=== PATIENT | female | born 1930 | race African-American/Black ===

== ENCOUNTER 2016-10-26 11:44 | Inpatient (IN) | payer OTHER ==
[2016-10-26 11:52] VITALS: BMI 32.9
--- NOTE | 2016-10-26 12:07 | PDOC ---
History of Present Illness <Bernardo Wilson - Last Filed: 10/26/16 13:20> - General History Source: Patient Exam Limitations: No Limitations - History of Present Illness Initial Comments: 10/26/16 12:28 The patient is an 85 year old female, with significant past medical history HTN , HLD, CAD s/p defibrillator, CHF, asthma, who presents today complaining of intermittent left sided chest pain over the past week. The patient does not have any pain at this time. The chest pain is non radiating and sharp that lasts for approximately 10 minutes. When she feels the pain, she usually takes an aspirin and goes to sleep. She has not mentioned the pain to her daughter until today, who then brought her into the emergency room. The patients daughter notes that the patient's diet supervisor is out of the country. Denies SOB, cough. Denies fever, chills, nausea, vomiting, sweats. Allergies: none reported PCP- No primary Social Hx: The patient lives at home alone. Process Development Associate - Dr. Uzair Gould <Angela Peacock - Last Filed: 10/26/16 14:35> - General Chief Complaint: Chest Pain Stated Complaint: CHEST PAIN Time Seen by Provider: 10/26/16 12:06 Past History - Past Medical History Anemia: No Asthma: No Cancer: No Cardiac Disorders: Yes (CAD) CVA: No COPD: No CHF: No Dementia: No Diabetes: No GI Disorders: No Disorders: No HTN: Yes Hypercholesterolemia: Yes Liver Disease: No Seizures: No Thyroid Disease: No - Surgical History Abdominal Surgery: No Appendectomy: No Cardiac Surgery: Yes (PPM/DF) Cholecystectomy: No Lung Surgery: No Neurologic Surgery: No Orthopedic Surgery: No - Psycho/Social/Smoking Cessation Hx Anxiety: No Suicidal Ideation: No Smoking Status: Yes Smoking History: Never smoked Have you smoked in the past 12 months: No Number of Cigarettes Smoked Daily: 0 Information on smoking cessation initiated: No Hx Alcohol Use: No Drug/Substance Use Hx: No Substance Use Type: None Hx Substance Use Treatment: No <Bernardo Wilson - Last Filed: 10/26/16 13:20> <Angela Peacock - Last Filed: 10/26/16 14:35> - Past Medical History Allergies/Adverse Reactions: Allergies Allergy/AdvReac Type Severity Reaction Status Date / Time No Known Allergies Allergy Verified 10/26/16 11:48 Home Medications: Ambulatory Orders Amlodipine Besylate 5 mg PO DAILY 10/26/16 Aspirin [ASA -] 81 mg PO DAILY 10/26/16 Carvedilol [Coreg] 25 mg PO BID 10/26/16 Losartan 50Mg/Hctz 12.5MG [Hyzaar -] 1 tab-cap PO DAILY 10/26/16 Multivitamin [Poly-Vitamin] 1 each PO DAILY 10/26/16 Naproxen [Naprosyn -] 500 mg PO BID 10/26/16 Pravastatin Sodium 20 mg PO DAILY 10/26/16 Sennosides/Docusate Sodium [Pericolace -] 1 tab PO PRN 10/26/16 Review of Systems - Review of Systems Able to Perform ROS?: Yes Comments:: 10/26/16 12:30 GENERAL/CONSTITUTIONAL: No fever or chills. No weakness. HEAD, EYES, EARS, NOSE AND THROAT: No change in vision. No ear pain or discharge. No sore throat. CARDIOVASCULAR: +intermittent chest pain x 1week. No shortness of breath. RESPIRATORY: No cough, wheezing, or hemoptysis. GASTROINTESTINAL: No nausea, vomiting, diarrhea or constipation. GENITOURINARY: No dysuria, frequency, or change in urination. MUSCULOSKELETAL: No joint or muscle swelling or pain. No neck or back pain. SKIN: No rash NEUROLOGIC: No headache, vertigo, loss of consciousness, or change in strength/ sensation. ENDOCRINE: No increased thirst. No abnormal weight change. HEMATOLOGIC/LYMPHATIC: No anemia, easy bleeding, or history of blood clots. ALLERGIC/IMMUNOLOGIC: No hives or skin allergy. <Angela Peacock - Last Filed: 10/26/16 14:35> *Physical Exam - Vital Signs Last Vital Signs Temp Pulse Resp BP Pulse Ox 98.2 F 144 H 18 95/56 97 10/26/16 11:48 10/26/16 11:48 10/26/16 11:48 10/26/16 11:48 10/26/16 11:48 <Bernardo Wilson - Last Filed: 10/26/16 13:20> - Vital Signs Last Vital Signs Temp Pulse Resp BP Pulse Ox 98.2 F 142 H 18 113/75 98 10/26/16 11:48 10/26/16 12:11 10/26/16 12:11 10/26/16 12:11 10/26/16 12:11 - Physical Exam Comments: 10/26/16 12:30 GENERAL: Awake, alert, and fully oriented, in no acute distress HEAD: No signs of trauma EYES: PERRLA, EOMI, sclera anicteric, conjunctiva clear ENT: Auricles normal inspection, hearing grossly normal, nares patent, oropharynx clear without exudates. Moist mucosa NECK: Normal ROM, supple, no lymphadenopathy, JVD, or masses LUNGS: Breath sounds equal, clear to auscultation bilaterally. No wheezes, no crackles, no rhales. HEART: +irregularly irregular rate and rhythm, normal S1 and S2, no murmurs, rubs or gallops ABDOMEN: Soft, nontender, normoactive bowel sounds. No guarding, no rebound. No masses EXTREMITIES: Normal range of motion, no edema. No clubbing or cyanosis. No cords , erythema, or tenderness NEUROLOGICAL: Cranial nerves II through XII grossly intact. Normal speech, normal gait SKIN: Warm, Dry, normal turgor, no rashes or lesions noted. <Angela Peacock - Last Filed: 10/26/16 14:35> ED Treatment Course - LABORATORY CBC & Chemistry Diagram: 10/26/16 12:15 10/26/16 12:15 <Bernardo Wilson - Last Filed: 10/26/16 13:20> - LABORATORY CBC & Chemistry Diagram: 10/26/16 12:15 10/26/16 12:15 <Angela Peacock - Last Filed: 10/26/16 14:35> Medical Decision Making - Medical Decision Making 10/26/16 12:34 Dr. Gould was called via office phone. His social secretary states that he is on vacation and asked us to call the on-call diet supervisor at the hospital. Dr. Alfredo was paged via paging service. Dr. Velazquez is home demonstrator. Awaiting call back. <Angela Peacock - Last Filed: 10/26/16 14:35> *DC/Admit/Observation/Transfer - Discharge Dispostion Admit: Yes - Attestations Physician Attestion: 10/26/16 12:07 I, Dr. Bernardo Wilson, attest that this document has been prepared under my direction and personally reviewed by me in its entirety. I further attest, that it accurately reflects all work, treatment, procedures and medical decision -making performed by me. <Bernardo Wilson - Last Filed: 10/26/16 13:20> - Attestations Scribe Attestion: 10/26/16 12:30 Documentation prepared by ANTHONY Hummel, acting as lpn or medical assistant for Bernardo Wilson DO. <Angela Peacock - Last Filed: 10/26/16 14:35> Diagnosis at time of Disposition: Atrial fibrillation with RVR - Discharge Dispostion Condition at time of disposition: Improved
[2016-10-26] MEDS ORDERED: dilTIAZem HCL 125 MG/25 ML - 25 ML VIAL ONE (12:14)
[2016-10-26] MEDS ORDERED: dilTIAZem HCL 50 MG/10 ML - 10 ML VIAL IVPUSH ONE ×2 (12:15→12:24)
[2016-10-26] MEDS ORDERED: DILTIAZEM INJECTION 125 MG in DEXTROSE 5%-WATER - 100 ML IVPB SCH (12:15)
[2016-10-26 12:21] LABS: MCH 27.3 pg (25.7-33.7); MCHC 30.7 g/dl (32.0-36.0); MEAN CELL VOLUME 89.1 fl (80-96); MEAN PLT VOLUME 8.9 fl (7.5-11.1); PLATELET COUNT 318 K/MM3 (134-434); RDW 18.4 % (11.6-15.6); WHITE BLOOD COUNT 15.8 K/mm3 (4.0-10.0)
[2016-10-26 12:41] LABS: INR 1.17 (0.82-1.09); PROTHROMBIN TIME (PATIENT) 12.9 SEC (9.98-11.88)
[2016-10-26 12:46] LABS: ALBUMIN 3.5 g/dl (3.4-5.0); ANION GAP 12 (8-16); BILIRUBIN,TOTAL 0.8 mg/dL (0.2-1.0); CALCIUM 9.2 mg/dL (8.5-10.1); CO2 22 mmol/L (21-32); CREATININE 3.7 mg/dL (0.55-1.02); GLUCOSE,RANDOM 117 mg/dL (74-106); MAGNESIUM 2.4 mg/dL (1.8-2.4); SGOT/AST 29 U/L (15-37); SGPT/ALT 41 U/L (12-78); TOT PROT 7.2 g/dl (6.4-8.2)
[2016-10-26] MEDS ORDERED: SODIUM CHLORIDE 500 ML IV STA (12:46)
[2016-10-26 12:50] LABS: ALK PHOS 172 U/L (45-117); TROPONIN I 0.06 ng/ml (0.00-0.05)
--- NOTE | 2016-10-26 14:32 | HP ---
CHIEF COMPLAINT: "Left sided chest pain" PCP: No PCP Cardiology: Dr. Rendon HISTORY OF PRESENT ILLNESS: patient is an 85 year old female, with significant past medical history HTN, HLD , CAD s/p defibrillator, CHF, asthma, who presents today complaining of intermittent left sided chest pain since a week. As per the patient, she was apparently well a week ago when she started having left sided chest pain, intermittent in nature, burning in quality, non radiating, reproducible, aggravated on movement, relieved on resting. Hasn't taken any pain medication at home for her condition. Not associated with palpitation, sob or cough. Patient states that she has been following with Dr. Rendon, her last visit was a month ago and everything was okay. Lives alone at home. Is able to walk and do her daily activities on her own. ER course was notable for: (1) Afebrile, Irregularly Irregular rate and rhythm, Leukocytosis (2) CXR- Left sided pacer, no acute pathology (3) IV Cardizem 10mg followed by drip Recent Travel: None PAST MEDICAL HISTORY: Hypertension, HLD, CAD s/p defibrillator, CHF, asthma PAST SURGICAL HISTORY: as mentioned above Social History: Smoking: started smoking at age 16, smoked for 5 years but quit Alcohol: Daily, more than a glass and less than 6packs. 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 Family History: Not known Allergies No Known Allergies Allergy (Verified 10/26/16 11:48) HOME MEDICATIONS: Confirmed with her pharmacy Home Medications Medication Instructions Recorded Amlodipine Besylate 5 mg PO DAILY 10/26/16 Aspirin [ASA -] 81 mg PO DAILY 10/26/16 Carvedilol [Coreg] 25 mg PO BID 10/26/16 Losartan 50Mg/Hctz 12.5MG [Hyzaar 1 tab-cap PO DAILY 10/26/16 -] Multivitamin [Poly-Vitamin] 1 each PO DAILY 10/26/16 Naproxen [Naprosyn -] 500 mg PO BID 10/26/16 Pravastatin Sodium 20 mg PO DAILY 10/26/16 Sennosides/Docusate Sodium 1 tab PO PRN 10/26/16 [Pericolace -] REVIEW OF SYSTEMS CONSTITUTIONAL: Present: Fatigue, ringing of ears Absent: fever, chills, diaphoresis, generalized weakness, malaise, loss of appetite, weight change HEENT: Absent: rhinorrhea, nasal congestion, throat pain, throat swelling, difficulty swallowing, mouth swelling, ear pain, eye pain, visual changes CARDIOVASCULAR: Absent: chest pain, syncope, palpitations, irregular heart rate, lightheadedness , peripheral edema RESPIRATORY: Absent: cough, shortness of breath, dyspnea with exertion, orthopnea, wheezing, stridor, hemoptysis GASTROINTESTINAL: Absent: abdominal pain, abdominal distension, nausea, vomiting, diarrhea, constipation, melena, hematochezia GENITOURINARY: Absent: dysuria, frequency, urgency, hesitancy, hematuria, flank pain, genital pain MUSCULOSKELETAL: Absent: myalgia, arthralgia, joint swelling, back pain, neck pain SKIN: Absent: rash, itching, pallor HEMATOLOGIC/IMMUNOLOGIC: Absent: easy bleeding, easy bruising, lymphadenopathy, frequent infections ENDOCRINE: Absent: unexplained weight gain, unexplained weight loss, heat intolerance, cold intolerance NEUROLOGIC: Absent: headache, focal weakness or paresthesias, dizziness, unsteady gait, seizure, mental status changes, bladder or bowel incontinence PSYCHIATRIC: Absent: anxiety, depression, suicidal or homicidal ideation, hallucinations. PHYSICAL EXAMINATION GENERAL: Elderly female, lying comfortably in bed, Awake, alert, and fully oriented, in no acute distress. HEAD: Normal with no signs of trauma. EYES: EOM intact, no pallor or icterus. EARS, NOSE, THROAT: Ears normal. Moist mucous membranes. Poor dentition. NECK: Supple. LUNGS: B/L Breath sounds equal, clear to auscultation bilaterally. No wheezes, and no crackles. No accessory muscle use. Chest: reproducible HEART: Irregularly irregular rate and rhythm, normal S1 and S2 with systolic murmur. ABDOMEN: Soft, nontender, not distended, normoactive bowel sounds, no guarding, no rebound, no masses. No hepatomegaly or splenomegaly. Per Rectal: No hemorrhoids or fissues, Empty rectal vault, no mass, minimal stool. MUSCULOSKELETAL: Normal range of motion at all joints. No bony deformities or tenderness. No CVA tenderness. UPPER EXTREMITIES: 2+ pulses, warm, well-perfused. No cyanosis. No clubbing. No peripheral edema. LOWER EXTREMITIES: 2+ pulses, warm, well-perfused. No calf tenderness. No peripheral edema. NEUROLOGICAL: No facial droop. Bulk/tone-normal, Power-5/5 in all ext. Cranial nerves II-XII intact. Normal speech. Normal gait. PSYCHIATRIC: Cooperative. Good eye contact. Appropriate mood and affect. SKIN: Warm, dry, normal turgor, no rashes or lesions noted, normal capillary refill. Echo 10/26/16 : Septal motion is consistent with conduction abnormality. Upper septal hypertrophy (sigmoid septum), normal variant, Left ventricular systolic function is moderate to severely reduced. Pacemaker in the right ventricle. left atrium is moderately dilated. Mild-mod-MR, TR, Right ventricular systolic pressure is elevated at 40-50mmHg. No pericardial effusion. ASSESSMENT/PLAN: Patient is an 85 year old female, with significant past medical history HTN, HLD , CAD s/p defibrillator, CHF, asthma, who presents today complaining of intermittent left sided chest pain over the past week. # New onset atrial fibrillation with RVR -uncontrolled Presented with chest pain. In the ED, found to be afebrile, irregularly irregular heart rate Was given Cardizem 10mg in the ED and cardizem drip was started and now it is controlled Admitted in Telemetry Continous cardiac monitoring Discontinued Cardizem drip and started her on PO Amiodarone 100mg BID, discussed with Dr. Ferrari. Echo as reported CHADsVasc score is 4, anticogulate with Heparin, stool occult negative Patient had a h/o GI bleed 3 years ago but hasn't had GI bleed since. Will monitor H/H closely Cardiology consult requested # Chest pain-r/o ACS Likely musculoskeletal-reproducible Troponins 0.06---> Pending at 6pm # Acute Kidney Injury- likely due to dehydration Creatinine 3.7, baseline 0.9 in 2012 IV NS 75mls/hr Urine electrolytes ordered Avoid nephrotoxic drugs # Persistent Leukocytosis Will try to obtain past medical records She is afebrile, CXR normal, hence will just monitor at this time # CAD Continue Aspirin # Hyperlipidemia Continue Atorvastatin 10mg HS # Hypertension Continue Amlodipine 5mg PO Daily. # Microcytic anemia r/o Iron deficiency anemia Baseline 10.6 in 2012; Today Hb-8.7 Iron studies pending Watch for any bleeding episodes, transfuse if actively bleeding and Hb < 7gm/ dl # FEN IV NS @ 75mls/hr Electrolytes to be repeated tomorrow Sodium controlled diet # Prophylaxis For DVT: On Heparin Drip For Gi: Not indicated # Code Status: Full Code # Dispo: Admitted in Telemetry. Duration of stay unknown. Illness, Investigation and Plan of care explained to the patient and her daughter. They verbalized understanding. Case discussed with Dr. Ferrari. Visit type - Emergency Visit Emergency Visit: Yes ED Registration Date: 10/26/16 Care time: The patient presented to the Emergency Department on the above date and was hospitalized for further evaluation of their emergent condition. - New Patient This patient is new to me today: Yes Date on this admission: 10/26/16 - Critical Care Critical Care patient: No
[2016-10-26 15:02] LABS: PLATELET ESTIMATE ADEQUATE (NORMAL)
--- NOTE | 2016-10-26 15:13 | PN ---
Teaching Attending Note Name of Resident: Ruthie Dalal ATTENDING PHYSICIAN STATEMENT I saw and evaluated the patient. I reviewed the resident's note and discussed the case with the resident. I agree with the resident's findings and plan as documented. SUBJECTIVE: chest pain x 1 week 85 year old female presents to the ED complaining of one week history of intermittent left sided chest pain 6/10 in intensity , non radiating. Pain is exacerbated by minimal exertion and relieved by her " regular meds" . She denies recent history of similar pain. Was seen by her sports commentator 1 month ago, denies recent cardiology tests , denies history of CAD and unclear why she had AICD placed. In the ED was found to have irregular heart rate of 130 and up. No prior history of arrhythmia. PMH HTN Hyperlipidemia CHF- systolic dysfunction CAD COPD Past SX Hx AICD Questionable history of CCATH Home Medication List Medication Instructions Recorded Confirmed Type Amlodipine Besylate 5 mg PO DAILY 10/26/16 10/26/16 History Aspirin [ASA -] 81 mg PO DAILY 10/26/16 10/26/16 History Carvedilol [Coreg] 25 mg PO BID 10/26/16 10/26/16 History Losartan 50Mg/Hctz 12.5MG [Hyzaar 1 tab-cap PO DAILY 10/26/16 10/26/16 History -] Multivitamin [Poly-Vitamin] 1 each PO DAILY 10/26/16 10/26/16 History Naproxen [Naprosyn -] 500 mg PO BID 10/26/16 10/26/16 History Pravastatin Sodium 20 mg PO DAILY 10/26/16 10/26/16 History Sennosides/Docusate Sodium 1 tab PO PRN 10/26/16 10/26/16 History [Pericolace -] OBJECTIVE: Vital Signs Temperature 97.8 F 10/26/16 14:56 Pulse Rate 105 H 10/26/16 14:56 Respiratory Rate 22 10/26/16 14:56 Blood Pressure 116/58 10/26/16 14:56 O2 Sat by Pulse Oximetry (%) 98 10/26/16 14:56 HEENT PERRLA, No JVD CVS S1 S2 WNL no MRG no pedal edema RS CTA B/l ABD Soft NT CBC, BMP 10/26/16 12:15 10/26/16 12:15 EKG - Afib w RVR ASSESSMENT AND PLAN: 1. Atrial Fibrillation with Rapid Ventricular Response - new onset, no registered or known history of AFIB. Controlled after initiation of cardizem drip. * Obtain Records from Dr Fish office ( patients sports commentator) * Echo 2D * start heparin , will switch to oral a/c when CR is stable * cardiology evaluation 2. Chest pain, provoked by exertion - borderline troponin which could be 2/2 renal insufficiency, no ST changes on EKG. * repeat enzymes * aspirin daily * serial ekg * cardiology evaluation * telemetry monitoring 3. History of CHF with systolic dysfunction - most recent echo available is from 2012 and shows reduced LVSF. Does not appear to be in acute exacerbation clinically . Has normal lung exam, no JVD, no pedal edema. Pro BNP is elevated but renal failure could be contributing. * Echo * c/w coreg 4. Acute on Chronic Renal Failure - possibly pre renal * ivf at 50 cc/hr * obtain UA stat * monitor BMP * US renal 5 Anemia of chronic disease- stable , no active bleeding * monitor CBC * transfuse 6. Leukocytosis - chronic , need to rule out acute infectionus process.
[2016-10-26] MEDS ORDERED: HEPARIN - 25,000 UNIT in SODIUM CHLORIDE 495 ML IV SCH (16:30)
[2016-10-26] MEDS ORDERED: HEPARIN NA (PORCINE) 5,000 UNITS/ML 1ML VIAL IVPUSH PRN ×2 (16:30)
[2016-10-26] MEDS ORDERED: SODIUM CHLORIDE 1,000 ML IV SCH (16:45)
--- NOTE | 2016-10-26 16:53 | MSN ---
Admitting History and Physical - Primary Care Physician PCP: None - Admission Chief Complaint: Left-sided chest pain History of Present Illness: Patient has had multiple episodes of left-sided chest pain, each episode lasting about 10 minutes for the past week. She describes the pain as "burning like a cigarette". The pain does not radiate and is relieved by rest and exacerbated by cleaning the house. Patient had similar symptoms about 3 years and followed with her guidance adviser (Dr. Gould) but is unclear about treatment. Patient denies SOB, palpitations, or nausea and vomiting. Patient admits to fatigue, foot pain, and occasional buzzing in the ears. History Source: Patient Limitations to Obtaining History: No Limitations - Past Medical History Cardiovascular: Yes: CAD, CHF, HTN, Hyperlipdemia Pulmonary: Yes: Asthma Gastrointestinal: Yes: Other (Rectal bleed 2012) Heme/Onc: Yes: Anemia - Past Surgical History Past Surgical History: Yes: None, AICD - Smoking History Smoking history: Never smoked Have you smoked in the past 12 months: No Aproximately how many cigarettes per day: 0 - Alcohol/Substance Use Hx Alcohol Use: Yes Number of Drinks Daily: 2 History of Substance Use: reports: None - Social History Usual Living Arrangement: Yes: Alone ADL: Family Assistance History of Recent Travel: No Home Medications - Allergies Allergies/Adverse Reactions: Allergies Allergy/AdvReac Type Severity Reaction Status Date / Time No Known Allergies Allergy Verified 10/26/16 11:48 - Home Medications Home Medications: Ambulatory Orders Amlodipine Besylate 5 mg PO DAILY 10/26/16 Aspirin [ASA -] 81 mg PO DAILY 10/26/16 Carvedilol [Coreg] 25 mg PO BID 10/26/16 Losartan 50Mg/Hctz 12.5MG [Hyzaar -] 1 tab-cap PO DAILY 10/26/16 Multivitamin [Poly-Vitamin] 1 each PO DAILY 10/26/16 Naproxen [Naprosyn -] 500 mg PO BID 10/26/16 Pravastatin Sodium 20 mg PO DAILY 10/26/16 Sennosides/Docusate Sodium [Pericolace -] 1 tab PO PRN 10/26/16 Family Disease History - Family Disease History Family History: Unremarkable Review of Systems - Review of Systems Constitutional: reports: Other (Fatigue). denies: Loss of Appetite, Unintentional Wgt. Loss Eyes: denies: Blurred Vision, Double Vision HENT: reports: Other (Buzzing in ears). denies: Difficult Swallowing, Nasal Congestion Neck: denies: Stiffness, Tenderness Cardiovascular: reports: Chest Pain. denies: Palpitations, Shortness of Breath Respiratory: denies: Cough Gastrointestinal: denies: Abdominal Pain, Dysphagia, Indigestion, Nausea, Vomiting Genitourinary: denies: Burning, Dysuria Integumentary: denies: Lesions, Rash, Wound Neurological: denies: Change in Speech, Headache, Numbness Hematology/Lymphatic: denies: Easily Bruised Physical Examination Vital Signs: Vital Signs Temperature 97.8 F 10/26/16 14:56 Pulse Rate 105 H 10/26/16 14:56 Respiratory Rate 22 10/26/16 14:56 Blood Pressure 116/58 10/26/16 14:56 O2 Sat by Pulse Oximetry (%) 98 10/26/16 14:56 Findings/Remarks: General: Well-nourished, animated women sitting comfortably in bed in no acute distress Head: Normocephalic, atraumatic Eyes: EOMI; PERRLA Ears: EAC clear; TM translucent Mouth/pharynx: Moist mucous membranes; no erythema or exudates; poor residential Neck: Supple; no lymphadenopathy; trachea midline Heart: Irregularly irregular; Normal S1/S2; systolic murmur head parasternally Chest: Tender to palpation at 4th and 5 th intercostal space midclavicular to midaxillary area Lungs: CTA b/l; no wheezes, rhonci or rales Abdomen: Normactive bowel sounds; soft; non-tender; non-distend; no hepatomegaly ; no splenomegaly; no masses MSK: Normal motion at all joints; no bony deformities Extremities: No edema; Warm, well-perfused, 2+ pulses UE/LE Neurological: CN II-XII grossly intact; normal speech; No facial droop; normal sensation; normal bulk and muscle tone; 5/5 muscle strength UE and LE b/l Skin: No digital clubbing, no lesions or rashes Imaging - Results Chest X-ray: Report Reviewed EKG: Report Reviewed Assessment/Plan Assessment and Plan: Animated 85 yr old woman with past medical history of HTN, HLD, CAD with ICD, CHF and asthma presents to ER with episodic left-sided chest pain for the last week and was found to have new-onset atrial fibrillation with rapid ventricular response. 1. New on-set atrial fibrillation with rapid ventricular response * Likely complication of moderate to severe LV dysfunction with moderate left atrial dilation and chronic ischemic heart disease * Begin Heparin drip; CHADVAS score of 4 * Discontinue cardizem drip and start amiodorione 100 mg po bid for ventricular rate control * Consult cardiology (Dr. Gould, patient's guidance adviser, is away) * Monitor patient in telemetry 2. Chest pain * May be MSK in origin; pain is reproducable with palpation of chest wall * Rule out ACS; 1st troponin .06; repeat troponin at 6pm 3. RICA * Cr 3.7 (baseline Cr 0.9 in 2013) * May be caused by hypovolemia; trial of IVF (NS 75 mls/hr); monitor patient's volume status to prevent worsening cardiac symptoms * Order urine electrolytes 4. Persistent leukocytosis * Patient afebrile with WBC of 15.8 * Investigate for underlying infection; CXR-no evidence of pneumonia; order urine culture 5. Normocytic anemia * Hemoglobin 8.7 (patient baseline hemoglobin of 10.6 in 2013) * Order iron studies * History of rectal bleed in 2013 * Test for FOB * Monitor hemoglobin and transfuse if hemoglobin below 7.5 gm/dL or if patient develops hypoxic symptoms 6. FEN * IV NS 75 mls/hr * Cardiac diet 7. DVT prophylaxis * Heparin drip 8. Dispo * Patient admitted and will monitor in telemetry
[2016-10-26] MEDS ORDERED: HEPARIN INFUSION - 500 ML IVPB ONE (17:15)
--- NOTE | 2016-10-26 17:19 | CON.CARD ---
Consult - History of Present Illness History of Present Illness: The patient is an 85 year old female, with significant past medical history HTN , HLD, CAD s/p defibrillator, CHF, asthma, who presents today complaining of intermittent left sided chest pain over the past week. The patient does not have any pain at this time. The chest pain is non radiating and sharp that lasts for approximately 10 minutes. When she feels the pain, she usually takes an aspirin and goes to sleep. She has not mentioned the pain to her daughter until today, who then brought her into the emergency room. The patients daughter notes that the patient's licensed psychologist is out of the country. Denies SOB, cough. Denies fever, chills, nausea, vomiting, sweats. Allergies: none reported PCP- No primary Social Hx: The patient lives at home alone. Flavor Room Worker - Dr. Uzair Gould [phone] - History Source Limitations to Obtaining History: Poor Historian - Past Medical History Cardio/Vascular: Yes: CAD, CHF, HTN, Hyperlipdemia Pulmonary: Yes: Asthma Gastrointestinal: Yes: Other (Rectal bleed 2012) - Past Surgical History Past Surgical History: Yes: None, AICD - Alcohol/Substance Use Hx Alcohol Use: Yes Number of Drinks Daily: 2 History of Substance Use: reports: None - Smoking History Smoking history: Never smoked Have you smoked in the past 12 months: No Aproximately how many cigarettes per day: 0 - Social History ADL: Family Assistance History of Recent Travel: No Home Medications - Allergies Allergies/Adverse Reactions: Allergies Allergy/AdvReac Type Severity Reaction Status Date / Time No Known Allergies Allergy Verified 10/26/16 11:48 - Home Medications Home Medications: Ambulatory Orders Amlodipine Besylate 5 mg PO DAILY 10/26/16 Aspirin [ASA -] 81 mg PO DAILY 10/26/16 Carvedilol [Coreg] 25 mg PO BID 10/26/16 Losartan 50Mg/Hctz 12.5MG [Hyzaar -] 1 tab-cap PO DAILY 10/26/16 Multivitamin [Poly-Vitamin] 1 each PO DAILY 10/26/16 Naproxen [Naprosyn -] 500 mg PO BID 10/26/16 Pravastatin Sodium 20 mg PO DAILY 10/26/16 Sennosides/Docusate Sodium [Pericolace -] 1 tab PO PRN 10/26/16 Review of Systems - Review of Systems Constitutional: reports: No Symptoms Eyes: reports: No Symptoms HENT: reports: No Symptoms Neck: reports: No Symptoms Cardiovascular: reports: Chest Pain Gastrointestinal: reports: No Symptoms Genitourinary: reports: No Symptoms Breasts: reports: No Symptoms Reported Musculoskeletal: reports: No Symptoms Integumentary: reports: No Symptoms Neurological: reports: No Symptoms Endocrine: reports: No Symptoms Hematology/Lymphatic: reports: No Symptoms Psychiatric: reports: No Symptoms Vital Signs: Vital Signs Temperature 97.8 F 10/26/16 14:56 Pulse Rate 105 H 10/26/16 14:56 Respiratory Rate 22 10/26/16 14:56 Blood Pressure 116/58 10/26/16 14:56 O2 Sat by Pulse Oximetry (%) 98 10/26/16 14:56 Constitutional: Yes: Well Nourished, No Distress, Calm Eyes: Yes: WNL, Conjunctiva Clear, EOM Intact HENT: Yes: WNL, Atraumatic, Normocephalic Neck: Yes: WNL, Supple, Trachea Midline Respiratory: Yes: WNL, Regular, CTA Bilaterally Gastrointestinal: Yes: WNL, Normal Bowel Sounds Renal/: Yes: WNL Cardiovascular: Yes: Pulse Irregular Musculoskeletal: Yes: WNL Extremities: Yes: WNL Integumentary: Yes: WNL Neurological: Yes: WNL, Alert, Oriented ...Motor Strength: WNL Psychiatric: Yes: WNL, Alert, Oriented - Other Data Labs, Other Data: INR, PTT INR 1.17 (0.82-1.09) H 10/26/16 12:15 Laboratory Tests 10/26/16 10/26/16 10/26/16 12:15 12:15 12:15 WBC 15.8 H RBC 3.19 L Hgb 8.7 L Hct 28.4 L MCV 89.1 MCHC 30.7 L RDW 18.4 H Plt Count 318 D MPV 8.9 Neutrophils % 78.0 Lymphocytes % 11.0 D Monocytes % 6.0 Eosinophils % 3.0 D Basophils % 2.0 D Differential Comment Manual diff done Platelet Estimate Adequate INR 1.17 H Sodium 141 Potassium 4.5 Chloride 107 Carbon Dioxide 22 Anion Gap 12 BUN 41 H D Creatinine 3.7 H D Creat Clearance w eGFR 11.67 Random Glucose 117 H Calcium 9.2 Magnesium 2.4 Total Bilirubin 0.8 AST 29 D ALT 41 D Alkaline Phosphatase 172 H Creatine Kinase 82 Troponin I 0.06 H B-Natriuretic Peptide Total Protein 7.2 Albumin 3.5 Blood Type Antibody Screen 10/26/16 10/26/16 12:15 12:15 WBC RBC Hgb Hct MCV MCHC RDW Plt Count MPV Neutrophils % Lymphocytes % Monocytes % Eosinophils % Basophils % Differential Comment Platelet Estimate INR Sodium Potassium Chloride Carbon Dioxide Anion Gap BUN Creatinine Creat Clearance w eGFR Random Glucose Calcium Magnesium Total Bilirubin AST ALT Alkaline Phosphatase Creatine Kinase Troponin I B-Natriuretic Peptide 68889.12 H Total Protein Albumin Blood Type B POSITIVE Antibody Screen Negative Imaging - Results Chest X-ray: Image Reviewed (no i/e) EKG: Image Reviewed (af LBBB) Assessment/Plan HTN, HLD, CAD s/p defibrillator, CHF, asthma, who presents today complaining of intermittent left sided chest pain over the past week. AF mod-severely reduced ef Plan AC rate control with cardizem and BB obtaine records re prior cardiac testing/ angio?/stents? from dr. Quintero office
[2016-10-26] MEDS ORDERED: HEPARIN NA (PORCINE) 5,000 UNITS/ML 1ML VIAL SQ SCH (22:00)
[2016-10-26] MEDS ORDERED: AMIODARONE HCL 200 MG TABLET (FP) PO SCH (22:00)
[2016-10-26] MEDS ORDERED: ATORVASTATIN CA 10 MG TABLET (FP) PO SCH (22:00)
[2016-10-26] MEDS ORDERED: CARVEDILOL 25 MG TABLET (FP) PO SCH (22:00)
[2016-10-26] MEDS ORDERED: DOPAMINE 400 MG/D5W - 250 ML IVPB SCH (23:45)
[2016-10-26] MEDS ORDERED: ATROPINE SULFATE 1 MG/10 ML DISP.SYRIN IVPUSH ONE (23:46)
[2016-10-26] MEDS ORDERED: GLUCAGON 1 MG KIT IVPUSH ONE ×2 (23:47→23:50)
[2016-10-27] MEDS: HEPARIN - 25,000 UNIT in SODIUM CHLORIDE 495 ML IV SCH ×2 (00:30→09:38)
--- NOTE | 2016-10-27 00:39 | RAPID ---
Physical Examination Vital Signs: Vital Signs Temperature 98.3 F 10/26/16 20:30 Pulse Rate 82 10/26/16 22:46 Respiratory Rate 19 10/26/16 22:46 Blood Pressure 111/48 10/26/16 22:46 O2 Sat by Pulse Oximetry (%) 98 10/26/16 19:36 Findings/Remarks: Rapid response called due to patient being bradycardic in 40s and hypotensive, 70s systolic. Constitutional: Yes: Anxious HENT: Yes: Atraumatic, Normocephalic Cardiovascular: Yes: Bradycardia, Pulse Irregular Respiratory: Yes: On Venti-Mask, Poor Air Entry Gastrointestinal: Yes: Normal Bowel Sounds, Soft, Abdomen, Obese Extremities: Yes: Cool Edema: No Peripheral Pulses: Left Radial: 2+, Right Radial: 2+, Left Doralis Pedis: 2+, Right Dorsalis Pedis: 2+, Left Femoral: 2+, Right Femoral: 2+ Neurological: Yes: Alert, Oriented Rapid Response - Rapid Response Assessment: This is a 89 year old female with a past medical history HTN, HLD, CAD s/p defibrillator, CHF, asthma, who presented with to hospital with initial complaints of chest pain. She was admitted for new onset atrial fibrillation with rapid ventricular response. She was initially on a cardizem drip, then being transition to po amiodarone 100mg po bid. She was also taking coreg 25mg po bid. Rapid response was called due to heart rate in 40s and sysloic blood pressure in 70s. #bradycardia and hypotension: -stat atropine 0.5mg IVP once -glucagon 1mg IVP once -venti mask; -dopamine drip starting at 5mcg: titrate; keep bp >90/60 -stop all antihypertensives -patient responded with a rise in BP, could not maintain off drip -transfer to ICU Critical Care Total Critical Care Time (in minutes): 35 Critical Care Statement: The care of this patient involved high complexity decision making to prevent further life threatening deterioration of the patient 's condition and/or to evalute & treat vital organ system(s) failure or risk of failure.
[2016-10-27] MEDS ORDERED: GLUCAGON 1 MG KIT IVPUSH ONE (01:04)
[2016-10-27] MEDS ORDERED: ATROPINE SULFATE 1 MG/10 ML DISP.SYRIN IVPUSH ONE (01:04)
[2016-10-27] MEDS ORDERED: SODIUM CHLORIDE 1,000 ML IV SCH (01:04)
[2016-10-27] MEDS ORDERED: HEPARIN NA (PORCINE) 5,000 UNITS/ML 1ML VIAL IVPUSH PRN ×4 (01:04)
[2016-10-27 01:30] LABS: MCH 27.2 pg (25.7-33.7); MCHC 30.5 g/dl (32.0-36.0); MEAN CELL VOLUME 89.3 fl (80-96); MEAN PLT VOLUME 9.2 fl (7.5-11.1); PLATELET COUNT 248 K/MM3 (134-434); RDW 18.2 % (11.6-15.6); WHITE BLOOD COUNT 15.9 K/mm3 (4.0-10.0)
--- NOTE | 2016-10-27 01:33 | CONSULT ---
Consult Consult Specialty:: PULMONARY/CRITICAL CARE MEDICINE Referred by:: Dr Ferrari Reason for Consultation:: hypotension - History of Present Illness Chief Complaint: chest pain History of Present Illness: In brief, 85 y/o female with CAD, ICM, CHF, has AICD (no PPM), admitted to the floor with chest pain, new onset AF w/RVR requiring Dilt push and drip. While on the floor she was being converted to PO Amio, also received Amlodipine and Coreg. She had an episode of bradycardia into the 40s with hypotension to 70s systolic. She was given Atropine 0.5mg, 1L of IVF and then started on a Dopamine drip. She maintained her mental status throughout this ordeal and has no complaints of pain, SOB, etc. She was brought to the ICU. - History Source History Provided By: Patient, Medical Record Limitations to Obtaining History: No Limitations - Past Medical History Cardio/Vascular: Yes: CAD, CHF, HTN, Hyperlipdemia Pulmonary: Yes: Asthma Gastrointestinal: Yes: Other (Rectal bleed 2012) - Past Surgical History Past Surgical History: Yes: None, AICD - Alcohol/Substance Use Hx Alcohol Use: Yes Number of Drinks Daily: 2 History of Substance Use: reports: None - Smoking History Smoking history: Never smoked Have you smoked in the past 12 months: No Aproximately how many cigarettes per day: 0 - Social History ADL: Family Assistance History of Recent Travel: No Home Medications - Allergies Allergies/Adverse Reactions: Allergies Allergy/AdvReac Type Severity Reaction Status Date / Time No Known Allergies Allergy Verified 10/26/16 11:48 - Home Medications Home Medications: Ambulatory Orders Amlodipine Besylate 5 mg PO DAILY 10/26/16 Aspirin [ASA -] 81 mg PO DAILY 10/26/16 Carvedilol [Coreg] 25 mg PO BID 10/26/16 Losartan 50Mg/Hctz 12.5MG [Hyzaar -] 1 tab-cap PO DAILY 10/26/16 Multivitamin [Poly-Vitamin] 1 each PO DAILY 10/26/16 Naproxen [Naprosyn -] 500 mg PO BID 10/26/16 Pravastatin Sodium 20 mg PO DAILY 10/26/16 Sennosides/Docusate Sodium [Pericolace -] 1 tab PO PRN 10/26/16 Review of Systems - Review of Systems Constitutional: reports: No Symptoms Eyes: reports: No Symptoms HENT: reports: No Symptoms Neck: reports: Swollen Glands Cardiovascular: reports: Palpitations, Other (chest pain) Respiratory: reports: No Symptoms Gastrointestinal: reports: No Symptoms Genitourinary: reports: No Symptoms Integumentary: reports: No Symptoms Neurological: reports: No Symptoms Physical Exam Vital Signs: Vital Signs Temperature 98.3 F 10/26/16 20:30 Pulse Rate 82 10/26/16 22:46 Respiratory Rate 19 10/26/16 22:46 Blood Pressure 111/48 10/26/16 22:46 O2 Sat by Pulse Oximetry (%) 98 10/26/16 19:36 Constitutional: Yes: Well Nourished Eyes: Yes: WNL HENT: Yes: Atraumatic, Normocephalic Neck: Yes: WNL Cardiovascular: Yes: Bradycardia, Pulse Irregular, JVD, S1, S2, S3 Respiratory: Yes: Diminished, On Nasal O2 Gastrointestinal: Yes: Normal Bowel Sounds, Soft Extremities: Yes: Cold Edema: No Peripheral Pulses WNL: Yes Integumentary: Yes: WNL Neurological: Yes: WNL ...Motor Strength: WNL Labs: CBC, BMP 10/26/16 12:15 Imaging - Results Chest X-ray: Image Reviewed EKG: Image Reviewed Problem List - Problems (1) Atrial fibrillation Code(s): I48.91 - UNSPECIFIED ATRIAL FIBRILLATION (2) Bradycardia Code(s): R00.1 - BRADYCARDIA, UNSPECIFIED (3) CHF (congestive heart failure) Code(s): I50.9 - HEART FAILURE, UNSPECIFIED (4) CAD (coronary artery disease) Code(s): I25.10 - ATHSCL HEART DISEASE OF [place] CORONARY ARTERY W/O ANG PCTRS (5) RICA (acute kidney injury) Code(s): N17.9 - ACUTE KIDNEY FAILURE, UNSPECIFIED Assessment/Plan AF w/RVR now bradycardic and hypotensive - suspect combination of Amlodipine, CCB, BB and Amio. Could also be decompensated heart failure. CHF RICA CAD -Hold all anti-hypertensives and rate controlling agents -Dopamine drip for chrono and inotrope - I defer TLC/aggressive measures for now in this 85 y/o who is chronically, critically ill -Stop IVF - suspect this is worsening heart failure, she has cold extremities, JVD and pulm edema, BNP is >10k -Kimball, check urine lytes and renal u/s -Check UA/culture - no abx for now -Cardiology follow up tomorrow -GOC discussions Critically Ill - CCT 45min Thank you for this interesting consult Sukumar Cruz Pulm/Critical Care REPRODUCTION SPECIALIST
[2016-10-27 08:09] LABS: MCH 27.2 pg (25.7-33.7); MCHC 30.9 g/dl (32.0-36.0); MEAN CELL VOLUME 88.1 fl (80-96); MEAN PLT VOLUME 9.2 fl (7.5-11.1); PLATELET COUNT 258 K/MM3 (134-434); RDW 18.2 % (11.6-15.6); WHITE BLOOD COUNT 17.1 K/mm3 (4.0-10.0)
[2016-10-27 08:33] LABS: ANION GAP 11 (8-16); CALCIUM 8.2 mg/dL (8.5-10.1); CO2 18 mmol/L (21-32); CREATININE 3.4 mg/dL (0.55-1.02); GLUCOSE,RANDOM 149 mg/dL (74-106); MAGNESIUM 2.1 mg/dL (1.8-2.4); PHOSPHOROUS 5.1 mg/dL (2.5-4.9)
[2016-10-27 08:41] LABS: THYROID STIMULATING HORMONE 0.59 uIU/ml (0.358-3.74)
[2016-10-27] MEDS: ASPIRIN 81 MG CHEWABLE TABLETS PO SCH (09:39)
[2016-10-27 09:49] LABS: PLATELET ESTIMATE ADEQUATE (NORMAL)
[2016-10-27 09:53] LABS: FERRITIN 60.08 ng/ml (6.9-282.5)
[2016-10-27] MEDS ORDERED: ASPIRIN 81 MG CHEWABLE TABLETS PO SCH (10:00)
[2016-10-27] MEDS ORDERED: amLODIPine BESYLATE 5 MG TABLET (FP) PO SCH (10:00)
--- NOTE | 2016-10-27 10:44 | PN ---
Physical Exam: SUBJECTIVE: Patient seen and examined Events noted. Patient is comfortable in ICU now on Dopamine drip since became bradycardic. Patient has a pacemaker. OBJECTIVE: Vital Signs Temperature 98.5 F 10/27/16 10:00 Pulse Rate 73 10/27/16 10:00 Respiratory Rate 19 10/27/16 10:00 Blood Pressure 87/79 10/27/16 10:00 O2 Sat by Pulse Oximetry (%) 100 10/27/16 09:15 GENERAL: The patient is awake, alert, and fully oriented, in no acute distress. HEAD: Normal with no signs of trauma. EYES: PERRL, extraocular movements intact, sclera anicteric, conjunctiva clear. No ptosis. ENT: Ears normal, nares patent, oropharynx clear without exudates, moist mucous membranes. NECK: Trachea midline, full range of motion, supple. LUNGS: decreased BS Bilaterally , clear to auscultation bilaterally, no wheezes , no crackles, no accessory muscle use. HEART: Regular rate and rhythm, S1, S2 positive, KIRSTEN 2/6 , positive for pacemaker. ABDOMEN: Soft, nontender, nondistended, normoactive bowel sounds, no guarding, no rebound, no hepatosplenomegaly, no masses. EXTREMITIES: 2+ pulses, warm, well-perfused, no edema. NEUROLOGICAL: Cranial nerves II through XII grossly intact. Normal speech, gait not observed. PSYCH: Normal mood, normal affect. SKIN: Warm, dry, normal turgor, no rashes or lesions noted CBCD WBC 17.1 K/mm3 (4.0-10.0) H 10/27/16 05:10 RBC 2.72 M/mm3 (3.60-5.2) L 10/27/16 05:10 Hgb 7.4 GM/dL (10.7-15.3) L 10/27/16 05:10 Hct 24.0 % (32.4-45.2) L 10/27/16 05:10 MCV 88.1 fl (80-96) 10/27/16 05:10 MCHC 30.9 g/dl (32.0-36.0) L 10/27/16 05:10 RDW 18.2 % (11.6-15.6) H 10/27/16 05:10 Plt Count 258 K/MM3 (134-434) 10/27/16 05:10 MPV 9.2 fl (7.5-11.1) 10/27/16 05:10 CMP Sodium 138 mmol/L (136-145) 10/27/16 05:10 Potassium 4.3 mmol/L (3.5-5.1) 10/27/16 05:10 Chloride 109 mmol/L (98-107) H 10/27/16 05:10 Carbon Dioxide 18 mmol/L (21-32) L 10/27/16 05:10 Anion Gap 11 (8-16) 10/27/16 05:10 BUN 46 mg/dL (7-18) H 10/27/16 05:10 Creatinine 3.4 mg/dL (0.55-1.02) H 10/27/16 05:10 Creat Clearance w eGFR 11.67 (>60) 10/26/16 12:15 Random Glucose 149 mg/dL (74-106) H D 10/27/16 05:10 Calcium 8.2 mg/dL (8.5-10.1) L 10/27/16 05:10 Total Bilirubin 0.8 mg/dL (0.2-1.0) 10/26/16 12:15 AST 29 U/L (15-37) D 10/26/16 12:15 ALT 41 U/L (12-78) D 10/26/16 12:15 Alkaline Phosphatase 172 U/L (45-117) H 10/26/16 12:15 Total Protein 7.2 g/dl (6.4-8.2) 10/26/16 12:15 Albumin 3.5 g/dl (3.4-5.0) 10/26/16 12:15 CARDIAC ENZYMES Creatine Kinase 82 IU/L (26-192) 10/26/16 12:15 Troponin I 0.09 ng/ml (0.00-0.05) H 10/26/16 18:00 Home Medications Medication Instructions Recorded Amlodipine Besylate 5 mg PO DAILY 10/26/16 Aspirin [ASA -] 81 mg PO DAILY 10/26/16 Carvedilol [Coreg] 25 mg PO BID 10/26/16 Losartan 50Mg/Hctz 12.5MG [Hyzaar 1 tab-cap PO DAILY 10/26/16 -] Multivitamin [Poly-Vitamin] 1 each PO DAILY 10/26/16 Naproxen [Naprosyn -] 500 mg PO BID 10/26/16 Pravastatin Sodium 20 mg PO DAILY 10/26/16 Sennosides/Docusate Sodium 1 tab PO PRN 10/26/16 [Pericolace -] Active Medications Generic Name Dose Route Start Last Admin Trade Name Freq PRN Reason Stop Dose Admin Aspirin 81 mg 10/27/16 10:00 10/27/16 09:39 Asa - PO 81 mg DAILY ALESSIA Administration Atorvastatin Calcium 10 mg 10/27/16 22:00 Lipitor - PO HS ALESSIA Heparin Sodium (Porcine) 1,000 unit 10/27/16 01:04 10/27/16 02:29 Heparin - IVPUSH 1,000 unit PRN PRN Administration Heparin Heparin Sodium (Porcine) 5,000 unit 10/27/16 01:04 Heparin - IVPUSH PRN PRN Heparin Dopamine HCl/Dextrose 250 mls @ 15.309 mls/hr 10/27/16 01:04 10/27/16 02:32 Dopamine 400 Mg/D5w - IVPB 16 mcg/kg/min TITR ALESSIA Titration Protocol 5 MCG/KG/MIN Heparin Sodium (Porcine) 25, 500 mls @ 20 mls/hr 10/27/16 01:04 10/27/16 09:38 000 unit/ Sodium Chloride IV 21 mls/hr TITR ALESSIA Administration Protocol 1,000 UNIT/HR ASSESSMENT/PLAN: Patient is an 85 year old female, with significant past medical history HTN, HLD , CAD s/p defibrillator, CHF, asthma, who presents today complaining of intermittent left sided chest pain over the past week. # Acute bradycardia and hypotension: Continue Dopamine drip 5mcg:continue and titrate; keep bp >90/60 , s/p atropine 0.5mg IVP once; glucagon 1mg IVP once # New onset atrial fibrillation with RVR CHADsVasc score is 4 , on Heparin drip , s/p cardizem, amiodarone # Atypical chest pain Likely musculoskeletal-reproducible. Troponins 0.06---> 0.09---> 0.03 now # Acute Kidney Injury- likely due to dehydration 3.7--->3.4 s/p IVF, nephro consult # Persistent Leukocytosis continue , She is afebrile, CXR normal, will monitor for now. # CAD continue Aspirin # Hyperlipidemia continue Atorvastatin 10mg HS # Hx of Hypertension off meds now since hypotensive now on Dopamine # Microcytic anemia r/o Iron deficiency anemia ,Baseline 10.6 in 2012; Hb-8.7-- >7.4 today will monitor # Prophylaxis DVT: On Heparin Drip Code Status: Full Code Visit type - Emergency Visit Emergency Visit: Yes ED Registration Date: 10/26/16 Care time: The patient presented to the Emergency Department on the above date and was hospitalized for further evaluation of their emergent condition. - New Patient This patient is new to me today: Yes Date on this admission: 10/27/16 - Critical Care Critical Care patient: Yes Total Critical Care Time (in minutes): 35 Critical Care Statement: The care of this patient involved high complexity decision making to prevent further life threatening deterioration of the patient 's condition and/or to evalute & treat vital organ system(s) failure or risk of failure.
--- NOTE | 2016-10-27 12:53 | PN ---
Progress Note, Physician Chief Complaint: Pt OOB in chair; denies chest pain, dyspnea, or palpitations. Family (daughter; niece) at bedside. History of Present Illness: The patient is an 85 year old female, with significant past medical history HTN , HLD, CAD s/p defibrillator, moderately severe systolic CHF, asthma, CKD, who presents today complaining of intermittent left sided chest pain over the past week. The patient does not have any pain at this time. The chest pain is non radiating and sharp that lasts for approximately 10 minutes. When she feels the pain, she usually takes an aspirin and goes to sleep. She has not mentioned the pain to her daughter until today, who then brought her into the emergency room. The patients daughter notes that the patient's fun house attendant is out of the country. Denies SOB, cough. Denies fever, chills, nausea, vomiting, sweats. Allergies: none reported PCP- No primary Social Hx: The patient lives at home alone. Education Adviser - Dr. Uzair Gould [phone] - Current Medication List Current Medications: Active Medications Aspirin (Asa -) 81 mg PO DAILY ALESSIA Last Admin: 10/27/16 09:39 Dose: 81 mg Atorvastatin Calcium (Lipitor -) 10 mg PO HS ALESSIA Heparin Sodium (Porcine) (Heparin -) 1,000 unit IVPUSH PRN PRN PRN Reason: Heparin Last Admin: 10/27/16 02:29 Dose: 1,000 unit Heparin Sodium (Porcine) (Heparin -) 5,000 unit IVPUSH PRN PRN PRN Reason: Heparin Dopamine HCl/Dextrose (Dopamine 400 Mg/D5w -) 250 mls @ 15.309 mls/hr IVPB TITR ALESSIA; 5 MCG/KG/MIN PRN Reason: Protocol Last Titration: 10/27/16 02:32 Dose: 16 mcg/kg/min Heparin Sodium (Porcine) 25, (000 unit/ Sodium Chloride) 500 mls @ 20 mls/hr IV TITR ALESSIA; 1,000 UNIT/HR PRN Reason: Protocol Last Admin: 10/27/16 09:38 Dose: 21 mls/hr - Objective Vital Signs: Vital Signs Temperature 98.5 F 10/27/16 10:00 Pulse Rate 73 10/27/16 10:00 Respiratory Rate 19 10/27/16 10:00 Blood Pressure 87/79 10/27/16 10:00 O2 Sat by Pulse Oximetry (%) 100 10/27/16 09:15 Constitutional: Yes: Calm Eyes: Yes: WNL HENT: Yes: WNL Neck: Yes: WNL Cardiovascular: Yes: Pulse Irregular Respiratory: Yes: Diminished, SOB on Exertion Gastrointestinal: Yes: Soft ...Rectal Exam: Yes: Deferred Genitourinary: No: Anuria Breast(s): Yes: WNL Musculoskeletal: Yes: Muscle Weakness Extremities: Yes: Cool Edema: No Peripheral Pulses WNL: No Peripheral Pulses: Left Doralis Pedis: 1+, Right Dorsalis Pedis: 1+ Neurological: Yes: Alert, Oriented, Weakness Psychiatric: Yes: WNL Labs: CBC, BMP 10/27/16 05:10 10/27/16 05:10 INR, PTT INR 1.17 (0.82-1.09) H 10/26/16 12:15 - ....Imaging Ultrasound: Report Reviewed (ECHO: moderate-severely reduced LVEF) Problem List - Problems (1) Atrial fibrillation Code(s): I48.91 - UNSPECIFIED ATRIAL FIBRILLATION (2) CAD (coronary artery disease) Code(s): I25.10 - ATHSCL HEART DISEASE OF [place] CORONARY ARTERY W/O ANG PCTRS (3) Asthma exacerbation Code(s): J45.901 - UNSPECIFIED ASTHMA WITH (ACUTE) EXACERBATION (4) Pneumonia Code(s): J18.9 - PNEUMONIA, UNSPECIFIED ORGANISM Qualifiers: Pneumonia type: due to unspecified organism Laterality: unspecified laterality Lung location: unspecified part of lung Qualified Code(s): J18.9 - Pneumonia, unspecified organism (5) Renal dysfunction Assessment/Plan: F/u Is and Os; ?gentle hydration (significant systolic CHF). F/u with professor of sociology. Code(s): N28.9 - DISORDER OF KIDNEY AND URETER, UNSPECIFIED (6) Acute on chronic systolic (congestive) heart failure Assessment/Plan: Problematic using usual classes of anti-CHF medications (e.g. beta blockers, ACEI or ARB, spironolactone) due to asthma and renal dysfunction. Would start hydralazine + Imdur instead. F/u BUN/Cr, Is and Os, daily weight, electrolytes. Code(s): I50.23 - ACUTE ON CHRONIC SYSTOLIC (CONGESTIVE) HEART FAILURE
[2016-10-27] MEDS ORDERED: HEPARIN INFUSION - 500 ML IVPB ONE (13:55)
[2016-10-27] MEDS: SODIUM CHLORIDE 0.45% 1,000 ML IV SCH ×2 (17:00→17:01)
[2016-10-27] MEDS: DOPAMINE 400 MG/D5W - 250 ML IVPB SCH ×2 (17:02)
[2016-10-27 17:28] LABS: TROPONIN I 0.03 ng/ml (0.00-0.05)
[2016-10-27] MEDS: ATORVASTATIN CA 10 MG TABLET (FP) PO SCH (22:00)
[2016-10-27 23:18] LABS: URINE APPEARANCE SLCLOUDY; URINE BILIRUBIN NEGATIVE (NEGATIVE); URINE COLOR AMBER; URINE GLUCOSE (UA) NEGATIVE (NEGATIVE); URINE KETONE TRACE (NEGATIVE); URINE NITRITE NEGATIVE (NEGATIVE); URINE PROTEIN NEGATIVE (NEGATIVE); URINE UROBILINOGEN 2.0 E.U/dl E.U./dl (0.2-1.0)
[2016-10-27 23:30] LABS: SODIUM,RANDOM URINE 15 MMOL/L
[2016-10-27 23:37] LABS: CHLORIDE,RANDOM URINE < 10 MMOL/L
[2016-10-27 23:45] LABS: URINE BLOOD 1+ (NEGATIVE); URINE LEUK ESTERASE 3+ (NEGATIVE)
[2016-10-27 23:47] LABS: URINE BACTERIA FEW /hpf (NONE SEEN); URINE HYALINE CAST 44 /lpf; URINE MUCUS RARE; URINE RBC 26 /hpf (0-3); URINE WBC 36 /hpf (3-5)
[2016-10-28] MEDS: DOPAMINE 400 MG/D5W - 250 ML IVPB SCH
[2016-10-28] MEDS: HEPARIN - 25,000 UNIT in SODIUM CHLORIDE 495 ML IV SCH ×2 (00:55→23:00)
[2016-10-28 07:02] LABS: MCH 27.9 pg (25.7-33.7); MCHC 31.5 g/dl (32.0-36.0); MEAN CELL VOLUME 88.4 fl (80-96); PLATELET COUNT 237 K/MM3 (134-434); RDW 18.2 % (11.6-15.6); WHITE BLOOD COUNT 14.2 K/mm3 (4.0-10.0)
--- NOTE | 2016-10-28 07:33 | CONSULT ---
Consult - text type - Consultation Consultation Note: Renal Consult for RICA This is a 85 year old woman with PMhx of Hypertension, Hyperlipidemia, CAD, AICD , Asthma, Former smoker who presented with chest pain and found to have new onset Afib with RVR with RICA with BUN/Cr of 41/3.7. Pt with prior admission in 2012 with RICA. Pt denies any CKD, kidney stones, recurrent UTI. Pt noted to have hypotension and bradycardia on the medical floor and transfered to the ICU. No N/V/D. Reports poor oral intake at home. has on MARGARITA/HCTZ at home. No flank pain, fever, chills, RUEDA, abd pain, hematuria, dysuria, confusion, lethargy , metallic taste in the mouth. PMhx: as above Allergies: NKDA Family Hx: NC Social H: Former smoker, ETOH abuse. ROS: as per HPI, all other pertinet ros negative Home Meds: Home Medications Medication Instructions Recorded Amlodipine Besylate 5 mg PO DAILY 10/26/16 Aspirin [ASA -] 81 mg PO DAILY 10/26/16 Carvedilol [Coreg] 25 mg PO BID 10/26/16 Losartan 50Mg/Hctz 12.5MG [Hyzaar 1 tab-cap PO DAILY 10/26/16 -] Multivitamin [Poly-Vitamin] 1 each PO DAILY 10/26/16 Naproxen [Naprosyn -] 500 mg PO BID 10/26/16 Pravastatin Sodium 20 mg PO DAILY 10/26/16 Sennosides/Docusate Sodium 1 tab PO PRN 10/26/16 [Pericolace -] Vital Signs Temperature 98.2 F 10/28/16 06:00 Pulse Rate 90 10/28/16 06:00 Respiratory Rate 18 10/28/16 06:00 Blood Pressure 107/59 10/28/16 06:00 O2 Sat by Pulse Oximetry (%) 99 10/27/16 21:00 Intake & Output 10/25/16 10/26/16 10/27/16 10/28/16 23:59 23:59 23:59 23:59 Intake Total 2715 852 Output Total 575 Balance 2140 852 Weight 180 lb 183 lb 2 oz Gen: NAD on NC HEENT: NC/AT, Dry MM, No JVD CVS: RRR, No M/R Lungs: Dec BS, no rales Abd: soft, obese, NT/ND Ext: No edema, clubbing or cyanosis Neuro: AAOx3, no focal defects Gu: No bladder distension CBC, BMP 10/28/16 05:00 10/27/16 05:10 Laboratory Tests 10/27/16 05:10 Calcium 8.2 L Phosphorus 5.1 H D Magnesium 2.1 Current Medications Aspirin (Asa -) 81 mg PO DAILY ALESSIA Last Admin: 10/27/16 09:39 Dose: 81 mg Atorvastatin Calcium (Lipitor -) 10 mg PO HS ALESSIA Last Admin: 10/27/16 22:00 Dose: 10 mg Heparin Sodium (Porcine) (Heparin -) 1,000 unit IVPUSH PRN PRN PRN Reason: Heparin Last Admin: 10/27/16 02:29 Dose: 1,000 unit Heparin Sodium (Porcine) (Heparin -) 5,000 unit IVPUSH PRN PRN PRN Reason: Heparin Dopamine HCl/Dextrose (Dopamine 400 Mg/D5w -) 250 mls @ 15.309 mls/hr IVPB TITR ALESSIA; 5 MCG/KG/MIN PRN Reason: Protocol Last Admin: 10/28/16 00:00 Dose: 15.309 mls/hr Heparin Sodium (Porcine) 25, (000 unit/ Sodium Chloride) 500 mls @ 20 mls/hr IV TITR ALESSIA; 1,000 UNIT/HR PRN Reason: Protocol Last Admin: 10/28/16 00:55 Dose: 0.42 mls/hr A/P 85 year old woman with PMhx of Hypertension, Hyperlipidemia, CAD, AICD, Asthma, Former smoker who presented with chest pain and found to have new onset Afib with RVR with RICA with BUN/Cr of 41/3.7. #Acute Renal Insufficiency Etiology appears to be renal hypoperfusion in setting of Afib with RVR/ Hypotension, ARB and diuretics FeNa was < 1% indicating preserved renal tubular function would recommend IVF at low rate to improve renal profusion hold ARB/MARGARITA, Diuretics Keep MAP > 65 check Renal US to access kidney size and texture #Non-anion gap metabolic acidosis likely from renal insufficiency Check Urine anion gap start oral sodium bicarb 650mg Daily #Afib with RVR Rate control as per cardiology #CHF prior echo showed severy reduced LVEF Check cxr today #Anemia Check iron studies transfuse as per ICU protocol #Leukocytosis ? etiology consider checking cultures Thank you will follow Arturo Wallace DO
[2016-10-28] MEDS ORDERED: SODIUM CHLORIDE 1,000 ML IV SCH (07:45)
[2016-10-28] MEDS: ASPIRIN 81 MG CHEWABLE TABLETS PO SCH (09:55)
[2016-10-28] MEDS: SODIUM BICARBONATE 650 MG TABLET PO SCH (10:01)
--- NOTE | 2016-10-28 10:58 | PN ---
Progress Note (short form) - Note Progress Note: Patient seen and examined in the ICU. Awake and alert. Denies CP or SOB. Remains on 5mcq Dopamine (down from 12mcq). Noted Renal consult. Intake & Output 10/25/16 10/26/16 10/27/16 10/28/16 23:59 23:59 23:59 23:59 Intake Total 2715 852 Output Total 575 Balance 2140 852 Weight 180 lb 183 lb 2 oz Last Vital Signs Temp Pulse Resp BP Pulse Ox 98.4 F 89 21 115/57 96 10/28/16 10:00 10/28/16 10:00 10/28/16 10:00 10/28/16 10:00 10/28/16 10:00 Active Medications Aspirin (Asa -) 81 mg PO DAILY ALESSIA Last Admin: 10/28/16 09:55 Dose: 81 mg Atorvastatin Calcium (Lipitor -) 10 mg PO HS ALESSIA Last Admin: 10/27/16 22:00 Dose: 10 mg Heparin Sodium (Porcine) (Heparin -) 1,000 unit IVPUSH PRN PRN PRN Reason: Heparin Last Admin: 10/27/16 02:29 Dose: 1,000 unit Heparin Sodium (Porcine) (Heparin -) 5,000 unit IVPUSH PRN PRN PRN Reason: Heparin Dopamine HCl/Dextrose (Dopamine 400 Mg/D5w -) 250 mls @ 15.309 mls/hr IVPB TITR ALESSIA; 5 MCG/KG/MIN PRN Reason: Protocol Last Admin: 10/28/16 00:00 Dose: 15.309 mls/hr Heparin Sodium (Porcine) 25, (000 unit/ Sodium Chloride) 500 mls @ 20 mls/hr IV TITR ALESSIA; 1,000 UNIT/HR PRN Reason: Protocol Last Titration: 10/28/16 10:04 Dose: 1,050 unit/hr Sodium Chloride (Normal Saline -) 1,000 mls @ 60 mls/hr IV ASDIR ALESSIA Stop: 10/29/16 01:44 Last Admin: 10/28/16 09:57 Dose: 60 mls/hr Sodium Bicarbonate (Sodium Bicarbonate -) 650 mg PO DAILY ALESSIA Last Admin: 10/28/16 10:01 Dose: 650 mg Constitutional: Yes: NAD Eyes: Yes: WNL HENT: Yes: Atraumatic, Normocephalic Neck: Yes: WNL Cardiovascular: Yes: S1S2, Pulse Irregular Respiratory: Yes: Diminished, On Nasal O2 Gastrointestinal: Yes: Normal Bowel Sounds, Soft Extremities: Yes: (+) PP Edema: No Peripheral Pulses WNL: Yes Integumentary: Yes: WNL Neurological: Yes: WNL ...Motor Strength: WNL Labs: Laboratory Results - last 24 hr 10/27/16 10/27/16 10/27/16 05:10 05:10 15:10 WBC RBC Hgb Hct MCV MCHC RDW Plt Count MPV PTT (Actin FS) Iron 20 L Transferrin 200 Creatine Kinase 75 Troponin I 0.03 Urine Color Urine Appearance Urine pH Urine Protein Urine Glucose (UA) Urine Ketones Urine Blood Urine Nitrite Urine Bilirubin Urine Urobilinogen Ur Leukocyte Esterase Urine RBC Urine WBC Ur Epithelial Cells Urine Bacteria Hyaline Casts Urine Mucus Ur Random Sodium Ur Random Potassium Ur Random Chloride Urine Creatinine 10/27/16 10/27/16 10/27/16 23:10 23:10 23:10 WBC RBC Hgb Hct MCV MCHC RDW Plt Count MPV PTT (Actin FS) Iron Transferrin Creatine Kinase Troponin I Urine Color Urine Appearance Urine pH Urine Protein Urine Glucose (UA) Urine Ketones Urine Blood Urine Nitrite Urine Bilirubin Urine Urobilinogen Ur Leukocyte Esterase Urine RBC Urine WBC Ur Epithelial Cells Urine Bacteria Hyaline Casts Urine Mucus Ur Random Sodium 15 15 Ur Random Potassium 41.7 Ur Random Chloride < 10 Urine Creatinine 339.0 H 10/27/16 10/27/16 10/28/16 23:10 23:10 05:00 WBC 14.2 H RBC 2.68 L Hgb 7.5 L Hct 23.6 L MCV 88.4 MCHC 31.5 L RDW 18.2 H Plt Count 237 MPV 9.0 PTT (Actin FS) Iron Transferrin Creatine Kinase Troponin I Urine Color Britney Urine Appearance Slcloudy Urine pH 5.0 Urine Protein Negative Urine Glucose (UA) Negative Urine Ketones Trace H Urine Blood 1+ H Urine Nitrite Negative Urine Bilirubin Negative Urine Urobilinogen 2.0 e.u/dl H Ur Leukocyte Esterase 3+ H D Urine RBC 26 Urine WBC 36 Ur Epithelial Cells Few Urine Bacteria Few Hyaline Casts 44 Urine Mucus Rare Ur Random Sodium Ur Random Potassium Ur Random Chloride Urine Creatinine 339.0 H 10/28/16 05:00 WBC RBC Hgb Hct MCV MCHC RDW Plt Count MPV PTT (Actin FS) 64.0 H Iron Transferrin Creatine Kinase Troponin I Urine Color Urine Appearance Urine pH Urine Protein Urine Glucose (UA) Urine Ketones Urine Blood Urine Nitrite Urine Bilirubin Urine Urobilinogen Ur Leukocyte Esterase Urine RBC Urine WBC Ur Epithelial Cells Urine Bacteria Hyaline Casts Urine Mucus Ur Random Sodium Ur Random Potassium Ur Random Chloride Urine Creatinine Problem List - Problems (1) Atrial fibrillation Code(s): I48.91 - UNSPECIFIED ATRIAL FIBRILLATION (2) Bradycardia Code(s): R00.1 - BRADYCARDIA, UNSPECIFIED (3) CHF (congestive heart failure) Code(s): I50.9 - HEART FAILURE, UNSPECIFIED (4) CAD (coronary artery disease) Code(s): I25.10 - ATHSCL HEART DISEASE OF [place] CORONARY ARTERY W/O ANG PCTRS (5) RICA (acute kidney injury) Code(s): N17.9 - ACUTE KIDNEY FAILURE, UNSPECIFIED Assessment/Plan AF w/RVR S/P bradycardia and hypotensive Suspect combination of Amlodipine, CCB, BB and Amio. (?) Decompensated heart failure. CHF RICA CAD -Hold all anti-hypertensives and rate controlling agents -Dopamine drip for chronotropy and inotropy -Cautious hydration -Strict I&O -Monitor off ABX -Noted PO bicarbonate started Dr Parikh Critical care time spent in reviewing chart, evaluating patient and formulating plan 35 min
--- NOTE | 2016-10-28 11:53 | PN ---
Physical Exam: SUBJECTIVE: Patient seen and examined at bed side this morning. No complaints. Feels good. Denies chest pain, sob, cough, palpitation, abdominal pain, nausea or vomiting. OBJECTIVE: Vital Signs Period Temp Pulse Resp BP Sys/Mena Pulse Ox Last 24 Hr 98.2 F-98.7 F 72-98 16-31 78-121/50-72 96-99 GENERAL: Elderly female, lying comfortably in a chair, Awake, alert, and fully oriented, in no acute distress. HEAD: Normal with no signs of trauma. EYES: EOM intact, no pallor or icterus. EARS, NOSE, THROAT: Ears normal. Moist mucous membranes. Poor dentition. NECK: Supple. LUNGS: B/L Breath sounds equal, clear to auscultation bilaterally. No wheezes, and no crackles. No accessory muscle use. Chest: reproducible HEART: Irregularly irregular rate and rhythm, normal S1 and S2 with systolic murmur. ABDOMEN: Soft, nontender, not distended, normoactive bowel sounds, no guarding, no rebound, no masses. No hepatomegaly or splenomegaly. Per Rectal: No hemorrhoids or fissues, Empty rectal vault, no mass, minimal stool. MUSCULOSKELETAL: Normal range of motion at all joints. No bony deformities or tenderness. No CVA tenderness. UPPER EXTREMITIES: 2+ pulses, warm, well-perfused. No cyanosis. No clubbing. No peripheral edema. LOWER EXTREMITIES: 2+ pulses, warm, well-perfused. No calf tenderness. No peripheral edema. NEUROLOGICAL: No facial droop. Bulk/tone-normal, Power-5/5 in all ext. Cranial nerves II-XII intact. Normal speech. Normal gait. PSYCHIATRIC: Cooperative. Good eye contact. Appropriate mood and affect. SKIN: Warm, dry, normal turgor, no rashes or lesions noted, normal capillary refill. Laboratory Results - last 24 hr 10/27/16 10/27/16 10/27/16 05:10 05:10 15:10 WBC RBC Hgb Hct MCV MCHC RDW Plt Count MPV PTT (Actin FS) Iron 20 L Transferrin 200 Creatine Kinase 75 Troponin I 0.03 Urine Color Urine Appearance Urine pH Urine Protein Urine Glucose (UA) Urine Ketones Urine Blood Urine Nitrite Urine Bilirubin Urine Urobilinogen Ur Leukocyte Esterase Urine RBC Urine WBC Ur Epithelial Cells Urine Bacteria Hyaline Casts Urine Mucus Ur Random Sodium Ur Random Potassium Ur Random Chloride Urine Creatinine 10/27/16 10/27/16 10/27/16 23:10 23:10 23:10 WBC RBC Hgb Hct MCV MCHC RDW Plt Count MPV PTT (Actin FS) Iron Transferrin Creatine Kinase Troponin I Urine Color Urine Appearance Urine pH Urine Protein Urine Glucose (UA) Urine Ketones Urine Blood Urine Nitrite Urine Bilirubin Urine Urobilinogen Ur Leukocyte Esterase Urine RBC Urine WBC Ur Epithelial Cells Urine Bacteria Hyaline Casts Urine Mucus Ur Random Sodium 15 15 Ur Random Potassium 41.7 Ur Random Chloride < 10 Urine Creatinine 339.0 H 10/27/16 10/27/16 10/28/16 23:10 23:10 05:00 WBC 14.2 H RBC 2.68 L Hgb 7.5 L Hct 23.6 L MCV 88.4 MCHC 31.5 L RDW 18.2 H Plt Count 237 MPV 9.0 PTT (Actin FS) Iron Transferrin Creatine Kinase Troponin I Urine Color Britney Urine Appearance Slcloudy Urine pH 5.0 Urine Protein Negative Urine Glucose (UA) Negative Urine Ketones Trace H Urine Blood 1+ H Urine Nitrite Negative Urine Bilirubin Negative Urine Urobilinogen 2.0 e.u/dl H Ur Leukocyte Esterase 3+ H D Urine RBC 26 Urine WBC 36 Ur Epithelial Cells Few Urine Bacteria Few Hyaline Casts 44 Urine Mucus Rare Ur Random Sodium Ur Random Potassium Ur Random Chloride Urine Creatinine 339.0 H 10/28/16 05:00 WBC RBC Hgb Hct MCV MCHC RDW Plt Count MPV PTT (Actin FS) 64.0 H Iron Transferrin Creatine Kinase Troponin I Urine Color Urine Appearance Urine pH Urine Protein Urine Glucose (UA) Urine Ketones Urine Blood Urine Nitrite Urine Bilirubin Urine Urobilinogen Ur Leukocyte Esterase Urine RBC Urine WBC Ur Epithelial Cells Urine Bacteria Hyaline Casts Urine Mucus Ur Random Sodium Ur Random Potassium Ur Random Chloride Urine Creatinine Active Medications Generic Name Dose Route Start Last Admin Trade Name Freq PRN Reason Stop Dose Admin Aspirin 81 mg 10/27/16 10:00 10/28/16 09:55 Asa - PO 81 mg DAILY ALESSIA Administration Atorvastatin Calcium 10 mg 10/27/16 22:00 10/27/16 22:00 Lipitor - PO 10 mg HS ALESSIA Administration Heparin Sodium (Porcine) 1,000 unit 10/27/16 01:04 10/27/16 02:29 Heparin - IVPUSH 1,000 unit PRN PRN Administration Heparin Heparin Sodium (Porcine) 5,000 unit 10/27/16 01:04 Heparin - IVPUSH PRN PRN Heparin Dopamine HCl/Dextrose 250 mls @ 15.309 mls/hr 10/27/16 01:04 10/28/16 00:00 Dopamine 400 Mg/D5w - IVPB 15.309 mls/hr TITR ALESSIA Administration Protocol 5 MCG/KG/MIN Heparin Sodium (Porcine) 25, 500 mls @ 20 mls/hr 10/27/16 01:04 10/28/16 10:04 000 unit/ Sodium Chloride IV 1,050 unit/hr TITR ALESSIA Titration Protocol 1,000 UNIT/HR Sodium Chloride 1,000 mls @ 60 mls/hr 10/28/16 07:45 10/28/16 09:57 Normal Saline - IV 10/29/16 01:44 60 mls/hr ASDIR ALESSIA Administration Sodium Bicarbonate 650 mg 10/28/16 10:00 10/28/16 10:01 Sodium Bicarbonate - PO 650 mg DAILY ALESSIA Administration ASSESSMENT/PLAN: Patient is an 85 year old female, with significant past medical history HTN, HLD , CAD s/p defibrillator, CHF, asthma, who presents today complaining of intermittent left sided chest pain over the past week. # New onset atrial fibrillation with RVR -now controlled Admitted in ICU after patient was found to be hypotensive and had bradycardia -now resolved. Continous cardiac monitoring CHADsVasc score is 4, On Heparin drip, stool occult negative,watch for H/H. Echo as reported # Chest pain-Likely [id number] # Increased troponins-likely demand ischemia. Resolved. # Acute Kidney Injury- likely due to dehydration Creatinine 3.4 yesterday, baseline 0.9 in 2012 Avoid nephrotoxic drugs # Non anion gap metabolic acidosis Continue Oral sodium bicarbonate 650mg Daily. # Persistent Leukocytosis-going down Will try to obtain past medical records after the weekend. She is afebrile, CXR normal, hence will just monitor at this time # CAD Continue Aspirin # Hyperlipidemia Continue Atorvastatin 10mg HS # Acute on chronic CHF Continue Hydralazine 10mg PO BID, Isosorbide mononitrate 30mg PO Daily # Microcytic anemia likely Iron deficiency anemia Baseline 10.6 in 2012 Watch for any bleeding episodes, transfuse if actively bleeding and Hb < 7gm/ dl # FEN Not on any fluids Electrolytes to be repeated tomorrow Sodium controlled diet # Prophylaxis For DVT: On Heparin Drip For Gi: Not indicated # Code Status: Full Code # Dispo: Admitted in Telemetry. Duration of stay unknown. Illness, Investigation and Plan of care explained to the patient and her daughter. They verbalized understanding. Case discussed with Dr. Ugarte. Visit type - Emergency Visit Emergency Visit: Yes ED Registration Date: 10/26/16 Care time: The patient presented to the Emergency Department on the above date and was hospitalized for further evaluation of their emergent condition. - New Patient This patient is new to me today: No - Critical Care Critical Care patient: No - Discharge Referral Referred to [facility] Med P.C.: No
[2016-10-28] MEDS ORDERED: ALBUTEROL SO4 0.083% IH SOL 2.5 MG/3 ML VIAL.NEB. NEB PRN (13:12)
--- NOTE | 2016-10-28 13:39 | PN ---
Progress Note, Physician Chief Complaint: Pt OOB in chair; short of breath while conversing. History of Present Illness: The patient is an 85 year old black female, with significant past medical history HTN, HLD, CAD s/p defibrillator, moderately severe systolic CHF, asthma , CKD, anemia, who presents today complaining of intermittent left sided chest pain over the past week. The patient does not have any pain at this time. The chest pain is non radiating and sharp that lasts for approximately 10 minutes. When she feels the pain, she usually takes an aspirin and goes to sleep. She has not mentioned the pain to her daughter until today, who then brought her into the emergency room. The patients daughter notes that the patient's enterostomal nurse is [place] of the [place]. Denies SOB, cough. Denies fever, chills, nausea, vomiting, sweats. Allergies: none reported PCP- No primary Social Hx: The patient lives at home alone. 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 [phone] - Current Medication List Current Medications: Active Medications Albuterol Sulfate (Ventolin 0.083% Nebulizer Soln -) 1 amp NEB Q6H PRN PRN Reason: SHORT OF BREATH/WHEEZING Aspirin (Asa -) 81 mg PO DAILY ALESSIA Last Admin: 10/28/16 09:55 Dose: 81 mg Atorvastatin Calcium (Lipitor -) 10 mg PO HS ALESSIA Last Admin: 10/27/16 22:00 Dose: 10 mg Heparin Sodium (Porcine) (Heparin -) 1,000 unit IVPUSH PRN PRN PRN Reason: Heparin Last Admin: 10/27/16 02:29 Dose: 1,000 unit Heparin Sodium (Porcine) (Heparin -) 5,000 unit IVPUSH PRN PRN PRN Reason: Heparin Dopamine HCl/Dextrose (Dopamine 400 Mg/D5w -) 250 mls @ 15.309 mls/hr IVPB TITR ALESSIA; 5 MCG/KG/MIN PRN Reason: Protocol Last Admin: 10/28/16 00:00 Dose: 15.309 mls/hr Heparin Sodium (Porcine) 25, (000 unit/ Sodium Chloride) 500 mls @ 20 mls/hr IV TITR ALESSIA; 1,000 UNIT/HR PRN Reason: Protocol Last Titration: 10/28/16 10:04 Dose: 1,050 unit/hr Sodium Chloride (Normal Saline -) 1,000 mls @ 60 mls/hr IV ASDIR [facility] Stop: 10/29/16 01:44 Last Admin: 10/28/16 09:57 Dose: 60 mls/hr Sodium Bicarbonate (Sodium Bicarbonate -) 650 mg PO DAILY [facility] Last Admin: 10/28/16 10:01 Dose: 650 mg - Objective Vital Signs: Vital Signs Temperature 98.4 F 10/28/16 10:00 Pulse Rate 89 10/28/16 10:00 Respiratory Rate 21 10/28/16 10:00 Blood Pressure 115/57 10/28/16 10:00 O2 Sat by Pulse Oximetry (%) 96 10/28/16 10:00 Constitutional: Yes: Obese Eyes: Yes: WNL HENT: Yes: WNL Neck: Yes: WNL Respiratory: Yes: Diminished Gastrointestinal: Yes: Soft, Abdomen, Obese ...Rectal Exam: Yes: Deferred Genitourinary: No: Anuria Breast(s): Yes: WNL Musculoskeletal: Yes: Muscle Weakness Edema: No Peripheral Pulses WNL: Yes Integumentary: Yes: WNL Neurological: Yes: Alert, Oriented Psychiatric: Yes: Alert, Oriented Labs: CBC, BMP 10/28/16 05:00 10/27/16 05:10 INR, PTT INR 1.17 (0.82-1.09) H 10/26/16 12:15 Abnormal Lab Results 10/27/16 10/27/16 10/27/16 05:10 23:10 23:10 WBC RBC Hgb Hct MCHC RDW PTT (Actin FS) Iron 20 L Urine Ketones Urine Blood Urine Urobilinogen Ur Leukocyte Esterase U Random Total Protein Urine Creatinine 339.0 H 339.0 H 10/27/16 10/28/16 10/28/16 23:10 05:00 05:00 WBC 14.2 H RBC 2.68 L Hgb 7.5 L Hct 23.6 L MCHC 31.5 L RDW 18.2 H PTT (Actin FS) 64.0 H Iron Urine Ketones Trace H Urine Blood 1+ H Urine Urobilinogen 2.0 e.u/dl H Ur Leukocyte Esterase 3+ H D U Random Total Protein Urine Creatinine 10/28/16 13:20 WBC RBC Hgb Hct MCHC RDW PTT (Actin FS) Iron Urine Ketones Urine Blood Urine Urobilinogen Ur Leukocyte Esterase U Random Total Protein 19 H Urine Creatinine - ....Imaging Other: Image Reviewed (telemetry: AF; LBBB) Problem List - Problems (1) Atrial fibrillation Assessment/Plan: HR relatively well-controlled. Ideally, pt would be on a beta mariana for both systolic CHF and AF; unable to use, however, if pt has true bronchial asthma. Also difficult starting diltiazem due to poor LVEF. This is also true of digoxin. On ASA and IV heparin. Code(s): I48.91 - UNSPECIFIED ATRIAL FIBRILLATION (2) CAD (coronary artery disease) Code(s): I25.10 - ATHSCL HEART DISEASE OF [place] CORONARY ARTERY W/O ANG PCTRS (3) Asthma exacerbation Assessment/Plan: bronchodilators, steroids, and O2 per manifold builder. F/u workup regarding "true " bronchial asthma vs "cardiac" asthma. Treatment of acute systolic CHF. Code(s): J45.901 - UNSPECIFIED ASTHMA WITH (ACUTE) EXACERBATION (4) Pneumonia Code(s): J18.9 - PNEUMONIA, UNSPECIFIED ORGANISM Qualifiers: Pneumonia type: due to unspecified organism Laterality: unspecified laterality Lung location: unspecified part of lung Qualified Code(s): J18.9 - Pneumonia, unspecified organism (5) Renal dysfunction Assessment/Plan: Pt was oliguric overnight, necessitating fluids. F/u with price economist. Code(s): N28.9 - DISORDER OF KIDNEY AND URETER, UNSPECIFIED (6) Acute on chronic systolic (congestive) heart failure Assessment/Plan: Problematic using usual classes of anti-CHF medications (e.g. beta blockers, ACEI or ARB, spironolactone) due to "asthma"and renal dysfunction. Would start hydralazine + Imdur instead (could not start yesterday due to hypotension-->dopamine; now hypertensive, and off dopamne). TNI maximum 0.09-->0.03. F/u BUN/Cr, Is and Os, daily weight, electrolytes, HR and BP. F/u prior workup of coronary artery disease. TSH WNL. F/u lipids; LDL has been >100 mg/dl in the past. Pt was hypotensive on admission; she had been on amlodipine, losartan, Coreg, and ?amiodarone. Ideally would restart carvedilol for CHF and AF if pt does not have true bronchial asthma/bronchospasm; clear with manifold builder. Code(s): I50.23 - ACUTE ON CHRONIC SYSTOLIC (CONGESTIVE) HEART FAILURE (7) LBBB (left bundle branch block) Assessment/Plan: noted since at least 2012. Code(s): I44.7 - LEFT BUNDLE-BRANCH BLOCK, UNSPECIFIED (8) Anemia Code(s): D64.9 - ANEMIA, UNSPECIFIED
--- NOTE | 2016-10-28 21:12 | PN ---
Teaching Attending Note Name of Resident: Ruthie Dalal ATTENDING PHYSICIAN STATEMENT I saw and evaluated the patient. I reviewed the resident's note and discussed the case with the resident. I agree with the resident's findings and plan as documented. SUBJECTIVE: feeling better OBJECTIVE: Vital Signs Temperature 98.0 F 10/28/16 14:00 Pulse Rate 91 H 10/28/16 20:00 Respiratory Rate 24 10/28/16 20:00 Blood Pressure 124/63 10/28/16 20:00 O2 Sat by Pulse Oximetry (%) 96 10/28/16 10:00 CBCD WBC 14.2 K/mm3 (4.0-10.0) H 10/28/16 05:00 RBC 2.68 M/mm3 (3.60-5.2) L 10/28/16 05:00 Hgb 7.5 GM/dL (10.7-15.3) L 10/28/16 05:00 Hct 23.6 % (32.4-45.2) L 10/28/16 05:00 MCV 88.4 fl (80-96) 10/28/16 05:00 MCHC 31.5 g/dl (32.0-36.0) L 10/28/16 05:00 RDW 18.2 % (11.6-15.6) H 10/28/16 05:00 Plt Count 237 K/MM3 (134-434) 10/28/16 05:00 MPV 9.0 fl (7.5-11.1) 10/28/16 05:00 CMP Sodium 138 mmol/L (136-145) 10/27/16 05:10 Potassium 4.3 mmol/L (3.5-5.1) 10/27/16 05:10 Chloride 109 mmol/L (98-107) H 10/27/16 05:10 Carbon Dioxide 18 mmol/L (21-32) L 10/27/16 05:10 Anion Gap 11 (8-16) 10/27/16 05:10 BUN 46 mg/dL (7-18) H 10/27/16 05:10 Creatinine 3.4 mg/dL (0.55-1.02) H 10/27/16 05:10 Creat Clearance w eGFR 11.67 (>60) 10/26/16 12:15 Random Glucose 149 mg/dL (74-106) H D 10/27/16 05:10 Calcium 8.2 mg/dL (8.5-10.1) L 10/27/16 05:10 Total Bilirubin 0.8 mg/dL (0.2-1.0) 10/26/16 12:15 AST 29 U/L (15-37) D 10/26/16 12:15 ALT 41 U/L (12-78) D 10/26/16 12:15 Alkaline Phosphatase 172 U/L (45-117) H 10/26/16 12:15 Total Protein 7.2 g/dl (6.4-8.2) 10/26/16 12:15 Albumin 3.5 g/dl (3.4-5.0) 10/26/16 12:15 CARDIAC ENZYMES Creatine Kinase 75 IU/L (26-192) 10/27/16 15:10 Troponin I 0.03 ng/ml (0.00-0.05) 10/27/16 15:10 Current Medications Generic Name Dose Route Start Last Admin Trade Name Freq PRN Reason Stop Dose Admin Albuterol Sulfate 1 amp 10/28/16 13:12 10/28/16 14:10 Ventolin 0.083% Nebulizer Soln - NEB 1 amp Q6H PRN Administration SHORT OF BREATH/WHEEZING Aspirin 81 mg 10/27/16 10:00 10/28/16 09:55 Asa - PO 81 mg DAILY ALESSIA Administration Atorvastatin Calcium 10 mg 10/27/16 22:00 10/27/16 22:00 Lipitor - PO 10 mg HS ALESSIA Administration Heparin Sodium (Porcine) 1,000 unit 10/27/16 01:04 10/27/16 02:29 Heparin - IVPUSH 1,000 unit PRN PRN Administration Heparin Heparin Sodium (Porcine) 5,000 unit 10/27/16 01:04 Heparin - IVPUSH PRN PRN Heparin Hydralazine HCl 10 mg 10/28/16 22:00 Apresoline - PO BID ALESSIA Dopamine HCl/Dextrose 250 mls @ 15.309 mls/hr 10/27/16 01:04 10/28/16 17:50 Dopamine 400 Mg/D5w - IVPB 0 mcg/kg/min TITR ALESSIA Titration Protocol 5 MCG/KG/MIN Heparin Sodium (Porcine) 25, 500 mls @ 20 mls/hr 10/27/16 01:04 10/28/16 10:04 000 unit/ Sodium Chloride IV 1,050 unit/hr TITR ALESSIA Titration Protocol 1,000 UNIT/HR Sodium Chloride 1,000 mls @ 60 mls/hr 10/28/16 07:45 10/28/16 09:57 Normal Saline - IV 10/29/16 01:44 60 mls/hr ASDIR ALESSIA Administration Isosorbide Mononitrate 30 mg 10/29/16 10:00 Imdur - PO DAILY ALESSIA Sodium Bicarbonate 650 mg 10/28/16 10:00 10/28/16 10:01 Sodium Bicarbonate - PO 650 mg DAILY ALESSIA Administration Home Medications Medication Instructions Recorded Amlodipine Besylate 5 mg PO DAILY 10/26/16 Aspirin [ASA -] 81 mg PO DAILY 10/26/16 Carvedilol [Coreg] 25 mg PO BID 10/26/16 Losartan 50Mg/Hctz 12.5MG [Hyzaar 1 tab-cap PO DAILY 10/26/16 -] Multivitamin [Poly-Vitamin] 1 each PO DAILY 10/26/16 Naproxen [Naprosyn -] 500 mg PO BID 10/26/16 Pravastatin Sodium 20 mg PO DAILY 10/26/16 Sennosides/Docusate Sodium 1 tab PO PRN 10/26/16 [Pericolace -] ASSESSMENT AND PLAN: Patient is an 85 year old female, with significant past medical history HTN, HLD , CAD s/p defibrillator, CHF, asthma, who presents today complaining of intermittent left sided chest pain over the past week. # Acute bradycardia and hypotension: on Dopamine drip 5mcg: titrate; keep bp >90 /60 , s/p atropine 0.5mg IVP once; glucagon 1mg IVP once # New onset atrial fibrillation with RVR CHADsVasc score is 4 s/p cardizem, amiodarone # Atypical chest pain Likely musculoskeletal-reproducible. Troponins 0.06---> 0.09---> 0.03 now # Acute Kidney Injury- likely due to dehydration 3.7--> 3.4 IVF 1/2 NS at 100cc /hr continue , nephro consult # Persistent acute Leukocytosis ,She is afebrile, CXR normal, will monitor for now. # CAD continue Aspirin # Hyperlipidemia continue Atorvastatin 10mg HS # Hypertension off meds now since hypotensive now on Dopamine # Microcytic anemia r/o Iron deficiency anemia ,Baseline 10.6 in 2012; Today Hb- 8.7, Iron studies pending # Prophylaxis DVT: On Heparin Drip Code Status: Full Code
[2016-10-28] MEDS: ATORVASTATIN CA 10 MG TABLET (FP) PO SCH (21:48)
[2016-10-28] MEDS: hydrALAZINE HCL 10 MG TABLET PO SCH (21:48)
--- NOTE | 2016-10-28 21:57 | EKG ---
Test Reason : Blood Pressure : / mmHG Vent. Rate : 143 BPM Atrial Rate : 286 BPM P-R Int : 000 ms QRS Dur : 148 ms QT Int : 358 ms P-R-T Axes : 000 071 150 degrees QTc Int : 552 ms POSSIBLE ATRIAL FLUTTER WITH 2:1 A-V CONDUCTION LEFT BUNDLE BRANCH BLOCK ABNORMAL ECG WHEN COMPARED WITH ECG OF 30-APR-2015 12:24, ATRIAL FLUTTER HAS REPLACED SINUS RHYTHM Confirmed by ESTUARDO VENEGAS, SHELIA ([id number]) on 10/28/2016 9:57:42 PM Referred By: Confirmed By:SHELIA MARTE MD
[2016-10-28 22:54] LABS: INR 1.26 (0.82-1.09); PROTHROMBIN TIME (PATIENT) 13.9 SEC (9.98-11.88)
[2016-10-28 23:32] LABS: ANION GAP 11 (8-16); CO2 19 mmol/L (21-32); GLUCOSE,RANDOM 86 mg/dL (74-106)
[2016-10-29 02:50] LABS: CHOLESTEROL 128 mg/dL (50-200); LDL CHOLESTEROL (ONLY SJRH) 73 mg/dL (5-100)
[2016-10-29] MEDS: DOPAMINE 400 MG/D5W - 250 ML IVPB SCH (06:18)
[2016-10-29 06:36] LABS: MCHC 30.7 g/dl (32.0-36.0); MEAN CELL VOLUME 87.9 fl (80-96); MEAN PLT VOLUME 9.2 fl (7.5-11.1); PLATELET COUNT 258 K/MM3 (134-434); RDW 18.1 % (11.6-15.6); WHITE BLOOD COUNT 15.5 K/mm3 (4.0-10.0)
[2016-10-29 07:23] LABS: ALBUMIN 2.6 g/dl (3.4-5.0); ALK PHOS 227 U/L (45-117); ANION GAP 12 (8-16); BILIRUBIN,TOTAL 0.5 mg/dL (0.2-1.0); CALCIUM 7.8 mg/dL (8.5-10.1); CO2 19 mmol/L (21-32); CREATININE 2.1 mg/dL (0.55-1.02); FERRITIN 62.612 ng/ml (6.9-282.5); GLUCOSE,RANDOM 94 mg/dL (74-106); PHOSPHOROUS 3.3 mg/dL (2.5-4.9); SGOT/AST 34 U/L (15-37); SGPT/ALT 39 U/L (12-78)
[2016-10-29 08:19] LABS: HYPOCHROMIA 1+; METAMYELOCYTE 1 % (0-2); PLATELET ESTIMATE ADEQUATE (NORMAL)
--- NOTE | 2016-10-29 09:10 | PN ---
Physical Exam: SUBJECTIVE: Patient seen and examined. c/o intermittent reproducible left sided chest pain worse with movement and palpation. Denies cough, fever, abdominal pain, diarrhea, melena, hematochezia, vomiting, palpitations, dysuria. OBJECTIVE: Vital Signs Period Temp Pulse Resp BP Sys/Mena Pulse Ox Last 24 Hr 98 F-99.3 F 68-102 18-26 109-159/50-104 96-96 GENERAL: The patient is awake, alert, and fully oriented, in no acute distress. HEAD: Normal with no signs of trauma. EYES: PERRL, extraocular movements intact, sclera anicteric, conjunctival pallor No ptosis. ENT: oropharynx with oral hygeine, poor dentition, without exudates/lesions, moist mucous membranes. NECK: Trachea midline, full range of motion, supple. no LAD, no thyromegaly LUNGS: scatter wheezing b/l, no crackles, no accessory muscle use. HEART: afib, S1, S2 ABDOMEN: Soft, nontender, nondistended, normoactive bowel sounds, no guarding EXTREMITIES: 2+ radial pulses, 1+ DP pulses b/l, warm, well-perfused, no edema. NEUROLOGICAL: Cranial nerves II through XII grossly intact. Normal speech, facial symmetry 4/5 handgrip b/l. Laboratory Results - last 24 hr 10/27/16 10/28/16 10/28/16 23:10 13:20 13:20 WBC RBC Hgb Hct MCV MCHC RDW Plt Count MPV Neutrophils % Lymphocytes % Monocytes % Eosinophils % Basophils % Band Neutrophils Metamyelocytes Myelocytes Differential Comment Platelet Estimate Hypochromic-Microcytic INR PTT (Actin FS) Sodium Potassium Chloride Carbon Dioxide Anion Gap BUN Creatinine Creat Clearance w eGFR Random Glucose Calcium Phosphorus Magnesium Ferritin Total Bilirubin AST ALT Alkaline Phosphatase Total Protein Albumin Triglycerides Cholesterol Total LDL Cholesterol HDL Cholesterol Urine Color Britney Urine Appearance Slcloudy Urine pH 5.0 Ur Specific [place] 1.025 Urine Protein Negative Urine Glucose (UA) Negative Urine Ketones Trace H Urine Blood 1+ H Urine Nitrite Negative Urine Bilirubin Negative Urine Urobilinogen 2.0 e.u/dl H Ur Leukocyte Esterase 3+ H D Urine RBC 26 Urine WBC 36 Ur Epithelial Cells Few Urine Bacteria Few Hyaline Casts 44 Urine Mucus Rare U Random Total Protein 19 H Urine Creatinine 86.2 10/28/16 10/28/16 10/28/16 22:30 22:30 22:30 WBC RBC Hgb Hct MCV MCHC RDW Plt Count MPV Neutrophils % Lymphocytes % Monocytes % Eosinophils % Basophils % Band Neutrophils Metamyelocytes Myelocytes Differential Comment Platelet Estimate Hypochromic-Microcytic INR 1.26 H PTT (Actin FS) Sodium 138 Potassium 3.8 Chloride 108 H Carbon Dioxide 19 L Anion Gap 11 BUN 40 H Creatinine 2.0 H D Creat Clearance w eGFR Random Glucose 86 D Calcium 7.0 L Phosphorus Magnesium Ferritin Total Bilirubin AST ALT Alkaline Phosphatase Total Protein Albumin Triglycerides 133 Cholesterol 128 Total LDL Cholesterol 73 HDL Cholesterol 40 Urine Color Urine Appearance Urine pH Ur Specific [place] Urine Protein Urine Glucose (UA) Urine Ketones Urine Blood Urine Nitrite Urine Bilirubin Urine Urobilinogen Ur Leukocyte Esterase Urine RBC Urine WBC Ur Epithelial Cells Urine Bacteria Hyaline Casts Urine Mucus U Random Total Protein Urine Creatinine 10/28/16 10/29/16 10/29/16 22:30 05:20 05:20 WBC 15.5 H RBC 2.52 L Hgb 6.8 L* Hct 22.2 L MCV 87.9 MCHC 30.7 L RDW 18.1 H Plt Count 258 MPV 9.2 Neutrophils % 71.0 Lymphocytes % 8.0 D Monocytes % 6.0 Eosinophils % 5.0 H Basophils % 0.0 Band Neutrophils 4.0 D Metamyelocytes 1 Myelocytes 5 H D Differential Comment Manual diff done Platelet Estimate Adequate Hypochromic-Microcytic 1+ INR PTT (Actin FS) 37.0 H D 39.0 H Sodium Potassium Chloride Carbon Dioxide Anion Gap BUN Creatinine Creat Clearance w eGFR Random Glucose Calcium Phosphorus Magnesium Ferritin Total Bilirubin AST ALT Alkaline Phosphatase Total Protein Albumin Triglycerides Cholesterol Total LDL Cholesterol HDL Cholesterol Urine Color Urine Appearance Urine pH Ur Specific [place] Urine Protein Urine Glucose (UA) Urine Ketones Urine Blood Urine Nitrite Urine Bilirubin Urine Urobilinogen Ur Leukocyte Esterase Urine RBC Urine WBC Ur Epithelial Cells Urine Bacteria Hyaline Casts Urine Mucus U Random Total Protein Urine Creatinine 10/29/16 05:20 WBC RBC Hgb Hct MCV MCHC RDW Plt Count MPV Neutrophils % Lymphocytes % Monocytes % Eosinophils % Basophils % Band Neutrophils Metamyelocytes Myelocytes Differential Comment Platelet Estimate Hypochromic-Microcytic INR PTT (Actin FS) Sodium 139 Potassium 4.1 Chloride 108 H Carbon Dioxide 19 L Anion Gap 12 BUN 40 H Creatinine 2.1 H Creat Clearance w eGFR 22.44 Random Glucose 94 Calcium 7.8 L Phosphorus 3.3 D Magnesium 2.0 Ferritin 62.612 Total Bilirubin 0.5 D AST 34 ALT 39 Alkaline Phosphatase 227 H D Total Protein 6.0 L Albumin 2.6 L D Triglycerides Cholesterol Total LDL Cholesterol HDL Cholesterol Urine Color Urine Appearance Urine pH Ur Specific [place] Urine Protein Urine Glucose (UA) Urine Ketones Urine Blood Urine Nitrite Urine Bilirubin Urine Urobilinogen Ur Leukocyte Esterase Urine RBC Urine WBC Ur Epithelial Cells Urine Bacteria Hyaline Casts Urine Mucus U Random Total Protein Urine Creatinine Active Medications Generic Name Dose Route Start Last Admin Trade Name Freq PRN Reason Stop Dose Admin Albuterol Sulfate 1 amp 10/28/16 13:12 10/28/16 14:10 Ventolin 0.083% Nebulizer Soln - NEB 1 amp Q6H PRN Administration SHORT OF BREATH/WHEEZING Aspirin 81 mg 10/27/16 10:00 10/28/16 09:55 Asa - PO 81 mg DAILY ALESSIA Administration Atorvastatin Calcium 10 mg 10/27/16 22:00 10/28/16 21:48 Lipitor - PO 10 mg HS ALESSIA Administration Heparin Sodium (Porcine) 1,000 unit 10/27/16 01:04 10/27/16 02:29 Heparin - IVPUSH 1,000 unit PRN PRN Administration Heparin Heparin Sodium (Porcine) 5,000 unit 10/27/16 01:04 Heparin - IVPUSH PRN PRN Heparin Hydralazine HCl 10 mg 10/28/16 22:00 10/28/16 21:48 Apresoline - PO 10 mg BID ALESSIA Administration Heparin Sodium (Porcine) 25, 500 mls @ 20 mls/hr 10/27/16 01:04 10/28/16 23:00 000 unit/ Sodium Chloride IV 24 mls/hr TITR ALESSIA Administration Protocol 1,000 UNIT/HR Isosorbide Mononitrate 30 mg 10/29/16 10:00 Imdur - PO DAILY ALESSIA Sodium Bicarbonate 650 mg 10/28/16 10:00 10/28/16 10:01 Sodium Bicarbonate - PO 650 mg DAILY ALESSIA Administration ASSESSMENT/PLAN: 85 yr old woman with HTN, HLD, CHF (reduced LV and RV function), asthma, s/p defibrillator implantation presented to ED with chest pain for 1 week, transferred to ICU after episode of new onset afib with RVR and hypotension requiring dopamine. Cardiovascular Hypotension - resolved, off pressors HTN - imdur + hydralazine Afib - new onset, continues to be in Afib - rate control with metoprolol 12.5 mg po bid - continue heparin drip, plan to transition to oral anticoagulation CAD - lipitor po, ASA po daily consult: dr. toribio Renal RICA on CKD, pre-renal Cr improving, cautious with fluids due to CHF sodium bicarb po daily renal and bladder ultrasound pending for evalution consult: dr. nuñez Pulmonary nasal cannula to maintain >90% saturation ventolin nebulizor q6hr Hematological normocytic anemia, likely due to hemorrhage last night from removed peripheral IV site - transfuse 2 units - iron studies pending for further evaluation leucocytosis - pt is afebrile, without cough/dysuria likely reactive, monitor off abx, Diet: potassium/sodium controlled DVT: on heparin drip Dispo: can be monitored in telemetry Visit type - Emergency Visit Emergency Visit: No - New Patient This patient is new to me today: Yes Date on this admission: 10/29/16 - Critical Care Critical Care patient: Yes Total Critical Care Time (in minutes): 36 Critical Care Statement: The care of this patient involved high complexity decision making to prevent further life threatening deterioration of the patient 's condition and/or to evalute & treat vital organ system(s) failure or risk of failure.
--- NOTE | 2016-10-29 09:12 | PN ---
Progress Note, Physician Chief Complaint: The patient seen in ICU. Events of yesterday reviewed with the RN. The patient had profuse bleeding from the left arm IV site...reportedly "pumping " out of blood from the arm. ???arterial She feels very weak, and tired. Noted pressure dressing on the arm. Urine output is maintained. Kimball catheter out. Denies any chest pain, or shortness of breath. History of Present Illness: The patient has h/o Hypertension, Hyperlipidemia, Coronary artery disease, new onset A Fib on Heparin, BP running low normal. - Current Medication List Current Medications: Active Medications Albuterol Sulfate (Ventolin 0.083% Nebulizer Soln -) 1 amp NEB Q6H PRN PRN Reason: SHORT OF BREATH/WHEEZING Last Admin: 10/28/16 14:10 Dose: 1 amp Aspirin (Asa -) 81 mg PO DAILY [facility] Last Admin: 10/28/16 09:55 Dose: 81 mg Atorvastatin Calcium (Lipitor -) 10 mg PO HS [facility] Last Admin: 10/28/16 21:48 Dose: 10 mg Heparin Sodium (Porcine) (Heparin -) 1,000 unit IVPUSH PRN PRN PRN Reason: Heparin Last Admin: 10/27/16 02:29 Dose: 1,000 unit Heparin Sodium (Porcine) (Heparin -) 5,000 unit IVPUSH PRN PRN PRN Reason: Heparin Hydralazine HCl (Apresoline -) 10 mg PO BID [facility] Last Admin: 10/28/16 21:48 Dose: 10 mg Heparin Sodium (Porcine) 25, (000 unit/ Sodium Chloride) 500 mls @ 20 mls/hr IV TITR ALESSIA; 1,000 UNIT/HR PRN Reason: Protocol Last Admin: 10/28/16 23:00 Dose: 24 mls/hr Isosorbide Mononitrate (Imdur -) 30 mg PO DAILY [facility] Sodium Bicarbonate (Sodium Bicarbonate -) 650 mg PO DAILY [facility] Last Admin: 10/28/16 10:01 Dose: 650 mg - Objective Vital Signs: Vital Signs Temperature 99.1 F 10/29/16 08:00 Pulse Rate 85 10/29/16 08:00 Respiratory Rate 18 10/29/16 08:00 Blood Pressure 126/64 10/29/16 08:00 O2 Sat by Pulse Oximetry (%) 96 10/29/16 08:00 Constitutional: Yes: Anxious, Mild Distress, Pallor Neck: Yes: Trachea Midline Cardiovascular: Yes: Pulse Irregular, S1, S2 Respiratory: Yes: CTA Bilaterally, Diminished Gastrointestinal: Yes: Normal Bowel Sounds Genitourinary: No: Bladder Distention, CVA Tenderness - Left, CVA Tenderness - Right, Incontinence Edema: No Neurological: Yes: Alert, Oriented Labs: CBC, BMP 10/29/16 05:20 10/29/16 05:20 INR, PTT INR 1.26 (0.82-1.09) H 10/28/16 22:30 Problem List - Problems (1) RICA (acute kidney injury) Code(s): N17.9 - ACUTE KIDNEY FAILURE, UNSPECIFIED (2) Acute on chronic systolic (congestive) heart failure Code(s): I50.23 - ACUTE ON CHRONIC SYSTOLIC (CONGESTIVE) HEART FAILURE (3) Anemia Code(s): D64.9 - ANEMIA, UNSPECIFIED (4) Atrial fibrillation with RVR Code(s): I48.91 - UNSPECIFIED ATRIAL FIBRILLATION (5) CAD (coronary artery disease) Code(s): I25.10 - ATHSCL HEART DISEASE OF [place] CORONARY ARTERY W/O ANG PCTRS (6) CHF (congestive heart failure) Code(s): I50.9 - HEART FAILURE, UNSPECIFIED (7) Renal dysfunction Code(s): N28.9 - DISORDER OF KIDNEY AND URETER, UNSPECIFIED Assessment/Plan A/P 85 year old woman with PMhx of Hypertension, Hyperlipidemia, CAD, AICD, Asthma, Former smoker who presented with chest pain and found to have new onset Afib with RVR with RICA with BUN/Cr of 41/3.7. #Acute Renal Insufficiency Etiology appears to be renal hypoperfusion in setting of Afib with RVR/ Hypotension, ARB and diuretics. Some deterioration of renal function from yesterday might reflect blood loss, hypotension and severe anemia. #Non-anion gap metabolic acidosis, most likely related to the acute renal dysfunction. #New onset Afib with RVR...on Heparin. #Anemia Worsened since the episode of blood loss yesterday. Need to consider PRBC transfusion. Thank you will follow Krupa Abreu
[2016-10-29] MEDS: SODIUM BICARBONATE 650 MG TABLET PO SCH (09:18)
[2016-10-29] MEDS: ASPIRIN 81 MG CHEWABLE TABLETS PO SCH (09:18)
[2016-10-29] MEDS ORDERED: ISOSORBIDE MONONITRATE 30 MG TAB.SR.24H (FP) PO SCH (10:00)
[2016-10-29] MEDS: hydrALAZINE HCL 10 MG TABLET PO SCH ×2 (10:42→21:36)
--- NOTE | 2016-10-29 12:17 | PN ---
Teaching Attending Note Name of Resident: Bryant Downs ATTENDING PHYSICIAN STATEMENT I saw and evaluated the patient. I reviewed the resident's note and discussed the case with the resident. I agree with the resident's findings and plan as documented. SUBJECTIVE: Pt seen and examined in the ICU. Some bleeding at peripheral IV site overnight. Denies shortness of breath, chest pain or palpitations. OBJECTIVE: Last Vital Signs Temp Pulse Resp BP Pulse Ox 98.9 F 94 H 30 H 120/69 100 10/29/16 10:00 10/29/16 10:23 10/29/16 10:00 10/29/16 10:00 10/29/16 10:23 Intake & Output 10/26/16 10/27/16 10/28/16 10/29/16 23:59 23:59 23:59 23:59 Intake Total 2715 1810 1084 Output Total 575 600 Balance 2140 1210 1084 Weight 180 lb 183 lb 2 oz 178 lb 9.6 oz Gen: mildly tachypneic at rest Heart: irregularly irregular Lung: decreased breath sounds at the bases Abd: soft, nontender Ext: no edema CBC, BMP 10/29/16 05:20 10/29/16 05:20 Active Medications Albuterol Sulfate (Ventolin 0.083% Nebulizer Soln -) 1 amp NEB Q6H PRN PRN Reason: SHORT OF BREATH/WHEEZING Last Admin: 10/28/16 14:10 Dose: 1 amp Aspirin (Asa -) 81 mg PO DAILY ALESSIA Last Admin: 10/29/16 09:18 Dose: 81 mg Atorvastatin Calcium (Lipitor -) 10 mg PO HS ALESSIA Last Admin: 10/28/16 21:48 Dose: 10 mg Heparin Sodium (Porcine) (Heparin -) 1,000 unit IVPUSH PRN PRN PRN Reason: Heparin Last Admin: 10/27/16 02:29 Dose: 1,000 unit Heparin Sodium (Porcine) (Heparin -) 5,000 unit IVPUSH PRN PRN PRN Reason: Heparin Last Admin: 10/29/16 07:00 Dose: 5,000 unit Hydralazine HCl (Apresoline -) 10 mg PO BID ALESSIA Last Admin: 10/29/16 10:42 Dose: 10 mg Heparin Sodium (Porcine) 25, (000 unit/ Sodium Chloride) 500 mls @ 20 mls/hr IV TITR ALESSIA; 1,000 UNIT/HR PRN Reason: Protocol Last Titration: 10/29/16 07:00 Dose: 1,350 unit/hr Isosorbide Mononitrate (Imdur -) 30 mg PO DAILY ALESSIA Last Admin: 10/29/16 09:18 Dose: 30 mg Sodium Bicarbonate (Sodium Bicarbonate -) 650 mg PO DAILY ALESSIA Last Admin: 10/29/16 09:18 Dose: 650 mg ASSESSMENT AND PLAN: New Onset Atrial Fibrillation with RVR +Troponins Acute Kidney Injury CAD Acute on Chronic Systolic Heart Failure Pulmonary HTN Hypercholesterolemia Anemia - transfuse PRBC - monitor H/H - rate controlled - continue anticoagulation, can transition to PO - monitor urine output, creatinine - O2 to keep Spo2 >90% - can monitor on telemetry
--- NOTE | 2016-10-29 12:47 | EKG ---
Test Reason : Blood Pressure : / mmHG Vent. Rate : 086 BPM Atrial Rate : 107 BPM P-R Int : 000 ms QRS Dur : 150 ms QT Int : 390 ms P-R-T Axes : 000 089 250 degrees QTc Int : 466 ms ATRIAL FIBRILLATION VS. ATRIAL FLUTTER LEFT BUNDLE BRANCH BLOCK ABNORMAL ECG WHEN COMPARED WITH ECG OF 26-OCT-2016 12:30, NO SIGNIFICANT CHANGE WAS FOUND Confirmed by MEÑO SUMNER MD ([id number]) on 10/29/2016 12:47:12 PM Referred By: JOY PIERCE Confirmed By:MEÑO SUMNER MD
--- NOTE | 2016-10-29 12:58 | PN ---
Progress Note, Physician History of Present Illness: The patient is an 85 year old female, with significant past medical history HTN , HLD, CAD s/p defibrillator, CHF, asthma, who presents today complaining of intermittent left sided chest pain over the past week. The patient does not have any pain at this time. The chest pain is non radiating and sharp that lasts for approximately 10 minutes. When she feels the pain, she usually takes an aspirin and goes to sleep. She has not mentioned the pain to her daughter until today, who then brought her into the emergency room. 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 Denies SOB, cough. Denies fever, chills, nausea, vomiting, sweats. Allergies: none reported PCP- No primary Social Hx: The patient lives at home alone. 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 - Current Medication List Current Medications: Active Medications Albuterol Sulfate (Ventolin 0.083% Nebulizer Soln -) 1 amp NEB Q6H PRN PRN Reason: SHORT OF BREATH/WHEEZING Last Admin: 10/28/16 14:10 Dose: 1 amp Aspirin (Asa -) 81 mg PO DAILY [facility] Last Admin: 10/29/16 09:18 Dose: 81 mg Atorvastatin Calcium (Lipitor -) 10 mg PO HS [facility] Last Admin: 10/28/16 21:48 Dose: 10 mg Heparin Sodium (Porcine) (Heparin -) 1,000 unit IVPUSH PRN PRN PRN Reason: Heparin Last Admin: 10/27/16 02:29 Dose: 1,000 unit Heparin Sodium (Porcine) (Heparin -) 5,000 unit IVPUSH PRN PRN PRN Reason: Heparin Last Admin: 10/29/16 07:00 Dose: 5,000 unit Hydralazine HCl (Apresoline -) 10 mg PO BID ALESSIA Last Admin: 10/29/16 10:42 Dose: 10 mg Heparin Sodium (Porcine) 25, (000 unit/ Sodium Chloride) 500 mls @ 20 mls/hr IV TITR ALESSIA; 1,000 UNIT/HR PRN Reason: Protocol Last Titration: 10/29/16 07:00 Dose: 1,350 unit/hr Isosorbide Mononitrate (Imdur -) 30 mg PO DAILY ALESSIA Last Admin: 10/29/16 09:18 Dose: 30 mg Sodium Bicarbonate (Sodium Bicarbonate -) 650 mg PO DAILY ALESSIA Last Admin: 10/29/16 09:18 Dose: 650 mg - Objective Vital Signs: Vital Signs Temperature 98.9 F 10/29/16 10:00 Pulse Rate 90 10/29/16 12:00 Respiratory Rate 25 H 10/29/16 12:00 Blood Pressure 115/59 10/29/16 12:00 O2 Sat by Pulse Oximetry (%) 100 10/29/16 10:23 Eyes: Yes: WNL, Conjunctiva Clear, EOM Intact HENT: Yes: WNL, Atraumatic, Normocephalic Neck: Yes: WNL, Supple, Trachea Midline Cardiovascular: Yes: Pulse Irregular, S1, S2 Respiratory: Yes: WNL, Regular, CTA Bilaterally Gastrointestinal: Yes: WNL, Normal Bowel Sounds Genitourinary: Yes: WNL Musculoskeletal: Yes: WNL Extremities: Yes: WNL Edema: No Integumentary: Yes: WNL Neurological: Yes: WNL, Alert, Oriented ...Motor Strength: WNL Psychiatric: Yes: WNL Labs: CBC, BMP 10/29/16 05:20 10/29/16 05:20 INR, PTT INR 1.26 (0.82-1.09) H 10/28/16 22:30 Assessment/Plan Problems (1) Atrial fibrillation Assessment/Plan: HR relativelypoorly controlled. will start low dose netoprolol 12.5 BID On ASA and IV heparin. Code(s): I48.91 - UNSPECIFIED ATRIAL FIBRILLATION (2) CAD (coronary artery disease) Code(s): I25.10 - ATHSCL HEART DISEASE OF [place] CORONARY ARTERY W/O ANG PCTRS (3) Asthma exacerbation Assessment/Plan: bronchodilators, steroids, and O2 per director labor standards. F/u workup regarding "true " bronchial asthma vs "cardiac" asthma. Treatment of acute systolic CHF. Code(s): J45.901 - UNSPECIFIED ASTHMA WITH (ACUTE) EXACERBATION (4) Pneumonia Code(s): J18.9 - PNEUMONIA, UNSPECIFIED ORGANISM Qualifiers: Pneumonia type: due to unspecified organism Laterality: unspecified laterality Lung location: unspecified part of lung Qualified Code(s): J18.9 - Pneumonia, unspecified organism (5) Renal dysfunction Assessment/Plan: Pt was oliguric overnight, necessitating fluids. F/u with gut puller. Code(s): N28.9 - DISORDER OF KIDNEY AND URETER, UNSPECIFIED (6) Acute on chronic systolic (congestive) heart failure Assessment/Plan: Problematic using usual classes of anti-CHF medications (e.g. beta blockers, ACEI or ARB, spironolactone) due to "asthma"and renal dysfunction. Would start hydralazine + Imdur instead (could not start yesterday due to hypotension-->dopamine; now hypertensive, and off dopamne). TNI maximum 0.09-->0.03. F/u BUN/Cr, Is and Os, daily weight, electrolytes, HR and BP. F/u prior workup of coronary artery disease. TSH WNL. F/u lipids; LDL has been >100 mg/dl in the past. Pt was hypotensive on admission; she had been on amlodipine, losartan, Coreg, and ?amiodarone. Ideally would restart carvedilol for CHF and AF if pt does not have true bronchial asthma/bronchospasm; clear with director labor standards. Code(s): I50.23 - ACUTE ON CHRONIC SYSTOLIC (CONGESTIVE) HEART FAILURE (7) LBBB (left bundle branch block) Assessment/Plan: noted since at least 2012. Code(s): I44.7 - LEFT BUNDLE-BRANCH BLOCK, UNSPECIFIED (8) Anemia Code(s): D64.9 - ANEMIA, UNSPECIFIED critical care time spent 35 min
--- NOTE | 2016-10-29 15:03 | PN ---
Physical Exam: SUBJECTIVE: Patient seen and examined at bed side this morning. No complaints. Feels good. Denies chest pain, sob, cough, palpitation, abdominal pain, nausea or vomiting. Patient mentioned that last night she had shortness of breath even going to the bathroom. Now sob has resolved. Overnight, patient had bleeding from IV site. 2 prbc was ordered, 1st prbc running at this time. OBJECTIVE: Vital Signs Period Temp Pulse Resp BP Sys/Mena Pulse Ox Last 24 Hr 98 F-99.3 F 68-101 18-30 109-159/50-100 96-100 GENERAL: Elderly female, lying comfortably in a chair, Awake, alert, and fully oriented, in no acute distress. HEAD: Normal with no signs of trauma. EYES: EOM intact, no pallor or icterus. EARS, NOSE, THROAT: Ears normal. Moist mucous membranes. Poor dentition. NECK: Supple. LUNGS: B/L Breath sounds equal, clear to auscultation bilaterally. No wheezes, and no crackles. No accessory muscle use. Chest: reproducible HEART: Irregularly irregular rate and rhythm, normal S1 and S2 with systolic murmur. ABDOMEN: Soft, nontender, not distended, normoactive bowel sounds, no guarding, no rebound, no masses. No hepatomegaly or splenomegaly. Per Rectal: No hemorrhoids or fissues, Empty rectal vault, no mass, minimal stool. MUSCULOSKELETAL: Normal range of motion at all joints. No bony deformities or tenderness. No CVA tenderness. UPPER EXTREMITIES: 2+ pulses, warm, well-perfused. No cyanosis. No clubbing. No peripheral edema. LOWER EXTREMITIES: 2+ pulses, warm, well-perfused. No calf tenderness. No peripheral edema. NEUROLOGICAL: No facial droop. Bulk/tone-normal, Power-5/5 in all ext. Cranial nerves II-XII intact. Normal speech. Normal gait. PSYCHIATRIC: Cooperative. Good eye contact. Appropriate mood and affect. SKIN: Warm, dry, normal turgor, no rashes or lesions noted, normal capillary refill. Laboratory Results - last 24 hr 10/28/16 10/28/16 10/28/16 09:00 22:30 22:30 WBC RBC Hgb Hct MCV MCHC RDW Plt Count MPV Neutrophils % Lymphocytes % Monocytes % Eosinophils % Basophils % Band Neutrophils Metamyelocytes Myelocytes Differential Comment Platelet Estimate Hypochromic-Microcytic INR 1.26 H PTT (Actin FS) Sodium Potassium Chloride Carbon Dioxide Anion Gap BUN Creatinine Creat Clearance w eGFR Random Glucose Calcium Phosphorus Magnesium Ferritin Total Bilirubin AST ALT Alkaline Phosphatase Total Protein Albumin Triglycerides 133 Cholesterol 128 Total LDL Cholesterol 73 HDL Cholesterol 40 Ur Random Sodium 25 Ur Random Potassium 13.0 Ur Random Chloride 12 Blood Type Antibody Screen Crossmatch 10/28/16 10/28/16 10/29/16 22:30 22:30 05:20 WBC RBC Hgb Hct MCV MCHC RDW Plt Count MPV Neutrophils % Lymphocytes % Monocytes % Eosinophils % Basophils % Band Neutrophils Metamyelocytes Myelocytes Differential Comment Platelet Estimate Hypochromic-Microcytic INR PTT (Actin FS) 37.0 H D 39.0 H Sodium 138 Potassium 3.8 Chloride 108 H Carbon Dioxide 19 L Anion Gap 11 BUN 40 H Creatinine 2.0 H D Creat Clearance w eGFR Random Glucose 86 D Calcium 7.0 L Phosphorus Magnesium Ferritin Total Bilirubin AST ALT Alkaline Phosphatase Total Protein Albumin Triglycerides Cholesterol Total LDL Cholesterol HDL Cholesterol Ur Random Sodium Ur Random Potassium Ur Random Chloride Blood Type Antibody Screen Crossmatch 10/29/16 10/29/16 10/29/16 05:20 05:20 14:00 WBC 15.5 H RBC 2.52 L Hgb 6.8 L* Hct 22.2 L MCV 87.9 MCHC 30.7 L RDW 18.1 H Plt Count 258 MPV 9.2 Neutrophils % 71.0 Lymphocytes % 8.0 D Monocytes % 6.0 Eosinophils % 5.0 H Basophils % 0.0 Band Neutrophils 4.0 D Metamyelocytes 1 Myelocytes 5 H D Differential Comment Manual diff done Platelet Estimate Adequate Hypochromic-Microcytic 1+ INR PTT (Actin FS) Sodium 139 Potassium 4.1 Chloride 108 H Carbon Dioxide 19 L Anion Gap 12 BUN 40 H Creatinine 2.1 H Creat Clearance w eGFR 22.44 Random Glucose 94 Calcium 7.8 L Phosphorus 3.3 D Magnesium 2.0 Ferritin 62.612 Total Bilirubin 0.5 D AST 34 ALT 39 Alkaline Phosphatase 227 H D Total Protein 6.0 L Albumin 2.6 L D Triglycerides Cholesterol Total LDL Cholesterol HDL Cholesterol Ur Random Sodium Ur Random Potassium Ur Random Chloride Blood Type B POSITIVE Antibody Screen Negative Crossmatch See Detail Active Medications Generic Name Dose Route Start Last Admin Trade Name Freq PRN Reason Stop Dose Admin Albuterol Sulfate 1 amp 06/25/17 13:12 10/28/16 14:10 Ventolin 0.083% Nebulizer Soln - NEB 1 amp Q6H PRN Administration SHORT OF BREATH/WHEEZING Aspirin 81 mg 10/27/16 10:00 10/29/16 09:18 Asa - PO 81 mg DAILY ALESSIA Administration Atorvastatin Calcium 10 mg 10/27/16 22:00 10/28/16 21:48 Lipitor - PO 10 mg HS ALESSIA Administration Heparin Sodium (Porcine) 1,000 unit 10/27/16 01:04 10/27/16 02:29 Heparin - IVPUSH 1,000 unit PRN PRN Administration Heparin Heparin Sodium (Porcine) 5,000 unit 10/27/16 01:04 10/29/16 07:00 Heparin - IVPUSH 5,000 unit PRN PRN Administration Heparin Hydralazine HCl 10 mg 10/28/16 22:00 10/29/16 10:42 Apresoline - PO 10 mg BID ALESSIA Administration Heparin Sodium (Porcine) 25, 500 mls @ 20 mls/hr 10/27/16 01:04 10/29/16 07:00 000 unit/ Sodium Chloride IV 1,350 unit/hr TITR ALESSIA Titration Protocol 1,000 UNIT/HR Isosorbide Mononitrate 30 mg 10/29/16 10:00 10/29/16 09:18 Imdur - PO 30 mg DAILY ALESSIA Administration Metoprolol Tartrate 12.5 mg 10/29/16 22:00 Lopressor - PO BID ALESSIA Sodium Bicarbonate 650 mg 10/28/16 10:00 10/29/16 09:18 Sodium Bicarbonate - PO 650 mg DAILY ALESSIA Administration ASSESSMENT/PLAN: Patient is an 85 year old female, with significant past medical history HTN, HLD , CAD s/p defibrillator, CHF, asthma, who presents today complaining of intermittent left sided chest pain over the past week. # Symptomatic anemia (Normocytic) H/H 6.8/22.2, 2 PRBC ordered, 1 PRBC Completed, waiting for 2nd PRBC. CBC to be repeated at 9pm today Likely due to bleeding from the removed IV peripheral line (10/28/2016) Pending Iron studies # New onset atrial fibrillation with RVR -now controlled Transferred from ICU to [facility], Continous cardiac monitoring CHADsVasc score is 4, On Heparin drip, stool occult negative,watch for H/H. Echo as reported # Chest pain-Likely [id number] # Increased troponins-likely demand ischemia. Resolved. # Acute Kidney Injury- likely due to dehydration-Improving Creatinine 2.1, baseline 0.9 in 2012 Avoid nephrotoxic drugs # Non anion gap metabolic acidosis Continue Oral sodium bicarbonate 650mg Daily. # Persistent Leukocytosis- WBC- 14.2--->15.5 She is afebrile, CXR normal, hence will just monitor at this time # CAD Continue Aspirin # Hyperlipidemia Continue Atorvastatin 10mg HS # Acute on chronic CHF Continue Hydralazine 10mg PO BID, Isosorbide mononitrate 30mg PO Daily # FEN Not on any fluids Electrolytes to be repeated tomorrow Sodium controlled diet # Prophylaxis For DVT: On Heparin Drip For Gi: Not indicated # Code Status: Full Code # Dispo: Admitted in Telemetry. Duration of stay unknown. Illness, Investigation and Plan of care explained to the patient and her daughter. They verbalized understanding. Case discussed with Dr. Ugarte. Visit type - Emergency Visit Emergency Visit: Yes ED Registration Date: 10/26/16 Care time: The patient presented to the Emergency Department on the above date and was hospitalized for further evaluation of their emergent condition. - New Patient This patient is new to me today: No - Critical Care Critical Care patient: No
[2016-10-29] MEDS ORDERED: HEPARIN NA (PORCINE) 5,000 UNITS/ML 1ML VIAL IVPUSH PRN ×4 (17:21)
[2016-10-29] MEDS: HEPARIN - 25,000 UNIT in SODIUM CHLORIDE 495 ML IV SCH (17:25)
--- NOTE | 2016-10-29 20:27 | PN ---
Teaching Attending Note Name of Resident: Ruthie Dalal ATTENDING PHYSICIAN STATEMENT I saw and evaluated the patient. I reviewed the resident's note and discussed the case with the resident. I agree with the resident's findings and plan as documented. SUBJECTIVE: Comfortable, with no acute distress. Feels better. OBJECTIVE: Vital Signs Temperature 98.4 F 10/29/16 20:00 Pulse Rate 116 H 10/29/16 20:00 Respiratory Rate 17 10/29/16 20:00 Blood Pressure 125/52 10/29/16 20:00 O2 Sat by Pulse Oximetry (%) 100 10/29/16 10:23 PE: per resident's note CBCD WBC 15.5 K/mm3 (4.0-10.0) H 10/29/16 05:20 RBC 2.52 M/mm3 (3.60-5.2) L 10/29/16 05:20 Hgb 6.8 GM/dL (10.7-15.3) L* 10/29/16 05:20 Hct 22.2 % (32.4-45.2) L 10/29/16 05:20 MCV 87.9 fl (80-96) 10/29/16 05:20 MCHC 30.7 g/dl (32.0-36.0) L 10/29/16 05:20 RDW 18.1 % (11.6-15.6) H 10/29/16 05:20 Plt Count 258 K/MM3 (134-434) 10/29/16 05:20 MPV 9.2 fl (7.5-11.1) 10/29/16 05:20 CMP Sodium 139 mmol/L (136-145) 10/29/16 05:20 Potassium 4.1 mmol/L (3.5-5.1) 10/29/16 05:20 Chloride 108 mmol/L (98-107) H 10/29/16 05:20 Carbon Dioxide 19 mmol/L (21-32) L 10/29/16 05:20 Anion Gap 12 (8-16) 10/29/16 05:20 BUN 40 mg/dL (7-18) H 10/29/16 05:20 Creatinine 2.1 mg/dL (0.55-1.02) H 10/29/16 05:20 Creat Clearance w eGFR 22.44 (>60) 10/29/16 05:20 Random Glucose 94 mg/dL (74-106) 10/29/16 05:20 Calcium 7.8 mg/dL (8.5-10.1) L 10/29/16 05:20 Total Bilirubin 0.5 mg/dL (0.2-1.0) D 10/29/16 05:20 AST 34 U/L (15-37) 10/29/16 05:20 ALT 39 U/L (12-78) 10/29/16 05:20 Alkaline Phosphatase 227 U/L (45-117) H D 10/29/16 05:20 Total Protein 6.0 g/dl (6.4-8.2) L 10/29/16 05:20 Albumin 2.6 g/dl (3.4-5.0) L D 10/29/16 05:20 CARDIAC ENZYMES Creatine Kinase 75 IU/L (26-192) 10/27/16 15:10 Troponin I 0.03 ng/ml (0.00-0.05) 10/27/16 15:10 Current Medications Generic Name Dose Route Start Last Admin Trade Name Freq PRN Reason Stop Dose Admin Albuterol Sulfate 1 amp 10/29/16 17:21 Ventolin 0.083% Nebulizer Soln - NEB Q6H PRN SHORT OF BREATH/WHEEZING Aspirin 81 mg 10/30/16 10:00 Asa - PO DAILY [facility] Atorvastatin Calcium 10 mg 10/29/16 22:00 Lipitor - PO HS ALESSIA Heparin Sodium (Porcine) 5,000 unit 10/29/16 17:21 Heparin - IVPUSH PRN PRN Heparin Heparin Sodium (Porcine) 1,000 unit 10/29/16 17:21 Heparin - IVPUSH PRN PRN Heparin Hydralazine HCl 10 mg 10/29/16 22:00 Apresoline - PO BID [facility] Heparin Sodium (Porcine) 25, 500 mls @ 20 mls/hr 10/29/16 17:21 10/29/16 17:30 000 unit/ Sodium Chloride IV 1,050 unit/hr TITR ALESSIA Titration Protocol 1,000 UNIT/HR Isosorbide Mononitrate 30 mg 10/30/16 10:00 Imdur - PO DAILY [facility] Metoprolol Tartrate 12.5 mg 10/29/16 22:00 Lopressor - PO BID [facility] Sodium Bicarbonate 650 mg 10/30/16 10:00 Sodium Bicarbonate - PO DAILY [facility] Home Medications Medication Instructions Recorded Amlodipine Besylate 5 mg PO DAILY 10/26/16 Aspirin [ASA -] 81 mg PO DAILY 10/26/16 Carvedilol [Coreg] 25 mg PO BID 10/26/16 Losartan 50Mg/Hctz 12.5MG [Hyzaar 1 tab-cap PO DAILY 10/26/16 -] Multivitamin [Poly-Vitamin] 1 each PO DAILY 10/26/16 Naproxen [Naprosyn -] 500 mg PO BID 10/26/16 Pravastatin Sodium 20 mg PO DAILY 10/26/16 Sennosides/Docusate Sodium 1 tab PO PRN 10/26/16 [Pericolace -] ASSESSMENT AND PLAN: Patient is an 85 year old female, with significant past medical history HTN, HLD , CAD s/p defibrillator, CHF, asthma, who presents today complaining of intermittent left sided chest pain over the past week. # New onset atrial fibrillation with RVR CHADsVasc score is 4 s/p cardizem, amiodarone on Heparin drip now . # s/p bradycardia and hypotension: off Dopamine drip now , s/p atropine 0.5mg and glucagon 1mg # Atypical chest pain Likely musculoskeletal-reproducible. Troponins 0.06---> 0.09---> 0.03 now # Acute Kidney Injury- likely due to dehydration 3.7--> 3.4 IVF 1/2 NS at 100cc /hr continue , nephro consult # Persistent acute Leukocytosis continues will check UA,urine culture ,She is afebrile, CXR normal. will monitor # CAD continue Aspirin # Hyperlipidemia continue Atorvastatin 10mg HS # Hypertension off meds now since hypotensive now on Dopamine # Microcytic anemia r/o Iron deficiency anemia ,Baseline 10.6 in 2012; Today Hb- 8.7, Iron studies pending # Prophylaxis DVT: On Heparin Drip Code Status: Full Code
[2016-10-29] MEDS: METOPROLOL TARTRATE 25 MG TABLET (FP) PO SCH (21:36)
[2016-10-29] MEDS: ATORVASTATIN CA 10 MG TABLET (FP) PO SCH (21:36)
[2016-10-29] MEDS ORDERED: METOPROLOL TARTRATE 5 MG/5 ML VIAL IVPUSH PRN (21:48)
[2016-10-29] MEDS ORDERED: METOPROLOL TARTRATE 25 MG TABLET (FP) PO SCH (22:00)
[2016-10-29 22:21] LABS: MCH 27.3 pg (25.7-33.7); MCHC 31.8 g/dl (32.0-36.0); MEAN CELL VOLUME 85.8 fl (80-96); MEAN PLT VOLUME 9.4 fl (7.5-11.1); PLATELET COUNT 264 K/MM3 (134-434); RDW 17.7 % (11.6-15.6); WHITE BLOOD COUNT 16.2 K/mm3 (4.0-10.0)
[2016-10-30 06:11] LABS: SERUM IRON 12 ug/dL (27-139); TOTAL IRON BINDING CAPACITY 236 ug/dL (250-450); UIBC 224 ug/dL (118-369)
[2016-10-30 07:26] LABS: MCH 27.7 pg (25.7-33.7); MCHC 32.6 g/dl (32.0-36.0); PLATELET COUNT 238 K/MM3 (134-434); RDW 17.8 % (11.6-15.6); WHITE BLOOD COUNT 16.6 K/mm3 (4.0-10.0)
[2016-10-30 08:16] LABS: ANION GAP 9 (8-16); CALCIUM 8.3 mg/dL (8.5-10.1); CO2 23 mmol/L (21-32); CREATININE 1.6 mg/dL (0.55-1.02); GLUCOSE,RANDOM 97 mg/dL (74-106)
[2016-10-30] MEDS: HEPARIN - 25,000 UNIT in SODIUM CHLORIDE 495 ML IV SCH ×2 (08:19→17:46)
[2016-10-30] MEDS: ISOSORBIDE MONONITRATE 30 MG TAB.SR.24H (FP) PO SCH (11:13)
[2016-10-30] MEDS: METOPROLOL TARTRATE 25 MG TABLET (FP) PO SCH ×2 (11:13→22:26)
[2016-10-30] MEDS: ASPIRIN 81 MG CHEWABLE TABLETS PO SCH (11:14)
[2016-10-30] MEDS: SODIUM BICARBONATE 650 MG TABLET PO SCH (11:14)
[2016-10-30] MEDS: hydrALAZINE HCL 10 MG TABLET PO SCH ×2 (11:14→22:26)
--- NOTE | 2016-10-30 11:34 | PN ---
Progress Note, Physician Chief Complaint: The patient in Telemetry. Feeling much better. Good urine output. Renal funcytions improving Denies any chest pain, or shortness of breath. - Current Medication List Current Medications: Active Medications Albuterol Sulfate (Ventolin 0.083% Nebulizer Soln -) 1 amp NEB Q6H PRN PRN Reason: SHORT OF BREATH/WHEEZING Aspirin (Asa -) 81 mg PO DAILY [facility] Last Admin: 10/30/16 11:14 Dose: 81 mg Atorvastatin Calcium (Lipitor -) 10 mg PO HS [facility] Last Admin: 10/29/16 21:36 Dose: 10 mg Heparin Sodium (Porcine) (Heparin -) 5,000 unit IVPUSH PRN PRN PRN Reason: Heparin Last Admin: 10/30/16 08:19 Dose: 5,000 unit Heparin Sodium (Porcine) (Heparin -) 1,000 unit IVPUSH PRN PRN PRN Reason: Heparin Hydralazine HCl (Apresoline -) 10 mg PO BID [facility] Last Admin: 10/30/16 11:14 Dose: 10 mg Heparin Sodium (Porcine) 25, (000 unit/ Sodium Chloride) 500 mls @ 20 mls/hr IV TITR ALESSIA; 1,000 UNIT/HR PRN Reason: Protocol Last Admin: 10/30/16 08:19 Dose: 24 mls/hr Isosorbide Mononitrate (Imdur -) 30 mg PO DAILY [facility] Last Admin: 10/30/16 11:13 Dose: 30 mg Metoprolol Tartrate (Lopressor -) 12.5 mg PO BID [facility] Last Admin: 10/30/16 11:13 Dose: 12.5 mg Metoprolol Tartrate (Lopressor Injection -) 5 mg IVPUSH Q4H PRN PRN Reason: TACHYCARDIA Sodium Bicarbonate (Sodium Bicarbonate -) 650 mg PO DAILY [facility] Last Admin: 10/30/16 11:14 Dose: 650 mg - Objective Vital Signs: Vital Signs Temperature 98.8 F 10/30/16 10:00 Pulse Rate 90 10/30/16 11:25 Respiratory Rate 20 10/30/16 10:00 Blood Pressure 130/53 10/30/16 11:25 O2 Sat by Pulse Oximetry (%) 96 10/30/16 10:00 Labs: CBC, BMP 10/30/16 05:30 10/30/16 05:30 INR, PTT INR 1.26 (0.82-1.09) H 10/28/16 22:30 Problem List - Problems (1) RICA (acute kidney injury) Code(s): N17.9 - ACUTE KIDNEY FAILURE, UNSPECIFIED (2) Acute on chronic systolic (congestive) heart failure Code(s): I50.23 - ACUTE ON CHRONIC SYSTOLIC (CONGESTIVE) HEART FAILURE (3) Anemia Code(s): D64.9 - ANEMIA, UNSPECIFIED (4) Atrial fibrillation with RVR Code(s): I48.91 - UNSPECIFIED ATRIAL FIBRILLATION (5) CAD (coronary artery disease) Code(s): I25.10 - ATHSCL HEART DISEASE OF [place] CORONARY ARTERY W/O ANG PCTRS (6) CHF (congestive heart failure) Code(s): I50.9 - HEART FAILURE, UNSPECIFIED (7) Renal dysfunction Code(s): N28.9 - DISORDER OF KIDNEY AND URETER, UNSPECIFIED Assessment/Plan A/P 85 year old woman with PMhx of Hypertension, Hyperlipidemia, CAD, AICD, Asthma, Former smoker who presented with chest pain and found to have new onset Afib with RVR with RICA with BUN/Cr of 41/3.7. #Acute Renal Insufficiency Etiology appears to be renal hypoperfusion in setting of Afib with RVR/ Hypotension, ARB and diuretics. S The Renal functions improving towards baseline. #Non-anion gap metabolic acidosis, most likely related to the acute renal dysfunction. No specific treatments at this point. #Anemia Will need to monitor. Thank you will follow Krupa Abreu
--- NOTE | 2016-10-30 11:42 | EKG ---
Test Reason : Blood Pressure : / mmHG Vent. Rate : 071 BPM Atrial Rate : 277 BPM P-R Int : 000 ms QRS Dur : 148 ms QT Int : 410 ms P-R-T Axes : 000 060 170 degrees QTc Int : 445 ms WIDE QRS RHYTHM UNDERLYING ATRIAL FLUTTER LEFT BUNDLE BRANCH BLOCK ABNORMAL ECG WHEN COMPARED WITH ECG OF 26-OCT-2016 11:59, VENT. RATE HAS DECREASED BY 72 BPM Confirmed by MEÑO SUMNER MD ([id number]) on 10/30/2016 11:41:43 AM Referred By: Confirmed By:MEÑO SUMNER MD
[2016-10-30] MEDS: CEFTRIAXONE 50 ML IVPB SCH (13:53)
--- NOTE | 2016-10-30 13:54 | PN ---
Progress Note (short form) - Note Progress Note: Patient is comfortable with no acute distress. Temperature 98.8 F 10/30/16 10:00 Pulse Rate 90 10/30/16 11:25 Respiratory Rate 20 10/30/16 10:00 Blood Pressure 130/53 10/30/16 11:25 O2 Sat by Pulse Oximetry (%) 96 10/30/16 10:00 GENERAL: The patient is awake, alert, and fully oriented, in no acute distress. HEAD: Normal with no signs of trauma. EYES: PERRL, extraocular movements intact, sclera anicteric, conjunctiva clear. ENT: Ears normal, oropharynx clear without exudates, moist mucous membranes. NECK: Trachea midline, full range of motion, supple. LUNGS: decreased BS Bilaterally , clear to auscultation bilaterally, no wheezes , no crackles, no accessory muscle use. HEART: Regular rate and rhythm, S1, S2 positive, KIRSTEN 2/6 , positive for pacemaker. ABDOMEN: Soft, nontender, nondistended, normoactive bowel sounds, no guarding, no rebound, no hepatosplenomegaly, no masses. EXTREMITIES: 2+ pulses, warm, well-perfused, no edema. NEUROLOGICAL: Cranial nerves II through XII grossly intact. Normal speech, gait not observed. PSYCH: Normal mood, normal affect. SKIN: Warm, dry, normal turgor, no rashes or lesions noted CBCD WBC 16.6 K/mm3 (4.0-10.0) H 10/30/16 05:30 RBC 3.07 M/mm3 (3.60-5.2) L 10/30/16 05:30 Hgb 8.5 GM/dL (10.7-15.3) L 10/30/16 05:30 Hct 26.1 % (32.4-45.2) L 10/30/16 05:30 MCV 85.0 fl (80-96) 10/30/16 05:30 MCHC 32.6 g/dl (32.0-36.0) 10/30/16 05:30 RDW 17.8 % (11.6-15.6) H 10/30/16 05:30 Plt Count 238 K/MM3 (134-434) 10/30/16 05:30 MPV 9.0 fl (7.5-11.1) 10/30/16 05:30 CMP Sodium 142 mmol/L (136-145) 10/30/16 05:30 Potassium 4.3 mmol/L (3.5-5.1) 10/30/16 05:30 Chloride 110 mmol/L (98-107) H 10/30/16 05:30 Carbon Dioxide 23 mmol/L (21-32) D 10/30/16 05:30 Anion Gap 9 (8-16) 10/30/16 05:30 BUN 30 mg/dL (7-18) H D 10/30/16 05:30 Creatinine 1.6 mg/dL (0.55-1.02) H D 10/30/16 05:30 Creat Clearance w eGFR 22.44 (>60) 10/29/16 05:20 Random Glucose 97 mg/dL (74-106) 10/30/16 05:30 Calcium 8.3 mg/dL (8.5-10.1) L 10/30/16 05:30 Total Bilirubin 0.5 mg/dL (0.2-1.0) D 10/29/16 05:20 AST 34 U/L (15-37) 10/29/16 05:20 ALT 39 U/L (12-78) 10/29/16 05:20 Alkaline Phosphatase 314 U/L (45-117) H D 10/30/16 05:30 Total Protein 6.0 g/dl (6.4-8.2) L 10/29/16 05:20 Albumin 2.6 g/dl (3.4-5.0) L D 10/29/16 05:20 CARDIAC ENZYMES Creatine Kinase 75 IU/L (26-192) 10/27/16 15:10 Troponin I 0.03 ng/ml (0.00-0.05) 10/27/16 15:10 Current Medications Generic Name Dose Route Start Last Admin Trade Name Freq PRN Reason Stop Dose Admin Albuterol Sulfate 1 amp 10/29/16 17:21 Ventolin 0.083% Nebulizer Soln - NEB Q6H PRN SHORT OF BREATH/WHEEZING Aspirin 81 mg 10/30/16 10:00 10/30/16 11:14 Asa - PO 81 mg DAILY ALESSIA Administration Atorvastatin Calcium 10 mg 10/29/16 22:00 10/29/16 21:36 Lipitor - PO 10 mg HS ALESSIA Administration Heparin Sodium (Porcine) 5,000 unit 10/29/16 17:21 10/30/16 08:19 Heparin - IVPUSH 5,000 unit PRN PRN Administration Heparin Heparin Sodium (Porcine) 1,000 unit 10/29/16 17:21 Heparin - IVPUSH PRN PRN Heparin Hydralazine HCl 10 mg 10/29/16 22:00 10/30/16 11:14 Apresoline - PO 10 mg BID ALESSIA Administration Heparin Sodium (Porcine) 25, 500 mls @ 20 mls/hr 10/29/16 17:21 10/30/16 08:19 000 unit/ Sodium Chloride IV 24 mls/hr TITR ALESSIA Administration Protocol 1,000 UNIT/HR Ceftriaxone Sodium 50 mls @ 100 mls/hr 10/30/16 13:30 10/30/16 13:53 Rocephin 1gm Ivpb (Pre-Docked) IVPB 100 mls/hr DAILY ALESSIA Administration Isosorbide Mononitrate 30 mg 10/30/16 10:00 10/30/16 11:13 Imdur - PO 30 mg DAILY ALESSIA Administration Metoprolol Tartrate 12.5 mg 10/29/16 22:00 10/30/16 11:13 Lopressor - PO 12.5 mg BID ALESSIA Administration Metoprolol Tartrate 5 mg 10/29/16 21:48 Lopressor Injection - IVPUSH Q4H PRN TACHYCARDIA Sodium Bicarbonate 650 mg 10/30/16 10:00 10/30/16 11:14 Sodium Bicarbonate - PO 650 mg DAILY ALESSIA Administration Home Medications Medication Instructions Recorded Amlodipine Besylate 5 mg PO DAILY 10/26/16 Aspirin [ASA -] 81 mg PO DAILY 10/26/16 Carvedilol [Coreg] 25 mg PO BID 10/26/16 Losartan 50Mg/Hctz 12.5MG [Hyzaar 1 tab-cap PO DAILY 10/26/16 -] Multivitamin [Poly-Vitamin] 1 each PO DAILY 10/26/16 Naproxen [Naprosyn -] 500 mg PO BID 10/26/16 Pravastatin Sodium 20 mg PO DAILY 10/26/16 Sennosides/Docusate Sodium 1 tab PO PRN 10/26/16 [Pericolace -] A/P: Patient is an 85 year old female, with significant past medical history HTN, HLD , CAD s/p defibrillator, CHF, asthma, who presents today complaining of intermittent left sided chest pain over the past week. # Persistent acute Leukocytosis ,She is afebrile, CXR normal, will monitor for now. will start IV Rocephin 1gm daily for UTI , follow repeat UA/urine culture # s/p Acute bradycardia and hypotension: s/p Dopamine, s/p atropine 0.5mg IVP once; glucagon 1mg IVP once # New onset atrial fibrillation with RVR CHADsVasc score is 4 on Lopressor now and heparin drip s/p cardizem, amiodarone # Atypical chest pain Likely musculoskeletal-reproducible. Troponins 0.06---> 0.09---> 0.03 now # Acute Kidney Injury- likely due to dehydration 3.7--> 3.4 -->1.6 today follow , IVF 1/2 NS at 100cc/hr continue , nephro consult # CAD continue Aspirin # Hyperlipidemia continue Atorvastatin 10mg HS # Hypertension off meds now since hypotensive now on Dopamine # Microcytic anemia r/o Iron deficiency anemia ,Baseline 10.6 in 2012; Today Hb- 8.7, Iron studies pending # Prophylaxis DVT: On Heparin Drip Code Status: Full Code Visit type - Emergency Visit Emergency Visit: Yes ED Registration Date: 10/26/16 Care time: The patient presented to the Emergency Department on the above date and was hospitalized for further evaluation of their emergent condition. - New Patient This patient is new to me today: No - Critical Care Critical Care patient: No
--- NOTE | 2016-10-30 14:37 | PN ---
Progress Note (short form) - Note Progress Note: PULMONARY States breathing slightly improved. No chest pain or palpitations. Mild wheezing. Last Vital Signs Temp Pulse Resp BP Pulse Ox 98.8 F 90 20 130/53 96 10/30/16 10:00 10/30/16 11:25 10/30/16 10:00 10/30/16 11:25 10/30/16 10:00 Gen: mildly tachypneic at rest Heart: irregular Lung: scattered wheezes Abd: soft, nontender Ext: no edema CBC, BMP 10/30/16 05:30 10/30/16 05:30 Active Medications Albuterol Sulfate (Ventolin 0.083% Nebulizer Soln -) 1 amp NEB Q6H PRN PRN Reason: SHORT OF BREATH/WHEEZING Aspirin (Asa -) 81 mg PO DAILY [facility] Last Admin: 10/30/16 11:14 Dose: 81 mg Atorvastatin Calcium (Lipitor -) 10 mg PO HS [facility] Last Admin: 10/29/16 21:36 Dose: 10 mg Heparin Sodium (Porcine) (Heparin -) 5,000 unit IVPUSH PRN PRN PRN Reason: Heparin Last Admin: 10/30/16 08:19 Dose: 5,000 unit Heparin Sodium (Porcine) (Heparin -) 1,000 unit IVPUSH PRN PRN PRN Reason: Heparin Hydralazine HCl (Apresoline -) 10 mg PO BID [facility] Last Admin: 10/30/16 11:14 Dose: 10 mg Heparin Sodium (Porcine) 25, (000 unit/ Sodium Chloride) 500 mls @ 20 mls/hr IV TITR ALESSIA; 1,000 UNIT/HR PRN Reason: Protocol Last Admin: 10/30/16 08:19 Dose: 24 mls/hr Ceftriaxone Sodium (Rocephin 1gm Ivpb (Pre-Docked)) 50 mls @ 100 mls/hr IVPB DAILY [facility] Last Admin: 10/30/16 13:53 Dose: 100 mls/hr Isosorbide Mononitrate (Imdur -) 30 mg PO DAILY [facility] Last Admin: 10/30/16 11:13 Dose: 30 mg Metoprolol Tartrate (Lopressor -) 12.5 mg PO BID [facility] Last Admin: 10/30/16 11:13 Dose: 12.5 mg Metoprolol Tartrate (Lopressor Injection -) 5 mg IVPUSH Q4H PRN PRN Reason: TACHYCARDIA Sodium Bicarbonate (Sodium Bicarbonate -) 650 mg PO DAILY [facility] Last Admin: 10/30/16 11:14 Dose: 650 mg A/P New Onset Atrial Fibrillation with RVR +Troponins Acute Kidney Injury CAD Acute on Chronic Systolic Heart Failure Pulmonary HTN Hypercholesterolemia Anemia UTI - continue antibiotics - monitor H/H - rate controlled - continue anticoagulation, can transition to PO - monitor urine output, creatinine - O2 to keep Spo2 >90%
[2016-10-30] MEDS: ALBUTEROL SO4 0.083% IH SOL 2.5 MG/3 ML VIAL.NEB. NEB PRN ×2 (14:49→22:41)
[2016-10-30 15:11] LABS: MCH 27.4 pg (25.7-33.7); MCHC 31.9 g/dl (32.0-36.0); MEAN CELL VOLUME 85.7 fl (80-96); MEAN PLT VOLUME 8.9 fl (7.5-11.1); PLATELET COUNT 242 K/MM3 (134-434); RDW 18.1 % (11.6-15.6); WHITE BLOOD COUNT 16.7 K/mm3 (4.0-10.0)
[2016-10-30] MEDS ORDERED: RIVAROXABAN 20 MG TABLET PO SCH (16:00)
[2016-10-30 16:31] LABS: METAMYELOCYTE 2 % (0-2)
[2016-10-30] MEDS: RIVAROXABAN 20 MG TABLET PO SCH (18:08)
[2016-10-30] MEDS: ATORVASTATIN CA 10 MG TABLET (FP) PO SCH (22:26)
--- NOTE | 2016-10-31 04:06 | PN ---
Progress Note, Physician Chief Complaint: Pt A&Ox3; sitting up; denies chest pain; easily dyspneic. History of Present Illness: The patient is an 85 year old black female, with significant past medical history HTN, HLD, CAD s/p defibrillator, moderately severe systolic CHF, asthma , CKD, anemia, who presents today complaining of intermittent left sided chest pain over the past week. The patient does not have any pain at this time. The chest pain is non radiating and sharp that lasts for approximately 10 minutes. When she feels the pain, she usually takes an aspirin and goes to sleep. She has not mentioned the pain to her daughter until today, who then brought her into the emergency room. The patients daughter notes that the patient's test engineering technician is out of the country. Denies SOB, cough. Denies fever, chills, nausea, vomiting, sweats. Allergies: none reported PCP- No primary Social Hx: The patient lives at home alone. 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 [phone] - Current Medication List Current Medications: Active Medications Albuterol Sulfate (Ventolin 0.083% Nebulizer Soln -) 1 amp NEB Q6H PRN PRN Reason: SHORT OF BREATH/WHEEZING Last Admin: 10/30/16 22:41 Dose: 1 amp Aspirin (Asa -) 81 mg PO DAILY [facility] Last Admin: 10/30/16 11:14 Dose: 81 mg Atorvastatin Calcium (Lipitor -) 10 mg PO HS [facility] Last Admin: 10/30/16 22:26 Dose: 10 mg Hydralazine HCl (Apresoline -) 10 mg PO BID [facility] Last Admin: 10/30/16 22:26 Dose: 10 mg Ceftriaxone Sodium (Rocephin 1gm Ivpb (Pre-Docked)) 50 mls @ 100 mls/hr IVPB DAILY [facility] Last Admin: 10/30/16 13:53 Dose: 100 mls/hr Isosorbide Mononitrate (Imdur -) 30 mg PO DAILY [facility] Last Admin: 10/30/16 11:13 Dose: 30 mg Metoprolol Tartrate (Lopressor -) 12.5 mg PO BID [facility] Last Admin: 10/30/16 22:26 Dose: 12.5 mg Metoprolol Tartrate (Lopressor Injection -) 5 mg IVPUSH Q4H PRN PRN Reason: TACHYCARDIA Rivaroxaban (Xarelto -) 20 mg PO DAILY [facility] Last Admin: 10/30/16 18:08 Dose: 20 mg Sodium Bicarbonate (Sodium Bicarbonate -) 650 mg PO DAILY [facility] Last Admin: 10/30/16 11:14 Dose: 650 mg - Objective Vital Signs: Vital Signs Temperature 98.1 F 10/30/16 22:00 Pulse Rate 75 10/30/16 22:00 Respiratory Rate 20 10/30/16 22:00 Blood Pressure 126/73 10/30/16 22:00 O2 Sat by Pulse Oximetry (%) 96 10/30/16 22:00 Constitutional: Yes: No Distress Eyes: Yes: WNL HENT: Yes: WNL Neck: Yes: WNL Cardiovascular: Yes: Murmur, S1 (varies in intensity), S2 Respiratory: Yes: Regular, Diminished (bilaterally; mild expiratory left basal wheeze) Gastrointestinal: Yes: Soft ...Rectal Exam: Yes: Deferred Genitourinary: Yes: Anuria Musculoskeletal: Yes: Muscle Weakness Extremities: Yes: Cool Edema: No Peripheral Pulses WNL: No Peripheral Pulses: Left Doralis Pedis: 1+, Right Dorsalis Pedis: 1+ Integumentary: Yes: WNL Neurological: Yes: Alert, Oriented, Weakness Psychiatric: Yes: Alert, Oriented Labs: CBC, BMP 10/30/16 14:22 10/30/16 05:30 INR, PTT INR 1.26 (0.82-1.09) H 10/28/16 22:30 - ....Imaging Other: Image Reviewed (AF) Problem List - Problems (1) Atrial fibrillation Assessment/Plan: HR relatively well-controlled. Tolerating metoprolol. Discussed merits/potential risks of warfarin vs NOACs. Pt eats "lots" of greens. She agrees to start a NOAC; rivaroxaban started. Code(s): I48.91 - UNSPECIFIED ATRIAL FIBRILLATION (2) CAD (coronary artery disease) Code(s): I25.10 - ATHSCL HEART DISEASE OF [place] CORONARY ARTERY W/O ANG PCTRS (3) Asthma exacerbation Assessment/Plan: bronchodilators, steroids, and O2 per philosophy faculty member. Treatment of acute systolic CHF; now on metoprolol. Code(s): J45.901 - UNSPECIFIED ASTHMA WITH (ACUTE) EXACERBATION (4) Pneumonia Code(s): J18.9 - PNEUMONIA, UNSPECIFIED ORGANISM Qualifiers: Pneumonia type: due to unspecified organism Laterality: unspecified laterality Lung location: unspecified part of lung Qualified Code(s): J18.9 - Pneumonia, unspecified organism (5) Renal dysfunction Assessment/Plan: Improving BUN/Cr; avoid excessive dehydration. Code(s): N28.9 - DISORDER OF KIDNEY AND URETER, UNSPECIFIED (6) Acute on chronic systolic (congestive) heart failure Assessment/Plan: On metoprolol. On hydralazine + Imdur. Consider ACEI or ARB, then spironolactone (improving renal parameters). TNI maximum 0.09-->0.03. F/u BUN/Cr, Is and Os, daily weight, electrolytes, HR and BP. F/u prior workup of coronary artery disease. TSH WNL. Total cholesterol 128 mg/dL. Pt was hypotensive on admission; she had been on amlodipine, losartan, Coreg, and ?amiodarone. Code(s): I50.23 - ACUTE ON CHRONIC SYSTOLIC (CONGESTIVE) HEART FAILURE (7) LBBB (left bundle branch block) Assessment/Plan: noted since at least 2012. Code(s): I44.7 - LEFT BUNDLE-BRANCH BLOCK, UNSPECIFIED (8) Anemia Code(s): D64.9 - ANEMIA, UNSPECIFIED
[2016-10-31 08:11] LABS: MCH 27.8 pg (25.7-33.7); MCHC 32.6 g/dl (32.0-36.0); MEAN CELL VOLUME 85.3 fl (80-96); MEAN PLT VOLUME 8.8 fl (7.5-11.1); PLATELET COUNT 238 K/MM3 (134-434); RDW 18.4 % (11.6-15.6); WHITE BLOOD COUNT 16.8 K/mm3 (4.0-10.0)
[2016-10-31 08:40] LABS: CALCIUM 8.6 mg/dL (8.5-10.1)
[2016-10-31 08:47] LABS: ALBUMIN 2.6 g/dl (3.4-5.0); ALK PHOS 294 U/L (45-117); ANION GAP 11 (8-16); BILIRUBIN,TOTAL 0.8 mg/dL (0.2-1.0); CO2 23 mmol/L (21-32); CREATININE 1.5 mg/dL (0.55-1.02); GLUCOSE,RANDOM 85 mg/dL (74-106); MAGNESIUM 2.2 mg/dL (1.8-2.4); SGOT/AST 65 U/L (15-37); SGPT/ALT 64 U/L (12-78)
[2016-10-31] MEDS: ISOSORBIDE MONONITRATE 30 MG TAB.SR.24H (FP) PO SCH (09:59)
[2016-10-31] MEDS: ASPIRIN 81 MG CHEWABLE TABLETS PO SCH (09:59)
[2016-10-31] MEDS: hydrALAZINE HCL 10 MG TABLET PO SCH ×2 (10:00→21:18)
[2016-10-31] MEDS: RIVAROXABAN 20 MG TABLET PO SCH (10:00)
[2016-10-31] MEDS: SODIUM BICARBONATE 650 MG TABLET PO SCH (10:00)
[2016-10-31] MEDS: METOPROLOL TARTRATE 25 MG TABLET (FP) PO SCH ×2 (10:01→21:18)
[2016-10-31] MEDS: CEFTRIAXONE 50 ML IVPB SCH (10:01)
--- NOTE | 2016-10-31 10:49 | PN ---
Progress Note, Physician History of Present Illness: The patient is an 85 year old female, with significant past medical history HTN , HLD, CAD s/p defibrillator, CHF, asthma, who presents today complaining of intermittent left sided chest pain over the past week. The patient does not have any pain at this time. The chest pain is non radiating and sharp that lasts for approximately 10 minutes. When she feels the pain, she usually takes an aspirin and goes to sleep. She has not mentioned the pain to her daughter until today, who then brought her into the emergency room. The patients daughter notes that the patient's collar folder operator is out of the country. Denies SOB, cough. Denies fever, chills, nausea, vomiting, sweats. Allergies: none reported PCP- No primary Social Hx: The patient lives at home alone. 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 Uzair Gould [phone] - Current Medication List Current Medications: Active Medications Albuterol Sulfate (Ventolin 0.083% Nebulizer Soln -) 1 amp NEB Q6H PRN PRN Reason: SHORT OF BREATH/WHEEZING Last Admin: 10/30/16 22:41 Dose: 1 amp Aspirin (Asa -) 81 mg PO DAILY [facility] Last Admin: 10/31/16 09:59 Dose: 81 mg Atorvastatin Calcium (Lipitor -) 10 mg PO HS [facility] Last Admin: 10/30/16 22:26 Dose: 10 mg Hydralazine HCl (Apresoline -) 10 mg PO BID [facility] Last Admin: 10/31/16 10:00 Dose: 10 mg Ceftriaxone Sodium (Rocephin 1gm Ivpb (Pre-Docked)) 50 mls @ 100 mls/hr IVPB DAILY [facility] Last Admin: 10/31/16 10:01 Dose: 100 mls/hr Isosorbide Mononitrate (Imdur -) 30 mg PO DAILY [facility] Last Admin: 10/31/16 09:59 Dose: 30 mg Metoprolol Tartrate (Lopressor -) 12.5 mg PO BID [facility] Last Admin: 10/31/16 10:01 Dose: 12.5 mg Metoprolol Tartrate (Lopressor Injection -) 5 mg IVPUSH Q4H PRN PRN Reason: TACHYCARDIA Rivaroxaban (Xarelto -) 20 mg PO DAILY [facility] Last Admin: 10/31/16 10:00 Dose: 20 mg Sodium Bicarbonate (Sodium Bicarbonate -) 650 mg PO DAILY [facility] Last Admin: 10/31/16 10:00 Dose: 650 mg - Objective Vital Signs: Vital Signs Temperature 99.2 F 10/31/16 08:24 Pulse Rate 82 10/31/16 08:24 Respiratory Rate 20 10/31/16 08:24 Blood Pressure 136/73 10/31/16 08:24 O2 Sat by Pulse Oximetry (%) 98 10/31/16 06:00 Eyes: Yes: WNL, Conjunctiva Clear, EOM Intact HENT: Yes: WNL, Atraumatic, Normocephalic Neck: Yes: WNL, Supple, Trachea Midline Cardiovascular: Yes: Pulse Irregular, S1, S2 Respiratory: Yes: WNL, Regular, CTA Bilaterally Gastrointestinal: Yes: WNL, Normal Bowel Sounds Genitourinary: Yes: WNL Musculoskeletal: Yes: WNL Extremities: Yes: WNL Edema: No Integumentary: Yes: WNL Neurological: Yes: WNL, Alert, Oriented ...Motor Strength: WNL Psychiatric: Yes: WNL Labs: CBC, BMP 10/31/16 06:02 10/31/16 06:02 INR, PTT INR 1.26 (0.82-1.09) H 10/28/16 22:30 Assessment/Plan - Problems (1) Atrial fibrillation Assessment/Plan: HR relatively well-controlled. Tolerating metoprolol. Discussed merits/potential risks of warfarin vs NOACs. Pt eats "lots" of greens. She agrees to start a NOAC; rivaroxaban started. Code(s): I48.91 - UNSPECIFIED ATRIAL FIBRILLATION (2) CAD (coronary artery disease) Code(s): I25.10 - ATHSCL HEART DISEASE OF [place] CORONARY ARTERY W/O ANG PCTRS (3) Asthma exacerbation Assessment/Plan: bronchodilators, steroids, and O2 per comptometer operator. Treatment of acute systolic CHF; now on metoprolol. Code(s): J45.901 - UNSPECIFIED ASTHMA WITH (ACUTE) EXACERBATION (4) Pneumonia Code(s): J18.9 - PNEUMONIA, UNSPECIFIED ORGANISM Qualifiers: Pneumonia type: due to unspecified organism Laterality: unspecified laterality Lung location: unspecified part of lung Qualified Code(s): J18.9 - Pneumonia, unspecified organism (5) Renal dysfunction Assessment/Plan: Improving BUN/Cr; avoid excessive dehydration. Code(s): N28.9 - DISORDER OF KIDNEY AND URETER, UNSPECIFIED (6) Acute on chronic systolic (congestive) heart failure Assessment/Plan: On metoprolol. On hydralazine + Imdur. Consider ACEI or ARB, then spironolactone (improving renal parameters). TNI maximum 0.09-->0.03. F/u BUN/Cr, Is and Os, daily weight, electrolytes, HR and BP. F/u prior workup of coronary artery disease. TSH WNL. Total cholesterol 128 mg/dL. Pt was hypotensive on admission; she had been on amlodipine, losartan, Coreg, and ?amiodarone. Code(s): I50.23 - ACUTE ON CHRONIC SYSTOLIC (CONGESTIVE) HEART FAILURE (7) LBBB (left bundle branch block) Assessment/Plan: noted since at least 2012. Code(s): I44.7 - LEFT BUNDLE-BRANCH BLOCK, UNSPECIFIED (8) Anemia Code(s): D64.9 - ANEMIA, UNSPECIFIED
--- NOTE | 2016-10-31 12:05 | PN ---
Progress Note (short form) - Note Progress Note: PULMONARY LYING FLAT/NO SOB SUBJECTIVE IMPROVEMENT VSS/AFEBRILE ANICTERIC CLEAR ANTERIOR B/L BREATH SOUNDS S1S2 IRREG BS+ OBESE LESS EDEMA LOWER EXT LABS/MEDS/NOTES/IMAGING REVIEWED New Onset Atrial Fibrillation with RVR +Troponins Acute Kidney Injury CAD Acute on Chronic Systolic Heart Failure Pulmonary HTN Hypercholesterolemia Anemia UTI - continue antibiotics - monitor H/H - rate controlled - continue anticoagulation - monitor urine output, creatinine - O2 to keep Spo2 >90% Santo GONZALEZ MD
--- NOTE | 2016-10-31 12:49 | PN ---
Progress Note, Physician Chief Complaint: The patient in Telemetry. Feeling much better. Good urine output. Renal functtions improving Denies any chest pain, or shortness of breath. History of Present Illness: The patient has h/o Hypertension, Hyperlipidemia, Coronary artery disease, new onset A Fib on Heparin - Current Medication List Current Medications: Active Medications Albuterol Sulfate (Ventolin 0.083% Nebulizer Soln -) 1 amp NEB Q6H PRN PRN Reason: SHORT OF BREATH/WHEEZING Last Admin: 10/30/16 22:41 Dose: 1 amp Aspirin (Asa -) 81 mg PO DAILY [facility] Last Admin: 10/31/16 09:59 Dose: 81 mg Atorvastatin Calcium (Lipitor -) 10 mg PO HS [facility] Last Admin: 10/30/16 22:26 Dose: 10 mg Hydralazine HCl (Apresoline -) 10 mg PO BID [facility] Last Admin: 10/31/16 10:00 Dose: 10 mg Ceftriaxone Sodium (Rocephin 1gm Ivpb (Pre-Docked)) 50 mls @ 100 mls/hr IVPB DAILY [facility] Last Admin: 10/31/16 10:01 Dose: 100 mls/hr Isosorbide Mononitrate (Imdur -) 30 mg PO DAILY [facility] Last Admin: 10/31/16 09:59 Dose: 30 mg Metoprolol Tartrate (Lopressor -) 12.5 mg PO BID [facility] Last Admin: 10/31/16 10:01 Dose: 12.5 mg Metoprolol Tartrate (Lopressor Injection -) 5 mg IVPUSH Q4H PRN PRN Reason: TACHYCARDIA Rivaroxaban (Xarelto -) 20 mg PO DAILY [facility] Last Admin: 10/31/16 10:00 Dose: 20 mg Sodium Bicarbonate (Sodium Bicarbonate -) 650 mg PO DAILY [facility] Last Admin: 10/31/16 10:00 Dose: 650 mg - Objective Vital Signs: Vital Signs Temperature 99.2 F 10/31/16 08:24 Pulse Rate 82 10/31/16 08:24 Respiratory Rate 20 10/31/16 08:24 Blood Pressure 136/73 10/31/16 08:24 O2 Sat by Pulse Oximetry (%) 98 10/31/16 06:00 Constitutional: Yes: Well Nourished, Calm Eyes: Yes: Conjunctiva Clear HENT: Yes: Normocephalic Neck: Yes: Trachea Midline Respiratory: Yes: Diminished, Rhonchi Gastrointestinal: Yes: Normal Bowel Sounds, Soft, Abdomen, Obese Genitourinary: No: CVA Tenderness - Left, CVA Tenderness - Right, Hematuria Extremities: No: Calf Tenderness Labs: CBC, BMP 10/31/16 06:02 10/31/16 06:02 INR, PTT INR 1.26 (0.82-1.09) H 10/28/16 22:30 Problem List - Problems (1) RICA (acute kidney injury) Code(s): N17.9 - ACUTE KIDNEY FAILURE, UNSPECIFIED (2) Acute on chronic systolic (congestive) heart failure Code(s): I50.23 - ACUTE ON CHRONIC SYSTOLIC (CONGESTIVE) HEART FAILURE (3) Anemia Code(s): D64.9 - ANEMIA, UNSPECIFIED (4) Atrial fibrillation with RVR Code(s): I48.91 - UNSPECIFIED ATRIAL FIBRILLATION (5) CAD (coronary artery disease) Code(s): I25.10 - ATHSCL HEART DISEASE OF [place] CORONARY ARTERY W/O ANG PCTRS (6) CHF (congestive heart failure) Code(s): I50.9 - HEART FAILURE, UNSPECIFIED (7) Renal dysfunction Code(s): N28.9 - DISORDER OF KIDNEY AND URETER, UNSPECIFIED Assessment/Plan A/P 85 year old woman with PMhx of Hypertension, Hyperlipidemia, CAD, AICD, Asthma, Former smoker who presented with chest pain and found to have new onset Afib with RVR with RICA with BUN/Cr of 41/3.7. #Acute Renal Insufficiency Etiology appears to be renal hypoperfusion in setting of Afib with RVR/ Hypotension, ARB and diuretics. The Renal functions improving towards baseline. The patient has underlying CKD. #Non-anion gap metabolic acidosis, most likely related to the acute renal dysfunction. No specific treatments at this point. Improving on itsown. #Anemia Will need to monitor. Thank you will follow Krupa Abreu
--- NOTE | 2016-10-31 16:30 | PN ---
Physical Exam: SUBJECTIVE: Patient seen and examined at bed side this morning. No complaints. Feels good. Denies chest pain, sob, cough, palpitation, abdominal pain, nausea or vomiting. OBJECTIVE: Vital Signs Period Temp Pulse Resp BP Sys/Mena Pulse Ox Last 24 Hr 98.1 F-99.5 F 75-101 20-20 125-136/63-82 96-98 GENERAL: Elderly female, lying comfortably in a chair, Awake, alert, and fully oriented, in no acute distress. HEAD: Normal with no signs of trauma. EYES: EOM intact, no pallor or icterus. EARS, NOSE, THROAT: Ears normal. Moist mucous membranes. Poor dentition. NECK: Supple. LUNGS: B/L Breath sounds equal, clear to auscultation bilaterally. No wheezes, and no crackles. No accessory muscle use. Chest: reproducible HEART: Irregularly irregular rate and rhythm, normal S1 and S2 with systolic murmur. ABDOMEN: Soft, nontender, not distended, normoactive bowel sounds, no guarding, no rebound, no masses. No hepatomegaly or splenomegaly. Per Rectal: No hemorrhoids or fissues, Empty rectal vault, no mass, minimal stool. MUSCULOSKELETAL: Normal range of motion at all joints. No bony deformities or tenderness. No CVA tenderness. UPPER EXTREMITIES: 2+ pulses, warm, well-perfused. No cyanosis. No clubbing. No peripheral edema. LOWER EXTREMITIES: 2+ pulses, warm, well-perfused. No calf tenderness. No peripheral edema. NEUROLOGICAL: No facial droop. Bulk/tone-normal, Power-5/5 in all ext. Cranial nerves II-XII intact. Normal speech. Normal gait. PSYCHIATRIC: Cooperative. Good eye contact. Appropriate mood and affect. SKIN: Warm, dry, normal turgor, no rashes or lesions noted, normal capillary refill. Laboratory Results - last 24 hr 10/30/16 10/30/16 10/31/16 05:30 14:22 06:02 WBC 16.7 H 16.8 H RBC 3.12 L 3.01 L Hgb 8.5 L 8.4 L Hct 26.7 L 25.7 L MCV 85.7 85.3 MCHC 31.9 L 32.6 RDW 18.1 H 18.4 H Plt Count 242 238 MPV 8.9 8.8 Neutrophils % 79.0 Lymphocytes % 11.0 D Monocytes % 1.0 L D Eosinophils % 3.0 Metamyelocytes 2 D Myelocytes 4 H Nucleated RBCs 1 H PTT (Actin FS) Sodium Potassium Chloride Carbon Dioxide Anion Gap BUN Creatinine Creat Clearance w eGFR Random Glucose Calcium Magnesium Iron 13 L Total Bilirubin AST ALT Alkaline Phosphatase Total Protein Albumin 10/31/16 10/31/16 06:02 06:02 WBC RBC Hgb Hct MCV MCHC RDW Plt Count MPV Neutrophils % Lymphocytes % Monocytes % Eosinophils % Metamyelocytes Myelocytes Nucleated RBCs PTT (Actin FS) 34.8 H D Sodium 143 Potassium 4.3 Chloride 109 H Carbon Dioxide 23 Anion Gap 11 BUN 24 H Creatinine 1.5 H Creat Clearance w eGFR 33.08 Random Glucose 85 Calcium 8.6 Magnesium 2.2 Iron Total Bilirubin 0.8 D AST 65 H D ALT 64 D Alkaline Phosphatase 294 H Total Protein 6.0 L Albumin 2.6 L Active Medications Generic Name Dose Route Start Last Admin Trade Name Freq PRN Reason Stop Dose Admin Albuterol Sulfate 1 amp 10/29/16 17:21 10/30/16 22:41 Ventolin 0.083% Nebulizer Soln - NEB 1 amp Q6H PRN Administration SHORT OF BREATH/WHEEZING Aspirin 81 mg 10/30/16 10:00 10/31/16 09:59 Asa - PO 81 mg DAILY ALESSIA Administration Atorvastatin Calcium 10 mg 10/29/16 22:00 10/30/16 22:26 Lipitor - PO 10 mg HS ALESSIA Administration Hydralazine HCl 10 mg 10/29/16 22:00 10/31/16 10:00 Apresoline - PO 10 mg BID ALESSIA Administration Ceftriaxone Sodium 50 mls @ 100 mls/hr 10/30/16 13:30 10/31/16 10:01 Rocephin 1gm Ivpb (Pre-Docked) IVPB 100 mls/hr DAILY ALESSIA Administration Isosorbide Mononitrate 30 mg 10/30/16 10:00 10/31/16 09:59 Imdur - PO 30 mg DAILY ALESSIA Administration Metoprolol Tartrate 12.5 mg 10/29/16 22:00 10/31/16 10:01 Lopressor - PO 12.5 mg BID ALESSIA Administration Metoprolol Tartrate 5 mg 10/29/16 21:48 Lopressor Injection - IVPUSH Q4H PRN TACHYCARDIA Rivaroxaban 20 mg 10/30/16 18:00 10/31/16 10:00 Xarelto - PO 20 mg DAILY ALESSIA Administration Sodium Bicarbonate 650 mg 10/30/16 10:00 10/31/16 10:00 Sodium Bicarbonate - PO 650 mg DAILY ALESSIA Administration ASSESSMENT/PLAN: Patient is an 85 year old female, with significant past medical history HTN, HLD , CAD s/p defibrillator, CHF, asthma, who presents today complaining of intermittent left sided chest pain over the past week. # Symptomatic anemia (Normocytic) S/P 2 PRBC Completed. Likely due to bleeding from the removed IV peripheral line (10/28/2016) Iron studies- # New onset atrial fibrillation with RVR -now controlled Admitted in Tele, Continous cardiac monitoring CHADsVasc score is 4, On Xarelto 20mg Daily (confirmed with the pharmacy she needs to pay 295 $ as copay and 47 $ each month thereafter) Metoprolol 12.5mg PO BID Echo: Pacemaker, Septal motion abnormalities, Left ventricular systolic function decreased, mild-mod-MR/TR, RV sys pressure 40-50mmHg. # Chest pain-Likely [id number] # Increased troponins-likely demand ischemia. Resolved. # Acute Kidney Injury- likely due to dehydration-Improving Creatinine 1.5, baseline 0.9 in 2012 Avoid nephrotoxic drugs USG renal: Large upper pole right renal cysts-F/up with urology as outpatient. # Non anion gap metabolic acidosis Continue Oral sodium bicarbonate 650mg Daily. Will d/w with Dr. Love if we can discontinue it. # Persistent Leukocytosis- questionable UTI WBC- 16.6. Empirically treat with IV Ceftriaxone since WBC counts are increasing. First urine culture-contaminant. The second urine culture will probably not give us the correct results as patient has already received Ceftriaxone. # CAD Continue Aspirin # Hyperlipidemia Continue Atorvastatin 10mg HS # Acute on chronic CHF Continue Hydralazine 10mg PO BID, Isosorbide mononitrate 30mg PO Daily # FEN Not on any fluids Electrolytes to be repeated tomorrow Sodium controlled diet # Prophylaxis For DVT: On Heparin Drip For Gi: Not indicated # Code Status: Full Code # Dispo: Admitted in Telemetry. Duration of stay unknown. Illness, Investigation and Plan of care explained to the patient. She verbalized understanding. Case discussed with Dr. Ferrell. Visit type - Emergency Visit Emergency Visit: Yes ED Registration Date: 10/26/16 Care time: The patient presented to the Emergency Department on the above date and was hospitalized for further evaluation of their emergent condition. - New Patient This patient is new to me today: No - Critical Care Critical Care patient: No
--- NOTE | 2016-10-31 19:50 | PN ---
Teaching Attending Note Name of Resident: Ruthie Dalal ATTENDING PHYSICIAN STATEMENT I saw and evaluated the patient. I reviewed the resident's note and discussed the case with the resident. I agree with the resident's findings and plan as documented. SUBJECTIVE: no fever or chills. denies abd pain or dysuria OBJECTIVE: NAD CV : RRR Lungs : CTAB Ext : no edema ABd : soft, NT, ND , NL BS ASSESSMENT AND PLAN: 85 y/o lady with h/o CAD, HTN, HLP , CAD s/p defibrillator , CHF , asthma , anemia who presented with L sided CP and was found to have new onset A fib. 1- New onset A fib: - cont xarelto . CHADSVASC of 5 - cont BB - echo with Mod MR, mod -severe low EF , dilated L atrium - developed bradycardia after amio and caardizem. s/p atropine. improved 2- Leukocytosis : possible UTI . - urine cx initially contaminated - started on CTX day 2 , but urine cx not done yet - repeat 3- RICA: likely prerenal , improved with IVF. renal US with large R ranl cyst ( pt made aware , need f/u ) follow 4- HTN: off her home meds , now on BB 5- microcytic anemia : chronic , worsened after bleeding from IV site while o n AC. now stable rest of w/u as otu pt close from dc
[2016-10-31] MEDS: ATORVASTATIN CA 10 MG TABLET (FP) PO SCH (21:18)
[2016-10-31] MEDS: ACETAMINOPHEN 325 MG TABLET (FP) PO PRN (21:19)
[2016-10-31] MEDS: ALBUTEROL SO4 0.083% IH SOL 2.5 MG/3 ML VIAL.NEB. NEB PRN (21:30)
[2016-11-01 07:19] LABS: MCH 27.7 pg (25.7-33.7); MCHC 32.2 g/dl (32.0-36.0); MEAN PLT VOLUME 8.8 fl (7.5-11.1); PLATELET COUNT 275 K/MM3 (134-434); RDW 18.5 % (11.6-15.6); WHITE BLOOD COUNT 15.8 K/mm3 (4.0-10.0)
[2016-11-01 07:35] LABS: INR 1.28 (0.82-1.09); PROTHROMBIN TIME (PATIENT) 14.1 SEC (9.98-11.88)
[2016-11-01 08:33] LABS: ALBUMIN 2.7 g/dl (3.4-5.0); ALK PHOS 275 U/L (45-117); ANION GAP 10 (8-16); CALCIUM 9.2 mg/dL (8.5-10.1); CO2 25 mmol/L (21-32); CREATININE 1.4 mg/dL (0.55-1.02); GLUCOSE,RANDOM 90 mg/dL (74-106); SGOT/AST 46 U/L (15-37); SGPT/ALT 60 U/L (12-78); TOT PROT 6.2 g/dl (6.4-8.2)
[2016-11-01] MEDS: CEFTRIAXONE 50 ML IVPB SCH (09:09)
[2016-11-01] MEDS: SODIUM BICARBONATE 650 MG TABLET PO SCH (09:09)
[2016-11-01] MEDS: ISOSORBIDE MONONITRATE 30 MG TAB.SR.24H (FP) PO SCH (09:09)
[2016-11-01] MEDS: hydrALAZINE HCL 10 MG TABLET PO SCH ×2 (09:10→21:36)
[2016-11-01] MEDS: RIVAROXABAN 20 MG TABLET PO SCH (09:10)
[2016-11-01] MEDS: METOPROLOL TARTRATE 25 MG TABLET (FP) PO SCH ×2 (09:10→21:36)
[2016-11-01] MEDS: ASPIRIN 81 MG CHEWABLE TABLETS PO SCH (09:11)
[2016-11-01] MEDS: ALBUTEROL SO4 0.083% IH SOL 2.5 MG/3 ML VIAL.NEB. NEB PRN (10:15)
--- NOTE | 2016-11-01 12:11 | PN ---
Progress Note (short form) - Note Progress Note: Resting in NAD. No CP or SOB. No acute events overnight. Intake & Output 10/29/16 10/30/16 10/31/16 11/01/16 23:59 23:59 23:59 23:59 Intake Total 2718.5 615 460 Output Total 900 200 Balance 1818.5 615 460 -200 Weight 178 lb 9.6 oz 187 lb 12.8 oz 184 lb 6.4 oz Last Vital Signs Temp Pulse Resp BP Pulse Ox 98.1 F 135 H 22 157/104 98 11/01/16 08:00 11/01/16 10:15 11/01/16 08:00 11/01/16 08:00 11/01/16 10:15 Active Medications Acetaminophen (Tylenol -) 650 mg PO Q4H PRN PRN Reason: FEVER OR PAIN Last Admin: 10/31/16 21:19 Dose: 650 mg Albuterol Sulfate (Ventolin 0.083% Nebulizer Soln -) 1 amp NEB Q6H PRN PRN Reason: SHORT OF BREATH/WHEEZING Last Admin: 11/01/16 10:15 Dose: 1 amp Aspirin (Asa -) 81 mg PO DAILY [facility] Last Admin: 11/01/16 09:11 Dose: 81 mg Atorvastatin Calcium (Lipitor -) 10 mg PO HS [facility] Last Admin: 10/31/16 21:18 Dose: 10 mg Hydralazine HCl (Apresoline -) 10 mg PO BID [facility] Last Admin: 11/01/16 09:10 Dose: 10 mg Ceftriaxone Sodium (Rocephin 1gm Ivpb (Pre-Docked)) 50 mls @ 100 mls/hr IVPB DAILY [facility] Last Admin: 11/01/16 09:09 Dose: 100 mls/hr Isosorbide Mononitrate (Imdur -) 30 mg PO DAILY [facility] Last Admin: 11/01/16 09:09 Dose: 30 mg Metoprolol Tartrate (Lopressor -) 12.5 mg PO BID [facility] Last Admin: 11/01/16 09:10 Dose: 12.5 mg Metoprolol Tartrate (Lopressor Injection -) 5 mg IVPUSH Q4H PRN PRN Reason: TACHYCARDIA Rivaroxaban (Xarelto -) 20 mg PO DAILY [facility] Last Admin: 11/01/16 09:10 Dose: 20 mg Sodium Bicarbonate (Sodium Bicarbonate -) 650 mg PO DAILY ALESSIA Last Admin: 11/01/16 09:09 Dose: 650 mg Gen: NAD Heart: irregularly irregular Lung: decreased breath sounds at the bases Abd: soft, nontender Ext: no edema ASSESSMENT AND PLAN: New Onset Atrial Fibrillation with RVR +Troponins Acute Kidney Injury CAD Acute on Chronic Systolic Heart Failure Pulmonary HTN Hypercholesterolemia Anemia - Normal transfusion thresholds - monitor H/H - AC - monitor urine output, creatinine - O2 to keep Spo2 >90% - Telemetry monitoring Dr Parikh
[2016-11-01 13:21] LABS: MCH 27.3 pg (25.7-33.7); MCHC 31.4 g/dl (32.0-36.0); MEAN CELL VOLUME 86.9 fl (80-96); MEAN PLT VOLUME 8.1 fl (7.5-11.1); PLATELET COUNT 288 K/MM3 (134-434); RDW 18.5 % (11.6-15.6); WHITE BLOOD COUNT 15.7 K/mm3 (4.0-10.0)
--- NOTE | 2016-11-01 13:22 | PN ---
Progress Note, Physician Chief Complaint: The patient in Telemetry. Feeling much better. Good urine output. Renal functions slowly improving to her baseline. Denies any chest pain, or shortness of breath. - Current Medication List Current Medications: Active Medications Acetaminophen (Tylenol -) 650 mg PO Q4H PRN PRN Reason: FEVER OR PAIN Last Admin: 10/31/16 21:19 Dose: 650 mg Albuterol Sulfate (Ventolin 0.083% Nebulizer Soln -) 1 amp NEB Q6H PRN PRN Reason: SHORT OF BREATH/WHEEZING Last Admin: 11/01/16 10:15 Dose: 1 amp Aspirin (Asa -) 81 mg PO DAILY [facility] Last Admin: 11/01/16 09:11 Dose: 81 mg Atorvastatin Calcium (Lipitor -) 10 mg PO HS [facility] Last Admin: 10/31/16 21:18 Dose: 10 mg Hydralazine HCl (Apresoline -) 10 mg PO BID [facility] Last Admin: 11/01/16 09:10 Dose: 10 mg Ceftriaxone Sodium (Rocephin 1gm Ivpb (Pre-Docked)) 50 mls @ 100 mls/hr IVPB DAILY [facility] Last Admin: 11/01/16 09:09 Dose: 100 mls/hr Isosorbide Mononitrate (Imdur -) 30 mg PO DAILY [facility] Last Admin: 11/01/16 09:09 Dose: 30 mg Metoprolol Tartrate (Lopressor -) 12.5 mg PO BID [facility] Last Admin: 11/01/16 09:10 Dose: 12.5 mg Metoprolol Tartrate (Lopressor Injection -) 5 mg IVPUSH Q4H PRN PRN Reason: TACHYCARDIA Rivaroxaban (Xarelto -) 20 mg PO DAILY [facility] Last Admin: 11/01/16 09:10 Dose: 20 mg Sodium Bicarbonate (Sodium Bicarbonate -) 650 mg PO DAILY [facility] Last Admin: 11/01/16 09:09 Dose: 650 mg - Objective Vital Signs: Vital Signs Temperature 98.1 F 11/01/16 08:00 Pulse Rate 135 H 11/01/16 10:15 Respiratory Rate 22 11/01/16 08:00 Blood Pressure 157/104 11/01/16 08:00 O2 Sat by Pulse Oximetry (%) 98 11/01/16 10:15 Constitutional: Yes: No Distress, Anxious Eyes: Yes: Conjunctiva Clear HENT: Yes: Normocephalic Neck: Yes: Supple Cardiovascular: Yes: Pulse Irregular, S1, S2 Respiratory: Yes: CTA Bilaterally Gastrointestinal: Yes: Normal Bowel Sounds, Abdomen, Obese Genitourinary: No: CVA Tenderness - Left, CVA Tenderness - Right, Hematuria Extremities: Yes: WNL Neurological: Yes: Alert, Oriented Psychiatric: Yes: Alert, Oriented Labs: CBC, BMP 11/01/16 05:37 11/01/16 05:37 INR, PTT INR 1.28 (0.82-1.09) H 11/01/16 05:37 Problem List - Problems (1) RICA (acute kidney injury) Code(s): N17.9 - ACUTE KIDNEY FAILURE, UNSPECIFIED (2) Acute on chronic systolic (congestive) heart failure Code(s): I50.23 - ACUTE ON CHRONIC SYSTOLIC (CONGESTIVE) HEART FAILURE (3) Anemia Code(s): D64.9 - ANEMIA, UNSPECIFIED (4) Atrial fibrillation with RVR Code(s): I48.91 - UNSPECIFIED ATRIAL FIBRILLATION (5) CAD (coronary artery disease) Code(s): I25.10 - ATHSCL HEART DISEASE OF [place] CORONARY ARTERY W/O ANG PCTRS (6) CHF (congestive heart failure) Code(s): I50.9 - HEART FAILURE, UNSPECIFIED (7) Renal dysfunction Code(s): N28.9 - DISORDER OF KIDNEY AND URETER, UNSPECIFIED Assessment/Plan A/P 85 year old woman with PMhx of Hypertension, Hyperlipidemia, CAD, AICD, Asthma, Former smoker who presented with chest pain and found to have new onset Afib with RVR with RICA with BUN/Cr of 41/3.7. #Acute Renal Insufficiency Renal functions improving towards her baseline. #Anemia Will need to monitor. Thank you will follow Krupa Abreu
[2016-11-01 14:18] LABS: METAMYELOCYTE 2 % (0-2); PLATELET ESTIMATE ADEQUATE (NORMAL)
[2016-11-01] MEDS: ACETAMINOPHEN 325 MG TABLET (FP) PO PRN (17:24)
[2016-11-01] MEDS ORDERED: LEVOFLOXACIN 750 MG TABLET PO ONE (17:30)
[2016-11-01] MEDS ORDERED: LEVOFLOXACIN 500 MG TABLET (FP) PO ONE (17:30)
--- NOTE | 2016-11-01 17:55 | PN ---
Teaching Attending Note Name of Resident: Ruthie Dalal ATTENDING PHYSICIAN STATEMENT I saw and evaluated the patient. I reviewed the resident's note and discussed the case with the resident. I agree with the resident's findings and plan as documented. SUBJECTIVE: no apin , no fever or chills OBJECTIVE: NAD CV : RRR Lungs : CTAB Ext : no edema ABd : soft, NT, ND , NL BS ASSESSMENT AND PLAN: 85 y/o lady with h/o CAD, HTN, HLP , CAD s/p defibrillator , CHF , asthma , anemia who presented with L sided CP and was found to have new onset A fib. 1- New onset A fib: - cont xarelto . CHADSVASC of 5 - cont BB - echo with Mod MR, mod -severe low EF , dilated L atrium 2- Leukocytosis : possible UTI . - day 3 on ceftriaxone, lost IV access. will switch to po levaquin. - monitor WBC. - follow repeat urine cx 3- RICA: likely prerenal , improved with IVF. renal US with large R ranl cyst ( pt made aware , need f/u ) follow 4- HTN: cont meds 5- microcytic anemia : chronic , worsened after bleeding from IV site while o n AC. now stable rest of w/u as out pt POssible dc tomorrow
--- NOTE | 2016-11-01 18:17 | PN ---
Physical Exam: SUBJECTIVE: Patient seen and examined at bed side this morning. No complaints. Feels good. Denies chest pain, sob, cough, palpitation, abdominal pain, nausea or vomiting. No acute overnight events. OBJECTIVE: Vital Signs Period Temp Pulse Resp BP Sys/Mena Pulse Ox Last 24 Hr 98.1 F-100.4 F 96-135 20-22 103-157/53-104 95-98 GENERAL: Elderly female, lying comfortably in a chair, Awake, alert, and fully oriented, in no acute distress. HEAD: Normal with no signs of trauma. EYES: EOM intact, no pallor or icterus. EARS, NOSE, THROAT: Ears normal. Moist mucous membranes. Poor dentition. NECK: Supple. LUNGS: B/L Breath sounds equal, clear to auscultation bilaterally. No wheezes, and no crackles. No accessory muscle use. Chest: reproducible HEART: Irregularly irregular rate and rhythm, normal S1 and S2 with systolic murmur. ABDOMEN: Soft, nontender, not distended, normoactive bowel sounds, no guarding, no rebound, no masses. No hepatomegaly or splenomegaly. Per Rectal: No hemorrhoids or fissues, Empty rectal vault, no mass, minimal stool. MUSCULOSKELETAL: Normal range of motion at all joints. No bony deformities or tenderness. No CVA tenderness. UPPER EXTREMITIES: 2+ pulses, warm, well-perfused. No cyanosis. No clubbing. No peripheral edema. LOWER EXTREMITIES: 2+ pulses, warm, well-perfused. No calf tenderness. No peripheral edema. NEUROLOGICAL: No facial droop. Bulk/tone-normal, Power-5/5 in all ext. Cranial nerves II-XII intact. Normal speech. Normal gait. PSYCHIATRIC: Cooperative. Good eye contact. Appropriate mood and affect. SKIN: Warm, dry, normal turgor, no rashes or lesions noted, normal capillary refill. Laboratory Results - last 24 hr 10/29/16 11/01/16 11/01/16 14:00 05:37 05:37 WBC 15.8 H RBC 3.23 L Hgb 9.0 L Hct 27.8 L MCV 86.0 MCHC 32.2 RDW 18.5 H Plt Count 275 MPV 8.8 Neutrophils % Lymphocytes % Monocytes % Eosinophils % Basophils % Band Neutrophils Metamyelocytes Myelocytes Differential Comment Platelet Estimate INR PTT (Actin FS) 35.2 H Sodium Potassium Chloride Carbon Dioxide Anion Gap BUN Creatinine Creat Clearance w eGFR Random Glucose Calcium Total Bilirubin AST ALT Alkaline Phosphatase Total Protein Albumin Blood Type B POSITIVE Antibody Screen Negative Crossmatch See Detail 11/01/16 11/01/16 11/01/16 05:37 05:37 13:07 WBC 15.7 H RBC 3.33 L Hgb 9.1 L Hct 28.9 L MCV 86.9 MCHC 31.4 L RDW 18.5 H Plt Count 288 MPV 8.1 Neutrophils % 70.0 Lymphocytes % 13.0 Monocytes % 6.0 D Eosinophils % 5.0 H Basophils % 2.0 D Band Neutrophils 1.0 D Metamyelocytes 2 Myelocytes 1 D Differential Comment Manual diff done Platelet Estimate Adequate INR 1.28 H PTT (Actin FS) Sodium 144 Potassium 4.4 Chloride 109 H Carbon Dioxide 25 Anion Gap 10 BUN 20 H Creatinine 1.4 H Creat Clearance w eGFR 35.82 Random Glucose 90 Calcium 9.2 Total Bilirubin 1.0 D AST 46 H D ALT 60 Alkaline Phosphatase 275 H Total Protein 6.2 L Albumin 2.7 L Blood Type Antibody Screen Crossmatch Active Medications Generic Name Dose Route Start Last Admin Trade Name Freq PRN Reason Stop Dose Admin Acetaminophen 650 mg 10/31/16 21:05 11/01/16 17:24 Tylenol - PO 650 mg Q4H PRN Administration FEVER OR PAIN Albuterol Sulfate 1 amp 10/29/16 17:21 11/01/16 10:15 Ventolin 0.083% Nebulizer Soln - NEB 1 amp Q6H PRN Administration SHORT OF BREATH/WHEEZING Aspirin 81 mg 10/30/16 10:00 11/01/16 09:11 Asa - PO 81 mg DAILY ALESSIA Administration Atorvastatin Calcium 10 mg 10/29/16 22:00 10/31/16 21:18 Lipitor - PO 10 mg HS ALESSIA Administration Hydralazine HCl 10 mg 10/29/16 22:00 11/01/16 09:10 Apresoline - PO 10 mg BID ALESSIA Administration Isosorbide Mononitrate 30 mg 10/30/16 10:00 11/01/16 09:09 Imdur - PO 30 mg DAILY ALESSIA Administration Levofloxacin 250 mg 11/02/16 06:00 Levaquin - PO DAILY@0600 ALESSIA Metoprolol Tartrate 12.5 mg 10/29/16 22:00 11/01/16 09:10 Lopressor - PO 12.5 mg BID ALESSIA Administration Metoprolol Tartrate 5 mg 10/29/16 21:48 Lopressor Injection - IVPUSH Q4H PRN TACHYCARDIA Rivaroxaban 20 mg 10/30/16 18:00 11/01/16 09:10 Xarelto - PO 20 mg DAILY ALESSIA Administration Sodium Bicarbonate 650 mg 10/30/16 10:00 11/01/16 09:09 Sodium Bicarbonate - PO 650 mg DAILY ALESSIA Administration ASSESSMENT/PLAN: Patient is an 85 year old female, with significant past medical history HTN, HLD , CAD s/p defibrillator, CHF, asthma, who presents today complaining of intermittent left sided chest pain over the past week. # New onset atrial fibrillation with RVR -now controlled Admitted in Tele, Continous cardiac monitoring, multiple PVCs in tele CHADsVasc score is 4, On Xarelto 20mg Daily (confirmed with the pharmacy she needs to pay 295 $ as copay and 47 $ each month thereafter and she is okay with it) Metoprolol 12.5mg PO BID # Persistent Leukocytosis- questionable UTI WBC- 15.7, decreasing now. Empirically treat with IV Ceftriaxone since WBC counts are increasing. First urine culture-contaminant. The second urine culture will probably not give us the correct results as patient has already received Ceftriaxone. Changed IV Ceftriaxone to Levaquin 500mg PO stat and 250mg daily-Day 1 # Symptomatic anemia (Normocytic) Now H/H 9.1/28.9 S/P 2 PRBC this admission. Likely due to bleeding from the removed IV peripheral line (10/28/2016) # Chest pain-Likely [id number] # Increased troponins-likely demand ischemia. Resolved. # Acute Kidney Injury- likely due to dehydration-Improving Creatinine 1.4, baseline 0.9 in 2012 Avoid nephrotoxic drugs # Non anion gap metabolic acidosis Continue Oral sodium bicarbonate 650mg Daily. Will d/w with Dr. Love if we can discontinue it. # CAD Continue Aspirin # Hyperlipidemia Continue Atorvastatin 10mg HS # Acute on chronic CHF Continue Hydralazine 10mg PO BID, Isosorbide mononitrate 30mg PO Daily # FEN Not on any fluids Electrolytes to be repeated tomorrow Sodium controlled diet # Prophylaxis For DVT: On Heparin Drip For Gi: Not indicated # Code Status: Full Code # Dispo: Admitted in Telemetry. Duration of stay unknown. Illness, Investigation and Plan of care explained to the patient. She verbalized understanding. Case discussed with Dr. Ferrell. Visit type - Emergency Visit Emergency Visit: Yes ED Registration Date: 10/26/16 Care time: The patient presented to the Emergency Department on the above date and was hospitalized for further evaluation of their emergent condition. - New Patient This patient is new to me today: No - Critical Care Critical Care patient: No - Discharge Referral Referred to [facility] No
[2016-11-01] MEDS: ATORVASTATIN CA 10 MG TABLET (FP) PO SCH (21:37)
--- NOTE | 2016-11-01 22:49 | PN ---
Progress Note, Physician Chief Complaint: Pt A&Ox3; eating; no chest pain or dsypnea. History of Present Illness: The patient is an 85 year old black female, with significant past medical history HTN, HLD, CAD s/p defibrillator, moderately severe systolic CHF, asthma , CKD, anemia, who presents today complaining of intermittent left sided chest pain over the past week. The patient does not have any pain at this time. The chest pain is non radiating and sharp that lasts for approximately 10 minutes. When she feels the pain, she usually takes an aspirin and goes to sleep. She has not mentioned the pain to her daughter until today, who then brought her into the emergency room. The patients daughter notes that the patient's mds rn is [place] of the country. Denies SOB, cough. Denies fever, chills, nausea, vomiting, sweats. Allergies: none reported PCP- No primary Social Hx: The patient lives at home alone. 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 - Current Medication List Current Medications: Active Medications Acetaminophen (Tylenol -) 650 mg PO Q4H PRN PRN Reason: FEVER OR PAIN Last Admin: 11/01/16 17:24 Dose: 650 mg Albuterol Sulfate (Ventolin 0.083% Nebulizer Soln -) 1 amp NEB Q6H PRN PRN Reason: SHORT OF BREATH/WHEEZING Last Admin: 11/01/16 10:15 Dose: 1 amp Aspirin (Asa -) 81 mg PO DAILY [facility] Last Admin: 11/01/16 09:11 Dose: 81 mg Atorvastatin Calcium (Lipitor -) 10 mg PO HS [facility] Last Admin: 11/01/16 21:37 Dose: 10 mg Hydralazine HCl (Apresoline -) 10 mg PO BID [facility] Last Admin: 11/01/16 21:36 Dose: 10 mg Isosorbide Mononitrate (Imdur -) 30 mg PO DAILY [facility] Last Admin: 11/01/16 09:09 Dose: 30 mg Levofloxacin (Levaquin -) 250 mg PO DAILY@0600 [facility] Metoprolol Tartrate (Lopressor -) 12.5 mg PO BID [facility] Last Admin: 11/01/16 21:36 Dose: 12.5 mg Metoprolol Tartrate (Lopressor Injection -) 5 mg IVPUSH Q4H PRN PRN Reason: TACHYCARDIA Rivaroxaban (Xarelto -) 20 mg PO DAILY [facility] Last Admin: 11/01/16 09:10 Dose: 20 mg Sodium Bicarbonate (Sodium Bicarbonate -) 650 mg PO DAILY [facility] Last Admin: 11/01/16 09:09 Dose: 650 mg - Objective Vital Signs: Vital Signs Temperature 100.1 F H 11/01/16 17:00 Pulse Rate 101 H 11/01/16 17:00 Respiratory Rate 20 11/01/16 17:00 Blood Pressure 125/60 11/01/16 17:00 O2 Sat by Pulse Oximetry (%) 99 11/01/16 22:00 Constitutional: Yes: Calm Eyes: Yes: WNL HENT: Yes: WNL Neck: Yes: WNL Cardiovascular: Yes: Pulse Irregular, S1 (varies in intensity) Respiratory: Yes: Diminished, SOB on Exertion Gastrointestinal: Yes: Soft, Abdomen, Obese ...Rectal Exam: Yes: Deferred Genitourinary: No: Anuria Breast(s): Yes: WNL Musculoskeletal: Yes: Muscle Weakness Extremities: Yes: Cool Edema: No Peripheral Pulses WNL: No Peripheral Pulses: Left Doralis Pedis: 1+, Right Dorsalis Pedis: 1+ Integumentary: Yes: WNL Neurological: Yes: Alert, Oriented Psychiatric: Yes: Alert, Oriented Labs: CBC, BMP 11/01/16 13:07 11/01/16 05:37 INR, PTT INR 1.28 (0.82-1.09) H 11/01/16 05:37 - ....Imaging Other: Image Reviewed (telemetry: AF; periods of RVR) Problem List - Problems (1) Atrial fibrillation Assessment/Plan: AF with periods of RVR Tolerating metoprolol; increase for HR control. Discussed merits/potential risks of warfarin vs NOACs. Pt eats "lots" of greens. She agrees to start a NOAC; rivaroxaban started. Code(s): I48.91 - UNSPECIFIED ATRIAL FIBRILLATION (2) CAD (coronary artery disease) Code(s): I25.10 - ATHSCL HEART DISEASE OF [place] CORONARY ARTERY W/O ANG PCTRS (3) Asthma exacerbation Assessment/Plan: bronchodilators, steroids, and O2 per survey rodman. Treatment of acute systolic CHF; now on metoprolol. Code(s): J45.901 - UNSPECIFIED ASTHMA WITH (ACUTE) EXACERBATION (4) Pneumonia Code(s): J18.9 - PNEUMONIA, UNSPECIFIED ORGANISM Qualifiers: Pneumonia type: due to unspecified organism Laterality: unspecified laterality Lung location: unspecified part of lung Qualified Code(s): J18.9 - Pneumonia, unspecified organism (5) Renal dysfunction Assessment/Plan: Improving BUN/Cr; avoid excessive dehydration. Code(s): N28.9 - DISORDER OF KIDNEY AND URETER, UNSPECIFIED (6) Acute on chronic systolic (congestive) heart failure Assessment/Plan: On metoprolol. On hydralazine + Imdur. Consider ACEI or ARB, then spironolactone (improving renal parameters). TNI maximum 0.09-->0.03. F/u BUN/Cr, Is and Os, daily weight, electrolytes, HR and BP. F/u prior workup of coronary artery disease. TSH WNL. Total cholesterol 128 mg/dL. Pt was hypotensive on admission; she had been on amlodipine, losartan, Coreg, and ?amiodarone. Code(s): I50.23 - ACUTE ON CHRONIC SYSTOLIC (CONGESTIVE) HEART FAILURE (7) LBBB (left bundle branch block) Assessment/Plan: noted since at least 2012. Code(s): I44.7 - LEFT BUNDLE-BRANCH BLOCK, UNSPECIFIED (8) Anemia Code(s): D64.9 - ANEMIA, UNSPECIFIED
[2016-11-02] MEDS ORDERED: LEVOFLOXACIN 250 MG TABLET (FP) PO SCH (06:00)
[2016-11-02 07:35] LABS: MCH 27.4 pg (25.7-33.7); MCHC 31.8 g/dl (32.0-36.0); MEAN CELL VOLUME 86.3 fl (80-96); MEAN PLT VOLUME 8.3 fl (7.5-11.1); PLATELET COUNT 270 K/MM3 (134-434); RDW 17.9 % (11.6-15.6); WHITE BLOOD COUNT 14.8 K/mm3 (4.0-10.0)
[2016-11-02 08:25] LABS: ANION GAP 12 (8-16); CALCIUM 9.1 mg/dL (8.5-10.1); CO2 23 mmol/L (21-32); CREATININE 1.3 mg/dL (0.55-1.02); GLUCOSE,RANDOM 89 mg/dL (74-106)
[2016-11-02] MEDS: SODIUM BICARBONATE 650 MG TABLET PO SCH (09:47)
[2016-11-02] MEDS: ASPIRIN 81 MG CHEWABLE TABLETS PO SCH (09:47)
[2016-11-02] MEDS: METOPROLOL TARTRATE 25 MG TABLET (FP) PO SCH ×2 (09:47→21:17)
[2016-11-02] MEDS: hydrALAZINE HCL 10 MG TABLET PO SCH ×2 (09:47→21:17)
[2016-11-02] MEDS: ISOSORBIDE MONONITRATE 30 MG TAB.SR.24H (FP) PO SCH (09:47)
[2016-11-02] MEDS: RIVAROXABAN 20 MG TABLET PO SCH (09:48)
[2016-11-02] MEDS ORDERED: LEVOFLOXACIN 750 MG TABLET PO SCH (10:00)
--- NOTE | 2016-11-02 11:07 | PN ---
Progress Note, Physician Chief Complaint: The patient in Telemetry. Ambulating. No chest pain. No urinary complaints. Oral intake good. History of Present Illness: The patient has h/o Hypertension, Hyperlipidemia, Coronary artery disease, new onset A Fib on Xarelto. - Current Medication List Current Medications: Active Medications Acetaminophen (Tylenol -) 650 mg PO Q4H PRN PRN Reason: FEVER OR PAIN Last Admin: 11/01/16 17:24 Dose: 650 mg Albuterol Sulfate (Ventolin 0.083% Nebulizer Soln -) 1 amp NEB Q6H PRN PRN Reason: SHORT OF BREATH/WHEEZING Last Admin: 11/01/16 10:15 Dose: 1 amp Aspirin (Asa -) 81 mg PO DAILY [facility] Last Admin: 11/02/16 09:47 Dose: 81 mg Atorvastatin Calcium (Lipitor -) 10 mg PO HS [facility] Last Admin: 11/01/16 21:37 Dose: 10 mg Hydralazine HCl (Apresoline -) 10 mg PO BID [facility] Last Admin: 11/02/16 09:47 Dose: 10 mg Isosorbide Mononitrate (Imdur -) 30 mg PO DAILY [facility] Last Admin: 11/02/16 09:47 Dose: 30 mg Levofloxacin (Levaquin -) 250 mg PO DAILY@0600 [facility] Last Admin: 11/02/16 06:10 Dose: 250 mg Metoprolol Tartrate (Lopressor -) 12.5 mg PO BID [facility] Last Admin: 11/02/16 09:47 Dose: 12.5 mg Metoprolol Tartrate (Lopressor Injection -) 5 mg IVPUSH Q4H PRN PRN Reason: TACHYCARDIA Rivaroxaban (Xarelto -) 20 mg PO DAILY [facility] Last Admin: 11/02/16 09:48 Dose: 20 mg Sodium Bicarbonate (Sodium Bicarbonate -) 650 mg PO DAILY [facility] Last Admin: 11/02/16 09:47 Dose: 650 mg - Objective Vital Signs: Vital Signs Temperature 98.1 F 11/02/16 08:00 Pulse Rate 124 H 11/02/16 08:00 Respiratory Rate 22 11/02/16 08:00 Blood Pressure 152/66 11/02/16 08:00 O2 Sat by Pulse Oximetry (%) 96 11/02/16 08:00 Constitutional: Yes: Well Nourished, Calm Eyes: Yes: Conjunctiva Clear HENT: Yes: Normocephalic Cardiovascular: Yes: Pulse Irregular, S1, S2 Respiratory: Yes: CTA Bilaterally Gastrointestinal: Yes: Normal Bowel Sounds, Abdomen, Obese Labs: CBC, BMP 11/02/16 06:00 11/02/16 06:00 INR, PTT INR 1.28 (0.82-1.09) H 11/01/16 05:37 Problem List - Problems (1) RICA (acute kidney injury) Code(s): N17.9 - ACUTE KIDNEY FAILURE, UNSPECIFIED (2) Acute on chronic systolic (congestive) heart failure Code(s): I50.23 - ACUTE ON CHRONIC SYSTOLIC (CONGESTIVE) HEART FAILURE (3) Anemia Code(s): D64.9 - ANEMIA, UNSPECIFIED (4) Atrial fibrillation with RVR Code(s): I48.91 - UNSPECIFIED ATRIAL FIBRILLATION (5) CAD (coronary artery disease) Code(s): I25.10 - ATHSCL HEART DISEASE OF [place] CORONARY ARTERY W/O ANG PCTRS (6) CHF (congestive heart failure) Code(s): I50.9 - HEART FAILURE, UNSPECIFIED (7) Renal dysfunction Code(s): N28.9 - DISORDER OF KIDNEY AND URETER, UNSPECIFIED Assessment/Plan A/P 85 year old woman with PMhx of Hypertension, Hyperlipidemia, CAD, AICD, Asthma, Former smoker who presented with chest pain and found to have new onset Afib with RVR with RICA with BUN/Cr of 41/3.7. Renal functions have improved to close to her baseline. Anemia multi factorial, but the acute deterioration due to blood loss. S/P Transfusion. Will continue the current management. If she is discharged, rial be delighted to follow her up as out patient in the office. Thank you will follow Krupa Abreu MD
[2016-11-02 12:15] LABS: METAMYELOCYTE 1 % (0-2); PLATELET ESTIMATE DECREASED (NORMAL)
--- NOTE | 2016-11-02 14:34 | PN ---
Physical Exam: SUBJECTIVE: Patient seen and examined at bed side this morning. No complaints. Feels good. Denies chest pain, sob, cough, palpitation, abdominal pain, nausea or vomiting. Overnight had a temp of 100.1F OBJECTIVE: Vital Signs Period Temp Pulse Resp BP Sys/Mena Pulse Ox Last 24 Hr 98.1 F-100.1 F 86-124 18-22 103-152/53-72 96-99 GENERAL: Elderly female, lying comfortably in a chair, Awake, alert, and fully oriented, in no acute distress. HEAD: Normal with no signs of trauma. EYES: EOM intact, no pallor or icterus. EARS, NOSE, THROAT: Ears normal. Moist mucous membranes. Poor dentition. NECK: Supple. LUNGS: B/L Breath sounds equal, clear to auscultation bilaterally. No wheezes, and no crackles. No accessory muscle use. Chest: reproducible HEART: Irregularly irregular rate and rhythm, normal S1 and S2 with systolic murmur. ABDOMEN: Soft, nontender, not distended, normoactive bowel sounds, no guarding, no rebound, no masses. No hepatomegaly or splenomegaly. Per Rectal: No hemorrhoids or fissues, Empty rectal vault, no mass, minimal stool. MUSCULOSKELETAL: Normal range of motion at all joints. No bony deformities or tenderness. No CVA tenderness. UPPER EXTREMITIES: 2+ pulses, warm, well-perfused. No cyanosis. No clubbing. No peripheral edema. LOWER EXTREMITIES: 2+ pulses, warm, well-perfused. No calf tenderness. No peripheral edema. NEUROLOGICAL: No facial droop. Bulk/tone-normal, Power-5/5 in all ext. Cranial nerves II-XII intact. Normal speech. Normal gait. PSYCHIATRIC: Cooperative. Good eye contact. Appropriate mood and affect. SKIN: Warm, dry, normal turgor, no rashes or lesions noted, normal capillary refill. Laboratory Results - last 24 hr 10/29/16 11/02/16 11/02/16 14:00 06:00 06:00 WBC 14.8 H RBC 3.23 L Hgb 8.8 L Hct 27.8 L MCV 86.3 MCHC 31.8 L RDW 17.9 H Plt Count 270 MPV 8.3 Neutrophils % 77.0 Lymphocytes % 11.0 Monocytes % 5.0 Eosinophils % 1.0 Basophils % 1.0 Metamyelocytes 1 D Myelocytes 4 H D Differential Comment Manual diff done Platelet Estimate Decreased PTT (Actin FS) 34.9 H Sodium Potassium Chloride Carbon Dioxide Anion Gap BUN Creatinine Random Glucose Calcium Blood Type B POSITIVE Antibody Screen Negative Crossmatch See Detail 11/02/16 06:00 WBC RBC Hgb Hct MCV MCHC RDW Plt Count MPV Neutrophils % Lymphocytes % Monocytes % Eosinophils % Basophils % Metamyelocytes Myelocytes Differential Comment Platelet Estimate PTT (Actin FS) Sodium 144 Potassium 4.5 Chloride 109 H Carbon Dioxide 23 Anion Gap 12 BUN 17 Creatinine 1.3 H Random Glucose 89 Calcium 9.1 Blood Type Antibody Screen Crossmatch Active Medications Generic Name Dose Route Start Last Admin Trade Name Freq PRN Reason Stop Dose Admin Acetaminophen 650 mg 10/31/16 21:05 11/01/16 17:24 Tylenol - PO 650 mg Q4H PRN Administration FEVER OR PAIN Albuterol Sulfate 1 amp 10/29/16 17:21 11/01/16 10:15 Ventolin 0.083% Nebulizer Soln - NEB 1 amp Q6H PRN Administration SHORT OF BREATH/WHEEZING Aspirin 81 mg 10/30/16 10:00 11/02/16 09:47 Asa - PO 81 mg DAILY AL[facility] Administration Atorvastatin Calcium 10 mg 10/29/16 22:00 11/01/16 21:37 Lipitor - PO 10 mg HS [facility] Administration Hydralazine HCl 10 mg 10/29/16 22:00 11/02/16 09:47 Apresoline - PO 10 mg BID [facility] Administration Isosorbide Mononitrate 30 mg 10/30/16 10:00 11/02/16 09:47 Imdur - PO 30 mg DAILY [facility] Administration Levofloxacin 250 mg 11/02/16 06:00 11/02/16 06:10 Levaquin - PO 250 mg DAILY@0600 [facility] Administration Metoprolol Tartrate 12.5 mg 10/29/16 22:00 11/02/16 09:47 Lopressor - PO 12.5 mg BID [facility] Administration Metoprolol Tartrate 5 mg 10/29/16 21:48 Lopressor Injection - IVPUSH Q4H PRN TACHYCARDIA Rivaroxaban 20 mg 10/30/16 18:00 11/02/16 09:48 Xarelto - PO 20 mg DAILY [facility] Administration Sodium Bicarbonate 650 mg 10/30/16 10:00 11/02/16 09:47 Sodium Bicarbonate - PO 650 mg DAILY [facility] Administration ASSESSMENT/PLAN: Patient is an 85 year old female, with significant past medical history HTN, HLD , CAD s/p defibrillator, CHF, asthma, who presents today complaining of intermittent left sided chest pain over the past week. # New onset atrial fibrillation with RVR -now controlled Admitted in Tele, Continous cardiac monitoring, multiple PVCs in tele CHADsVasc score is 4, On Xarelto 20mg Daily (confirmed with the pharmacy she needs to pay 295 $ as copay and 47 $ each month thereafter and she is okay with it) Metoprolol 12.5mg PO BID # Persistent Leukocytosis- UTI ruled out. CXR no infiltrate R/o phlebitis, DVT given the h/o afib WBC- 15.7--> 14.8, decreasing now but still persistently high despite on abx. Currently on Levaquin 250mg daily-Day 2, renally dosed. Second urine culture: no growth. ID consult requested # Symptomatic anemia (Normocytic) Now H/H 8.8/28.8 S/P 2 PRBC this admission. Likely due to bleeding from the removed IV peripheral line (10/28/2016) # Chest pain-Likely [id number] # Increased troponins-likely demand ischemia. Resolved. # Acute Kidney Injury- likely due to dehydration-Improving Creatinine 1.4, baseline 0.9 in 2012 Avoid nephrotoxic drugs # Non anion gap metabolic acidosis Continue Oral sodium bicarbonate 650mg Daily. Will d/w with Dr. Love if we can discontinue it. # CAD Continue Aspirin # Hyperlipidemia Continue Atorvastatin 10mg HS # Acute on chronic CHF Continue Hydralazine 10mg PO BID, Isosorbide mononitrate 30mg PO Daily # FEN Not on any fluids Electrolytes to be repeated tomorrow Sodium controlled diet # Prophylaxis For DVT: On Heparin Drip For Gi: Not indicated # Code Status: Full Code # Dispo: Admitted in Telemetry. Duration of stay unknown. Illness, Investigation and Plan of care explained to the patient. She verbalized understanding. Case discussed with Dr. Ferrell. Visit type - Emergency Visit Emergency Visit: Yes ED Registration Date: 10/26/16 Care time: The patient presented to the Emergency Department on the above date and was hospitalized for further evaluation of their emergent condition. - New Patient This patient is new to me today: No - Critical Care Critical Care patient: No - Discharge Referral Referred to [facility] Med P.C.: No
--- NOTE | 2016-11-02 15:02 | PN ---
Progress Note, Physician Chief Complaint: Pt A&Ox3; sitting up; no complaints. History of Present Illness: The patient is an 85 year old black female, with significant past medical history HTN, HLD, CAD; moderately severe systolic CHF-->ICD; asthma, CKD, anemia , who presents today complaining of intermittent left sided chest pain over the past week. The patient does not have any pain at this time. The chest pain is non radiating and sharp that lasts for approximately 10 minutes. When she feels the pain, she usually takes an aspirin and goes to sleep. She has not mentioned the pain to her daughter until today, who then brought her into the emergency room. 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 Denies SOB, cough. Denies fever, chills, nausea, vomiting, sweats. Allergies: none reported PCP- No primary Social Hx: The patient lives at home alone. 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 [phone] - Current Medication List Current Medications: Active Medications Acetaminophen (Tylenol -) 650 mg PO Q4H PRN PRN Reason: FEVER OR PAIN Last Admin: 11/01/16 17:24 Dose: 650 mg Albuterol Sulfate (Ventolin 0.083% Nebulizer Soln -) 1 amp NEB Q6H PRN PRN Reason: SHORT OF BREATH/WHEEZING Last Admin: 11/01/16 10:15 Dose: 1 amp Aspirin (Asa -) 81 mg PO DAILY [facility] Last Admin: 11/02/16 09:47 Dose: 81 mg Atorvastatin Calcium (Lipitor -) 10 mg PO HS [facility] Last Admin: 11/01/16 21:37 Dose: 10 mg Hydralazine HCl (Apresoline -) 10 mg PO BID [facility] Last Admin: 11/02/16 09:47 Dose: 10 mg Isosorbide Mononitrate (Imdur -) 30 mg PO DAILY [facility] Last Admin: 11/02/16 09:47 Dose: 30 mg Levofloxacin (Levaquin -) 250 mg PO DAILY@0600 [facility] Last Admin: 11/02/16 06:10 Dose: 250 mg Metoprolol Tartrate (Lopressor -) 12.5 mg PO BID [facility] Last Admin: 11/02/16 09:47 Dose: 12.5 mg Metoprolol Tartrate (Lopressor Injection -) 5 mg IVPUSH Q4H PRN PRN Reason: TACHYCARDIA Rivaroxaban (Xarelto -) 20 mg PO DAILY [facility] Last Admin: 11/02/16 09:48 Dose: 20 mg Sodium Bicarbonate (Sodium Bicarbonate -) 650 mg PO DAILY [facility] Last Admin: 11/02/16 09:47 Dose: 650 mg - Objective Vital Signs: Vital Signs Temperature 99.6 F 11/02/16 14:00 Pulse Rate 90 11/02/16 14:00 Respiratory Rate 20 11/02/16 14:00 Blood Pressure 129/74 11/02/16 14:00 O2 Sat by Pulse Oximetry (%) 96 11/02/16 08:00 Constitutional: Yes: Calm Eyes: Yes: WNL HENT: Yes: WNL Neck: Yes: WNL Cardiovascular: Yes: Tachycardia, Pulse Irregular, S1 Respiratory: Yes: Diminished Gastrointestinal: Yes: Soft, Abdomen, Obese ...Rectal Exam: Yes: Deferred Genitourinary: No: Anuria Breast(s): Yes: WNL Musculoskeletal: Yes: Muscle Weakness Edema: No Peripheral Pulses WNL: No Peripheral Pulses: Left Doralis Pedis: 1+, Right Dorsalis Pedis: 1+ Neurological: Yes: Weakness Psychiatric: Yes: Other Labs: CBC, BMP 11/02/16 06:00 11/02/16 06:00 INR, PTT INR 1.28 (0.82-1.09) H 11/01/16 05:37 Abnormal Lab Results 11/02/16 11/02/16 11/02/16 06:00 06:00 06:00 WBC 14.8 H RBC 3.23 L Hgb 8.8 L Hct 27.8 L MCHC 31.8 L RDW 17.9 H Myelocytes 4 H D PTT (Actin FS) 34.9 H Chloride 109 H Creatinine 1.3 H Problem List - Problems (1) Atrial fibrillation Assessment/Plan: AF with periods of RVR Tolerating metoprolol; increased for HR control to 25 mg bid; f/u HR and BP. Rivaroxaban started. Code(s): I48.91 - UNSPECIFIED ATRIAL FIBRILLATION (2) CAD (coronary artery disease) Code(s): I25.10 - ATHSCL HEART DISEASE OF [place] CORONARY ARTERY W/O ANG PCTRS (3) Asthma exacerbation Assessment/Plan: bronchodilators, steroids, and O2 per parts technician. Treatment of acute systolic CHF; now on metoprolol. Code(s): J45.901 - UNSPECIFIED ASTHMA WITH (ACUTE) EXACERBATION (4) Pneumonia Code(s): J18.9 - PNEUMONIA, UNSPECIFIED ORGANISM Qualifiers: Pneumonia type: due to unspecified organism Laterality: unspecified laterality Lung location: unspecified part of lung Qualified Code(s): J18.9 - Pneumonia, unspecified organism (5) Renal dysfunction Assessment/Plan: Improving BUN/Cr; avoid excessive dehydration. Code(s): N28.9 - DISORDER OF KIDNEY AND URETER, UNSPECIFIED (6) Acute on chronic systolic (congestive) heart failure Assessment/Plan: On metoprolol (increased to 25 mg bid). On hydralazine + Imdur. Consider ACEI or ARB, then spironolactone (improving renal parameters). Discussed with pharmacist: GFR presently 44; can use ACEI without dose reduction unless GFR falls below 30. TNI maximum 0.09-->0.03. F/u BUN/Cr, Is and Os, daily weight, electrolytes, HR and BP. F/u prior workup of coronary artery disease. TSH WNL. Total cholesterol 128 Code(s): I50.23 - ACUTE ON CHRONIC SYSTOLIC (CONGESTIVE) HEART FAILURE (7) LBBB (left bundle branch block) Assessment/Plan: noted since at least 2012. Code(s): I44.7 - LEFT BUNDLE-BRANCH BLOCK, UNSPECIFIED (8) Anemia Code(s): D64.9 - ANEMIA, UNSPECIFIED
[2016-11-02] MEDS ORDERED: METOPROLOL TARTRATE 25 MG TABLET (FP) PO ONE (15:09)
--- NOTE | 2016-11-02 16:20 | CONSULT ---
Consult Consult Specialty:: infectious diseases Reason for Consultation:: fevers - History of Present Illness History of Present Illness: this patient who has a complicated hospital course was admitted with chest pain and new onset afib was in icu and now on the floor treated with heparin and now on xeralto. patient also had bleeding because she started bleeding from the iv site which was hard to control post control of the bleeding patient had low h and h and was transfused 2 units of blood patient started having low grade fever after that and she was tried on iv abx and then was on oral levaquin till today she got couple of doses of zosyn also currently patient is in afib and she goes in rapid afib when she moves around - Past Medical History Cardio/Vascular: Yes: CAD, CHF, HTN, Hyperlipdemia Pulmonary: Yes: Asthma Gastrointestinal: Yes: Other (Rectal bleed 2012) - Past Surgical History Past Surgical History: Yes: None, AICD - Alcohol/Substance Use Hx Alcohol Use: Yes Number of Drinks Daily: 2 History of Substance Use: reports: None - Smoking History Smoking history: Never smoked Have you smoked in the past 12 months: No Aproximately how many cigarettes per day: 0 - Social History ADL: Family Assistance History of Recent Travel: No Home Medications - Allergies Allergies/Adverse Reactions: Allergies Allergy/AdvReac Type Severity Reaction Status Date / Time No Known Allergies Allergy Verified 10/26/16 11:48 - Home Medications Home Medications: Ambulatory Orders Amlodipine Besylate 5 mg PO DAILY 10/26/16 Aspirin [ASA -] 81 mg PO DAILY 10/26/16 Carvedilol [Coreg] 25 mg PO BID 10/26/16 Losartan 50Mg/Hctz 12.5MG [Hyzaar -] 1 tab-cap PO DAILY 10/26/16 Multivitamin [Poly-Vitamin] 1 each PO DAILY 10/26/16 Naproxen [Naprosyn -] 500 mg PO BID 10/26/16 Pravastatin Sodium 20 mg PO DAILY 10/26/16 Sennosides/Docusate Sodium [Pericolace -] 1 tab PO PRN 10/26/16 Review of Systems - Review of Systems Constitutional: reports: Fever Eyes: reports: No Symptoms HENT: reports: No Symptoms Neck: reports: No Symptoms Cardiovascular: reports: Chest Pain Respiratory: reports: No Symptoms Gastrointestinal: reports: No Symptoms Genitourinary: reports: No Symptoms Integumentary: reports: No Symptoms Neurological: reports: No Symptoms Hematology/Lymphatic: reports: No Symptoms Psychiatric: reports: No Symptoms Physical Exam Vital Signs: Vital Signs Temperature 99.6 F 11/02/16 14:00 Pulse Rate 90 11/02/16 14:00 Respiratory Rate 20 11/02/16 14:00 Blood Pressure 129/74 11/02/16 14:00 O2 Sat by Pulse Oximetry (%) 96 11/02/16 08:00 Constitutional: Yes: Well Nourished, Obese Eyes: Yes: Conjunctiva Clear HENT: Yes: Atraumatic Cardiovascular: Yes: Tachycardia, Pulse Irregular Respiratory: Yes: Regular, Poor Air Entry Gastrointestinal: Yes: Normal Bowel Sounds, Soft Musculoskeletal: Yes: Other Extremities: Yes: Other (patient has developed phlebitis of the left arm tender to touch) Integumentary: Yes: Erythema (left forearm) Neurological: Yes: Alert, Oriented Psychiatric: Yes: Alert, Oriented Labs: CBC, BMP 11/02/16 06:00 11/02/16 06:00 Imaging - Results Chest X-ray: Report Reviewed, Image Reviewed Ultrasound: Report Reviewed, Image Reviewed Assessment/Plan - Problems (1) Atrial fibrillation Code(s): I48.91 - UNSPECIFIED ATRIAL FIBRILLATION (2) CAD (coronary artery disease) Code(s): I25.10 - ATHSCL HEART DISEASE OF [place] CORONARY ARTERY W/O ANG PCTRS (3) Asthma exacerbation Code(s): J45.901 - UNSPECIFIED ASTHMA WITH (ACUTE) EXACERBATION (4) Pneumonia Code(s): J18.9 - PNEUMONIA, UNSPECIFIED ORGANISM Qualifiers: Pneumonia type: due to unspecified organism Laterality: unspecified laterality Lung location: unspecified part of lung Qualified Code(s): J18.9 - Pneumonia, unspecified organism (5) Renal dysfunction Code(s): N28.9 - DISORDER OF KIDNEY AND URETER, UNSPECIFIED (6) Acute on chronic systolic (congestive) heart failure Code(s): I50.23 - ACUTE ON CHRONIC SYSTOLIC (CONGESTIVE) HEART FAILURE (7) LBBB (left bundle branch block) Code(s): I44.7 - LEFT BUNDLE-BRANCH BLOCK, UNSPECIFIED (8) Anemia Code(s): D64.9 - ANEMIA, UNSPECIFIED 9 phlebitis of the left arm after looking at the complete picture i think there are couple possibilities the patient is either spiking fever from one is phlebitis,second is possible uti and the third is something called as PTLI also her oral cavity is very bad and foul smelling and chances are that could be the cause also plan i have ordered the ultrasound of the hand and will see what the result shows,in extreme case if it is bad will need segment of the vein removed also started on combination of augmentin and doxy if patient does not improve we will choose two ways one we will stop all abx and watch or we will have to give her iv unasyn or ertapenam and we will watch her lets see what the ultrasound shows
[2016-11-02] MEDS: AMOX TR/POT CLAV 500MG/125MG TABLETS (FP) PO SCH (17:55)
[2016-11-02] MEDS: DOXYCYCLINE HYCLATE 100 MG CAPSULE PO SCH (17:55)
--- NOTE | 2016-11-02 19:13 | PN ---
Teaching Attending Note Name of Resident: Ruthie Dalal ATTENDING PHYSICIAN STATEMENT I saw and evaluated the patient. I reviewed the resident's note and discussed the case with the resident. I agree with the resident's findings and plan as documented. SUBJECTIVE: no pain , no SOB . OBJECTIVE: NAD CV : RRR Lungs: CTAB Ext : no edema ABd : soft, NT, ND , NL BS ASSESSMENT AND PLAN: 85 y/o lady with h/o CAD, HTN, HLP , CAD s/p defibrillator , CHF , asthma , anemia who presented with L sided CP and was found to have new onset A fib. 1- New onset A fib: - cont xarelto . CHADSVASC of 5 - cont BB - echo with Mod MR, mod -severe low EF , dilated L atrium 2- Leukocytosis : appreciate Dr. Boles help. possibley form UTI, Post transfusion reaction or superficial phlebitis . - augmentin and doxy - repeat urine cx no growth on abx - LUE doppler 3- RICA: likely prerenal , improved with IVF. US with large renal cyst 4- HTN: cont meds 5- Microcytic anemia : chronic , worsened after bleeding from IV site while o n AC. now stable rest of w/u as out pt HLOC
[2016-11-02] MEDS: ACETAMINOPHEN 325 MG TABLET (FP) PO PRN (19:25)
[2016-11-02] MEDS ORDERED: RANITIDINE HCL 150 MG TABLET (FP) PO ONE (21:08)
[2016-11-02] MEDS: ATORVASTATIN CA 10 MG TABLET (FP) PO SCH (21:17)
[2016-11-03 07:36] LABS: BASOPHIL 1.3 % (0-2.0); EOSINOPHIL 5.6 % (0-4.5); MCH 27.4 pg (25.7-33.7); MCHC 31.7 g/dl (32.0-36.0); MEAN CELL VOLUME 86.5 fl (80-96); MEAN PLT VOLUME 8.2 fl (7.5-11.1); NEUTROPHILS 72.6 % (42.8-82.8); PLATELET COUNT 255 K/MM3 (134-434); RDW 18.3 % (11.6-15.6); WHITE BLOOD COUNT 12.6 K/mm3 (4.0-10.0)
[2016-11-03 08:13] LABS: ANION GAP 10 (8-16); CALCIUM 9.1 mg/dL (8.5-10.1); CO2 25 mmol/L (21-32); CREATININE 1.3 mg/dL (0.55-1.02); GLUCOSE,RANDOM 89 mg/dL (74-106)
[2016-11-03] MEDS ORDERED: PT OWN MED DRAWER 7, Y5N ONE (09:12)
[2016-11-03] MEDS: ASPIRIN 81 MG CHEWABLE TABLETS PO SCH (09:28)
[2016-11-03] MEDS: METOPROLOL TARTRATE 25 MG TABLET (FP) PO SCH (09:28)
[2016-11-03] MEDS: AMOX TR/POT CLAV 500MG/125MG TABLETS (FP) PO SCH ×2 (09:28→17:44)
[2016-11-03] MEDS: hydrALAZINE HCL 10 MG TABLET PO SCH (09:28)
[2016-11-03] MEDS: DOXYCYCLINE HYCLATE 100 MG CAPSULE PO SCH ×2 (09:28→17:44)
[2016-11-03] MEDS: RIVAROXABAN 20 MG TABLET PO SCH (09:28)
[2016-11-03] MEDS: SODIUM BICARBONATE 650 MG TABLET PO SCH (09:28)
[2016-11-03] MEDS: ISOSORBIDE MONONITRATE 30 MG TAB.SR.24H (FP) PO SCH (09:28)
--- NOTE | 2016-11-03 11:26 | PN ---
Progress Note, Physician Chief Complaint: The patient in Telemetry. Offer no complaints. No shortness of breath. No palpitation. maintains good urine output. No chest pain, No GI symptoms. On A/C. History of Present Illness: The patient has h/o Hypertension, Hyperlipidemia, Coronary artery disease, new onset A Fib on Xarelto. Renal functions slowly improving towards her baseline. - Current Medication List Current Medications: Active Medications Acetaminophen (Tylenol -) 650 mg PO Q4H PRN PRN Reason: FEVER OR PAIN Last Admin: 11/02/16 19:25 Dose: 650 mg Albuterol Sulfate (Ventolin 0.083% Nebulizer Soln -) 1 amp NEB Q6H PRN PRN Reason: SHORT OF BREATH/WHEEZING Last Admin: 11/01/16 10:15 Dose: 1 amp Amoxicillin/Clavulanate Potassium (Augmentin - 500mg Tablet) 1 tab PO BID@0800, 1730 [facility] Last Admin: 11/03/16 09:28 Dose: 1 tab Aspirin (Asa -) 81 mg PO DAILY [facility] Last Admin: 11/03/16 09:28 Dose: 81 mg Atorvastatin Calcium (Lipitor -) 10 mg PO HS [facility] Last Admin: 11/02/16 21:17 Dose: 10 mg Doxycycline Hyclate (Vibramycin -) 100 mg PO BID@1000,1800 [facility] Last Admin: 11/03/16 09:28 Dose: 100 mg Hydralazine HCl (Apresoline -) 10 mg PO BID [facility] Last Admin: 11/03/16 09:28 Dose: 10 mg Isosorbide Mononitrate (Imdur -) 30 mg PO DAILY [facility] Last Admin: 11/03/16 09:28 Dose: 30 mg Metoprolol Tartrate (Lopressor Injection -) 5 mg IVPUSH Q4H PRN PRN Reason: TACHYCARDIA Metoprolol Tartrate (Lopressor -) 25 mg PO BID [facility] Last Admin: 11/03/16 09:28 Dose: 25 mg Rivaroxaban (Xarelto -) 20 mg PO DAILY [facility] Last Admin: 11/03/16 09:28 Dose: 20 mg Sodium Bicarbonate (Sodium Bicarbonate -) 650 mg PO DAILY [facility] Last Admin: 11/03/16 09:28 Dose: 650 mg - Objective Vital Signs: Vital Signs Temperature 98.2 F 11/03/16 08:30 Pulse Rate 96 H 11/03/16 08:30 Respiratory Rate 16 11/03/16 08:30 Blood Pressure 140/64 11/03/16 08:30 O2 Sat by Pulse Oximetry (%) 98 11/02/16 22:00 Constitutional: Yes: No Distress Eyes: Yes: Conjunctiva Clear HENT: Yes: Atraumatic Neck: Yes: Trachea Midline Cardiovascular: Yes: Pulse Irregular, S1, S2 Respiratory: Yes: CTA Bilaterally Labs: CBC, BMP 11/03/16 05:35 11/03/16 05:35 INR, PTT INR 1.28 (0.82-1.09) H 11/01/16 05:37 Problem List - Problems (1) RICA (acute kidney injury) Code(s): N17.9 - ACUTE KIDNEY FAILURE, UNSPECIFIED (2) Acute on chronic systolic (congestive) heart failure Code(s): I50.23 - ACUTE ON CHRONIC SYSTOLIC (CONGESTIVE) HEART FAILURE (3) Anemia Code(s): D64.9 - ANEMIA, UNSPECIFIED (4) Atrial fibrillation with RVR Code(s): I48.91 - UNSPECIFIED ATRIAL FIBRILLATION (5) CAD (coronary artery disease) Code(s): I25.10 - ATHSCL HEART DISEASE OF [place] CORONARY ARTERY W/O ANG PCTRS (6) CHF (congestive heart failure) Code(s): I50.9 - HEART FAILURE, UNSPECIFIED (7) Renal dysfunction Code(s): N28.9 - DISORDER OF KIDNEY AND URETER, UNSPECIFIED Assessment/Plan A/P 85 year old woman with PMhx of Hypertension, Hyperlipidemia, CAD, AICD, Asthma, Former smoker who presented with chest pain and found to have new onset Afib with RVR with RICA with BUN/Cr of 41/3.7. Renal functions have improved to close to her baseline. Anemia multi factorial, but the acute deterioration due to blood loss. S/P Transfusion. Will continue the current management. If she is discharged, we shall follow her as outpatient. Thank you will follow Krupa Abreu MD
--- NOTE | 2016-11-03 13:31 | PN ---
Progress Note, Physician History of Present Illness: The patient is an 85 year old female, with significant past medical history HTN , HLD, CAD s/p defibrillator, CHF, asthma, who presents today complaining of intermittent left sided chest pain over the past week. The patient does not have any pain at this time. The chest pain is non radiating and sharp that lasts for approximately 10 minutes. When she feels the pain, she usually takes an aspirin and goes to sleep. She has not mentioned the pain to her daughter until today, who then brought her into the emergency room. 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 Denies SOB, cough. Denies fever, chills, nausea, vomiting, sweats. Allergies: none reported PCP- No primary Social Hx: The patient lives at home alone. 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 - Current Medication List Current Medications: Active Medications Acetaminophen (Tylenol -) 650 mg PO Q4H PRN PRN Reason: FEVER OR PAIN Last Admin: 11/02/16 19:25 Dose: 650 mg Albuterol Sulfate (Ventolin 0.083% Nebulizer Soln -) 1 amp NEB Q6H PRN PRN Reason: SHORT OF BREATH/WHEEZING Last Admin: 11/01/16 10:15 Dose: 1 amp Amoxicillin/Clavulanate Potassium (Augmentin - 500mg Tablet) 1 tab PO BID@0800, 1730 [facility] Last Admin: 11/03/16 09:28 Dose: 1 tab Aspirin (Asa -) 81 mg PO DAILY [facility] Last Admin: 11/03/16 09:28 Dose: 81 mg Atorvastatin Calcium (Lipitor -) 10 mg PO HS [facility] Last Admin: 11/02/16 21:17 Dose: 10 mg Doxycycline Hyclate (Vibramycin -) 100 mg PO BID@1000,1800 [facility] Last Admin: 11/03/16 09:28 Dose: 100 mg Hydralazine HCl (Apresoline -) 10 mg PO BID [facility] Last Admin: 11/03/16 09:28 Dose: 10 mg Isosorbide Mononitrate (Imdur -) 30 mg PO DAILY [facility] Last Admin: 11/03/16 09:28 Dose: 30 mg Metoprolol Tartrate (Lopressor Injection -) 5 mg IVPUSH Q4H PRN PRN Reason: TACHYCARDIA Metoprolol Tartrate (Lopressor -) 25 mg PO BID [facility] Last Admin: 11/03/16 09:28 Dose: 25 mg Rivaroxaban (Xarelto -) 20 mg PO DAILY [facility] Last Admin: 11/03/16 09:28 Dose: 20 mg Sodium Bicarbonate (Sodium Bicarbonate -) 650 mg PO DAILY [facility] Last Admin: 11/03/16 09:28 Dose: 650 mg - Objective Vital Signs: Vital Signs Temperature 98.2 F 11/03/16 08:30 Pulse Rate 96 H 11/03/16 08:30 Respiratory Rate 16 11/03/16 08:30 Blood Pressure 140/64 11/03/16 08:30 O2 Sat by Pulse Oximetry (%) 95 11/03/16 10:00 Eyes: Yes: WNL, Conjunctiva Clear, EOM Intact HENT: Yes: WNL, Atraumatic, Normocephalic Neck: Yes: WNL, Supple, Trachea Midline Cardiovascular: Yes: WNL, Regular Rate and Rhythm Respiratory: Yes: WNL, Regular, CTA Bilaterally Gastrointestinal: Yes: WNL, Normal Bowel Sounds Genitourinary: Yes: WNL Musculoskeletal: Yes: WNL Extremities: Yes: WNL Edema: No Integumentary: Yes: WNL Neurological: Yes: WNL, Alert, Oriented ...Motor Strength: WNL Psychiatric: Yes: WNL Labs: CBC, BMP 11/03/16 05:35 11/03/16 05:35 INR, PTT INR 1.28 (0.82-1.09) H 11/01/16 05:37 Assessment/Plan - Problems (1) Atrial fibrillation Assessment/Plan: AF with periods of RVR Tolerating metoprolol; increased for HR control to 25 mg bid; f/u HR and BP. Rivaroxaban started. Code(s): I48.91 - UNSPECIFIED ATRIAL FIBRILLATION (2) CAD (coronary artery disease) Code(s): I25.10 - ATHSCL HEART DISEASE OF [place] CORONARY ARTERY W/O ANG PCTRS (3) Asthma exacerbation Assessment/Plan: bronchodilators, steroids, and O2 per pharmacy teacher. Treatment of acute systolic CHF; now on metoprolol. Code(s): J45.901 - UNSPECIFIED ASTHMA WITH (ACUTE) EXACERBATION (4) Pneumonia Code(s): J18.9 - PNEUMONIA, UNSPECIFIED ORGANISM Qualifiers: Pneumonia type: due to unspecified organism Laterality: unspecified laterality Lung location: unspecified part of lung Qualified Code(s): J18.9 - Pneumonia, unspecified organism (5) Renal dysfunction Assessment/Plan: Improving BUN/Cr; avoid excessive dehydration. Code(s): N28.9 - DISORDER OF KIDNEY AND URETER, UNSPECIFIED (6) Acute on chronic systolic (congestive) heart failure Assessment/Plan: On metoprolol (increased to 25 mg bid). On hydralazine + Imdur. Consider ACEI or ARB, then spironolactone (improving renal parameters). Discussed with pharmacist: GFR presently 44; can use ACEI without dose reduction unless GFR falls below 30. TNI maximum 0.09-->0.03. F/u BUN/Cr, Is and Os, daily weight, electrolytes, HR and BP. F/u prior workup of coronary artery disease. TSH WNL. Total cholesterol 128 Code(s): I50.23 - ACUTE ON CHRONIC SYSTOLIC (CONGESTIVE) HEART FAILURE (7) LBBB (left bundle branch block) Assessment/Plan: noted since at least 2012. Code(s): I44.7 - LEFT BUNDLE-BRANCH BLOCK, UNSPECIFIED (8) Anemia Code(s): D64.9 - ANEMIA, UNSPECIFIED d/c telemetry
[2016-11-03 14:55] VITALS: BP 115/73; PULSE 106; TEMP 99
--- NOTE | 2016-11-03 16:49 | PN ---
Progress Note (short form) - Note Progress Note: Subjective: no pain , no fever or chills. Objective: Vital Signs: Last Vital Signs Temp Pulse Resp BP Pulse Ox 99 F 106 H 20 115/73 95 11/03/16 14:00 11/03/16 14:00 11/03/16 14:00 11/03/16 14:00 11/03/16 10:00 Laboratory Results - last 24 hr 11/03/16 11/03/16 11/03/16 05:35 05:35 05:35 WBC 12.6 H RBC 3.30 L Hgb 9.0 L Hct 28.6 L MCV 86.5 MCHC 31.7 L RDW 18.3 H Plt Count 255 MPV 8.2 Neutrophils % 72.6 Lymphocytes % 13.1 Monocytes % 7.4 Eosinophils % 5.6 H D Basophils % 1.3 PTT (Actin FS) 34.2 Sodium 143 Potassium 4.3 Chloride 108 H Carbon Dioxide 25 Anion Gap 10 BUN 16 Creatinine 1.3 H Random Glucose 89 Calcium 9.1 Physical Exam: NAD CV : RRR Lungs: CTAB Ext : no edema ABd : soft, NT, ND , NL BS ASSESSMENT AND PLAN: 85 y/o lady with h/o CAD, HTN, HLP , CAD s/p defibrillator , CHF , asthma , anemia who presented with L sided CP and was found to have new onset A fib. 1- New onset A fib: - cont xarelto . CHADSVASC of 5 - cont BB , dose increased and tolerated - echo with Mod MR, mod -severe low EF , dilated L atrium 2- Leukocytosis : likely due to UTI . improved WBC, LUE US with no superficial phlebitis . no recurrent fever . - will d/w with ID , the choice of Abx at dc and duration cbc in 1 week 3- RICA: likely prerenal , cr improved and stable US with large renal cyst f/u with renal as outpt consider ACEI if remains stable as outpt 4- HTN: cont meds . 5- Microcytic anemia : chronic , worsened after bleeding from IV site while o n AC. now stable rest of w/u as out pt Dc home today . Visit type - Emergency Visit Emergency Visit: Yes ED Registration Date: 10/26/16 Care time: The patient presented to the Emergency Department on the above date and was hospitalized for further evaluation of their emergent condition. - New Patient This patient is new to me today: No - Critical Care Critical Care patient: No
--- NOTE | 2016-11-03 17:45 | PN ---
Progress Note, Physician History of Present Illness: patient doing well no issues has remained afebrile - Current Medication List Current Medications: Active Medications Acetaminophen (Tylenol -) 650 mg PO Q4H PRN PRN Reason: FEVER OR PAIN Last Admin: 11/02/16 19:25 Dose: 650 mg Amoxicillin/Clavulanate Potassium (Augmentin - 500mg Tablet) 1 tab PO BID@0800, 1730 [facility] Last Admin: 11/03/16 09:28 Dose: 1 tab Aspirin (Asa -) 81 mg PO DAILY [facility] Last Admin: 11/03/16 09:28 Dose: 81 mg Atorvastatin Calcium (Lipitor -) 10 mg PO HS [facility] Last Admin: 11/02/16 21:17 Dose: 10 mg Doxycycline Hyclate (Vibramycin -) 100 mg PO BID@1000,1800 [facility] Last Admin: 11/03/16 09:28 Dose: 100 mg Hydralazine HCl (Apresoline -) 10 mg PO BID [facility] Last Admin: 11/03/16 09:28 Dose: 10 mg Isosorbide Mononitrate (Imdur -) 30 mg PO DAILY [facility] Last Admin: 11/03/16 09:28 Dose: 30 mg Metoprolol Tartrate (Lopressor Injection -) 5 mg IVPUSH Q4H PRN PRN Reason: TACHYCARDIA Metoprolol Tartrate (Lopressor -) 25 mg PO BID [facility] Last Admin: 11/03/16 09:28 Dose: 25 mg Rivaroxaban (Xarelto -) 20 mg PO DAILY [facility] Last Admin: 11/03/16 09:28 Dose: 20 mg Sodium Bicarbonate (Sodium Bicarbonate -) 650 mg PO DAILY [facility] Last Admin: 11/03/16 09:28 Dose: 650 mg - Objective Vital Signs: Vital Signs Temperature 99 F 11/03/16 14:00 Pulse Rate 106 H 11/03/16 14:00 Respiratory Rate 20 11/03/16 14:00 Blood Pressure 115/73 11/03/16 14:00 O2 Sat by Pulse Oximetry (%) 95 11/03/16 10:00 Constitutional: Yes: No Distress, Calm Cardiovascular: Yes: S1, S2 Respiratory: Yes: Regular, CTA Bilaterally Gastrointestinal: Yes: Normal Bowel Sounds, Soft Musculoskeletal: Yes: WNL Extremities: Yes: Other (tenderness on the forearm) Wound/Incision: Yes: Other Neurological: Yes: Alert, Oriented Labs: CBC, BMP 11/03/16 05:35 11/03/16 05:35 INR, PTT INR 1.28 (0.82-1.09) H 11/01/16 05:37 - ....Imaging Ultrasound: Report Reviewed, Image Reviewed Assessment/Plan - Problems (1) Atrial fibrillation Code(s): I48.91 - UNSPECIFIED ATRIAL FIBRILLATION (2) CAD (coronary artery disease) Code(s): I25.10 - ATHSCL HEART DISEASE OF [place] CORONARY ARTERY W/O ANG PCTRS (3) Asthma exacerbation Code(s): J45.901 - UNSPECIFIED ASTHMA WITH (ACUTE) EXACERBATION (4) Pneumonia Code(s): J18.9 - PNEUMONIA, UNSPECIFIED ORGANISM Qualifiers: Pneumonia type: due to unspecified organism Laterality: unspecified laterality Lung location: unspecified part of lung Qualified Code(s): J18.9 - Pneumonia, unspecified organism (5) Renal dysfunction Code(s): N28.9 - DISORDER OF KIDNEY AND URETER, UNSPECIFIED (6) Acute on chronic systolic (congestive) heart failure Code(s): I50.23 - ACUTE ON CHRONIC SYSTOLIC (CONGESTIVE) HEART FAILURE (7) LBBB (left bundle branch block) Code(s): I44.7 - LEFT BUNDLE-BRANCH BLOCK, UNSPECIFIED (8) Anemia Code(s): D64.9 - ANEMIA, UNSPECIFIED 9 phlebitis of the left arm plan continue curent plan if patient has no issues can be send home on those abx
--- NOTE | 2016-11-04 17:48 | DS ---
Physical Exam: LABS: Laboratory Tests 10/26/16 10/26/16 10/26/16 12:15 12:15 12:15 WBC 15.8 H RBC 3.19 L Hgb 8.7 L Hct 28.4 L MCV 89.1 MCHC 30.7 L RDW 18.4 H Plt Count 318 D MPV 8.9 Neutrophils % 78.0 Lymphocytes % 11.0 D Monocytes % 6.0 Eosinophils % 3.0 D Basophils % 2.0 D Band Neutrophils Metamyelocytes Myelocytes Nucleated RBCs Differential Comment Manual diff done Platelet Estimate Adequate Hypochromic-Microcytic INR 1.17 H PTT (Actin FS) Sodium 141 Potassium 4.5 Chloride 107 Carbon Dioxide 22 Anion Gap 12 BUN 41 H D Creatinine 3.7 H D Creat Clearance w eGFR 11.67 POC Glucometer Random Glucose 117 H Hemoglobin A1c % Calcium 9.2 Phosphorus Magnesium 2.4 Iron TIBC Iron Saturation Transferrin Ferritin Total Bilirubin 0.8 AST 29 D ALT 41 D Alkaline Phosphatase 172 H Creatine Kinase 82 Troponin I 0.06 H B-Natriuretic Peptide Total Protein 7.2 Albumin 3.5 Triglycerides Cholesterol Total LDL Cholesterol HDL Cholesterol TSH Urine Color Urine Appearance Urine pH Ur Specific [place] Urine Protein Urine Glucose (UA) Urine Ketones Urine Blood Urine Nitrite Urine Bilirubin Urine Urobilinogen Ur Leukocyte Esterase Urine RBC Urine WBC Ur Epithelial Cells Urine Bacteria Hyaline Casts Urine Mucus U Random Total Protein Ur Random Sodium Ur Random Potassium Ur Random Chloride Urine Creatinine Stool Occult Blood Blood Type Antibody Screen Crossmatch 10/26/16 10/26/16 10/26/16 12:15 12:15 17:25 WBC RBC Hgb Hct MCV MCHC RDW Plt Count MPV Neutrophils % Lymphocytes % Monocytes % Eosinophils % Basophils % Band Neutrophils Metamyelocytes Myelocytes Nucleated RBCs Differential Comment Platelet Estimate Hypochromic-Microcytic INR PTT (Actin FS) Sodium Potassium Chloride Carbon Dioxide Anion Gap BUN Creatinine Creat Clearance w eGFR POC Glucometer Random Glucose Hemoglobin A1c % Calcium Phosphorus Magnesium Iron TIBC Iron Saturation Transferrin Ferritin Total Bilirubin AST ALT Alkaline Phosphatase Creatine Kinase Troponin I B-Natriuretic Peptide 61632.12 H Total Protein Albumin Triglycerides Cholesterol Total LDL Cholesterol HDL Cholesterol TSH Urine Color Urine Appearance Urine pH Ur Specific [place] Urine Protein Urine Glucose (UA) Urine Ketones Urine Blood Urine Nitrite Urine Bilirubin Urine Urobilinogen Ur Leukocyte Esterase Urine RBC Urine WBC Ur Epithelial Cells Urine Bacteria Hyaline Casts Urine Mucus U Random Total Protein Ur Random Sodium Ur Random Potassium Ur Random Chloride Urine Creatinine Stool Occult Blood Negative Blood Type B POSITIVE Antibody Screen Negative Crossmatch See Detail 10/26/16 10/26/16 10/27/16 18:00 23:42 01:00 WBC 15.9 H RBC 2.65 L Hgb 7.2 L D Hct 23.6 L D MCV 89.3 MCHC 30.5 L RDW 18.2 H Plt Count 248 D MPV 9.2 Neutrophils % Lymphocytes % Monocytes % Eosinophils % Basophils % Band Neutrophils Metamyelocytes Myelocytes Nucleated RBCs Differential Comment Platelet Estimate Hypochromic-Microcytic INR PTT (Actin FS) Sodium Potassium Chloride Carbon Dioxide Anion Gap BUN Creatinine Creat Clearance w eGFR POC Glucometer 118 Random Glucose Hemoglobin A1c % Calcium Phosphorus Magnesium Iron TIBC Iron Saturation Transferrin Ferritin Total Bilirubin AST ALT Alkaline Phosphatase Creatine Kinase Troponin I 0.09 H B-Natriuretic Peptide Total Protein Albumin Triglycerides Cholesterol Total LDL Cholesterol HDL Cholesterol TSH Urine Color Urine Appearance Urine pH Ur Specific [place] Urine Protein Urine Glucose (UA) Urine Ketones Urine Blood Urine Nitrite Urine Bilirubin Urine Urobilinogen Ur Leukocyte Esterase Urine RBC Urine WBC Ur Epithelial Cells Urine Bacteria Hyaline Casts Urine Mucus U Random Total Protein Ur Random Sodium Ur Random Potassium Ur Random Chloride Urine Creatinine Stool Occult Blood Blood Type Antibody Screen Crossmatch 10/27/16 10/27/16 10/27/16 01:00 05:10 05:10 WBC 17.1 H RBC 2.72 L Hgb 7.4 L Hct 24.0 L MCV 88.1 MCHC 30.9 L RDW 18.2 H Plt Count 258 MPV 9.2 Neutrophils % 83.0 H Lymphocytes % 5.0 L D Monocytes % 6.0 Eosinophils % 3.0 Basophils % 1.0 Band Neutrophils 3.0 Metamyelocytes Myelocytes Nucleated RBCs Differential Comment Platelet Estimate Adequate Hypochromic-Microcytic INR PTT (Actin FS) 44.9 H D Sodium 138 Potassium 4.3 Chloride 109 H Carbon Dioxide 18 L Anion Gap 11 BUN 46 H Creatinine 3.4 H Creat Clearance w eGFR POC Glucometer Random Glucose 149 H D Hemoglobin A1c % Calcium 8.2 L Phosphorus 5.1 H D Magnesium 2.1 Iron TIBC Iron Saturation Transferrin Ferritin 60.08 Total Bilirubin AST ALT Alkaline Phosphatase Creatine Kinase Troponin I B-Natriuretic Peptide Total Protein Albumin Triglycerides Cholesterol Total LDL Cholesterol HDL Cholesterol TSH 0.59 Urine Color Urine Appearance Urine pH Ur Specific [place] Urine Protein Urine Glucose (UA) Urine Ketones Urine Blood Urine Nitrite Urine Bilirubin Urine Urobilinogen Ur Leukocyte Esterase Urine RBC Urine WBC Ur Epithelial Cells Urine Bacteria Hyaline Casts Urine Mucus U Random Total Protein Ur Random Sodium Ur Random Potassium Ur Random Chloride Urine Creatinine Stool Occult Blood Blood Type Antibody Screen Crossmatch 10/27/16 10/27/16 10/27/16 05:10 05:10 05:10 WBC RBC Hgb Hct MCV MCHC RDW Plt Count MPV Neutrophils % Lymphocytes % Monocytes % Eosinophils % Basophils % Band Neutrophils Metamyelocytes Myelocytes Nucleated RBCs Differential Comment Platelet Estimate Hypochromic-Microcytic INR PTT (Actin FS) Sodium Potassium Chloride Carbon Dioxide Anion Gap BUN Creatinine Creat Clearance w eGFR POC Glucometer Random Glucose Hemoglobin A1c % 5.2 Calcium Phosphorus Magnesium Iron 20 L TIBC Iron Saturation Transferrin Ferritin Cancelled Total Bilirubin AST ALT Alkaline Phosphatase Creatine Kinase Troponin I B-Natriuretic Peptide Total Protein Albumin Triglycerides Cholesterol Total LDL Cholesterol HDL Cholesterol TSH Urine Color Urine Appearance Urine pH Ur Specific [place] Urine Protein Urine Glucose (UA) Urine Ketones Urine Blood Urine Nitrite Urine Bilirubin Urine Urobilinogen Ur Leukocyte Esterase Urine RBC Urine WBC Ur Epithelial Cells Urine Bacteria Hyaline Casts Urine Mucus U Random Total Protein Ur Random Sodium Ur Random Potassium Ur Random Chloride Urine Creatinine Stool Occult Blood Blood Type Antibody Screen Crossmatch 10/27/16 10/27/16 10/27/16 05:10 07:00 15:10 WBC RBC Hgb Hct MCV MCHC RDW Plt Count MPV Neutrophils % Lymphocytes % Monocytes % Eosinophils % Basophils % Band Neutrophils Metamyelocytes Myelocytes Nucleated RBCs Differential Comment Platelet Estimate Hypochromic-Microcytic INR PTT (Actin FS) 82.7 H D Sodium Potassium Chloride Carbon Dioxide Anion Gap BUN Creatinine Creat Clearance w eGFR POC Glucometer Random Glucose Hemoglobin A1c % Calcium Phosphorus Magnesium Iron TIBC Iron Saturation Transferrin 200 Ferritin Total Bilirubin AST ALT Alkaline Phosphatase Creatine Kinase 75 Troponin I 0.03 B-Natriuretic Peptide Total Protein Albumin Triglycerides Cholesterol Total LDL Cholesterol HDL Cholesterol TSH Urine Color Urine Appearance Urine pH Ur Specific [place] Urine Protein Urine Glucose (UA) Urine Ketones Urine Blood Urine Nitrite Urine Bilirubin Urine Urobilinogen Ur Leukocyte Esterase Urine RBC Urine WBC Ur Epithelial Cells Urine Bacteria Hyaline Casts Urine Mucus U Random Total Protein Ur Random Sodium Ur Random Potassium Ur Random Chloride Urine Creatinine Stool Occult Blood Blood Type Antibody Screen Crossmatch 10/27/16 10/27/16 10/27/16 23:10 23:10 23:10 WBC RBC Hgb Hct MCV MCHC RDW Plt Count MPV Neutrophils % Lymphocytes % Monocytes % Eosinophils % Basophils % Band Neutrophils Metamyelocytes Myelocytes Nucleated RBCs Differential Comment Platelet Estimate Hypochromic-Microcytic INR PTT (Actin FS) Sodium Potassium Chloride Carbon Dioxide Anion Gap BUN Creatinine Creat Clearance w eGFR POC Glucometer Random Glucose Hemoglobin A1c % Calcium Phosphorus Magnesium Iron TIBC Iron Saturation Transferrin Ferritin Total Bilirubin AST ALT Alkaline Phosphatase Creatine Kinase Troponin I B-Natriuretic Peptide Total Protein Albumin Triglycerides Cholesterol Total LDL Cholesterol HDL Cholesterol TSH Urine Color Urine Appearance Urine pH Ur Specific [place] Urine Protein Urine Glucose (UA) Urine Ketones Urine Blood Urine Nitrite Urine Bilirubin Urine Urobilinogen Ur Leukocyte Esterase Urine RBC Urine WBC Ur Epithelial Cells Urine Bacteria Hyaline Casts Urine Mucus U Random Total Protein Ur Random Sodium 15 15 Ur Random Potassium 41.7 Ur Random Chloride < 10 Urine Creatinine 339.0 H Stool Occult Blood Blood Type Antibody Screen Crossmatch 10/27/16 10/27/16 10/28/16 23:10 23:10 05:00 WBC 14.2 H RBC 2.68 L Hgb 7.5 L Hct 23.6 L MCV 88.4 MCHC 31.5 L RDW 18.2 H Plt Count 237 MPV 9.0 Neutrophils % Lymphocytes % Monocytes % Eosinophils % Basophils % Band Neutrophils Metamyelocytes Myelocytes Nucleated RBCs Differential Comment Platelet Estimate Hypochromic-Microcytic INR PTT (Actin FS) Sodium Potassium Chloride Carbon Dioxide Anion Gap BUN Creatinine Creat Clearance w eGFR POC Glucometer Random Glucose Hemoglobin A1c % Calcium Phosphorus Magnesium Iron TIBC Iron Saturation Transferrin Ferritin Total Bilirubin AST ALT Alkaline Phosphatase Creatine Kinase Troponin I B-Natriuretic Peptide Total Protein Albumin Triglycerides Cholesterol Total LDL Cholesterol HDL Cholesterol TSH Urine Color [place] Urine Appearance Sl[place]y Urine pH 5.0 Ur Specific [place] 1.025 Urine Protein Negative Urine Glucose (UA) Negative Urine Ketones Trace H Urine Blood 1+ H Urine Nitrite Negative Urine Bilirubin Negative Urine Urobilinogen 2.0 e.u/dl H Ur Leukocyte Esterase 3+ H D Urine RBC 26 Urine WBC 36 Ur Epithelial Cells Few Urine Bacteria Few Hyaline Casts 44 Urine Mucus Rare U Random Total Protein Ur Random Sodium Ur Random Potassium Ur Random Chloride Urine Creatinine 339.0 H Stool Occult Blood Blood Type Antibody Screen Crossmatch 10/28/16 10/28/16 10/28/16 05:00 09:00 13:20 WBC RBC Hgb Hct MCV MCHC RDW Plt Count MPV Neutrophils % Lymphocytes % Monocytes % Eosinophils % Basophils % Band Neutrophils Metamyelocytes Myelocytes Nucleated RBCs Differential Comment Platelet Estimate Hypochromic-Microcytic INR PTT (Actin FS) 64.0 H Sodium Potassium Chloride Carbon Dioxide Anion Gap BUN Creatinine Creat Clearance w eGFR POC Glucometer Random Glucose Hemoglobin A1c % Calcium Phosphorus Magnesium Iron TIBC Iron Saturation Transferrin Ferritin Total Bilirubin AST ALT Alkaline Phosphatase Creatine Kinase Troponin I B-Natriuretic Peptide Total Protein Albumin Triglycerides Cholesterol Total LDL Cholesterol HDL Cholesterol TSH Urine Color Urine Appearance Urine pH Ur Specific [place] Urine Protein Urine Glucose (UA) Urine Ketones Urine Blood Urine Nitrite Urine Bilirubin Urine Urobilinogen Ur Leukocyte Esterase Urine RBC Urine WBC Ur Epithelial Cells Urine Bacteria Hyaline Casts Urine Mucus U Random Total Protein Ur Random Sodium 25 Ur Random Potassium 13.0 Ur Random Chloride 12 Urine Creatinine 86.2 Stool Occult Blood Blood Type Antibody Screen Crossmatch 10/28/16 10/28/16 10/28/16 13:20 22:30 22:30 WBC RBC Hgb Hct MCV MCHC RDW Plt Count MPV Neutrophils % Lymphocytes % Monocytes % Eosinophils % Basophils % Band Neutrophils Metamyelocytes Myelocytes Nucleated RBCs Differential Comment Platelet Estimate Hypochromic-Microcytic INR 1.26 H PTT (Actin FS) Sodium Potassium Chloride Carbon Dioxide Anion Gap BUN Creatinine Creat Clearance w eGFR POC Glucometer Random Glucose Hemoglobin A1c % Calcium Phosphorus Magnesium Iron TIBC Iron Saturation Transferrin Ferritin Total Bilirubin AST ALT Alkaline Phosphatase Creatine Kinase Troponin I B-Natriuretic Peptide Total Protein Albumin Triglycerides 133 Cholesterol 128 Total LDL Cholesterol 73 HDL Cholesterol 40 TSH Urine Color Urine Appearance Urine pH Ur Specific [place] Urine Protein Urine Glucose (UA) Urine Ketones Urine Blood Urine Nitrite Urine Bilirubin Urine Urobilinogen Ur Leukocyte Esterase Urine RBC Urine WBC Ur Epithelial Cells Urine Bacteria Hyaline Casts Urine Mucus U Random Total Protein 19 H Ur Random Sodium Ur Random Potassium Ur Random Chloride Urine Creatinine Stool Occult Blood Blood Type Antibody Screen Crossmatch 10/28/16 10/28/16 10/29/16 22:30 22:30 05:20 WBC RBC Hgb Hct MCV MCHC RDW Plt Count MPV Neutrophils % Lymphocytes % Monocytes % Eosinophils % Basophils % Band Neutrophils Metamyelocytes Myelocytes Nucleated RBCs Differential Comment Platelet Estimate Hypochromic-Microcytic INR PTT (Actin FS) 37.0 H D 39.0 H Sodium 138 Potassium 3.8 Chloride 108 H Carbon Dioxide 19 L Anion Gap 11 BUN 40 H Creatinine 2.0 H D Creat Clearance w eGFR POC Glucometer Random Glucose 86 D Hemoglobin A1c % Calcium 7.0 L Phosphorus Magnesium Iron TIBC Iron Saturation Transferrin Ferritin Total Bilirubin AST ALT Alkaline Phosphatase Creatine Kinase Troponin I B-Natriuretic Peptide Total Protein Albumin Triglycerides Cholesterol Total LDL Cholesterol HDL Cholesterol TSH Urine Color Urine Appearance Urine pH Ur Specific [place] Urine Protein Urine Glucose (UA) Urine Ketones Urine Blood Urine Nitrite Urine Bilirubin Urine Urobilinogen Ur Leukocyte Esterase Urine RBC Urine WBC Ur Epithelial Cells Urine Bacteria Hyaline Casts Urine Mucus U Random Total Protein Ur Random Sodium Ur Random Potassium Ur Random Chloride Urine Creatinine Stool Occult Blood Blood Type Antibody Screen Crossmatch 10/29/16 10/29/16 10/29/16 05:20 05:20 05:20 WBC 15.5 H RBC 2.52 L Hgb 6.8 L* Hct 22.2 L MCV 87.9 MCHC 30.7 L RDW 18.1 H Plt Count 258 MPV 9.2 Neutrophils % 71.0 Lymphocytes % 8.0 D Monocytes % 6.0 Eosinophils % 5.0 H Basophils % 0.0 Band Neutrophils 4.0 D Metamyelocytes 1 Myelocytes 5 H D Nucleated RBCs Differential Comment Manual diff done Platelet Estimate Adequate Hypochromic-Microcytic 1+ INR PTT (Actin FS) Sodium 139 Potassium 4.1 Chloride 108 H Carbon Dioxide 19 L Anion Gap 12 BUN 40 H Creatinine 2.1 H Creat Clearance w eGFR 22.44 POC Glucometer Random Glucose 94 Hemoglobin A1c % Calcium 7.8 L Phosphorus 3.3 D Magnesium 2.0 Iron 12 L TIBC 236 L Iron Saturation 5 L Transferrin Ferritin 62.612 Total Bilirubin 0.5 D AST 34 ALT 39 Alkaline Phosphatase 227 H D Creatine Kinase Troponin I B-Natriuretic Peptide Total Protein 6.0 L Albumin 2.6 L D Triglycerides Cholesterol Total LDL Cholesterol HDL Cholesterol TSH Urine Color Urine Appearance Urine pH Ur Specific [place] Urine Protein Urine Glucose (UA) Urine Ketones Urine Blood Urine Nitrite Urine Bilirubin Urine Urobilinogen Ur Leukocyte Esterase Urine RBC Urine WBC Ur Epithelial Cells Urine Bacteria Hyaline Casts Urine Mucus U Random Total Protein Ur Random Sodium Ur Random Potassium Ur Random Chloride Urine Creatinine Stool Occult Blood Blood Type Antibody Screen Crossmatch 10/29/16 10/29/16 10/29/16 14:00 14:00 21:32 WBC 16.2 H RBC 3.02 L Hgb 8.2 L D Hct 25.9 L D MCV 85.8 MCHC 31.8 L RDW 17.7 H Plt Count 264 MPV 9.4 Neutrophils % Lymphocytes % Monocytes % Eosinophils % Basophils % Band Neutrophils Metamyelocytes Myelocytes Nucleated RBCs Differential Comment Platelet Estimate Hypochromic-Microcytic INR PTT (Actin FS) 170.1 H D Sodium Potassium Chloride Carbon Dioxide Anion Gap BUN Creatinine Creat Clearance w eGFR POC Glucometer Random Glucose Hemoglobin A1c % Calcium Phosphorus Magnesium Iron TIBC Iron Saturation Transferrin Ferritin Total Bilirubin AST ALT Alkaline Phosphatase Creatine Kinase Troponin I B-Natriuretic Peptide Total Protein Albumin Triglycerides Cholesterol Total LDL Cholesterol HDL Cholesterol TSH Urine Color Urine Appearance Urine pH Ur Specific [place] Urine Protein Urine Glucose (UA) Urine Ketones Urine Blood Urine Nitrite Urine Bilirubin Urine Urobilinogen Ur Leukocyte Esterase Urine RBC Urine WBC Ur Epithelial Cells Urine Bacteria Hyaline Casts Urine Mucus U Random Total Protein Ur Random Sodium Ur Random Potassium Ur Random Chloride Urine Creatinine Stool Occult Blood Blood Type B POSITIVE Antibody Screen Negative Crossmatch See Detail 10/29/16 10/30/16 10/30/16 21:32 05:30 05:30 WBC 16.6 H RBC 3.07 L Hgb 8.5 L Hct 26.1 L MCV 85.0 MCHC 32.6 RDW 17.8 H Plt Count 238 MPV 9.0 Neutrophils % Lymphocytes % Monocytes % Eosinophils % Basophils % Band Neutrophils Metamyelocytes Myelocytes Nucleated RBCs Differential Comment Platelet Estimate Hypochromic-Microcytic INR PTT (Actin FS) 51.2 H D 31.2 D Sodium Potassium Chloride Carbon Dioxide Anion Gap BUN Creatinine Creat Clearance w eGFR POC Glucometer Random Glucose Hemoglobin A1c % Calcium Phosphorus Magnesium Iron TIBC Iron Saturation Transferrin Ferritin Total Bilirubin AST ALT Alkaline Phosphatase Creatine Kinase Troponin I B-Natriuretic Peptide Total Protein Albumin Triglycerides Cholesterol Total LDL Cholesterol HDL Cholesterol TSH Urine Color Urine Appearance Urine pH Ur Specific [place] Urine Protein Urine Glucose (UA) Urine Ketones Urine Blood Urine Nitrite Urine Bilirubin Urine Urobilinogen Ur Leukocyte Esterase Urine RBC Urine WBC Ur Epithelial Cells Urine Bacteria Hyaline Casts Urine Mucus U Random Total Protein Ur Random Sodium Ur Random Potassium Ur Random Chloride Urine Creatinine Stool Occult Blood Blood Type Antibody Screen Crossmatch 10/30/16 10/30/16 10/30/16 05:30 05:30 05:30 WBC RBC Hgb Hct MCV MCHC RDW Plt Count MPV Neutrophils % Lymphocytes % Monocytes % Eosinophils % Basophils % Band Neutrophils Metamyelocytes Myelocytes Nucleated RBCs Differential Comment Platelet Estimate Hypochromic-Microcytic INR PTT (Actin FS) Sodium 142 Potassium 4.3 Chloride 110 H Carbon Dioxide 23 D Anion Gap 9 BUN 30 H D Creatinine 1.6 H D Creat Clearance w eGFR POC Glucometer Random Glucose 97 Hemoglobin A1c % Calcium 8.3 L Phosphorus Magnesium Iron 13 L TIBC Iron Saturation Transferrin Ferritin 84.800 Total Bilirubin AST ALT Alkaline Phosphatase 314 H D Creatine Kinase Troponin I B-Natriuretic Peptide Total Protein Albumin Triglycerides Cholesterol Total LDL Cholesterol HDL Cholesterol TSH Urine Color Urine Appearance Urine pH Ur Specific [place] Urine Protein Urine Glucose (UA) Urine Ketones Urine Blood Urine Nitrite Urine Bilirubin Urine Urobilinogen Ur Leukocyte Esterase Urine RBC Urine WBC Ur Epithelial Cells Urine Bacteria Hyaline Casts Urine Mucus U Random Total Protein Ur Random Sodium Ur Random Potassium Ur Random Chloride Urine Creatinine Stool Occult Blood Blood Type Antibody Screen Crossmatch 10/30/16 10/30/16 10/30/16 05:30 14:22 14:22 WBC 16.7 H RBC 3.12 L Hgb 8.5 L Hct 26.7 L MCV 85.7 MCHC 31.9 L RDW 18.1 H Plt Count 242 MPV 8.9 Neutrophils % 79.0 Lymphocytes % 11.0 D Monocytes % 1.0 L D Eosinophils % 3.0 Basophils % Band Neutrophils Metamyelocytes 2 D Myelocytes 4 H Nucleated RBCs 1 H Differential Comment Platelet Estimate Hypochromic-Microcytic INR PTT (Actin FS) 56.1 H D Sodium Potassium Chloride Carbon Dioxide Anion Gap BUN Creatinine Creat Clearance w eGFR POC Glucometer Random Glucose Hemoglobin A1c % Calcium Phosphorus Magnesium Iron TIBC Iron Saturation Transferrin Ferritin Cancelled Total Bilirubin AST ALT Alkaline Phosphatase Creatine Kinase Troponin I B-Natriuretic Peptide Total Protein Albumin Triglycerides Cholesterol Total LDL Cholesterol HDL Cholesterol TSH Urine Color Urine Appearance Urine pH Ur Specific [place] Urine Protein Urine Glucose (UA) Urine Ketones Urine Blood Urine Nitrite Urine Bilirubin Urine Urobilinogen Ur Leukocyte Esterase Urine RBC Urine WBC Ur Epithelial Cells Urine Bacteria Hyaline Casts Urine Mucus U Random Total Protein Ur Random Sodium Ur Random Potassium Ur Random Chloride Urine Creatinine Stool Occult Blood Blood Type Antibody Screen Crossmatch 10/31/16 10/31/16 10/31/16 06:02 06:02 06:02 WBC 16.8 H RBC 3.01 L Hgb 8.4 L Hct 25.7 L MCV 85.3 MCHC 32.6 RDW 18.4 H Plt Count 238 MPV 8.8 Neutrophils % Lymphocytes % Monocytes % Eosinophils % Basophils % Band Neutrophils Metamyelocytes Myelocytes Nucleated RBCs Differential Comment Platelet Estimate Hypochromic-Microcytic INR PTT (Actin FS) 34.8 H D Sodium 143 Potassium 4.3 Chloride 109 H Carbon Dioxide 23 Anion Gap 11 BUN 24 H Creatinine 1.5 H Creat Clearance w eGFR 33.08 POC Glucometer Random Glucose 85 Hemoglobin A1c % Calcium 8.6 Phosphorus Magnesium 2.2 Iron TIBC Iron Saturation Transferrin Ferritin Total Bilirubin 0.8 D AST 65 H D ALT 64 D Alkaline Phosphatase 294 H Creatine Kinase Troponin I B-Natriuretic Peptide Total Protein 6.0 L Albumin 2.6 L Triglycerides Cholesterol Total LDL Cholesterol HDL Cholesterol TSH Urine Color Urine Appearance Urine pH Ur Specific [place] Urine Protein Urine Glucose (UA) Urine Ketones Urine Blood Urine Nitrite Urine Bilirubin Urine Urobilinogen Ur Leukocyte Esterase Urine RBC Urine WBC Ur Epithelial Cells Urine Bacteria Hyaline Casts Urine Mucus U Random Total Protein Ur Random Sodium Ur Random Potassium Ur Random Chloride Urine Creatinine Stool Occult Blood Blood Type Antibody Screen Crossmatch 11/01/16 11/01/16 11/01/16 05:37 05:37 05:37 WBC 15.8 H RBC 3.23 L Hgb 9.0 L Hct 27.8 L MCV 86.0 MCHC 32.2 RDW 18.5 H Plt Count 275 MPV 8.8 Neutrophils % Lymphocytes % Monocytes % Eosinophils % Basophils % Band Neutrophils Metamyelocytes Myelocytes Nucleated RBCs Differential Comment Platelet Estimate Hypochromic-Microcytic INR PTT (Actin FS) 35.2 H Sodium 144 Potassium 4.4 Chloride 109 H Carbon Dioxide 25 Anion Gap 10 BUN 20 H Creatinine 1.4 H Creat Clearance w eGFR 35.82 POC Glucometer Random Glucose 90 Hemoglobin A1c % Calcium 9.2 Phosphorus Magnesium Iron TIBC Iron Saturation Transferrin Ferritin Total Bilirubin 1.0 D AST 46 H D ALT 60 Alkaline Phosphatase 275 H Creatine Kinase Troponin I B-Natriuretic Peptide Total Protein 6.2 L Albumin 2.7 L Triglycerides Cholesterol Total LDL Cholesterol HDL Cholesterol TSH Urine Color Urine Appearance Urine pH Ur Specific [place] Urine Protein Urine Glucose (UA) Urine Ketones Urine Blood Urine Nitrite Urine Bilirubin Urine Urobilinogen Ur Leukocyte Esterase Urine RBC Urine WBC Ur Epithelial Cells Urine Bacteria Hyaline Casts Urine Mucus U Random Total Protein Ur Random Sodium Ur Random Potassium Ur Random Chloride Urine Creatinine Stool Occult Blood Blood Type Antibody Screen Crossmatch 11/01/16 11/01/16 11/02/16 05:37 13:07 06:00 WBC 15.7 H RBC 3.33 L Hgb 9.1 L Hct 28.9 L MCV 86.9 MCHC 31.4 L RDW 18.5 H Plt Count 288 MPV 8.1 Neutrophils % 70.0 Lymphocytes % 13.0 Monocytes % 6.0 D Eosinophils % 5.0 H Basophils % 2.0 D Band Neutrophils 1.0 D Metamyelocytes 2 Myelocytes 1 D Nucleated RBCs Differential Comment Manual diff done Platelet Estimate Adequate Hypochromic-Microcytic INR 1.28 H PTT (Actin FS) 34.9 H Sodium Potassium Chloride Carbon Dioxide Anion Gap BUN Creatinine Creat Clearance w eGFR POC Glucometer Random Glucose Hemoglobin A1c % Calcium Phosphorus Magnesium Iron TIBC Iron Saturation Transferrin Ferritin Total Bilirubin AST ALT Alkaline Phosphatase Creatine Kinase Troponin I B-Natriuretic Peptide Total Protein Albumin Triglycerides Cholesterol Total LDL Cholesterol HDL Cholesterol TSH Urine Color Urine Appearance Urine pH Ur Specific [place] Urine Protein Urine Glucose (UA) Urine Ketones Urine Blood Urine Nitrite Urine Bilirubin Urine Urobilinogen Ur Leukocyte Esterase Urine RBC Urine WBC Ur Epithelial Cells Urine Bacteria Hyaline Casts Urine Mucus U Random Total Protein Ur Random Sodium Ur Random Potassium Ur Random Chloride Urine Creatinine Stool Occult Blood Blood Type Antibody Screen Crossmatch 11/02/16 11/02/16 11/03/16 06:00 06:00 05:35 WBC 14.8 H RBC 3.23 L Hgb 8.8 L Hct 27.8 L MCV 86.3 MCHC 31.8 L RDW 17.9 H Plt Count 270 MPV 8.3 Neutrophils % 77.0 Lymphocytes % 11.0 Monocytes % 5.0 Eosinophils % 1.0 Basophils % 1.0 Band Neutrophils Metamyelocytes 1 D Myelocytes 4 H D Nucleated RBCs Differential Comment Manual diff done Platelet Estimate Decreased Hypochromic-Microcytic INR PTT (Actin FS) 34.2 Sodium 144 Potassium 4.5 Chloride 109 H Carbon Dioxide 23 Anion Gap 12 BUN 17 Creatinine 1.3 H Creat Clearance w eGFR POC Glucometer Random Glucose 89 Hemoglobin A1c % Calcium 9.1 Phosphorus Magnesium Iron TIBC Iron Saturation Transferrin Ferritin Total Bilirubin AST ALT Alkaline Phosphatase Creatine Kinase Troponin I B-Natriuretic Peptide Total Protein Albumin Triglycerides Cholesterol Total LDL Cholesterol HDL Cholesterol TSH Urine Color Urine Appearance Urine pH Ur Specific [place] Urine Protein Urine Glucose (UA) Urine Ketones Urine Blood Urine Nitrite Urine Bilirubin Urine Urobilinogen Ur Leukocyte Esterase Urine RBC Urine WBC Ur Epithelial Cells Urine Bacteria Hyaline Casts Urine Mucus U Random Total Protein Ur Random Sodium Ur Random Potassium Ur Random Chloride Urine Creatinine Stool Occult Blood Blood Type Antibody Screen Crossmatch 11/03/16 11/03/16 05:35 05:35 WBC 12.6 H RBC 3.30 L Hgb 9.0 L Hct 28.6 L MCV 86.5 MCHC 31.7 L RDW 18.3 H Plt Count 255 MPV 8.2 Neutrophils % 72.6 Lymphocytes % 13.1 Monocytes % 7.4 Eosinophils % 5.6 H D Basophils % 1.3 Band Neutrophils Metamyelocytes Myelocytes Nucleated RBCs Differential Comment Platelet Estimate Hypochromic-Microcytic INR PTT (Actin FS) Sodium 143 Potassium 4.3 Chloride 108 H Carbon Dioxide 25 Anion Gap 10 BUN 16 Creatinine 1.3 H Creat Clearance w eGFR POC Glucometer Random Glucose 89 Hemoglobin A1c % Calcium 9.1 Phosphorus Magnesium Iron TIBC Iron Saturation Transferrin Ferritin Total Bilirubin AST ALT Alkaline Phosphatase Creatine Kinase Troponin I B-Natriuretic Peptide Total Protein Albumin Triglycerides Cholesterol Total LDL Cholesterol HDL Cholesterol TSH Urine Color Urine Appearance Urine pH Ur Specific [place] Urine Protein Urine Glucose (UA) Urine Ketones Urine Blood Urine Nitrite Urine Bilirubin Urine Urobilinogen Ur Leukocyte Esterase Urine RBC Urine WBC Ur Epithelial Cells Urine Bacteria Hyaline Casts Urine Mucus U Random Total Protein Ur Random Sodium Ur Random Potassium Ur Random Chloride Urine Creatinine Stool Occult Blood Blood Type Antibody Screen Crossmatch HOSPITAL COURSE: Date of Admission:10/26/16 Date of Discharge: 11/03/16 Patient is an 85 year old female, with significant past medical history HTN, HLD , CAD s/p defibrillator, CHF, asthma, who presented with the complaints of intermittent left sided chest pain x 1 week was found to have new onset atrial fibrillation. # New onset atrial fibrillation with RVR -now controlled. Patient was admitted in Tele, Continous cardiac monitoring, no acute events noted in the tele. CHADsVasc score 3, started on Xarelto 20mg Daily (confirmed with the pharmacy she needs to pay 295 $ as copay and 47 $ each month thereafter and she is okay with it) Rate controlled with Metoprolol 12.5mg PO BID. Patient was sent home on Xarelto yesterday but called today from home saying she cannot afford to buy xarelto. Call placed to Dr. Rendon (Patients metalworker) who is not available at this time and would call back tomorrow. Call placed to Dr. Aremnta, waiting to hear from him to ask if we can start on Warfarin bridging with Lovenox (with close monitoring of her kidneys) Persistent Leukocytosis-likely due to UTI, WBC count improved with abx. LUE US with no superficial phlebitis. Sent home on Augmentin and to repeat CBC in a week. ID was consulted. Symptomatic anemia (Normocytic) S/P 2 PRBC this admission. Likely due to bleeding from the removed IV peripheral line (10/28/2016) patient was on Heparin drip at that time. Now, H/H is stable. Chest pain-Likely [id number] Increased troponins-likely demand ischemia. Resolved. Acute Kidney Injury- likely due to dehydration-Improving. Creatinine 1.4, baseline 0.9 in 2012. US with large renal cyst. F/up with Nephro in a week. Non anion gap metabolic acidosis. Was given Oral sodium bicarbonate 650mg Daily and now stopped. CAD- Continue Aspirin Hyperlipidemia-Continue Atorvastatin 10mg HS Acute on chronic CHF- Not in exacerbation. Continue Hydralazine 10mg PO BID, Isosorbide mononitrate 30mg PO Daily Case discussed with Dr. Ferrell. Minutes to complete discharge: 45 Discharge Summary Reason For Visit: ATRIAL FIBRILLATION WITH RAPID VENTRICULAR RE Condition: Improved - Instructions Diet, Activity, Other Instructions: - please follow up with your PCP and metalworker in 1 week ( Dr. Gould ) - please follow with Dr. Abreu in 1 week ( kidney doctor ) - you have renal cyst , you need follow up on that - you have new irregular hear beat ( Atrial fibrillaATION ) - TAKE MEDICATIONS prescribed in discharge list only - the following medications were discontinued : losartan, coreg, norvasc, naproxen - losartan can be resumed if you renal function remains stable - do not take naproxen as it can cause renal failure - need blood work in 1 week to be sent to you primary care doctor . Referrals: Uzair Gould MD [Staff Physician] - 1 Week Krupa Abreu MD [Staff Physician] - Disposition: HOME - Home Medications Comprehensive Discharge Medication List: Ambulatory Orders Aspirin [ASA -] 81 mg PO DAILY 10/26/16 Multivitamin [Poly-Vitamin] 1 each PO DAILY 10/26/16 Pravastatin Sodium 20 mg PO DAILY 10/26/16 Sennosides/Docusate Sodium [Pericolace -] 1 tab PO PRN 10/26/16 Amox-Tr/K Cl [Augmentin 500-125mg Tablet -] 1 tab PO BID@0800,1730 #10 tablet Doxycycline Hyclate [Vibramycin -] 100 mg PO BID@1000,1800 #10 tab 11/03/16 Isosorbide Mononitrate [Imdur -] 30 mg PO DAILY 30 Days 11/03/16 Metoprolol Tartrate [Lopressor -] 25 mg PO BID #60 tablet 11/03/16 Miscellaneous Drug Not In Syst [Outpatient Lab Test] 1 each ASDIR #1 misc 05/22 Rivaroxaban [Xarelto] 1 each PO DAILY #30 tab.ds.pk 11/03/16 This patient is new to me today: No Emergency Visit: Yes ED Registration Date: 10/26/16 Care time: The patient presented to the Emergency Department on the above date and was hospitalized for further evaluation of their emergent condition. Critical Care patient: No - Discharge Referral Referred to [facility] No
== END 2016-11-03 18:33 | disposition home or self-care (01) | DRG 308 ==
LOC: JER 11:44 → JERBED 13:21 → J4W 21:13 → JICU 10-27 00:41 → J4W 10-30 01:28
PROVIDERS: ADMIT Internal Medicine; ATTEND Internal Medicine
DX: I48.91 Unspecified atrial fibrillation (principal); I50.23 Acute on chronic systolic (congestive) heart failure; J18.9 Pneumonia, unspecified organism; N17.9 Acute kidney failure, unspecified; I13.0 Hypertensive heart and chronic kidney disease with heart failure and stage 1 through stage 4 chronic kidney disease, or unspecified chronic kidney disease; J45.901 Unspecified asthma with (acute) exacerbation; E87.2 Acidosis; I24.8 Other forms of acute ischemic heart disease; N39.0 Urinary tract infection, site not specified; E86.0 Dehydration; I25.10 Atherosclerotic heart disease of native coronary artery without angina pectoris; E78.5 Hyperlipidemia, unspecified; D72.828 Other elevated white blood cell count; D64.9 Anemia, unspecified; J44.9 Chronic obstructive pulmonary disease, unspecified; D63.8 Anemia in other chronic diseases classified elsewhere; R00.1 Bradycardia, unspecified; N18.9 Chronic kidney disease, unspecified; I44.7 Left bundle-branch block, unspecified; I27.2 Other secondary pulmonary hypertension; Z87.891 Personal history of nicotine dependence; Z95.810 Presence of automatic (implantable) cardiac defibrillator; N28.1 Cyst of kidney, acquired
CPT/HCPCS: 36415; 36430; 71010-TC; 76775-TC; 76856-TC; 80048; 80053; 80061; 81003; 81015; 82272; 82436; 82550; 82570; 82728; 83036; 83540; 83550; 83721; 83735; 83880; 84075; 84100; 84133; 84156; 84300; 84443; 84466; 84484; 85025; 85027; 85610; 85730; 86850; 86900; 86901; 86922; 87086; 93005; 93010; 93306-TC; 93971; 94640; 97116-GP; 97161-GP; 99284-25; J1644; P9058

== ENCOUNTER 2016-11-14 21:29 | Inpatient (IN) | payer OTHER ==
--- NOTE | 2016-11-14 21:40 | PDOC ---
History of Present Illness - General History Source: Patient, Family, Old Records Exam Limitations: No Limitations - History of Present Illness Initial Comments: 11/14/16 22:13 Patient is a 85 year old female, accompanied by family, with past medical history of HTN, HLD, CAD s/p defibrillator, CHF, asthma, presents with abdominal pain today and shortness of breath for one week. The patient states that her abdominal pain begins in the epigastric region and radiates to the right side. She did not report any alleviating or exacerbating factors. The patient notes that she was discharged from this hospital 2 weeks ago after presenting with chest pain. <Huey Salgado - Last Filed: 11/15/16 01:01> <Keith Dupont - Last Filed: 11/21/16 15:42> - General Stated Complaint: SHORTNESS OF BREATH Time Seen by Provider: 11/14/16 21:39 Past History <Huey Salgado - Last Filed: 11/15/16 01:01> - Past Medical History Anemia: No Asthma: No Cancer: No Cardiac Disorders: Yes (CAD) CVA: No COPD: No CHF: No Dementia: No Diabetes: No GI Disorders: No Disorders: No HTN: Yes Hypercholesterolemia: Yes Liver Disease: No Seizures: No Thyroid Disease: No - Surgical History Abdominal Surgery: No Appendectomy: No Cardiac Surgery: Yes (PPM/DF) Cholecystectomy: No Lung Surgery: No Neurologic Surgery: No Orthopedic Surgery: No - Psycho/Social/Smoking Cessation Hx Anxiety: No Suicidal Ideation: No Smoking Status: Yes Smoking History: Never smoked Have you smoked in the past 12 months: No Number of Cigarettes Smoked Daily: 0 Hx Alcohol Use: Yes Drug/Substance Use Hx: No Substance Use Type: None Hx Substance Use Treatment: No <Keith Dupont - Last Filed: 11/21/16 15:42> - Past Medical History Allergies/Adverse Reactions: Allergies Allergy/AdvReac Type Severity Reaction Status Date / Time No Known Allergies Allergy Verified 10/26/16 11:48 Home Medications: Ambulatory Orders Aspirin [ASA -] 81 mg PO DAILY 10/26/16 Multivitamin [Poly-Vitamin] 1 each PO DAILY 10/26/16 Pravastatin Sodium 20 mg PO DAILY 10/26/16 Sennosides/Docusate Sodium [Pericolace -] 1 tab PO PRN 10/26/16 Miscellaneous Drug Not In Syst [Outpatient Lab Test] 1 each ASDIR #1 misc 05/22 Rivaroxaban [Xarelto] 1 each PO DAILY #30 tab.ds.pk 11/03/16 Diltiazem [Cardizem -] 60 mg PO TID #90 tablet 11/20/16 Metoprolol Tartrate [Lopressor -] 50 mg PO BID #60 tablet 11/20/16 Review of Systems - Review of Systems Able to Perform ROS?: Yes Comments:: 11/14/16 22:14 CONSTITUTIONAL: No fever, no chills, no fatigue EYES: No visual changes ENT: No ear pain, no sore throat CARDIOVASCULAR: No chest pain, no palpitations RESPIRATORY: No cough, (+) SOB GI: (+) abdominal pain. no nausea, no vomiting, no constipation, no diarrhea GENITOURINARY: No dysuria, no frequency, no hematuria MUSCULOSKELETAL: No back pain, no joint pain, no myalgias SKIN: No rash NEURO: No headache <Huey Salgado - Last Filed: 11/15/16 01:01> *Physical Exam - Physical Exam Comments: 11/15/16 22:14 CONSTITUTIONAL: (+) writhing in pain, obese, moderate distress, Diaphoretic HEAD: Normocephalic; atraumatic EYES: PERRL; EOM intact, Sclerae are normal Eye conjunctiva are pink ENMT: (+) External appears normal; normal oropharynx, mucous membranes are dry. NECK: Supple; non-tender; no cervical lymphadenopathy CARD: Irregularly irregular and bradycardic. Normal S1, S2; no murmurs, rubs, or gallops RESP: Normal chest excursion with respiration; breath sounds clear and equal bilaterally; no wheezes, rhonchi, or rales ABD: (+) Soft, non-distended; Mild periumbilical discomfort on deep palpation. No guarding. No rebound no palpable organomegaly, no palpable hernias EXT: Normal ROM in all four extremities; non-tender to palpation; distal pulses intact. No edema SKIN: Warm, dry, no rash NEURO: No focal neurological deficiencies. <Huey Salgado - Last Filed: 11/15/16 01:01> Heart Score/ECG Review - ECG Impressions Comment:: 11/14/16 23:47 Atrial flutter with variable AV block. Rightward axis. Nonspecific intraventricular block. Cannot rule out anterior infarct age undetermined. T wave abnormality, consider lateral ischemia. Vent rate 55 bpm. Abnormal ECG. <NaomiHuey - Last Filed: 11/15/16 01:01> ED Treatment Course - LABORATORY CBC & Chemistry Diagram: 11/14/16 22:55 11/14/16 22:55 <Huey Salgado - Last Filed: 11/15/16 01:01> - LABORATORY CBC & Chemistry Diagram: 11/21/16 09:30 11/21/16 09:30 <Keith Dupont - Last Filed: 11/21/16 15:42> Medical Decision Making - Medical Decision Making 11/14/16 23:36 Patient is an 85-year-old female with multiple comorbidities, new diagnosis of A. fib on his relative (sees every other day) presents to the ER by EMS for difficulty breathing for the past week with worsening intermittent abdominal pain without associated nausea/vomiting/diarrhea/melena/bright red blood per rectum. On initial evaluation, patient is noted to be writhing in pain, uncooperative, diaphoretic, hypertensive, with clear lungs and mild periumbilical tenderness to deep palpation without guarding or rebound; bowel sounds are normal to be present in all 4 quadrants. Differential diagnosis includes bowel ischemia versus colitis versus SBO versus acute cholecystitis. We will resuscitated with IV fluids. We'll administer pain meds. We'll obtain CBC/CMP/lactic acid/urinalysis. Will reassess. Will consider CT versus CTA of abdomen and pelvis. Likely admission. 11/15/16 01:06 Patient reassessed. Patient is resting comfortably, is noted to be normotensive with minimal abdominal discomfort. Patient's EKG reveals atrial flutter with variable conduction with a rate of 55. There is no evidence of acute ischemia on the EKG. CBC is noted for significant leukocytosis of 21. CMP reveals bicarbonate of 16, elevated anion gap 21, lactic acid of 10, and increased BUN and creatinine consistent with acute renal insufficiency. I suspect anion gap metabolic acidosis at this time. Will continue to hydrate with normal saline. Will administer IV Zosyn for suspected intra-abdominal sepsis. Will obtain CT with by mouth contrast only given the elevated BUN/creatinine. We'll consult surgery as needed. <Keith Dupont - Last Filed: 11/21/16 15:42> *DC/Admit/Observation/Transfer - Attestations Scribe Attestion: 11/14/16 22:18 Documentation prepared by Huey Salgado, acting as medical interpreter for Keith Dupont MD. <Huey Salgado - Last Filed: 11/15/16 01:01> - Attestations Physician Attestion: 11/15/16 01:01 The documentation was prepared by the scribe under my direct supervision. I have reviewed the documentation which correctly represents the findings, medical decision-making and critical action taken by me. <Keith Dupont - Last Filed: 11/21/16 15:42> Diagnosis at time of Disposition: Leukocytosis, Lactic acid acidosis - Discharge Dispostion Condition at time of disposition: Stable - Prescriptions
[2016-11-14] MEDS ORDERED: NITROGLYCERIN 25MG/D5W 250ML 250 ML IVPB SCH (22:45)
[2016-11-14] MEDS ORDERED: NITROGLYCERIN 25MG/D5W 250ML 250 ML IVPB ONE (23:03)
[2016-11-14] MEDS ORDERED: morphine CARPU-JECT 2 MG/1 ML DISP.SYRIN IVPUSH ONE (23:05)
[2016-11-14] MEDS ORDERED: morphine CARPU-JECT 2 MG/1 ML DISP.SYRIN ONE (23:26)
[2016-11-14 23:41] LABS: MCH 26.5 pg (25.7-33.7); MCHC 29.2 g/dl (32.0-36.0); MEAN CELL VOLUME 90.7 fl (80-96); MEAN PLT VOLUME 9.5 fl (7.5-11.1); PLATELET COUNT 302 K/MM3 (134-434); WHITE BLOOD COUNT 21.5 K/mm3 (4.0-10.0)
[2016-11-14 23:47] LABS: ALBUMIN 3.1 g/dl (3.4-5.0); ANION GAP 21 (8-16); BILIRUBIN,TOTAL 1.5 mg/dL (0.2-1.0); CALCIUM 9.1 mg/dL (8.5-10.1); CO2 16 mmol/L (21-32); CREATININE 2.4 mg/dL (0.55-1.02); GLUCOSE,RANDOM 94 mg/dL (74-106); SGPT/ALT 66 U/L (12-78); TOT PROT 6.9 g/dl (6.4-8.2)
[2016-11-14 23:50] LABS: ALK PHOS 311 U/L (45-117); TROPONIN I 0.04 ng/ml (0.00-0.05)
[2016-11-15 00:02] LABS: SGOT/AST 79 U/L (15-37)
[2016-11-15] MEDS ORDERED: SODIUM CHLORIDE 500 ML IV STA ×2 (00:27→01:00)
[2016-11-15] MEDS ORDERED: PIPERACILLIN/TAZOB 2.25 GM 2.25 GM in DEXTROSE 5%-WATER - 50 ML IVPB ONE (00:28)
[2016-11-15 01:47] LABS: VENOUS PH 7.21 (7.32-7.42)
[2016-11-15 01:48] LABS: VENOUS BLOOD GAS HCO3 14.8 meq/L (19-25)
[2016-11-15 01:57] LABS: INR 3.66 (0.82-1.09); PROTHROMBIN TIME (PATIENT) 41.3 SEC (9.98-11.88)
--- NOTE | 2016-11-15 02:49 | PDOC ---
*Physical Exam - Vital Signs Last Vital Signs Temp Pulse Resp BP Pulse Ox 98.8 F 65 14 111/57 99 11/14/16 21:55 11/15/16 02:24 11/15/16 02:24 11/15/16 02:24 11/15/16 02:24 <Jules Cobos - Last Filed: 11/15/16 02:47> - Vital Signs Last Vital Signs Temp Pulse Resp BP Pulse Ox 98.8 F 65 14 111/57 99 11/14/16 21:55 11/15/16 02:24 11/15/16 02:24 11/15/16 02:24 11/15/16 02:24 <LollySergeRebekah - Last Filed: 11/15/16 02:50> ED Treatment Course - LABORATORY CBC & Chemistry Diagram: 11/14/16 22:55 11/14/16 22:55 - ADDITIONAL ORDERS Additional order review: Laboratory Results 11/15/16 11/15/16 11/15/16 01:32 01:32 01:32 INR 3.66 H D VBG pH 7.21 L* POC VBG pCO2 38.6 POC VBG pO2 26.4 L Mixed VBG HCO3 14.8 L* Sodium Potassium Chloride Carbon Dioxide Anion Gap BUN Creatinine Creat Clearance w eGFR Random Glucose Lactic Acid 8.4 H* Calcium Total Bilirubin AST ALT Alkaline Phosphatase Creatine Kinase Troponin I Total Protein Albumin Lipase Anti-A Titer Blood Type Antibody Screen Spec Expiration Date 11/15/16 11/15/16 11/14/16 00:40 00:40 22:55 INR Cancelled VBG pH POC VBG pCO2 POC VBG pO2 Mixed VBG HCO3 Sodium Potassium Chloride Carbon Dioxide Anion Gap BUN Creatinine Creat Clearance w eGFR Random Glucose Lactic Acid 10.1 H* Calcium Total Bilirubin AST ALT Alkaline Phosphatase Creatine Kinase Troponin I Total Protein Albumin Lipase Anti-A Titer Cancelled Blood Type Cancelled Antibody Screen Cancelled Spec Expiration Date Cancelled 11/14/16 22:55 INR VBG pH POC VBG pCO2 POC VBG pO2 Mixed VBG HCO3 Sodium 143 Potassium 4.6 Chloride 106 Carbon Dioxide 16 L D Anion Gap 21 H BUN 45 H D Creatinine 2.4 H D Creat Clearance w eGFR 19.23 Random Glucose 94 Lactic Acid Calcium 9.1 Total Bilirubin 1.5 H D AST 79 H D ALT 66 Alkaline Phosphatase 311 H Creatine Kinase 106 Troponin I 0.04 Total Protein 6.9 Albumin 3.1 L Lipase 125 Anti-A Titer Blood Type Antibody Screen Spec Expiration Date 11/14/16 22:55 RBC 3.76 MCV 90.7 MCHC 29.2 L RDW 20.0 H MPV 9.5 D Neutrophils % Y Lymphocytes % Y - Medications Given in the ED: ED Medications Discontinued Medications Generic Name Dose Route Start Last Admin Trade Name Radha PRN Reason Stop Dose Admin Nitroglycerin/Dextrose 250 mls @ 15 mls/hr 11/14/16 22:45 11/15/16 00:42 Nitroglycerin 25mg/D5w 250ml IVPB Not Given TITR ALESSIA 25 MCG/MIN Sodium Chloride 500 mls @ 500 mls/hr 11/15/16 00:27 11/15/16 00:49 Normal Saline - IV 11/15/16 01:26 500 mls/hr ASDIR STA Administration Sodium Chloride 500 mls @ 500 mls/hr 11/15/16 01:00 11/15/16 01:30 Normal Saline - IV 11/15/16 01:59 500 mls/hr ASDIR STA Administration Morphine Sulfate 2 mg 11/14/16 23:05 11/14/16 23:34 Morphine Injection - IVPUSH 11/14/16 23:06 2 mg ONCE ONE Administration <Jules Cobos - Last Filed: 11/15/16 02:47> - LABORATORY CBC & Chemistry Diagram: 11/14/16 22:55 11/14/16 22:55 - ADDITIONAL ORDERS Additional order review: Laboratory Results 11/15/16 11/15/16 11/15/16 01:32 01:32 01:32 INR 3.66 H D VBG pH 7.21 L* POC VBG pCO2 38.6 POC VBG pO2 26.4 L Mixed VBG HCO3 14.8 L* Sodium Potassium Chloride Carbon Dioxide Anion Gap BUN Creatinine Creat Clearance w eGFR Random Glucose Lactic Acid 8.4 H* Calcium Total Bilirubin AST ALT Alkaline Phosphatase Creatine Kinase Troponin I Total Protein Albumin Lipase Anti-A Titer Blood Type Antibody Screen Spec Expiration Date 11/15/16 11/15/16 11/14/16 00:40 00:40 22:55 INR Cancelled VBG pH POC VBG pCO2 POC VBG pO2 Mixed VBG HCO3 Sodium Potassium Chloride Carbon Dioxide Anion Gap BUN Creatinine Creat Clearance w eGFR Random Glucose Lactic Acid 10.1 H* Calcium Total Bilirubin AST ALT Alkaline Phosphatase Creatine Kinase Troponin I Total Protein Albumin Lipase Anti-A Titer Cancelled Blood Type Cancelled Antibody Screen Cancelled Spec Expiration Date Cancelled 11/14/16 22:55 INR VBG pH POC VBG pCO2 POC VBG pO2 Mixed VBG HCO3 Sodium 143 Potassium 4.6 Chloride 106 Carbon Dioxide 16 L D Anion Gap 21 H BUN 45 H D Creatinine 2.4 H D Creat Clearance w eGFR 19.23 Random Glucose 94 Lactic Acid Calcium 9.1 Total Bilirubin 1.5 H D AST 79 H D ALT 66 Alkaline Phosphatase 311 H Creatine Kinase 106 Troponin I 0.04 Total Protein 6.9 Albumin 3.1 L Lipase 125 Anti-A Titer Blood Type Antibody Screen Spec Expiration Date 11/14/16 22:55 RBC 3.76 MCV 90.7 MCHC 29.2 L RDW 20.0 H MPV 9.5 D Neutrophils % Y Lymphocytes % Y - RADIOLOGY Radiograph Interpretation: 11/15/16 02:50 EXAM: CT abdomen and pelvis without contrast Reviewed by Imaging insulation manager: FINDINGS: Mild basilar atelectasis and air trapping is noted. The heart is mildly enlarged a single lead pacemaker is noted. There are gallstones but no gallbladder inflammation or biliary duct dilation. Normal unenhanced liver, pancreas, spleen, adrenal glands and kidneys. The stomach and small bowel are normal. Scattered colonic diverticulosis is noted, without diverticulitis There is no aortic aneurysm. There is no significant retroperitoneal lymphadenopathy. Mesenteric surgical clips are again noted. The appendix is normal. Status post hysterectomy l. Urinary bladder is unremarkable. There is no pelvic free fluid. No discrete pelvic lymphadenopathy is identified. Moderate-sized fat-containing bilateral inguinal hernias noted, larger on the right IMPRESSION: Gallstones. Diverticulosis without diverticulitis. No definite acute pathology. - Medications Given in the ED: ED Medications Discontinued Medications Generic Name Dose Route Start Last Admin Trade Name Freq PRN Reason Stop Dose Admin Nitroglycerin/Dextrose 250 mls @ 15 mls/hr 11/14/16 22:45 11/15/16 00:42 Nitroglycerin 25mg/D5w 250ml IVPB Not Given TITR ALESSIA 25 MCG/MIN Sodium Chloride 500 mls @ 500 mls/hr 11/15/16 00:27 11/15/16 00:49 Normal Saline - IV 11/15/16 01:26 500 mls/hr ASDIR STA Administration Sodium Chloride 500 mls @ 500 mls/hr 11/15/16 01:00 11/15/16 01:30 Normal Saline - IV 11/15/16 01:59 500 mls/hr ASDIR STA Administration Morphine Sulfate 2 mg 11/14/16 23:05 11/14/16 23:34 Morphine Injection - IVPUSH 11/14/16 23:06 2 mg ONCE ONE Administration <Rebekah Ambrocio - Last Filed: 11/15/16 02:50> *DC/Admit/Observation/Transfer - Discharge Dispostion Admit: Yes <Jules Cobos - Last Filed: 11/15/16 02:47> <Rebekah Ambrocio - Last Filed: 11/15/16 02:50> Diagnosis at time of Disposition: Leukocytosis, Lactic acid acidosis
[2016-11-15 03:10] LABS: URINE APPEARANCE CLOUDY; URINE BILIRUBIN NEGATIVE (NEGATIVE); URINE BLOOD NEGATIVE (NEGATIVE); URINE COLOR AMBER; URINE GLUCOSE (UA) NEGATIVE (NEGATIVE); URINE KETONE NEGATIVE (NEGATIVE); URINE LEUK ESTERASE NEGATIVE (NEGATIVE); URINE NITRITE NEGATIVE (NEGATIVE); URINE UROBILINOGEN NEGATIVE mg/dL (0.2-1.0)
[2016-11-15 03:27] LABS: URINE PROTEIN 2+ (NEGATIVE)
[2016-11-15] MEDS ORDERED: ALBUTEROL SO4 2.5/IPRATROPIUM 0.5 INH SOL 3 ML VIAL.NEB. NEB ONE (03:41)
[2016-11-15 04:00] LABS: URINE BACTERIA FEW /hpf (NONE SEEN); URINE HYALINE CAST 9 /lpf; URINE MUCUS RARE; URINE WBC 2 /hpf (3-5)
--- NOTE | 2016-11-15 04:38 | HP ---
HISTORY OF PRESENT ILLNESS: Patient is an 85 year old female with a PMHx of HTN, HLD, CAD s/p defibrillator , CHF, A.fib diagnosed last admission (10/26/16), asthma who was brought in by EMS for shortness of breath and abdominal pain. Patient's daughter reports she received a phone call from the patient complaining of difficulty breathing for the last 24 hours which worsened prior to arrival and she called the ambulance immediately to pick her up. Patient states she has been using her albuterol inhaler every day and more than once a day since her last hospital discharge on 11/04/16. Patient describes her abdominal pain as sharp/crampy epigastric pain radiating to the right upper quadrant with no alleviating or exacerbating factors. Otherwise, patient denies chest pain, palpitations, dysuria, acute vision changes, headaches. PHYSICAL EXAMINATION Vital Signs - 24 hr 11/15/16 03:49 Pulse Rate [ 72 Apical] Respiratory 16 Rate Blood Pressure 110/82 [Left Arm] O2 Sat by Pulse 98 Oximetry (%) GENERAL: Awake, alert, and fully oriented, in no acute distress. EARS, NOSE, THROAT: Moist mucous membranes. LUNGS: Expiratory wheezes throughout upper lung bases bilaterally, with mild labored breathing. HEART: Regular rate and rhythm, normal S1 and S2 without murmur, rub or gallop. ABDOMEN: Soft, tenderness of mid-epigastric region upon deep palpation, not distended, normoactive bowel sounds. LOWER EXTREMITIES: 2+ pulses, warm, well-perfused. No calf tenderness. No peripheral edema. Laboratory Results - last 24 hr Abnormal Lab Results 11/14/16 11/14/16 11/14/16 22:55 22:55 22:55 WBC 21.5 H D Hgb 10.0 L D MCHC 29.2 L RDW 20.0 H INR VBG pH POC VBG pO2 Mixed VBG HCO3 Carbon Dioxide 16 L D Anion Gap 21 H BUN 45 H D Creatinine 2.4 H D Lactic Acid 10.1 H* Total Bilirubin 1.5 H D AST 79 H D Alkaline Phosphatase 311 H Albumin 3.1 L Urine Protein 11/15/16 11/15/16 11/15/16 01:32 01:32 01:32 WBC Hgb MCHC RDW INR 3.66 H D VBG pH 7.21 L* POC VBG pO2 26.4 L Mixed VBG HCO3 14.8 L* Carbon Dioxide Anion Gap BUN Creatinine Lactic Acid 8.4 H* Total Bilirubin AST Alkaline Phosphatase Albumin Urine Protein 11/15/16 03:05 WBC Hgb MCHC RDW INR VBG pH POC VBG pO2 Mixed VBG HCO3 Carbon Dioxide Anion Gap BUN Creatinine Lactic Acid Total Bilirubin AST Alkaline Phosphatase Albumin Urine Protein 2+ H ASSESSMENT/PLAN: Patient is an 85 year old female with a PMHx of HTN, HLD, CAD s/p defibrillator , CHF, A.fib diagnosed last admission (10/26/16), asthma who presented with abdominal pain and shortness of breath. Patient was found to have Lactic Acidosis and Leukocytosis. Patient admitted for severe sepsis. High Anion Gap Metabolic Acidosis with Lactic Acidosis -AG of 21, with Lactic Acid of 10.1 initially -ABG ordered -2 half bolus given in ED. Will give IV NS @75cc/hr -Continue to monitor Severe Sepsis -Unknown etiology. R/O infectious etiology vs. ischemic colitis -Chest PA and lat ordered -IV NS @75cc/hr -Continue to trend Lactic -Broad spectrum coverage with Zosyn -Vancomycin ordered due to recent hospitalization. -ID consult placed RICA on CKD -Possibly secondary to hypovolemia -Continue IV NS @75cc/hr -Urine lytes ordered -Continue to trend BMP Asthma- Duo-Neb 1amp Q4H PRN Supratherapeutic INR- Repeat INR. Currently not taking Coumadin Prophylaxis- Xarelto Disposition- Full code. Admit to tele Visit type - Emergency Visit Emergency Visit: Yes ED Registration Date: 11/15/16 Care time: The patient presented to the Emergency Department on the above date and was hospitalized for further evaluation of their emergent condition. - New Patient This patient is new to me today: Yes Date on this admission: 11/15/16 - Critical Care Critical Care patient: No
--- NOTE | 2016-11-15 04:42 | HP ---
CHIEF COMPLAINT: sever abdominal pain with one week history of shortness of breath. PCP: HISTORY OF PRESENT ILLNESS: An 85 Year old AA obese female with PMH of HTN, HLD, CHF, asthma,, Afib, CAD S /p Defibrillator who represented to the ED today with sever abdominal pain, and one week history of worsening SOB, she has been using her Albuterol daily for the last 2 weeks. The abdominal pain started today around 7 pm after she took her meds, 10/10 mad her crying, mid epigastric area and radiated to the right upper quadrant.the pain associated with diaphoresis, nausea and vomited X2 of yellow liquids with blood in it around 3 spoons. the patient reports one episode of diarrhea , but denies any blood in the stool. she denies any headache , blurry vision, chest pain but she reports cough with white sputum. She denies any urinary symptoms.Patient was discharged from the hospital 2 weeks ago Recent Travel:NO PAST MEDICAL HISTORY: HTN, HLD, CHF, asthma,, Afib CAD S/p Defibrillator. PAST SURGICAL HISTORY: unobtained Social History: Smoking: none Alcohol: sochially Drugs: None Family History: unremarkable Allergies No Known Allergies Allergy (Verified 10/26/16 11:48) HOME MEDICATIONS: Home Medications Medication Instructions Recorded Aspirin [ASA -] 81 mg PO DAILY 10/26/16 Multivitamin [Poly-Vitamin] 1 each PO DAILY 10/26/16 Pravastatin Sodium 20 mg PO DAILY 10/26/16 Sennosides/Docusate Sodium 1 tab PO PRN 10/26/16 [Pericolace -] Amox-Tr/K Cl [Augmentin 500-125mg 1 tab PO BID@0800,1730 #10 tablet 11/03/16 Tablet -] Doxycycline Hyclate [Vibramycin -] 100 mg PO BID@1000,1800 #10 tab 11/03/16 Isosorbide Mononitrate [Imdur -] 30 mg PO DAILY 30 Days 11/03/16 Metoprolol Tartrate [Lopressor -] 25 mg PO BID #60 tablet 11/03/16 Miscellaneous Drug Not In Syst 1 each ASDIR #1 misc 11/03/16 [Outpatient Lab Test] Rivaroxaban [Xarelto] 1 each PO DAILY #30 tab.ds.pk 11/03/16 REVIEW OF SYSTEMS CONSTITUTIONAL: Absent: fever, chills, diaphoresis, generalized weakness, malaise, loss of appetite, weight change HEENT: Absent: rhinorrhea, nasal congestion, throat pain, throat swelling, difficulty swallowing, mouth swelling, ear pain, eye pain, visual changes CARDIOVASCULAR: Absent: chest pain, syncope, palpitations, irregular heart rate, lightheadedness , peripheral edema RESPIRATORY: Absent: +cough,+ shortness of breath, +dyspnea with exertion, orthopnea, wheezing, stridor, hemoptysis GASTROINTESTINAL: Absent: abdominal pain, abdominal distension, nausea, vomiting, diarrhea, constipation, melena, hematochezia GENITOURINARY: Absent: dysuria, frequency, urgency, hesitancy, hematuria, flank pain, genital pain MUSCULOSKELETAL: Absent: myalgia, arthralgia, joint swelling, back pain, neck pain SKIN: Absent: rash, itching, pallor HEMATOLOGIC/IMMUNOLOGIC: Absent: easy bleeding, easy bruising, lymphadenopathy, frequent infections ENDOCRINE: Absent: unexplained weight gain, unexplained weight loss, heat intolerance, cold intolerance NEUROLOGIC: Absent: headache, focal weakness or paresthesias, dizziness, unsteady gait, seizure, mental status changes, bladder or bowel incontinence PSYCHIATRIC: Absent: anxiety, depression, suicidal or homicidal ideation, hallucinations. PHYSICAL EXAMINATION Vital Signs - 24 hr 11/14/16 11/14/16 11/14/16 21:55 22:05 23:30 Temperature 98.8 F Pulse Rate 51 L Pulse Rate [ 56 L Apical] Respiratory 14 28 H Rate Blood Pressure 145/117 Blood Pressure 111/61 [Left Arm] O2 Sat by Pulse 98 98 98 Oximetry (%) 11/15/16 11/15/16 11/15/16 00:49 02:24 03:49 Temperature Pulse Rate Pulse Rate [ 65 72 Apical] Respiratory 14 16 Rate Blood Pressure 110/67 Blood Pressure 111/57 110/82 [Left Arm] O2 Sat by Pulse 99 98 Oximetry (%) 11/15/16 11/15/16 11/15/16 04:59 05:03 05:51 Temperature Pulse Rate 75 75 Pulse Rate [ Apical] Respiratory 20 20 20 Rate Blood Pressure 152/79 152/79 Blood Pressure [Left Arm] O2 Sat by Pulse 96 Oximetry (%) GENERAL: Awake, alert, and fully oriented, in no acute distress. HEAD: Normal with no signs of trauma. EYES: Pupils equal, round and reactive to light, extraocular movements intact, sclera anicteric, conjunctiva clear. No lid lag. EARS, NOSE, THROAT: Ears normal, nares patent, oropharynx clear without exudates. Moist mucous membranes. NECK: Normal range of motion, supple without lymphadenopathy, JVD, or masses. LUNGS: Breath sounds equal, clear to auscultation bilaterally.+ Expiratory wheezes in the upper lobes B/L, and no crackles. no accessory muscle use. HEART: Regular rate and rhythm, normal S1 and S2 without murmur, rub or gallop. ABDOMEN: Soft, tender periumbilical, not distended, normoactive bowel sounds, no guarding, + rebound tenderness, no masses. No hepatomegaly or splenomegaly. MUSCULOSKELETAL: Normal range of motion at all joints. No bony deformities or tenderness. No CVA tenderness. UPPER EXTREMITIES: 2+ pulses, warm, well-perfused. No cyanosis. No clubbing. No peripheral edema. LOWER EXTREMITIES: 2+ pulses, warm, well-perfused. No calf tenderness. No peripheral edema. NEUROLOGICAL: Cranial nerves II-XII intact. Normal speech. Normal gait. PSYCHIATRIC: Cooperative. Good eye contact. Appropriate mood and affect. SKIN: Warm, dry, normal turgor, no rashes or lesions noted, normal capillary refill. Laboratory Results - last 24 hr 11/15/16 03:05 Urine Color Britney Urine Appearance Cloudy Urine pH 5.0 Urine Protein 2+ H Urine Glucose (UA) Negative Urine Ketones Negative Urine Blood Negative Urine Nitrite Negative Urine Bilirubin Negative Urine Urobilinogen Negative Ur Leukocyte Esterase Negative Urine RBC None Urine WBC 2 Ur Epithelial Cells Rare Urine Bacteria Few Hyaline Casts 9 Urine Mucus Rare CBC, BMP 11/15/16 04:56 11/15/16 05:30 CMP Sodium 141 mmol/L (136-145) 11/15/16 05:30 Potassium 5.0 mmol/L (3.5-5.1) 11/15/16 05:30 Chloride 106 mmol/L (98-107) 11/15/16 05:30 Carbon Dioxide 16 mmol/L (21-32) L 11/15/16 05:30 Anion Gap 19 (8-16) H 11/15/16 05:30 BUN 52 mg/dL (7-18) H 11/15/16 05:30 Creatinine 2.8 mg/dL (0.55-1.02) H 11/15/16 05:30 Creat Clearance w eGFR 16.10 (>60) 11/15/16 05:30 Random Glucose 84 mg/dL (74-106) 11/15/16 05:30 Lactic Acid 6.0 mmol/L (0.4-2.0) H* 11/15/16 05:30 Calcium 8.6 mg/dL (8.5-10.1) 11/15/16 05:30 Phosphorus 7.4 mg/dL (2.5-4.9) H D 11/15/16 05:30 Magnesium 2.3 mg/dL (1.8-2.4) 11/15/16 05:30 Total Bilirubin 2.4 mg/dL (0.2-1.0) H D 11/15/16 05:30 AST 243 U/L (15-37) H D 11/15/16 05:30 ALT 143 U/L (12-78) H D 11/15/16 05:30 Alkaline Phosphatase 344 U/L (45-117) H 11/15/16 05:30 Creatine Kinase 106 IU/L (26-192) 11/14/16 22:55 Troponin I 0.05 ng/ml (0.00-0.05) 11/15/16 05:30 Total Protein 6.3 g/dl (6.4-8.2) L 11/15/16 05:30 Albumin 3.0 g/dl (3.4-5.0) L 11/15/16 05:30 Lipase 125 U/L (73-393) 11/14/16 22:55 Patient's EKG on admission:reveals atrial flutter with variable conduction with a rate of 55. There is no evidence of acute ischemia on the EKG. Abdominal/Pelvic CT without contrast: Cholilithisis, Diverticulosis,Large right renal cyst, no evidence of acute pathology within the abdomen and the pelvic. ASSESSMENT/PLAN: An 85 Year old AA obese female with PMH of HTN, HLd, CHF, asthma, Afib CAD S/ p Defibrillator who represented to the ED today with sever abdominal pain, and one week history of worsening SOB.patient was admitted to [facility] for sever sepsis and acute asthma exacerbation. 1- Hihg anion gap metabolic acidosis likely 2/2 sepsis vs renal failure can not r/o ischemic colitis or Acute mesenteric ischemia. * AG : 21 , LA :10.1 trend down 8.4 * IV fluids: 2 bolus 500 ml ASDIR was given in ED. will continue NS @ 75 CC * vanco/Zosyn 2.25 gm for suspected intra abdominal sepsis * CT scan pelic/ abdomen without contrast did not show any acute pathology. 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 * IV fluid 500 Ml bolus X 2 , will continue NS @75 ml /h * previous Kidney US was remarkable for multiple cyst. * F/u BMP * * * 3- Acute Asthma exacerbation: * worsening H/O SOB for the last week * Du-neb * CXR * continue home meds * * 4- supratheraputic INR 3.66 on Xerolto * Repeat INR * verify home meds * 5- Afib : * [id number] score of 5 * continue Xarelto * continue Metoprolol 23 mg PO BID * recent echo with Mod MR, mod -severe low EF , dilated L atrium * Aspirin 81 mg * verify home meds * monitoring analyst * 6- HTN : * continue home meds * low sodium diet * 7- HLD * lipid panel profile * continue home meds * 8- DVT prophylaxis : * Xarelto 9- Dispo : * pt admitted to telemetry * pt is full code
[2016-11-15 05:10] VITALS: BMI 32.1
[2016-11-15] MEDS ORDERED: SODIUM CHLORIDE 1,000 ML IV SCH (06:00)
[2016-11-15] MEDS ORDERED: SENNOSIDES/DOCUSATE COMBO (SENNA PLUS) TABLET (UD) PO PRN (06:00)
[2016-11-15 06:01] LABS: MCH 26.6 pg (25.7-33.7); MCHC 30.1 g/dl (32.0-36.0); MEAN CELL VOLUME 88.4 fl (80-96); MEAN PLT VOLUME 9.2 fl (7.5-11.1); PLATELET COUNT 260 K/MM3 (134-434); RDW 19.6 % (11.6-15.6); WHITE BLOOD COUNT 18.9 K/mm3 (4.0-10.0)
[2016-11-15 06:29] LABS: ANION GAP 19 (8-16); CALCIUM 8.6 mg/dL (8.5-10.1); CO2 16 mmol/L (21-32); CREATININE 2.8 mg/dL (0.55-1.02); GLUCOSE,RANDOM 84 mg/dL (74-106); MAGNESIUM 2.3 mg/dL (1.8-2.4); PHOSPHOROUS 7.4 mg/dL (2.5-4.9); SGOT/AST 243 U/L (15-37); SGPT/ALT 143 U/L (12-78)
[2016-11-15 06:31] LABS: ALK PHOS 344 U/L (45-117); BILIRUBIN,TOTAL 2.4 mg/dL (0.2-1.0); TOT PROT 6.3 g/dl (6.4-8.2)
[2016-11-15] MEDS ORDERED: VANCOMYCIN 1,250 MG in DEXTROSE 5%-WATER - 250 ML IVPB ONE (07:00)
--- NOTE | 2016-11-15 07:00 | PN ---
Teaching Attending Note Name of Resident: Gurvinder Trevino ATTENDING PHYSICIAN STATEMENT I saw and evaluated the patient. I reviewed the resident's note and discussed the case with the resident. I agree with the resident's findings and plan as documented. SUBJECTIVE: OBJECTIVE: A&Ox3 in NAD NS, PERRLA, EOMI, MMM, pale conjunctiva RRR, CBCD WBC 18.9 K/mm3 (4.0-10.0) H 11/15/16 04:56 RBC 3.42 M/mm3 (3.60-5.2) L 11/15/16 04:56 Hgb 9.1 GM/dL (10.7-15.3) L 11/15/16 04:56 Hct 30.3 % (32.4-45.2) L 11/15/16 04:56 MCV 88.4 fl (80-96) 11/15/16 04:56 MCHC 30.1 g/dl (32.0-36.0) L 11/15/16 04:56 RDW 19.6 % (11.6-15.6) H 11/15/16 04:56 Plt Count 260 K/MM3 (134-434) 11/15/16 04:56 MPV 9.2 fl (7.5-11.1) 11/15/16 04:56 CMP Sodium 141 mmol/L (136-145) 11/15/16 05:30 Potassium 5.0 mmol/L (3.5-5.1) 11/15/16 05:30 Chloride 106 mmol/L (98-107) 11/15/16 05:30 Carbon Dioxide 16 mmol/L (21-32) L 11/15/16 05:30 Anion Gap 19 (8-16) H 11/15/16 05:30 BUN 52 mg/dL (7-18) H 11/15/16 05:30 Creatinine 2.8 mg/dL (0.55-1.02) H 11/15/16 05:30 Creat Clearance w eGFR 16.10 (>60) 11/15/16 05:30 Calcium 8.6 mg/dL (8.5-10.1) 11/15/16 05:30 Total Bilirubin 2.4 mg/dL (0.2-1.0) H D 11/15/16 05:30 AST 243 U/L (15-37) H D 11/15/16 05:30 ALT 143 U/L (12-78) H D 11/15/16 05:30 Alkaline Phosphatase 344 U/L (45-117) H 11/15/16 05:30 Total Protein 6.3 g/dl (6.4-8.2) L 11/15/16 05:30 Albumin 3.0 g/dl (3.4-5.0) L 11/15/16 05:30 ASSESSMENT AND PLAN: Sepsis r/o infectious etiology vs ischemic colitis. IVF NS 75cc Broad spectrum antibiotics Vancomycin and zosyn Nebulizations q6h CBC, CMP, ABG, Mg, Phos ID consult Trend Lactic acid
[2016-11-15] MEDS ORDERED: RIVAROXABAN 20 MG TABLET PO SCH (10:00)
[2016-11-15] MEDS ORDERED: PATIENT'S OWN MEDICATION (NON-FORMULARY) (Rivaroxaban [Xarelto] 1 EACH) PO SCH (10:00)
[2016-11-15] MEDS ORDERED: HEPARIN NA (PORCINE) 5,000 UNITS/ML 1ML VIAL SQ SCH (10:00)
[2016-11-15] MEDS: METOPROLOL TARTRATE 25 MG TABLET (FP) PO SCH ×2 (10:13→22:42)
[2016-11-15] MEDS: MULTIVITAMINS (DAILY MVI) TABLET (FP) PO SCH (10:13)
[2016-11-15] MEDS: ASPIRIN 81 MG CHEWABLE TABLETS PO SCH (10:13)
[2016-11-15 10:43] LABS: INR 2.77 (0.82-1.09); PROTHROMBIN TIME (PATIENT) 31.1 SEC (9.98-11.88)
--- NOTE | 2016-11-15 11:02 | PN ---
Physical Exam: SUBJECTIVE: Patient seen and examined No acute events overnight. Patient feels significantly better this morning. OBJECTIVE: Vital Signs Period Temp Pulse Resp BP Sys/Mena Pulse Ox Last 24 Hr 97.8 F 72-112 16-20 110-152/75-82 96-98 GENERAL: The patient is awake, alert, and fully oriented, in no acute distress. HEAD: Normal with no signs of trauma. EYES: extraocular movements intact, sclera anicteric, conjunctiva clear. No ptosis. ENT: Oropharynx clear without exudates, moist mucous membranes. NECK: Trachea midline, full range of motion, supple. LUNGS: Breath sounds equal, clear to auscultation bilaterally, no wheezes, no crackles, no accessory muscle use. HEART: Regular rate and rhythm, S1, S2 without murmur, rub or gallop. ABDOMEN: Soft, nontender, nondistended, normoactive bowel sounds, no guarding, no rebound, no hepatosplenomegaly, no masses. EXTREMITIES: Poor radial pulses, warm, well-perfused, no edema. NEUROLOGICAL: Normal speech, gait not observed. PSYCH: Normal mood, normal affect. SKIN: Warm, dry, normal turgor, no rashes or lesions noted Laboratory Results - last 24 hr 11/15/16 11/15/16 11/15/16 03:05 04:56 05:30 WBC 18.9 H RBC 3.42 L Hgb 9.1 L Hct 30.3 L MCV 88.4 MCH 26.6 MCHC 30.1 L RDW 19.6 H Plt Count 260 MPV 9.2 Neutrophils % Y Lymphocytes % Y INR Sodium 141 Potassium 5.0 Chloride 106 Carbon Dioxide 16 L Anion Gap 19 H BUN 52 H Creatinine 2.8 H Creat Clearance w eGFR 16.10 Random Glucose 84 Lactic Acid Calcium 8.6 Phosphorus Magnesium Total Bilirubin 2.4 H D AST 243 H D ALT 143 H D Alkaline Phosphatase 344 H Troponin I Total Protein 6.3 L Albumin 3.0 L Urine Color Britney Urine Appearance Cloudy Urine pH 5.0 Ur Specific [place] 1.025 Urine Protein 2+ H Urine Glucose (UA) Negative Urine Ketones Negative Urine Blood Negative Urine Nitrite Negative Urine Bilirubin Negative Urine Urobilinogen Negative Ur Leukocyte Esterase Negative Urine RBC None Urine WBC 2 Ur Epithelial Cells Rare Urine Bacteria Few Hyaline Casts 9 Urine Mucus Rare 11/15/16 11/15/1611/15/17 05:30 05:30 05:30 WBC RBC Hgb Hct MCV MCH MCHC RDW Plt Count MPV Neutrophils % Lymphocytes % INR Sodium Potassium Chloride Carbon Dioxide Anion Gap BUN Creatinine Creat Clearance w eGFR Random Glucose Lactic Acid 6.0 H* Calcium Phosphorus 7.4 H D Magnesium 2.3 Total Bilirubin AST ALT Alkaline Phosphatase Troponin I 0.05 Total Protein Albumin Urine Color Urine Appearance Urine pH Ur Specific [place] Urine Protein Urine Glucose (UA) Urine Ketones Urine Blood Urine Nitrite Urine Bilirubin Urine Urobilinogen Ur Leukocyte Esterase Urine RBC Urine WBC Ur Epithelial Cells Urine Bacteria Hyaline Casts Urine Mucus 11/15/16 10:07 WBC RBC Hgb Hct MCV MCH MCHC RDW Plt Count MPV Neutrophils % Lymphocytes % INR 2.77 H Sodium Potassium Chloride Carbon Dioxide Anion Gap BUN Creatinine Creat Clearance w eGFR Random Glucose Lactic Acid Calcium Phosphorus Magnesium Total Bilirubin AST ALT Alkaline Phosphatase Troponin I Total Protein Albumin Urine Color Urine Appearance Urine pH Ur Specific [place] Urine Protein Urine Glucose (UA) Urine Ketones Urine Blood Urine Nitrite Urine Bilirubin Urine Urobilinogen Ur Leukocyte Esterase Urine RBC Urine WBC Ur Epithelial Cells Urine Bacteria Hyaline Casts Urine Mucus Active Medications Generic Name Dose Route Start Last Admin Trade Name Freq PRN Reason Stop Dose Admin Albuterol/Ipratropium 1 amp 11/15/16 06:23 Duoneb - NEB Q4H PRN SHORTNESS OF BREATH Aspirin 81 mg 11/15/16 10:00 11/15/16 10:13 Asa - PO 81 mg DAILY ALESSIA Administration Atorvastatin Calcium 10 mg 11/15/16 22:00 Lipitor - PO HS ALESSIA Sodium Chloride 1,000 mls @ 75 mls/hr 11/15/16 06:00 11/15/16 10:13 Normal Saline - IV 75 mls/hr ASDIR ALESSIA Administration Metoprolol Tartrate 25 mg 11/15/16 10:00 11/15/16 10:13 Lopressor - PO 25 mg BID ALESSIA Administration Multivitamins/Minerals/Vitamin C 1 tab 11/15/16 10:00 11/15/16 10:13 Tab-A-Vit - PO 1 tab DAILY ALESSIA Administration Rivaroxaban 20 mg 11/15/16 10:00 Xarelto - PO DAILY ALESSIA Senna/Docusate Sodium 1 tablet 11/15/16 06:00 Pericolace - PO Q12H PRN ASSESSMENT/PLAN: 85 year old female with PMH of HTN, HLD, CHF, COPD, A fib, CAD s/p defibrillater presented to the ED with 1 week hx of SOB and 1 day hx of abdominal pain. Patient was admitted for severe sepsis and COPD exacerbation. #Anion gap lactic acidosis Severe sepsis of unclear etiology -WBC count-21.5 trended to 18.9 -Lactic acid- 10.1 now trended to 3.7 -UA negative -CXR negative for acute pathology x2 -IVF stopped due to concern for fluid overload- pt has moderate-severe LV function on prior echo during last visit -Patient started on Vancomycin and Zosyn for broad spectrum coverage -ID has been consulted -F/u labs at 1800. #COPD exacerbation -1 week hx of SOB. Signifcantly improved -Q4h PRN nebs -CXR negative for acute pathology x2 -Currently on 2L NC -Monitor respiratory status -F/u sputum culture #Acute on chronic kidney injury -Patient has elevated creatnine to 2.8 -Given IVF which have been stopped due to potential for fluid overload -Trend creatinine #Hyperbilirubinemia/transaminits -Abdominal CT shows cholelithiasis, renal cysts, and diverticulosis -Abdominal U/s shows partially contracted gallbladder and diffuse fatty infiltration. -Continue to tanika LFT's and bili #A fib with RVR -Originally on Xarelto -Due to RICA, patient switched to Eliquis 2.5 mg PO BID -Continue Eliquis #HTN -Continue Home Meds (Lopressor 25 mg PO BID) #HLD -Continue Home Meds (Lipitor 10 mg PO hs) #DVT ppx -Eliquis 2.5 mg PO bid Visit type - Emergency Visit Emergency Visit: No - New Patient This patient is new to me today: Yes Date on this admission: 11/15/16 - Critical Care Critical Care patient: No
[2016-11-15] MEDS ORDERED: BENZOCAINE/MENTH/CETYLPYRD CL 1 EACH LOZENGE MM PRN (11:03)
--- NOTE | 2016-11-15 13:10 | EKG ---
Test Reason : Blood Pressure : / mmHG Vent. Rate : 051 BPM Atrial Rate : 277 BPM P-R Int : 000 ms QRS Dur : 134 ms QT Int : 526 ms P-R-T Axes : 083 101 139 degrees QTc Int : 484 ms ATRIAL FLUTTER WITH VARIABLE A-V BLOCK RIGHTWARD AXIS NON-SPECIFIC INTRA-VENTRICULAR CONDUCTION BLOCK CANNOT RULE OUT ANTERIOR INFARCT , AGE UNDETERMINED T WAVE ABNORMALITY, CONSIDER LATERAL ISCHEMIA ABNORMAL ECG WHEN COMPARED WITH ECG OF 29-OCT-2016 08:40, ATRIAL FLUTTER HAS REPLACED ATRIAL FIBRILLATION VENT. RATE HAS DECREASED BY 35 BPM NONSPECIFIC T WAVE ABNORMALITY, IMPROVED IN INFERIOR LEADS T WAVE INVERSION NOW EVIDENT IN ANTERIOR LEADS Confirmed by KARISHMA LLANES MD ([id number]) on 11/15/2016 1:09:57 PM Referred By: Confirmed By:KARISHMA LLANES MD
[2016-11-15 14:19] LABS: ARTERIAL BLD GAS O2 SATURATION 96.8 % (90-98.9); ARTERIAL BLOOD GAS BASE EXCESS -8.8 meq/l (-2-2); ARTERIAL BLOOD GAS pH 7.38 (7.35-7.45)
[2016-11-15 14:21] LABS: ALLENS TEST POSITIVE; ART PUNCT SITE RIGHT RADIAL; LPM/O2% 21%; PT. ON O2? NO; TYPE OF O2 ROOM AIR
[2016-11-15 14:22] LABS: ARTERIAL BLOOD GAS HCO3 14.8 meq/L (22-26)
[2016-11-15] MEDS ORDERED: APIXABAN 2.5 MG TABLET PO ONE (15:45)
--- NOTE | 2016-11-15 16:10 | CONSULT ---
Consult Consult Specialty:: infectious diseases Reason for Consultation:: abd pain - History of Present Illness Chief Complaint: abd loco,dirrhoea,vomiting History of Present Illness: 85-year-old female with multiple comorbidities, new diagnosis of A. fib on his relative presents to the S for difficulty breathing for the past week with worsening intermittent abdominal pain . according to the patient she was in sever pain mainly supraumbilical denies any ruq pain currently patient has no complaints patient still having dirrhoea on work up patient was found to have lactic acidosis and leukocytosis - History Source History Provided By: Patient - Past Medical History Cardio/Vascular: Yes: CAD, CHF, HTN, Hyperlipdemia Pulmonary: Yes: Asthma Gastrointestinal: Yes: Other (Rectal bleed 2012) ...: No - Past Surgical History Past Surgical History: Yes: None, AICD - Alcohol/Substance Use Hx Alcohol Use: Yes Number of Drinks Daily: 2 History of Substance Use: reports: None - Smoking History Smoking history: Never smoked Have you smoked in the past 12 months: No Aproximately how many cigarettes per day: 0 - Social History ADL: Family Assistance History of Recent Travel: No Home Medications - Allergies Allergies/Adverse Reactions: Allergies Allergy/AdvReac Type Severity Reaction Status Date / Time No Known Allergies Allergy Verified 10/26/16 11:48 - Home Medications Home Medications: Ambulatory Orders Aspirin [ASA -] 81 mg PO DAILY 10/26/16 Multivitamin [Poly-Vitamin] 1 each PO DAILY 10/26/16 Pravastatin Sodium 20 mg PO DAILY 10/26/16 Sennosides/Docusate Sodium [Pericolace -] 1 tab PO PRN 10/26/16 Amox-Tr/K Cl [Augmentin 500-125mg Tablet -] 1 tab PO BID@0800,1730 #10 tablet Doxycycline Hyclate [Vibramycin -] 100 mg PO BID@1000,1800 #10 tab 11/03/16 Isosorbide Mononitrate [Imdur -] 30 mg PO DAILY 30 Days 11/03/16 Metoprolol Tartrate [Lopressor -] 25 mg PO BID #60 tablet 11/03/16 Miscellaneous Drug Not In Syst [Outpatient Lab Test] 1 each ASDIR #1 misc 05/22 Rivaroxaban [Xarelto] 1 each PO DAILY #30 tab.ds.pk 11/03/16 Review of Systems - Review of Systems Constitutional: reports: No Symptoms Eyes: reports: No Symptoms HENT: reports: No Symptoms Neck: reports: No Symptoms Cardiovascular: reports: No Symptoms Respiratory: reports: No Symptoms Gastrointestinal: reports: Abdominal Pain, Nausea Musculoskeletal: reports: No Symptoms Integumentary: reports: No Symptoms Endocrine: reports: No Symptoms Hematology/Lymphatic: reports: No Symptoms Psychiatric: reports: No Symptoms Physical Exam Vital Signs: Vital Signs Temperature 97.9 F 11/15/16 13:45 Pulse Rate 91 H 11/15/16 13:45 Respiratory Rate 20 11/15/16 13:45 Blood Pressure 126/61 11/15/16 13:45 O2 Sat by Pulse Oximetry (%) 96 11/15/16 09:00 Constitutional: Yes: Well Nourished, No Distress, Calm Eyes: Yes: Conjunctiva Clear HENT: Yes: Atraumatic Cardiovascular: Yes: Pulse Irregular, S1, S2 Respiratory: Yes: Regular, Rhonchi Gastrointestinal: Yes: Normal Bowel Sounds, Soft Musculoskeletal: Yes: WNL Extremities: Yes: WNL Neurological: Yes: Alert, Oriented Psychiatric: Yes: Alert Labs: CBC, BMP 11/15/16 04:56 11/15/16 05:30 Imaging - Results Chest X-ray: Report Reviewed, Image Reviewed Cat Scan: Report Reviewed, Image Reviewed Ultrasound: Report Reviewed, Image Reviewed Assessment/Plan patient with multiple comorbidites coming with the above picture patient probably became very dehydrated or had sepsis currently patient doing well dehydration abd pain dirrhoea lactic acidosis plan will continue zosyn for now monitor lactic acid hydration as appropriate rest continue current mgmt await for all cx reports
[2016-11-15] MEDS: PIPERACILLIN/TAZOB 2.25 GM 50 ML IVPB SCH (17:07)
[2016-11-15 18:18] LABS: LDH 512 U/L (84-246)
[2016-11-15 18:45] LABS: SODIUM,RANDOM URINE 18 MMOL/L
[2016-11-15] MEDS: ATORVASTATIN CA 10 MG TABLET (FP) PO SCH (22:42)
[2016-11-16] MEDS: PIPERACILLIN/TAZOB 2.25 GM 50 ML IVPB SCH ×3 (03:10→17:55)
[2016-11-16 06:35] LABS: MEAN CELL VOLUME 86.9 fl (80-96); PLATELET COUNT 219 K/MM3 (134-434); RDW 18.4 % (11.6-15.6); WHITE BLOOD COUNT 15.8 K/mm3 (4.0-10.0)
[2016-11-16 06:45] LABS: INR 2.22 (0.82-1.09); PROTHROMBIN TIME (PATIENT) 24.8 SEC (9.98-11.88)
[2016-11-16 07:07] LABS: ALBUMIN 2.7 g/dl (3.4-5.0); ALK PHOS 296 U/L (45-117); ANION GAP 11 (8-16); BILIRUBIN,TOTAL 1.3 mg/dL (0.2-1.0); CALCIUM 8.1 mg/dL (8.5-10.1); CO2 21 mmol/L (21-32); CREATININE 2.1 mg/dL (0.55-1.02); GLUCOSE,RANDOM 80 mg/dL (74-106); SGOT/AST 325 U/L (15-37); SGPT/ALT 237 U/L (12-78); TOT PROT 5.5 g/dl (6.4-8.2)
[2016-11-16] MEDS: APIXABAN 2.5 MG TABLET PO SCH ×2 (09:27→21:10)
[2016-11-16] MEDS: ASPIRIN 81 MG CHEWABLE TABLETS PO SCH (09:27)
[2016-11-16] MEDS: MULTIVITAMINS (DAILY MVI) TABLET (FP) PO SCH (09:27)
[2016-11-16] MEDS: METOPROLOL TARTRATE 25 MG TABLET (FP) PO SCH (09:27)
--- NOTE | 2016-11-16 13:25 | PN ---
Physical Exam: SUBJECTIVE: Patient seen and examined No acute events overnight. Patient breathing well this morning. Has no complaints. Denies any fever or shortness of breath. OBJECTIVE: Vital Signs Period Temp Pulse Resp BP Sys/Mena Pulse Ox Last 24 Hr 79.9 F-97.9 F 74-132 18-20 116-138/61-77 95-96 GENERAL: The patient is awake, alert, and fully oriented, in no acute distress. HEAD: Normal with no signs of trauma. EYES: extraocular movements intact, sclera anicteric, conjunctiva clear. No ptosis. ENT: Oropharynx clear without exudates, moist mucous membranes. NECK: Trachea midline, full range of motion, supple. LUNGS: Breath sounds equal, clear to auscultation bilaterally, no wheezes, no crackles, no accessory muscle use. HEART: Regular rate and rhythm, S1, S2 without murmur, rub or gallop. ABDOMEN: Soft, nontender, nondistended, normoactive bowel sounds, no guarding, no rebound, no hepatosplenomegaly, no masses. EXTREMITIES: Poor radial pulses, warm, well-perfused, no edema. NEUROLOGICAL: Normal speech, gait not observed. PSYCH: Normal mood, normal affect. SKIN: Warm, dry, normal turgor, no rashes or lesions noted Laboratory Results - last 24 hr 11/15/16 11/15/16 11/15/16 14:00 17:00 17:00 WBC RBC Hgb Hct MCV MCH MCHC RDW Plt Count MPV Retic Count 6.26 H INR Puncture Site Right radial ABG pH 7.38 ABG pCO2 at Pt Temp 25.7 L ABG pO2 at Pt Temp 102.0 H ABG HCO3 14.8 L* ABG O2 Sat (Measured) 96.8 ABG O2 Content 13.8 L ABG Base Excess -8.8 L Mahad Test Positive O2 Delivery Device Room air Oxygen Flow Rate 21% PEEP 0.0 Sodium Potassium Chloride Carbon Dioxide Anion Gap BUN Creatinine Creat Clearance w eGFR Random Glucose Lactic Acid Calcium Total Bilirubin Direct Bilirubin AST ALT Alkaline Phosphatase LD Total 512 H D Creatine Kinase 126 Total Protein Albumin Ur Random Sodium Ur Random Potassium Ur Random Chloride Urine Creatinine Digoxin Salicylates Acetaminophen 11/15/16 11/15/16 11/15/16 17:00 17:00 17:00 WBC RBC Hgb Hct MCV MCH MCHC RDW Plt Count MPV Retic Count INR Puncture Site ABG pH ABG pCO2 at Pt Temp ABG pO2 at Pt Temp ABG HCO3 ABG O2 Sat (Measured) ABG O2 Content ABG Base Excess Mahad Test O2 Delivery Device Oxygen Flow Rate PEEP Sodium Potassium Chloride Carbon Dioxide Anion Gap BUN Creatinine Creat Clearance w eGFR Random Glucose Lactic Acid 3.4 H* Calcium Total Bilirubin Direct Bilirubin AST ALT Alkaline Phosphatase LD Total Creatine Kinase Total Protein Albumin Ur Random Sodium Ur Random Potassium Ur Random Chloride Urine Creatinine Digoxin 0.0689 L Salicylates Acetaminophen 3.870 L 11/15/16 11/15/16 11/15/16 17:00 18:10 18:10 WBC RBC Hgb Hct MCV MCH MCHC RDW Plt Count MPV Retic Count INR Puncture Site ABG pH ABG pCO2 at Pt Temp ABG pO2 at Pt Temp ABG HCO3 ABG O2 Sat (Measured) ABG O2 Content ABG Base Excess Mahad Test O2 Delivery Device Oxygen Flow Rate PEEP Sodium Potassium Chloride Carbon Dioxide Anion Gap BUN Creatinine Creat Clearance w eGFR Random Glucose Lactic Acid Calcium Total Bilirubin Direct Bilirubin AST ALT Alkaline Phosphatase LD Total Creatine Kinase Total Protein Albumin Ur Random Sodium 18 Ur Random Potassium 64.1 Ur Random Chloride < 10 Urine Creatinine 230.0 Digoxin Salicylates < 4.0 Acetaminophen 11/16/16 11/16/16 11/16/16 03:00 05:40 05:40 WBC 15.8 H RBC 3.27 L Hgb 8.8 L Hct 28.4 L MCV 86.9 MCH 27.0 MCHC 31.0 L RDW 18.4 H Plt Count 219 MPV 9.0 Retic Count INR 2.22 H Puncture Site ABG pH ABG pCO2 at Pt Temp ABG pO2 at Pt Temp ABG HCO3 ABG O2 Sat (Measured) ABG O2 Content ABG Base Excess Mahad Test O2 Delivery Device Oxygen Flow Rate PEEP Sodium Potassium Chloride Carbon Dioxide Anion Gap BUN Creatinine Creat Clearance w eGFR Random Glucose Lactic Acid 1.4 Calcium Total Bilirubin Direct Bilirubin AST ALT Alkaline Phosphatase LD Total Creatine Kinase Total Protein Albumin Ur Random Sodium Ur Random Potassium Ur Random Chloride Urine Creatinine Digoxin Salicylates Acetaminophen 11/16/16 11/16/16 05:40 05:40 WBC RBC Hgb Hct MCV MCH MCHC RDW Plt Count MPV Retic Count INR Puncture Site ABG pH ABG pCO2 at Pt Temp ABG pO2 at Pt Temp ABG HCO3 ABG O2 Sat (Measured) ABG O2 Content ABG Base Excess Mahad Test O2 Delivery Device Oxygen Flow Rate PEEP Sodium 140 Potassium 4.1 Chloride 108 H Carbon Dioxide 21 D Anion Gap 11 BUN 59 H Creatinine 2.1 H D Creat Clearance w eGFR 22.44 Random Glucose 80 Lactic Acid Calcium 8.1 L Total Bilirubin 1.3 H D Direct Bilirubin 0.7 H AST 325 H D ALT 237 H D Alkaline Phosphatase 296 H LD Total Creatine Kinase Total Protein 5.5 L Albumin 2.7 L Ur Random Sodium Ur Random Potassium Ur Random Chloride Urine Creatinine Digoxin Salicylates Acetaminophen Active Medications Generic Name Dose Route Start Last Admin Trade Name Freq PRN Reason Stop Dose Admin Albuterol/Ipratropium 1 amp 11/15/16 06:23 Duoneb - NEB Q4H PRN SHORTNESS OF BREATH Apixaban 2.5 mg 11/16/16 10:00 11/16/16 09:27 Eliquis - PO 2.5 mg BID ALESSIA Administration Aspirin 81 mg 11/15/16 10:00 11/16/16 09:27 Asa - PO 81 mg DAILY ALESSIA Administration Atorvastatin Calcium 10 mg 11/15/16 22:00 11/15/16 22:42 Lipitor - PO 10 mg HS ALESSIA Administration Benzocaine/Menthol 1 each 11/15/16 11:03 Cepacol Lozenge - MM PRN PRN SORE THROAT Piperacillin Sod/Tazobactam Sod 50 mls @ 100 mls/hr 11/15/16 18:00 11/16/16 09: 27 Zosyn 2.25gm Ivpb (Pre-Docked) IVPB 100 mls/hr Q8H-IV ALESSIA Administration Protocol Metoprolol Tartrate 25 mg 11/15/16 10:00 11/16/16 09:27 Lopressor - PO 25 mg BID ALESSIA Administration Multivitamins/Minerals/Vitamin C 1 tab 11/15/16 10:00 11/16/16 09:27 Tab-A-Vit - PO 1 tab DAILY ALESSIA Administration Senna/Docusate Sodium 1 tablet 11/15/16 06:00 Pericolace - PO Q12H PRN ASSESSMENT/PLAN: 85 year old female with PMH of HTN, HLD, CHF, COPD, A fib, CAD s/p defibrillater presented to the ED with 1 week hx of SOB and 1 day hx of abdominal pain. Patient was admitted for severe sepsis and COPD exacerbation found to have transaminits, and elevated creatinine #Anion gap lactic acidosis Severe sepsis of unclear etiology -WBC count- 15.8 -Lactic acid- 1.4 -UA negative -CXR negative for acute pathology x2 -IVF stopped due to concern for fluid overload- pt has moderate-severe LV function on prior echo during last visit -Patient on zosyn currently per ID #COPD exacerbation- possible -1 week hx of SOB. Signifcantly improved -Q4h PRN nebs -CXR negative for acute pathology x2 -Currently on 2L NC -Monitor respiratory status -F/u sputum culture #Acute on chronic kidney injury - improving -Creatinine- 2.1 -IVF stopped due to potential for fluid overload -Trend creatinine #Hyperbilirubinemia/transaminits -Abdominal CT shows cholelithiasis, renal cysts, and diverticulosis -Abdominal U/s shows partially contracted gallbladder and diffuse fatty infiltration. -Continue to tanika LFT's and bili -Patient had RUQ abdominal pain -GI Consult #A fib with RVR -Originally on Xarelto -Due to RICA, patient switched to Eliquis 2.5 mg PO BID -Continue Eliquis 2.5 mg PO #HTN -Continue Home Meds (Lopressor 25 mg PO BID) #HLD -Continue Home Meds (Lipitor 10 mg PO hs) #DVT ppx -Eliquis 2.5 mg PO bid Visit type - Emergency Visit Emergency Visit: No - New Patient This patient is new to me today: No - Critical Care Critical Care patient: No
--- NOTE | 2016-11-16 13:41 | PN ---
Teaching Attending Note Name of Resident: Cristian Rhodes ATTENDING PHYSICIAN STATEMENT I saw and evaluated the patient. I reviewed the resident's note and discussed the case with the resident. I agree with the resident's findings and plan as documented. SUBJECTIVE: Denies abdominal pain or vomiting . No acute events overnight . No fever OBJECTIVE: Vital Signs Temperature 79.9 F L 11/16/16 09:30 Pulse Rate 98 H 11/16/16 10:59 Respiratory Rate 20 11/16/16 09:30 Blood Pressure 116/77 11/16/16 09:30 O2 Sat by Pulse Oximetry (%) 96 11/16/16 10:45 HEENT PerrL, no JVD , poor dentition CVS WNL RS no wheezing ABD soft NT EXT - no edema CBC, BMP 11/16/16 05:40 11/16/16 05:40 CMP Sodium 140 mmol/L (136-145) 11/16/16 05:40 Potassium 4.1 mmol/L (3.5-5.1) 11/16/16 05:40 Chloride 108 mmol/L (98-107) H 11/16/16 05:40 Carbon Dioxide 21 mmol/L (21-32) D 11/16/16 05:40 Anion Gap 11 (8-16) 11/16/16 05:40 BUN 59 mg/dL (7-18) H 11/16/16 05:40 Creatinine 2.1 mg/dL (0.55-1.02) H D 11/16/16 05:40 Creat Clearance w eGFR 22.44 (>60) 11/16/16 05:40 Random Glucose 80 mg/dL (74-106) 11/16/16 05:40 Lactic Acid 1.4 mmol/L (0.4-2.0) 11/16/16 03:00 Calcium 8.1 mg/dL (8.5-10.1) L 11/16/16 05:40 Phosphorus 7.4 mg/dL (2.5-4.9) H D 11/15/16 05:30 Magnesium 2.3 mg/dL (1.8-2.4) 11/15/16 05:30 Total Bilirubin 1.3 mg/dL (0.2-1.0) H D 11/16/16 05:40 Direct Bilirubin 0.7 mg/dL (0.0-0.2) H 11/16/16 05:40 AST 325 U/L (15-37) H D 11/16/16 05:40 ALT 237 U/L (12-78) H D 11/16/16 05:40 Alkaline Phosphatase 296 U/L (45-117) H 11/16/16 05:40 LD Total 512 U/L (84-246) H D 11/15/16 17:00 Creatine Kinase 126 IU/L (26-192) 11/15/16 17:00 Troponin I 0.05 ng/ml (0.00-0.05) 11/15/16 05:30 Total Protein 5.5 g/dl (6.4-8.2) L 11/16/16 05:40 Albumin 2.7 g/dl (3.4-5.0) L 11/16/16 05:40 Lipase 125 U/L (73-393) 11/14/16 22:55 Active Medications Albuterol/Ipratropium (Duoneb -) 1 amp NEB Q4H PRN PRN Reason: SHORTNESS OF BREATH Apixaban (Eliquis -) 2.5 mg PO BID [facility] Last Admin: 11/16/16 09:27 Dose: 2.5 mg Aspirin (Asa -) 81 mg PO DAILY [facility] Last Admin: 11/16/16 09:27 Dose: 81 mg Atorvastatin Calcium (Lipitor -) 10 mg PO HS [facility] Last Admin: 11/15/16 22:42 Dose: 10 mg Benzocaine/Menthol (Cepacol Lozenge -) 1 each MM PRN PRN PRN Reason: SORE THROAT Piperacillin Sod/Tazobactam Sod (Zosyn 2.25gm Ivpb (Pre-Docked)) 50 mls @ 100 mls/hr IVPB Q8H-IV ALESSIA PRN Reason: Protocol Last Admin: 11/16/16 09:27 Dose: 100 mls/hr Metoprolol Tartrate (Lopressor -) 25 mg PO BID [facility] Last Admin: 11/16/16 09:27 Dose: 25 mg Multivitamins/Minerals/Vitamin C (Tab-A-Vit -) 1 tab PO DAILY [facility] Last Admin: 11/16/16 09:27 Dose: 1 tab Senna/Docusate Sodium (Pericolace -) 1 tablet PO Q12H PRN ASSESSMENT AND PLAN: 85 year old female that presented with c/o worsening SOB and found to have leukocytosis, elevated lactic acid level, transaminitis and worsening renal insufficiency 1. Suspected sepsis - source is unclear . No infiltrates on XR and no clinical signs of pneumonia.US of RUQ showed no evidence of acute cholecystitis however she does have cholelithiasis and contracted GB. Lactic acid improved. - c/w IVAB -follow cultures ( preliminary cultures are negative so far ) 2.Acute on chronic kidney injury- secondary to dehydration vs sepsis. CR improved today. IVF are discontinued 3.Hyperbilirubinemia/transaminits - She had abdominal pain upon arrival . Abdominal U/s shows partially contracted gallbladder and diffuse fatty infiltration, no CBD dilation. Direct Bili is mildly elevated. INR is elevated. -Continue to trend LFT's and bilirubin - Hepatitis panel acute - GI evaluation 4.A fib with RVR- rate is controlled -on Eliquis 2.5 mg PO BID 5. HTN -Continue Home Meds (Lopressor 25 mg PO BID) 6. History of CHF , systolic dysfunction - stable, no signs of decompensation at this time . - c/w home meds 7. Acute on chronic renal failure - improving
--- NOTE | 2016-11-16 15:34 | PN ---
Progress Note, Physician History of Present Illness: no complaints no issues overnight - Current Medication List Current Medications: Active Medications Albuterol/Ipratropium (Duoneb -) 1 amp NEB Q4H PRN PRN Reason: SHORTNESS OF BREATH Apixaban (Eliquis -) 2.5 mg PO BID [facility] Last Admin: 11/16/16 09:27 Dose: 2.5 mg Aspirin (Asa -) 81 mg PO DAILY [facility] Last Admin: 11/16/16 09:27 Dose: 81 mg Atorvastatin Calcium (Lipitor -) 10 mg PO HS [facility] Last Admin: 11/15/16 22:42 Dose: 10 mg Benzocaine/Menthol (Cepacol Lozenge -) 1 each MM PRN PRN PRN Reason: SORE THROAT Piperacillin Sod/Tazobactam Sod (Zosyn 2.25gm Ivpb (Pre-Docked)) 50 mls @ 100 mls/hr IVPB Q8H-IV ALESSIA PRN Reason: Protocol Last Admin: 11/16/16 09:27 Dose: 100 mls/hr Metoprolol Tartrate (Lopressor -) 25 mg PO BID [facility] Last Admin: 11/16/16 09:27 Dose: 25 mg Multivitamins/Minerals/Vitamin C (Tab-A-Vit -) 1 tab PO DAILY [facility] Last Admin: 11/16/16 09:27 Dose: 1 tab Senna/Docusate Sodium (Pericolace -) 1 tablet PO Q12H PRN - Objective Vital Signs: Vital Signs Temperature 97.7 F 11/16/16 14:20 Pulse Rate 104 H 11/16/16 14:20 Respiratory Rate 20 11/16/16 14:20 Blood Pressure 119/55 11/16/16 14:20 O2 Sat by Pulse Oximetry (%) 96 11/16/16 10:45 Constitutional: Yes: No Distress, Calm Cardiovascular: Yes: S1, S2 Respiratory: Yes: Regular, CTA Bilaterally Gastrointestinal: Yes: Normal Bowel Sounds, Soft Musculoskeletal: Yes: WNL Extremities: Yes: WNL Neurological: Yes: Alert, Oriented Psychiatric: Yes: Alert, Oriented Labs: CBC, BMP 11/16/16 05:40 11/16/16 05:40 INR, PTT INR 2.22 (0.82-1.09) H 11/16/16 05:40 Assessment/Plan Problem List - Problems (1) Elevated LFTs Code(s): R79.89 - OTHER SPECIFIED ABNORMAL FINDINGS OF BLOOD CHEMISTRY (2) Gallstones Code(s): K80.20 - CALCULUS OF GALLBLADDER W/O CHOLECYSTITIS W/O OBSTRUCTION (3) Acute on chronic systolic (congestive) heart failure Code(s): I50.23 - ACUTE ON CHRONIC SYSTOLIC (CONGESTIVE) HEART FAILURE (4) Anemia Code(s): D64.9 - ANEMIA, UNSPECIFIED (5) Atrial fibrillation with RVR Code(s): I48.91 - UNSPECIFIED ATRIAL FIBRILLATION (6) CAD (coronary artery disease) Code(s): I25.10 - ATHSCL HEART DISEASE OF [place] CORONARY ARTERY W/O ANG PCTRS (7) CHF (congestive heart failure) Code(s): I50.9 - HEART FAILURE, UNSPECIFIED (8) Dyspnea Code(s): R06.00 - DYSPNEA, UNSPECIFIED (9) Asthma Code(s): J45.909 - UNSPECIFIED ASTHMA, UNCOMPLICATED (10) Acute on chronic kidney failure Code(s): N17.9 - ACUTE KIDNEY FAILURE, UNSPECIFIED N18.9 - CHRONIC KIDNEY DISEASE, UNSPECIFIED (11) Ischemic cardiomyopathy Code(s): I25.5 - ISCHEMIC CARDIOMYOPATHY dirrhoea dehydration lactic acidosis leukocytosis plan continue current mgmt close watch on wbc incentive eneida
[2016-11-16] MEDS: ALBUTEROL SO4 2.5/IPRATROPIUM 0.5 INH SOL 3 ML VIAL.NEB. NEB PRN (17:40)
--- NOTE | 2016-11-16 17:59 | CON.GI ---
Consult Consult Specialty:: GASTROENTEROLOGY - History of Present Illness Chief Complaint: SOB/ABDOMINAL PAIN/DIARRHEA History of Present Illness: 85 YEAR OLD FEMALE WITH HTN, CAD DEFIBRILLATOR, NEW DX OF AFIB LAST MONTH ADMISSION HERE AT [facility], HX ASTHMA ADMITTED WITH INCREASING SOB BROUGHT IN BY DAUGHTER. FOUND TO HAVE ELEVATED WBC AND LIVER FUNCTION TESTS. IN ADDITION HAS HAS MICROCYTIC ANEMIA WHICH ACCORDING TO THE DISCHARGE SUMMARY LAST MONTH WOULD BE WORKED UP OUTPATIENT. IN ADDITION REVIEW OF PAST LABS SHOW TRENDING OF LFT'S ON THE RISE A FEW DAYS BEFORE DISCHARGE. CT SCAN HERE YESTERDAY REVEALED NORMAL GB WALL BUT STONES IN GB. HAD RECTAL BLEEDING IN THE PAST AND EGD WAS NORMAL IN 2013. PATIENT DENIES RUQ PAIN BUT DOES SAY SHE HAD SUPRAPUBIC PAIN WHILE AT HOME. THE COMPLAINT MOST PROMINENT IN OUR CONVERSATION WAS HER SOB THAT SHE BLAMES ON THE BUS OUTSIDE THE [place] WHERE [facility]. SHE DENIOES [place], VOMITING, HEMATEMESIS MELENA OR RECTALL BLEEDING. SHE HAS NO RSIK FACTORS FOR HEPATITIS - History Source History Provided By: Patient Limitations to Obtaining History: No Limitations - Past Medical History [employer]: Yes: Other (SOMEWHAT FORGETFUL) Cardio/Vascular: Yes: CAD, CHF, HTN, Hyperlipdemia Pulmonary: Yes: Asthma Gastrointestinal: Yes: Other (Rectal bleed 2012) ...: No - Past Surgical History Past Surgical History: Yes: None, AICD - Alcohol/Substance Use Hx Alcohol Use: Yes Number of Drinks Daily: 2 History of Substance Use: reports: None - Smoking History Smoking history: Never smoked Have you smoked in the past 12 months: No Aproximately how many cigarettes per day: 0 - Social History ADL: Family Assistance History of Recent Travel: No Home Medications - Allergies Allergies/Adverse Reactions: Allergies Allergy/AdvReac Type Severity Reaction Status Date / Time No Known Allergies Allergy Verified 10/26/16 11:48 - Home Medications Home Medications: Ambulatory Orders Aspirin [ASA -] 81 mg PO DAILY 10/26/16 Multivitamin [Poly-Vitamin] 1 each PO DAILY 10/26/16 Pravastatin Sodium 20 mg PO DAILY 10/26/16 Sennosides/Docusate Sodium [Pericolace -] 1 tab PO PRN 10/26/16 Amox-Tr/K Cl [Augmentin 500-125mg Tablet -] 1 tab PO BID@0800,1730 #10 tablet Doxycycline Hyclate [Vibramycin -] 100 mg PO BID@1000,1800 #10 tab 11/03/16 Isosorbide Mononitrate [Imdur -] 30 mg PO DAILY 30 Days 11/03/16 Metoprolol Tartrate [Lopressor -] 25 mg PO BID #60 tablet 11/03/16 Miscellaneous Drug Not In Syst [Outpatient Lab Test] 1 each ASDIR #1 misc 05/22 Rivaroxaban [Xarelto] 1 each PO DAILY #30 tab.ds.pk 11/03/16 Family Disease History - Family Disease History Family History: Unremarkable Review of Systems - Review of Systems Constitutional: reports: Weakness Eyes: reports: No Symptoms HENT: reports: No Symptoms Neck: reports: No Symptoms Cardiovascular: reports: Shortness of Breath Gastrointestinal: reports: Abdominal Pain Genitourinary: reports: No Symptoms Musculoskeletal: reports: No Symptoms Integumentary: reports: No Symptoms Neurological: reports: No Symptoms Endocrine: reports: No Symptoms Hematology/Lymphatic: reports: No Symptoms Physical Exam-GI Vital Signs: Vital Signs Temperature 97.7 F 11/16/16 14:20 Pulse Rate 104 H 11/16/16 14:20 Respiratory Rate 20 11/16/16 14:20 Blood Pressure 119/55 11/16/16 14:20 O2 Sat by Pulse Oximetry (%) 96 11/16/16 10:45 Constitutional: Yes: Obese Eyes: Yes: Sclera Icterus HENT: Yes: Normocephalic Neck: Yes: Supple Cardiovascular: Yes: Pulse Irregular Respiratory: Yes: Regular Gastrointestinal Inspection: Yes: WNL ...Auscultate: Yes: Normoactive Bowel Sounds ...Palpate: Yes: Soft, Tenderness, Other (RUQ MILD) Extremities: Yes: WNL Neurological: Yes: Alert, Oriented Labs: CBC, BMP 11/16/16 05:40 11/16/16 05:40 INR, PTT INR 2.22 (0.82-1.09) H 11/16/16 05:40 Laboratory Tests 11/14/16 11/15/16 11/15/16 22:55 03:05 10:07 Lactic Acid 3.7 H* Total Bilirubin Direct Bilirubin AST ALT Alkaline Phosphatase Lipase 125 Urine Urobilinogen Negative Digoxin Salicylates Acetaminophen 11/15/16 11/15/16 11/15/16 17:00 17:00 17:00 Lactic Acid 3.4 H* Total Bilirubin Direct Bilirubin AST ALT Alkaline Phosphatase Lipase Urine Urobilinogen Digoxin 0.0689 L Salicylates Acetaminophen 3.870 L 11/15/16 11/16/16 11/16/16 17:00 05:40 05:40 Lactic Acid Total Bilirubin 1.3 H D Direct Bilirubin 0.7 H AST 325 H D ALT 237 H D Alkaline Phosphatase 296 H Lipase Urine Urobilinogen Digoxin Salicylates < 4.0 Acetaminophen Problem List - Problems (1) Elevated LFTs Assessment/Plan: SOURCE OF LFT ELEVATION IS NOT CLAER. CT SCAN POOR TEST FOR LIVER WAS WITHOUT CONTRAST. RENAL FUNCTION WAS OK LAST ADMISSION. IF RENAL FUNCTION IMPROVES WILL ORDER A CONTRAST STUDY. I DO NOT SEE EVIDENCE OF CHOLECYSTITIS. I AM CONCERNED ABOUT INFILTRATIVE LIVER ISSUES IN AN 85 YEAR OLD FEMALE WITH MICROCYTIC ANEMIA. A CONTRAST STUDY WOULD BE NICE TO HAV. HER LFT'S STARTED TO RISE BEFORE HER HOSPITAL DISCHARGE LAST MONTH. SHE WAS ON AN OUTPATIENT DOXYCYLINE WHICH BRINGS UP DRUG INDUCED HEPATITIS. HOLD ALL UNNECESSARY DRUGS. FOLLOW LFT'S . SEND OFF VIRAL STUDIES. GIVEN RUQ PAIN WOULD DO HIDA SCAN UNTIL ABLE TO PERFORM CONTRAST CT OR MRI SENIOR WEB ENGINEER ASSURES ME THAT HER SOB AND ELEVATED LIVER ENZYMES NOT RESULT OF CARDIAC RIGHT SIDED FAILURE. Code(s): R79.89 - OTHER SPECIFIED ABNORMAL FINDINGS OF BLOOD CHEMISTRY (2) Gallstones Code(s): K80.20 - CALCULUS OF GALLBLADDER W/O CHOLECYSTITIS W/O OBSTRUCTION (3) RUQ pain Code(s): R10.11 - RIGHT UPPER QUADRANT PAIN (4) Lactic acid acidosis Assessment/Plan: WOULD REPEAT LACTIC ACID LEVEL Code(s): E87.2 - ACIDOSIS (5) Leukocytosis Code(s): D72.829 - ELEVATED WHITE BLOOD CELL COUNT, UNSPECIFIED (6) RIAC (acute kidney injury) Code(s): N17.9 - ACUTE KIDNEY FAILURE, UNSPECIFIED (7) Anemia Code(s): D64.9 - ANEMIA, UNSPECIFIED (8) CAD (coronary artery disease) Code(s): I25.10 - ATHSCL HEART DISEASE OF [place] CORONARY ARTERY W/O ANG PCTRS
[2016-11-16] MEDS ORDERED: METOPROLOL TARTRATE 25 MG TABLET (FP) PO STA (19:05)
[2016-11-16] MEDS: ATORVASTATIN CA 10 MG TABLET (FP) PO SCH (21:10)
[2016-11-17] MEDS: PIPERACILLIN/TAZOB 2.25 GM 50 ML IVPB SCH ×3 (02:24→17:48)
[2016-11-17] MEDS ORDERED: METOPROLOL TARTRATE 5 MG/5 ML VIAL IVPUSH ONE (03:14)
[2016-11-17] MEDS ORDERED: METOPROLOL TARTRATE 5 MG/5 ML VIAL ONE (03:20)
[2016-11-17 08:03] LABS: CALCIUM 8.3 mg/dL (8.5-10.1); INR 2.12 (0.82-1.09); PROTHROMBIN TIME (PATIENT) 23.7 SEC (9.98-11.88)
[2016-11-17 08:07] LABS: ALBUMIN 2.7 g/dl (3.4-5.0); ALK PHOS 345 U/L (45-117); ANION GAP 11 (8-16); BILIRUBIN,DIRECT 0.7 mg/dL (0.0-0.2); BILIRUBIN,TOTAL 1.3 mg/dL (0.2-1.0); CO2 22 mmol/L (21-32); CREATININE 1.5 mg/dL (0.55-1.02); GLUCOSE,RANDOM 96 mg/dL (74-106); LDH 346 U/L (84-246); SGOT/AST 176 U/L (15-37); SGPT/ALT 210 U/L (12-78); TOT PROT 5.6 g/dl (6.4-8.2); URIC ACID 8.2 mg/dL (2.6-7.2)
--- NOTE | 2016-11-17 08:38 | CONSULT ---
Consult - text type - Consultation Consultation Note: Cardiology 85 Year old AA obese female with PMH of HTN, HLD, CHF, asthma,, Afib, CAD, severe ischemic cardiomyopathy who represented to the ED today with severe abdominal pain, and one week history of worsening dyspnea. PE: HR elevated, BP normal normal cardio-pulmonary exam abdomen no leg edema Impression: severe [id number] cardiomyopathy, no evidence of CHF; seems stable from cardiac standpoint. ICD afib, RVR abd pain being evaluated ARF-CRF Rec: cardizem 30 mg BID, and uptitrate to v-rate less than 100. TSH
[2016-11-17 08:56] LABS: MCH 27.3 pg (25.7-33.7); MCHC 31.4 g/dl (32.0-36.0); MEAN CELL VOLUME 87.1 fl (80-96); MEAN PLT VOLUME 9.1 fl (7.5-11.1); PLATELET COUNT 259 K/MM3 (134-434); RDW 18.8 % (11.6-15.6); WHITE BLOOD COUNT 14.2 K/mm3 (4.0-10.0)
[2016-11-17 08:59] LABS: PLATELET ESTIMATE ADEQUATE (NORMAL)
[2016-11-17] MEDS: ASPIRIN 81 MG CHEWABLE TABLETS PO SCH (09:00)
[2016-11-17] MEDS: ISOSORBIDE MONONITRATE 30 MG TAB.SR.24H (FP) PO SCH (09:00)
[2016-11-17] MEDS: METOPROLOL TARTRATE 25 MG TABLET (FP) PO SCH ×2 (09:00→21:20)
[2016-11-17] MEDS: MULTIVITAMINS (DAILY MVI) TABLET (FP) PO SCH (09:00)
[2016-11-17] MEDS: APIXABAN 2.5 MG TABLET PO SCH ×2 (09:01→21:20)
--- NOTE | 2016-11-17 09:58 | PN ---
Physical Exam: SUBJECTIVE: Patient seen and examined. She complains of feeling SOB. She says that she has asthma and wakes up every morning wheezing. OBJECTIVE: Vital Signs Period Temp Pulse Resp BP Sys/Mena Pulse Ox Last 24 Hr 97.7 F-98.9 F 74-139 18-22 113-133/55-78 96-96 GENERAL: The patient is awake, alert, and fully oriented, in no acute distress. NECK: Supple. LUNGS: Breath sounds equal, clear to auscultation bilaterally, no wheezes, no crackles, no accessory muscle use. HEART: Regular rate and rhythm, S1, S2 without murmur, rub or gallop. ABDOMEN: Obese, soft, nontender, nondistended, normoactive bowel sounds, no guarding, no rebound, no hepatosplenomegaly, no masses. EXTREMITIES: 2+ pulses, warm, well-perfused, no edema. Laboratory Results - last 24 hr 11/16/16 11/17/16 11/17/16 05:40 06:00 06:00 WBC 14.2 H RBC 3.53 L Hgb 9.6 L Hct 30.7 L MCV 87.1 MCH 27.3 MCHC 31.4 L RDW 18.8 H Plt Count 259 MPV 9.1 Neutrophils % 69.0 Lymphocytes % 15.0 Monocytes % 6.0 Eosinophils % 6.0 H Basophils % 1.0 Band Neutrophils 3.0 D Differential Comment Slide scanned Platelet Estimate Adequate INR 2.12 H Sodium Potassium Chloride Carbon Dioxide Anion Gap BUN Creatinine Creat Clearance w eGFR Random Glucose Uric Acid Calcium Total Bilirubin Direct Bilirubin 0.7 H AST ALT Alkaline Phosphatase LD Total Total Protein Albumin 11/17/16 06:00 WBC RBC Hgb Hct MCV MCH MCHC RDW Plt Count MPV Neutrophils % Lymphocytes % Monocytes % Eosinophils % Basophils % Band Neutrophils Differential Comment Platelet Estimate INR Sodium 143 Potassium 4.2 Chloride 110 H Carbon Dioxide 22 Anion Gap 11 BUN 40 H D Creatinine 1.5 H D Creat Clearance w eGFR 33.08 Random Glucose 96 Uric Acid 8.2 H Calcium 8.3 L Total Bilirubin 1.3 H Direct Bilirubin 0.7 H AST 176 H D ALT 210 H Alkaline Phosphatase 345 H LD Total 346 H D Total Protein 5.6 L Albumin 2.7 L Active Medications Generic Name Dose Route Start Last Admin Trade Name Freq PRN Reason Stop Dose Admin Albuterol/Ipratropium 1 amp 11/15/16 06:23 11/16/16 17:40 Duoneb - NEB 1 amp Q4H PRN Administration SHORTNESS OF BREATH Apixaban 2.5 mg 11/16/16 10:00 11/17/16 09:01 Eliquis - PO 2.5 mg BID ALESSIA Administration Aspirin 81 mg 11/15/16 10:00 11/17/16 09:00 Asa - PO 81 mg DAILY ALESSIA Administration Atorvastatin Calcium 10 mg 11/15/16 22:00 11/16/16 21:10 Lipitor - PO 10 mg HS ALESSIA Administration Benzocaine/Menthol 1 each 11/15/16 11:03 Cepacol Lozenge - MM PRN PRN SORE THROAT Diltiazem HCl 30 mg 11/17/16 10:00 Cardizem - PO BID ALESSIA Piperacillin Sod/Tazobactam Sod 50 mls @ 100 mls/hr 11/15/16 18:00 11/17/16 09: 01 Zosyn 2.25gm Ivpb (Pre-Docked) IVPB 100 mls/hr Q8H-IV ALESSIA Administration Protocol Isosorbide Mononitrate 30 mg 11/17/16 10:00 11/17/16 09:00 Imdur - PO 30 mg DAILY ALESSIA Administration Metoprolol Tartrate 50 mg 11/17/16 08:00 11/17/16 09:00 Lopressor - PO 50 mg BID ALESSIA Administration Multivitamins/Minerals/Vitamin C 1 tab 11/15/16 10:00 11/17/16 09:00 Tab-A-Vit - PO 1 tab DAILY ALESSIA Administration Senna/Docusate Sodium 1 tablet 11/15/16 06:00 Pericolace - PO Q12H PRN ASSESSMENT/PLAN: This is an 85-year-old woman with a history of HTN, hyperlipidemia, chronic systolic heart failure, ischemic CM, asthma/COPD, atrial fib, CAD, AICD who presented to the ER with SOB and abdominal pain. 1. Possible sepsis - No source of infection - On Zosyn empirically - WBC improving but still elevated. She has had leukocytosis going back to 2010 - Lactic acidemia improved - Urine culture negative - Blood cultures negative after 3 days - Abdominal US shows cholelithiasis, partially contracted gallbladder, diffuse fatty infiltration of liver, bilateral renal cysts - HIDA ordered 2. Atrial fibrillation with RVR - Cardiology consult appreciated - Lopressor increased and Cardizem started - Continue Eliquis 3. Asthma - Patient reports SOB and wheezing every morning - No wheezing currently - Pulmonary consult 4. Acute kidney injury - Improved 5. Stage 3 CKD 6. CAD with ischemic cardiomyopathy and chronic systolic heart failure - Continue aspirin, Lopressor, Imdur, Lipitor 7. HTN - Continue Lopressor - Cardizem started for rate control 8. Hyperlipidemia - Continue Lipitor 9. Pulmonary HTN 10. Direct hyperbilirubinemia, hepatic transaminitis, elevated alk phos/LDH - GI consult appreciated - Possible drug-induced hepatitis (recent Doxycycline) - HIDA ordered - Consider CT with contrast when creatinine improves Visit type - Emergency Visit Emergency Visit: Yes ED Registration Date: 11/15/16 Care time: The patient presented to the Emergency Department on the above date and was hospitalized for further evaluation of their emergent condition. - New Patient This patient is new to me today: Yes Date on this admission: 11/17/16 - Critical Care Critical Care patient: No - Discharge Referral Referred to [facility] Med P.C.: No
[2016-11-17] MEDS ORDERED: METOPROLOL TARTRATE 25 MG TABLET (FP) PO SCH ×2 (10:00)
--- NOTE | 2016-11-17 10:49 | PN ---
Progress Note (short form) - Note Progress Note: PULMONARY CONSULTATION DICTATED 11/17/16 IMP DYSPNEA ASHD S/P ICD SEVERE ISCHEMIC CARDIOMYOPATHY CHF ASTHMA ABDOMINAL PAIN AFIB ACUTE ON CHRONIC KIDNEY DISEASE ELEVATED LFTS PLAN INHALED BRONCHODILATORS O2 MONITOR LYTES,RENAL FUNCTION MONITOR LFTS PFTS OUTPATIENT GI W/U IN PROGRESS ECHO DR STOCKTON Problem List - Problems (1) Elevated LFTs Code(s): R79.89 - OTHER SPECIFIED ABNORMAL FINDINGS OF BLOOD CHEMISTRY (2) Gallstones Code(s): K80.20 - CALCULUS OF GALLBLADDER W/O CHOLECYSTITIS W/O OBSTRUCTION (3) Acute on chronic systolic (congestive) heart failure Code(s): I50.23 - ACUTE ON CHRONIC SYSTOLIC (CONGESTIVE) HEART FAILURE (4) Anemia Code(s): D64.9 - ANEMIA, UNSPECIFIED (5) Atrial fibrillation with RVR Code(s): I48.91 - UNSPECIFIED ATRIAL FIBRILLATION (6) CAD (coronary artery disease) Code(s): I25.10 - ATHSCL HEART DISEASE OF [place] CORONARY ARTERY W/O ANG PCTRS (7) CHF (congestive heart failure) Code(s): I50.9 - HEART FAILURE, UNSPECIFIED (8) Dyspnea Code(s): R06.00 - DYSPNEA, UNSPECIFIED (9) Asthma Code(s): J45.909 - UNSPECIFIED ASTHMA, UNCOMPLICATED (10) Acute on chronic kidney failure Code(s): N17.9 - ACUTE KIDNEY FAILURE, UNSPECIFIED N18.9 - CHRONIC KIDNEY DISEASE, UNSPECIFIED (11) Ischemic cardiomyopathy Code(s): I25.5 - ISCHEMIC CARDIOMYOPATHY
--- NOTE | 2016-11-17 11:11 | CONSULT ---
Consult Consult Specialty:: Hematology Reason for Consultation:: Anemia, leukocytosis - History of Present Illness Chief Complaint: Patient admitted recently for severe abdominal pain, initially thought be ischemic or septic, but without evidence of either emerging ( currently being worked up for cholecystitis), found to have persistent neutrophilia, and normocytic anemia. Of note, recent admission with newly diagnosed AF - anemia then attributed to bleeding from IV site, and neutrophilia attributed to UTI. Presently without acute complaints. Abdominal pain improved. No prior knowledge of hematological issues/problems. Denies melena, BRBPR, hematuria. - History Source History Provided By: Patient Limitations to Obtaining History: No Limitations - Past Medical History [employer]PER[employer]OR: Yes: Other (SOMEWHAT FORGETFUL) Cardio/Vascular: Yes: AFIB, CAD, CHF, HTN, Hyperlipdemia Pulmonary: Yes: Asthma Gastrointestinal: Yes: Other (Rectal bleed 2012) ...: No Heme/Onc: Yes: Anemia - Past Surgical History Past Surgical History: Yes: None, AICD - Alcohol/Substance Use Hx Alcohol Use: Yes Number of Drinks Daily: 2 History of Substance Use: reports: None - Smoking History Smoking history: Never smoked Have you smoked in the past 12 months: No Aproximately how many cigarettes per day: 0 - Social History ADL: Family Assistance History of Recent Travel: No Home Medications - Allergies Allergies/Adverse Reactions: Allergies Allergy/AdvReac Type Severity Reaction Status Date / Time No Known Allergies Allergy Verified 10/26/16 11:48 - Home Medications Home Medications: Ambulatory Orders Aspirin [ASA -] 81 mg PO DAILY 10/26/16 Multivitamin [Poly-Vitamin] 1 each PO DAILY 10/26/16 Pravastatin Sodium 20 mg PO DAILY 10/26/16 Sennosides/Docusate Sodium [Pericolace -] 1 tab PO PRN 10/26/16 Amox-Tr/K Cl [Augmentin 500-125mg Tablet -] 1 tab PO BID@0800,1730 #10 tablet Doxycycline Hyclate [Vibramycin -] 100 mg PO BID@1000,1800 #10 tab 11/03/16 Isosorbide Mononitrate [Imdur -] 30 mg PO DAILY 30 Days 11/03/16 Metoprolol Tartrate [Lopressor -] 25 mg PO BID #60 tablet 11/03/16 Miscellaneous Drug Not In Syst [Outpatient Lab Test] 1 each ASDIR #1 misc 05/22 Rivaroxaban [Xarelto] 1 each PO DAILY #30 tab.ds.pk 11/03/16 Family Disease History - Family Disease History Family History: Unremarkable Review of Systems - Review of Systems Constitutional: denies: Loss of Appetite, Unintentional Wgt. Loss Eyes: reports: No Symptoms Cardiovascular: denies: Chest Pain, Shortness of Breath Respiratory: denies: Cough, Exercise Intolerance, SOB Gastrointestinal: reports: Abdominal Pain. denies: Melena, Rectal Bleeding, Vomiting Blood Genitourinary: denies: Hematuria, Vaginal Bleeding Neurological: reports: No Symptoms Endocrine: denies: Unexplained Weight Loss Hematology/Lymphatic: denies: Easily Bruised Physical Exam Vital Signs: Vital Signs Temperature 98.9 F 11/17/16 08:58 Pulse Rate 138 H 11/17/16 08:58 Respiratory Rate 22 11/17/16 08:58 Blood Pressure 124/72 11/17/16 08:58 O2 Sat by Pulse Oximetry (%) 96 11/16/16 21:00 Constitutional: Yes: Well Nourished, Calm, Obese Eyes: Yes: Conjunctiva Clear, PERRL HENT: Yes: WNL Neck: Yes: Supple, Trachea Midline. No: Lymphadenopathy Cardiovascular: Yes: S1, S2. No: Gallop, Murmur Respiratory: Yes: Regular, CTA Bilaterally. No: Rhonchi Gastrointestinal: Yes: Normal Bowel Sounds. No: Hepatomegaly, Palpable Mass, Splenomegaly, Tenderness Breast(s): Yes: WNL Extremities: Yes: WNL. No: Calf Tenderness Edema: No Integumentary: No: Rash Neurological: Yes: Alert, Oriented ...Motor Strength: WNL Psychiatric: Yes: WNL Labs: CBC, BMP 11/17/16 06:00 11/17/16 06:00 Assessment/Plan Leukocytosis: persistent mild neutrophilia, stable over past several weeks. Higher WCC counts noted historically with prior encounters. Likely reactive, with very low index of suspicion for a primary hematological process (CML or an MPN). Check LAP - expect to be elevated. Observe. Peripheral smear reviewed: normal appearing mature neutrophils, some bands. Polychromasia. No red cell fragmentation. Anemia. Long-standing, and doesn't seem to have ever been worked up. Possibly acute on chronic process presently - presence of reticulocytosis at present raises suspicion of hemolysis or hemorrhage - check daily LDH and retics. Check Piero. Recently started on AC for A. fib. Check all stools for occult blood. Iron panel. Possible element of renal impairment accounting for chronic anemia. Possible anemia of chronic disease - albeit elevated retics not consistent. Rule out plasma cell dyscrasia - SPEP, serum free LCs. Will follow closely with you.
[2016-11-17] MEDS: dilTIAZem HCL 30 MG TABLET (FP) PO SCH ×2 (12:09→21:20)
--- NOTE | 2016-11-17 13:51 | PN ---
Progress Note, Physician History of Present Illness: patient stable no new issues - Current Medication List Current Medications: Active Medications Albuterol/Ipratropium (Duoneb -) 1 amp NEB Q4H PRN PRN Reason: SHORTNESS OF BREATH Last Admin: 11/16/16 17:40 Dose: 1 amp Apixaban (Eliquis -) 2.5 mg PO BID [facility] Last Admin: 11/17/16 09:01 Dose: 2.5 mg Aspirin (Asa -) 81 mg PO DAILY [facility] Last Admin: 11/17/16 09:00 Dose: 81 mg Atorvastatin Calcium (Lipitor -) 10 mg PO HS [facility] Last Admin: 11/16/16 21:10 Dose: 10 mg Benzocaine/Menthol (Cepacol Lozenge -) 1 each MM PRN PRN PRN Reason: SORE THROAT Diltiazem HCl (Cardizem -) 30 mg PO BID [facility] Last Admin: 11/17/16 12:09 Dose: Not Given Piperacillin Sod/Tazobactam Sod (Zosyn 2.25gm Ivpb (Pre-Docked)) 50 mls @ 100 mls/hr IVPB Q8H-IV ALESSIA PRN Reason: Protocol Last Admin: 11/17/16 09:01 Dose: 100 mls/hr Isosorbide Mononitrate (Imdur -) 30 mg PO DAILY [facility] Last Admin: 11/17/16 09:00 Dose: 30 mg Metoprolol Tartrate (Lopressor -) 50 mg PO BID [facility] Last Admin: 11/17/16 09:00 Dose: 50 mg Multivitamins/Minerals/Vitamin C (Tab-A-Vit -) 1 tab PO DAILY [facility] Last Admin: 11/17/16 09:00 Dose: 1 tab Senna/Docusate Sodium (Pericolace -) 1 tablet PO Q12H PRN - Objective Vital Signs: Vital Signs Temperature 98.9 F 11/17/16 08:58 Pulse Rate 138 H 11/17/16 08:58 Respiratory Rate 22 11/17/16 08:58 Blood Pressure 124/72 11/17/16 08:58 O2 Sat by Pulse Oximetry (%) 96 11/17/16 08:58 Labs: CBC, BMP 11/17/16 06:00 11/17/16 06:00 INR, PTT INR 2.12 (0.82-1.09) H 11/17/16 06:00 Assessment/Plan Problem List - Problems (1) Elevated LFTs Code(s): R79.89 - OTHER SPECIFIED ABNORMAL FINDINGS OF BLOOD CHEMISTRY (2) Gallstones Code(s): K80.20 - CALCULUS OF GALLBLADDER W/O CHOLECYSTITIS W/O OBSTRUCTION (3) Acute on chronic systolic (congestive) heart failure Code(s): I50.23 - ACUTE ON CHRONIC SYSTOLIC (CONGESTIVE) HEART FAILURE (4) Anemia Code(s): D64.9 - ANEMIA, UNSPECIFIED (5) Atrial fibrillation with RVR Code(s): I48.91 - UNSPECIFIED ATRIAL FIBRILLATION (6) CAD (coronary artery disease) Code(s): I25.10 - ATHSCL HEART DISEASE OF [place] CORONARY ARTERY W/O ANG PCTRS (7) CHF (congestive heart failure) Code(s): I50.9 - HEART FAILURE, UNSPECIFIED (8) Dyspnea Code(s): R06.00 - DYSPNEA, UNSPECIFIED (9) Asthma Code(s): J45.909 - UNSPECIFIED ASTHMA, UNCOMPLICATED (10) Acute on chronic kidney failure Code(s): N17.9 - ACUTE KIDNEY FAILURE, UNSPECIFIED N18.9 - CHRONIC KIDNEY DISEASE, UNSPECIFIED (11) Ischemic cardiomyopathy Code(s): I25.5 - ISCHEMIC CARDIOMYOPATHY dirrhoea dehydration plan continue current mgmt close watch on wbc incentive eneida
--- NOTE | 2016-11-17 14:36 | PN ---
GI Progress Note Subjective: GASTROENTEROLOGY STILL C/O SOB LESS ABDOMINAL PAIN LFT'S STABLE VIRAL STUDIES ARE PENDING HIDA SCAN I GUESS NOT DONE TODAY - Objective Vital Signs: Vital Signs Temperature 98.9 F 11/17/16 08:58 Pulse Rate 138 H 11/17/16 08:58 Respiratory Rate 22 11/17/16 08:58 Blood Pressure 124/72 11/17/16 08:58 O2 Sat by Pulse Oximetry (%) 96 11/17/16 08:58 Eyes: Yes: Conjunctiva Clear HENT: Yes: WNL Neck: Yes: WNL Cardiovascular: Yes: Pulse Irregular Respiratory: Yes: WNL Gastrointestinal Inspection: Yes: WNL ...Auscultate: Yes: Normoactive Bowel Sounds ...Palpate: Yes: Other (MILD RUQ TENDERNESS) Extremities: Yes: WNL Labs: CBC, BMP 11/17/16 06:00 11/17/16 06:00 INR, PTT INR 2.12 (0.82-1.09) H 11/17/16 06:00 Problem List - Problems (1) Elevated LFTs Assessment/Plan: SOURCE OF LFT ELEVATION IS NOT CLEAR. CT SCAN POOR TEST FOR LIVER WAS WITHOUT CONTRAST. RENAL FUNCTION WAS OK LAST ADMISSION. IF RENAL FUNCTION IMPROVES WILL ORDER A CONTRAST STUDY. I DO NOT SEE EVIDENCE OF CHOLECYSTITIS BUT SHE DOES HAVE GALLSTONES. I AM CONCERNED ABOUT INFILTRATIVE LIVER ISSUES IN AN 85 YEAR OLD FEMALE WITH MICROCYTIC ANEMIA. A CONTRAST STUDY WOULD BE NICE TO HAVE. HER LFT'S STARTED TO RISE BEFORE HER HOSPITAL DISCHARGE LAST MONTH. SHE WAS ON AN OUTPATIENT DOXYCYLINE WHICH BRINGS UP DRUG INDUCED HEPATITIS. HOLD ALL UNNECESSARY DRUGS. FOLLOW LFT'S . SEND OFF VIRAL STUDIES. GIVEN RUQ PAIN WOULD DO HIDA SCAN UNTIL ABLE TO PERFORM CONTRAST CT OR MRI SHAREPOINT TRAINER ASSURES ME THAT HER SOB AND ELEVATED LIVER ENZYMES NOT RESULT OF CARDIAC RIGHT SIDED FAILURE. Code(s): R79.89 - OTHER SPECIFIED ABNORMAL FINDINGS OF BLOOD CHEMISTRY (2) Gallstones Code(s): K80.20 - CALCULUS OF GALLBLADDER W/O CHOLECYSTITIS W/O OBSTRUCTION (3) RUQ pain Code(s): R10.11 - RIGHT UPPER QUADRANT PAIN (4) Lactic acid acidosis Code(s): E87.2 - ACIDOSIS (5) Leukocytosis Code(s): D72.829 - ELEVATED WHITE BLOOD CELL COUNT, UNSPECIFIED (6) RICA (acute kidney injury) Code(s): N17.9 - ACUTE KIDNEY FAILURE, UNSPECIFIED (7) Anemia Code(s): D64.9 - ANEMIA, UNSPECIFIED (8) CAD (coronary artery disease) Code(s): I25.10 - ATHSCL HEART DISEASE OF [place] CORONARY ARTERY W/O ANG PCTRS
[2016-11-17] MEDS ORDERED: dilTIAZem HCL 30 MG TABLET (FP) PO ONE (18:47)
[2016-11-17] MEDS: ATORVASTATIN CA 10 MG TABLET (FP) PO SCH (21:20)
[2016-11-18] MEDS: PIPERACILLIN/TAZOB 2.25 GM 50 ML IVPB SCH ×3 (01:35→18:13)
[2016-11-18 07:28] LABS: MCH 27.3 pg (25.7-33.7); MCHC 30.7 g/dl (32.0-36.0); MEAN CELL VOLUME 88.7 fl (80-96); MEAN PLT VOLUME 8.7 fl (7.5-11.1); PLATELET COUNT 257 K/MM3 (134-434); RDW 19.3 % (11.6-15.6)
[2016-11-18 07:51] LABS: ANION GAP 8 (8-16); CALCIUM 8.5 mg/dL (8.5-10.1); CO2 25 mmol/L (21-32); CREATININE 1.4 mg/dL (0.55-1.02); GLUCOSE,RANDOM 115 mg/dL (74-106)
[2016-11-18 08:16] LABS: LDH 486 U/L (84-246)
[2016-11-18 08:34] LABS: THYROID STIMULATING HORMONE 0.44 uIU/ml (0.358-3.74)
--- NOTE | 2016-11-18 08:52 | CONSULT ---
Consult - text type - Consultation Consultation Note: Cardiology no symptoms PE: HR elevated, BP normal normal cardio-pulmonary exam abdomen no leg edema Impression: severe [id number] cardiomyopathy, no evidence of CHF; seems stable from cardiac standpoint. ICD afib, RVR abd pain being evaluated ARF-CRF TSH normal Rec: cardizem 45 mg TID; metoprolol 75 mg BID
[2016-11-18] MEDS ORDERED: METOPROLOL TARTRATE 25 MG TABLET (FP) PO SCH (08:53)
[2016-11-18 09:48] LABS: METAMYELOCYTE 2 % (0-2)
[2016-11-18 09:49] LABS: HYPOCHROMIA 1+; PLATELET ESTIMATE ADEQUATE (NORMAL)
[2016-11-18 09:50] LABS: ANISOCYTOSIS 2+
--- NOTE | 2016-11-18 10:35 | PN ---
GI Progress Note Subjective: GASTROENTEROLOGY NO NEW COMPLAINTS TODAY LESS SOB LESS RUQ/EPIGASTRIC PAIN - Objective Vital Signs: Vital Signs Temperature 97.7 F 11/18/16 06:00 Pulse Rate 113 H 11/18/16 06:00 Respiratory Rate 18 11/18/16 06:00 Blood Pressure 123/59 11/18/16 06:00 O2 Sat by Pulse Oximetry (%) 94 L 11/17/16 21:00 Constitutional: Obese Eyes: Yes: Conjunctiva Clear HENT: Yes: Normocephalic Neck: Yes: Supple Cardiovascular: Yes: Pulse Irregular Respiratory: Yes: WNL Gastrointestinal Inspection: Yes: WNL ...Auscultate: Yes: Normoactive Bowel Sounds ...Palpate: Yes: Soft Extremities: Yes: WNL Labs: CBC, BMP 11/18/16 06:10 11/18/16 06:10 INR, PTT INR 2.12 (0.82-1.09) H 11/17/16 06:00 Problem List - Problems (1) Elevated LFTs Assessment/Plan: SLIGHT IMPROVEMENT BUT LFT'S STILL ELEVATED ELEVATED ALK PHOS FAR BACK 2013 BUT VERY MILD. HEPATITIS SEROLOGY IS NEGATIVE HIDA SCAN HOPEFULLY TOMORROW WILL PROBABLY NEED A LIVER BIOPSY AND A CONTRAST IMAGING STUDY BEFORE THAT. RENAL FUNCTION CONTINUES TO IMPROVE. HIGH RETIC COUNT STOOL OB? HEMATOLOGY WORKUP ON GOING IRON STUDIES PENDING ECTOR ZUNIGA MD Code(s): R79.89 - OTHER SPECIFIED ABNORMAL FINDINGS OF BLOOD CHEMISTRY (2) Gallstones Code(s): K80.20 - CALCULUS OF GALLBLADDER W/O CHOLECYSTITIS W/O OBSTRUCTION (3) RUQ pain Code(s): R10.11 - RIGHT UPPER QUADRANT PAIN (4) Lactic acid acidosis Code(s): E87.2 - ACIDOSIS (5) Leukocytosis Code(s): D72.829 - ELEVATED WHITE BLOOD CELL COUNT, UNSPECIFIED (6) RICA (acute kidney injury) Code(s): N17.9 - ACUTE KIDNEY FAILURE, UNSPECIFIED (7) Anemia Code(s): D64.9 - ANEMIA, UNSPECIFIED (8) CAD (coronary artery disease) Code(s): I25.10 - ATHSCL HEART DISEASE OF [place] CORONARY ARTERY W/O ANG PCTRS
[2016-11-18] MEDS: dilTIAZem HCL 30 MG TABLET (FP) PO SCH ×2 (10:36→22:31)
[2016-11-18] MEDS: ASPIRIN 81 MG CHEWABLE TABLETS PO SCH (10:36)
[2016-11-18] MEDS: MULTIVITAMINS (DAILY MVI) TABLET (FP) PO SCH (10:36)
[2016-11-18] MEDS: ISOSORBIDE MONONITRATE 30 MG TAB.SR.24H (FP) PO SCH (10:36)
[2016-11-18] MEDS: APIXABAN 2.5 MG TABLET PO SCH ×2 (10:36→22:32)
--- NOTE | 2016-11-18 11:00 | PN ---
Progress Note, Physician History of Present Illness: PULMONARY ALERT,NAD,-SOB,-CP - Current Medication List Current Medications: Active Medications Albuterol/Ipratropium (Duoneb -) 1 amp NEB Q4H PRN PRN Reason: SHORTNESS OF BREATH Last Admin: 11/16/16 17:40 Dose: 1 amp Apixaban (Eliquis -) 2.5 mg PO BID [facility] Last Admin: 11/18/16 10:36 Dose: 2.5 mg Aspirin (Asa -) 81 mg PO DAILY [facility] Last Admin: 11/18/16 10:36 Dose: 81 mg Atorvastatin Calcium (Lipitor -) 10 mg PO HS [facility] Last Admin: 11/17/16 21:20 Dose: 10 mg Benzocaine/Menthol (Cepacol Lozenge -) 1 each MM PRN PRN PRN Reason: SORE THROAT Diltiazem HCl (Cardizem -) 45 mg PO BID [facility] Last Admin: 11/18/16 10:36 Dose: 45 mg Piperacillin Sod/Tazobactam Sod (Zosyn 2.25gm Ivpb (Pre-Docked)) 50 mls @ 100 mls/hr IVPB Q8H-IV ALESSIA PRN Reason: Protocol Last Admin: 11/18/16 10:37 Dose: 100 mls/hr Isosorbide Mononitrate (Imdur -) 30 mg PO DAILY [facility] Last Admin: 11/18/16 10:36 Dose: 30 mg Metoprolol Tartrate (Lopressor -) 75 mg PO BID [facility] Last Admin: 11/18/16 10:36 Dose: 75 mg Multivitamins/Minerals/Vitamin C (Tab-A-Vit -) 1 tab PO DAILY [facility] Last Admin: 11/18/16 10:36 Dose: 1 tab Senna/Docusate Sodium (Pericolace -) 1 tablet PO Q12H PRN - Objective Vital Signs: Vital Signs Temperature 98.2 F 11/18/16 10:50 Pulse Rate 128 H 11/18/16 10:50 Respiratory Rate 18 11/18/16 10:50 Blood Pressure 125/68 11/18/16 10:50 O2 Sat by Pulse Oximetry (%) 95 11/18/16 10:31 Constitutional: Yes: Well Nourished, Calm Eyes: Yes: WNL HENT: Yes: WNL Neck: Yes: WNL Cardiovascular: Yes: Pulse Irregular, S1, S2 Respiratory: Yes: CTA Bilaterally Gastrointestinal: Yes: Normal Bowel Sounds, Soft Extremities: Yes: WNL Edema: No Labs: CBC, BMP 11/18/16 06:10 11/18/16 06:10 INR, PTT INR 2.12 (0.82-1.09) H 11/17/16 06:00 Problem List - Problems (1) Elevated LFTs Code(s): R79.89 - OTHER SPECIFIED ABNORMAL FINDINGS OF BLOOD CHEMISTRY (2) Gallstones Code(s): K80.20 - CALCULUS OF GALLBLADDER W/O CHOLECYSTITIS W/O OBSTRUCTION (3) Acute on chronic systolic (congestive) heart failure Code(s): I50.23 - ACUTE ON CHRONIC SYSTOLIC (CONGESTIVE) HEART FAILURE (4) Anemia Code(s): D64.9 - ANEMIA, UNSPECIFIED (5) Atrial fibrillation with RVR Code(s): I48.91 - UNSPECIFIED ATRIAL FIBRILLATION (6) CAD (coronary artery disease) Code(s): I25.10 - ATHSCL HEART DISEASE OF [place] CORONARY ARTERY W/O ANG PCTRS (7) CHF (congestive heart failure) Code(s): I50.9 - HEART FAILURE, UNSPECIFIED (8) Dyspnea Code(s): R06.00 - DYSPNEA, UNSPECIFIED (9) Asthma Code(s): J45.909 - UNSPECIFIED ASTHMA, UNCOMPLICATED (10) Acute on chronic kidney failure Code(s): N17.9 - ACUTE KIDNEY FAILURE, UNSPECIFIED N18.9 - CHRONIC KIDNEY DISEASE, UNSPECIFIED (11) Ischemic cardiomyopathy Code(s): I25.5 - ISCHEMIC CARDIOMYOPATHY Assessment/Plan IMP DYSPNEA IMPROVED ASHD S/P ICD SEVERE ISCHEMIC CARDIOMYOPATHY CHF ASTHMA ABDOMINAL PAIN AFIB ACUTE ON CHRONIC KIDNEY DISEASE ELEVATED LFTS PLAN INHALED BRONCHODILATORS PRN O2 MONITOR LYTES,RENAL FUNCTION MONITOR LFTS PFTS OUTPATIENT GI W/U IN PROGRESS ECHO HIDA SCAN TOMORROW DR STOCKTON Problem List - Problems (1) Elevated LFTs Code(s): R79.89 - OTHER SPECIFIED ABNORMAL FINDINGS OF BLOOD CHEMISTRY (2) Gallstones Code(s): K80.20 - CALCULUS OF GALLBLADDER W/O CHOLECYSTITIS W/O OBSTRUCTION (3) Acute on chronic systolic (congestive) heart failure Code(s): I50.23 - ACUTE ON CHRONIC SYSTOLIC (CONGESTIVE) HEART FAILURE (4) Anemia Code(s): D64.9 - ANEMIA, UNSPECIFIED (5) Atrial fibrillation with RVR Code(s): I48.91 - UNSPECIFIED ATRIAL FIBRILLATION (6) CAD (coronary artery disease) Code(s): I25.10 - ATHSCL HEART DISEASE OF [place] CORONARY ARTERY W/O ANG PCTRS (7) CHF (congestive heart failure) Code(s): I50.9 - HEART FAILURE, UNSPECIFIED (8) Dyspnea Code(s): R06.00 - DYSPNEA, UNSPECIFIED (9) Asthma Code(s): J45.909 - UNSPECIFIED ASTHMA, UNCOMPLICATED (10) Acute on chronic kidney failure Code(s): N17.9 - ACUTE KIDNEY FAILURE, UNSPECIFIED N18.9 - CHRONIC KIDNEY DISEASE, UNSPECIFIED (11) Ischemic cardiomyopathy Code(s): I25.5 - ISCHEMIC CARDIOMYOPATHY
--- NOTE | 2016-11-18 11:07 | PN ---
Physical Exam: SUBJECTIVE: Patient seen and examined No acute events overnight. Patient complaining of some mild SOB. OBJECTIVE: Vital Signs Period Temp Pulse Resp BP Sys/Mena Pulse Ox Last 24 Hr 97.7 F-98.6 F 68-135 18-20 117-128/57-69 94-95 GENERAL: The patient is awake, alert, and fully oriented, in no acute distress. HEAD: Normal with no signs of trauma. EYES: extraocular movements intact, sclera anicteric, conjunctiva clear. No ptosis. ENT: Oropharynx clear without exudates, moist mucous membranes. NECK: Trachea midline, full range of motion, supple. LUNGS: Breath sounds equal, clear to auscultation bilaterally, no wheezes, no crackles, no accessory muscle use. HEART: Regular rate and rhythm, S1, S2 without murmur, rub or gallop. ABDOMEN: Soft, nontender, nondistended, normoactive bowel sounds, no guarding, no rebound, no hepatosplenomegaly, no masses. EXTREMITIES: Poor radial pulses, warm, well-perfused, no edema. NEUROLOGICAL: Normal speech, gait not observed. PSYCH: Normal mood, normal affect. SKIN: Warm, dry, normal turgor, no rashes or lesions noted Laboratory Results - last 24 hr 11/17/16 11/17/16 11/17/16 06:00 06:00 10:00 WBC RBC Hgb Hct MCV MCH MCHC RDW Plt Count MPV Neutrophils % Lymphocytes % Monocytes % Eosinophils % Basophils % Band Neutrophils Metamyelocytes Differential Comment Platelet Estimate Hypochromic-Microcytic Anisocytosis Retic Count 6.15 H Haptoglobin 211 H Sodium Potassium Chloride Carbon Dioxide Anion Gap BUN Creatinine Random Glucose Calcium Ferritin LD Total TSH Hepatitis A IgM Ab Negative Hep Bs Antigen Negative Hep B Core IgM Ab Negative Hepatitis C Ab (EIA) <0.1 11/18/16 11/18/16 11/18/16 06:10 06:10 06:10 WBC 12.0 H RBC 3.64 Hgb 9.9 L Hct 32.3 L MCV 88.7 MCH 27.3 MCHC 30.7 L RDW 19.3 H Plt Count 257 MPV 8.7 Neutrophils % 68.0 Lymphocytes % 10.0 D Monocytes % 10.0 Eosinophils % 5.0 H Basophils % 1.0 Band Neutrophils 3.0 Metamyelocytes 2 D Differential Comment Slide scanned Platelet Estimate Adequate Hypochromic-Microcytic 1+ Anisocytosis 2+ Retic Count 5.85 H Haptoglobin Sodium 143 Potassium 4.5 Chloride 110 H Carbon Dioxide 25 Anion Gap 8 BUN 26 H D Creatinine 1.4 H Random Glucose 115 H Calcium 8.5 Ferritin 125.040 LD Total Cancelled 486 H D TSH Cancelled 0.44 D Hepatitis A IgM Ab Hep Bs Antigen Hep B Core IgM Ab Hepatitis C Ab (EIA) Active Medications Generic Name Dose Route Start Last Admin Trade Name Freq PRN Reason Stop Dose Admin Albuterol/Ipratropium 1 amp 11/15/16 06:23 11/16/16 17:40 Duoneb - NEB 1 amp Q4H PRN Administration SHORTNESS OF BREATH Apixaban 2.5 mg 11/16/16 10:00 11/18/16 10:36 Eliquis - PO 2.5 mg BID ALESSIA Administration Aspirin 81 mg 11/15/16 10:00 11/18/16 10:36 Asa - PO 81 mg DAILY ALESSIA Administration Atorvastatin Calcium 10 mg 11/15/16 22:00 11/17/16 21:20 Lipitor - PO 10 mg HS ALESSIA Administration Benzocaine/Menthol 1 each 11/15/16 11:03 Cepacol Lozenge - MM PRN PRN SORE THROAT Diltiazem HCl 45 mg 11/18/16 08:53 11/18/16 10:36 Cardizem - PO 45 mg BID ALESSIA Administration Piperacillin Sod/Tazobactam Sod 50 mls @ 100 mls/hr 11/15/16 18:00 11/18/16 10: 37 Zosyn 2.25gm Ivpb (Pre-Docked) IVPB 100 mls/hr Q8H-IV ALESSIA Administration Protocol Isosorbide Mononitrate 30 mg 11/17/16 10:00 11/18/16 10:36 Imdur - PO 30 mg DAILY ALESSIA Administration Metoprolol Tartrate 75 mg 11/18/16 08:53 11/18/16 10:36 Lopressor - PO 75 mg BID ALESSIA Administration Multivitamins/Minerals/Vitamin C 1 tab 11/15/16 10:00 11/18/16 10:36 Tab-A-Vit - PO 1 tab DAILY ALESSIA Administration Senna/Docusate Sodium 1 tablet 11/15/16 06:00 Pericolace - PO Q12H PRN ASSESSMENT/PLAN: 85 year old female with PMH of HTN, HLD, CHF, COPD, A fib, CAD s/p defibrillater presented to the ED with 1 week hx of SOB and 1 day hx of abdominal pain. Patient was admitted for severe sepsis and COPD exacerbation found to have transaminits, and elevated creatinine #Anion gap lactic acidosis Severe sepsis of unclear etiology -WBC count- 12 -Lactic acid- 1.4 -UA negative -Urine/Blood Cultures negative -CXR negative for acute pathology x2 -IVF stopped due to concern for fluid overload- pt has moderate-severe LV function on prior echo during last visit -Patient on zosyn currently per ID #Asthma/COPD exacerbation- possible -1 week hx of SOB. Significantly improved -Q4h PRN nebs -CXR negative for acute pathology x2 -Currently on 2L NC -Monitor respiratory status -PFT's outpatient with pulm #Acute on chronic kidney injury - improving -Creatinine- 1.4 -IVF stopped due to potential for fluid overload -Trend creatinine #Hyperbilirubinemia/transaminits- possibly drug induced (recent use of doxycycline) -Abdominal CT shows cholelithiasis, renal cysts, and diverticulosis -Abdominal U/s shows partially contracted gallbladder and diffuse fatty infiltration. -Continue to tanika LFT's and bili -Patient had RUQ abdominal pain -HIDA scan ordered -Hepatitis serology negative #A fib with RVR -Originally on Xarelto -Due to RICA, patient switched to Eliquis 2.5 mg PO BID -Continue Eliquis 2.5 mg PO -Lopressor and Cardizem increased to 45 po bid (lopressor) and 75 po bid ( cardizem) #HTN -Continue Home Meds (Lopressor 45 mg PO BID) #HLD -Continue Home Meds (Lipitor 10 mg PO hs) #DVT ppx -Eliquis 2.5 mg PO bid Visit type - Emergency Visit Emergency Visit: No - New Patient This patient is new to me today: No - Critical Care Critical Care patient: No
--- NOTE | 2016-11-18 12:06 | PN ---
Progress Note (short form) - Note Progress Note: Progress Note: Seen in follow up. No new complaints. Meds reviewed. Current Medications Generic Name Dose Route Start Last Admin Trade Name Freq PRN Reason Stop Dose Admin Albuterol/Ipratropium 1 amp 11/15/16 06:23 11/16/16 17:40 Duoneb - NEB 1 amp Q4H PRN Administration SHORTNESS OF BREATH Apixaban 2.5 mg 11/16/16 10:00 11/18/16 10:36 Eliquis - PO 2.5 mg BID ALESSIA Administration Aspirin 81 mg 11/15/16 10:00 11/18/16 10:36 Asa - PO 81 mg DAILY ALESSIA Administration Atorvastatin Calcium 10 mg 11/15/16 22:00 11/17/16 21:20 Lipitor - PO 10 mg HS ALESSIA Administration Benzocaine/Menthol 1 each 11/15/16 11:03 Cepacol Lozenge - MM PRN PRN SORE THROAT Diltiazem HCl 45 mg 11/18/16 08:53 11/18/16 10:36 Cardizem - PO 45 mg BID ALESSIA Administration Piperacillin Sod/Tazobactam Sod 50 mls @ 100 mls/hr 11/15/16 18:00 11/18/16 10: 37 Zosyn 2.25gm Ivpb (Pre-Docked) IVPB 100 mls/hr Q8H-IV ALESSIA Administration Protocol Isosorbide Mononitrate 30 mg 11/17/16 10:00 11/18/16 10:36 Imdur - PO 30 mg DAILY ALESSIA Administration Metoprolol Tartrate 75 mg 11/18/16 08:53 11/18/16 10:36 Lopressor - PO 75 mg BID ALESSIA Administration Multivitamins/Minerals/Vitamin C 1 tab 11/15/16 10:00 11/18/16 10:36 Tab-A-Vit - PO 1 tab DAILY ALESSIA Administration Senna/Docusate Sodium 1 tablet 11/15/16 06:00 Pericolace - PO Q12H PRN On exam: Last Vital Signs Temp Pulse Resp BP Pulse Ox 98.2 F 128 H 18 125/68 95 11/18/16 10:50 11/18/16 10:50 11/18/16 10:50 11/18/16 10:50 11/18/16 10:31 General: In no acute distress. Extremities: No pallor or icterus, no pedal edema. Chest:good air entry bilaterally, . Abdomen: Soft, no organomegaly, no masses. Neuro: Alert, oriented, non-focal. CVS: Normal sinus rhythm, S1, S2, no gallop or murmur. CBC, BMP 11/18/16 06:10 11/18/16 06:10 Assessment. Leukocytosis: persistent mild neutrophilia, stable over past several weeks, decreasing trend. Higher WCC counts noted historically with prior encounters. Likely reactive, with very low index of suspicion for a primary hematological process (CML or an MPN). Check LAP - expect to be elevated. Observe. Peripheral smear reviewed yesterday: normal appearing mature neutrophils, some bands. Polychromasia. No red cell fragmentation. Anemia. Long-standing, and doesn't seem to have ever been worked up. Possibly acute on chronic process presently - presence of marked reticulocytosis at present raises suspicion of hemolysis or hemorrhage - check daily LDH and retics. Check Piero. Haptoglobin elevated rules out intravascular hemolysis, and elevated LDH is non- specific - overall shifts index of suspicion from hemolysis to hemorrhage, but prior extravascular hemolytic episode not ruled out. Piero pending. Recently started on AC for A. fib. Check all stools for occult blood. Iron panel. Possible element of renal impairment accounting for chronic anemia. Possible anemia of chronic disease - albeit elevated retics not consistent. Rule out plasma cell dyscrasia - SPEP, serum free LCs - pending. Will follow closely with you.
--- NOTE | 2016-11-18 12:37 | PN ---
Teaching Attending Note Name of Resident: Cristian Rhodes ATTENDING PHYSICIAN STATEMENT I saw and evaluated the patient. I reviewed the resident's note and discussed the case with the resident. I agree with the resident's findings and plan as documented. SUBJECTIVE: Patietn reports she still feels short of breath. She denies chest pain, palpitations. OBJECTIVE: Vital Signs Period Temp Pulse Resp BP Sys/Mena Pulse Ox Last 24 Hr 97.7 F-98.6 F 68-135 18-20 117-128/57-69 94-95 HEART: Irregular, tachycardic LUNGS: Clear ABDOMEN: Obese, soft, non-tender, non-distended, normal BS EXTREMITIES: No edema ASSESSMENT AND PLAN: This is an 85-year-old woman with a history of HTN, hyperlipidemia, chronic systolic heart failure, ischemic CM, asthma/COPD, atrial fib, CAD, AICD who presented to the ER with SOB and abdominal pain. 1. Possible sepsis - No source of infection - On Zosyn empirically - WBC improving but still elevated. She has had leukocytosis going back to 2010 - Lactic acidemia improved - Urine culture negative - Blood cultures negative after 3 days - Abdominal US shows cholelithiasis, partially contracted gallbladder, diffuse fatty infiltration of liver, bilateral renal cysts - HIDA ordered 2. Atrial fibrillation with RVR - Lopressor and Cardizem being adjusted for better rate control - Continue Eliquis 3. Asthma - Pulmonary consult appreciated - Continue DuoNeb as needed - Outpatient pulmonary follow-up, PFTs 4. Acute kidney injury - Improved 5. Stage 3 CKD 6. CAD with ischemic cardiomyopathy and chronic systolic heart failure - Continue aspirin, Lopressor, Imdur, Lipitor 7. HTN - Continue Lopressor, Cardizem 8. Hyperlipidemia - Continue Lipitor 9. Pulmonary HTN 10. Direct hyperbilirubinemia, hepatic transaminitis, elevated alk phos/LDH - Possible drug-induced hepatitis (recent Doxycycline) - HIDA ordered - Consider CT with contrast when creatinine improves
[2016-11-18] MEDS: ALBUTEROL SO4 2.5/IPRATROPIUM 0.5 INH SOL 3 ML VIAL.NEB. NEB PRN (12:57)
--- NOTE | 2016-11-18 13:36 | EKG ---
Test Reason : Blood Pressure : / mmHG Vent. Rate : 134 BPM Atrial Rate : 138 BPM P-R Int : 000 ms QRS Dur : 134 ms QT Int : 284 ms P-R-T Axes : 000 102 259 degrees QTc Int : 424 ms POOR DATA QUALITY, INTERPRETATION MAY BE ADVERSELY AFFECTED ATRIAL FIBRILLATION WITH RAPID VENTRICULAR RESPONSE RIGHTWARD AXIS NON-SPECIFIC INTRA-VENTRICULAR CONDUCTION BLOCK CANNOT RULE OUT ANTEROSEPTAL INFARCT (CITED ON OR BEFORE 14-NOV-2016) ABNORMAL ECG WHEN COMPARED WITH ECG OF 14-NOV-2016 21:57, ATRIAL FIBRILLATION HAS REPLACED ATRIAL FLUTTER VENT. RATE HAS INCREASED BY 83 BPM SERIAL CHANGES OF ANTEROSEPTAL INFARCT PRESENT Confirmed by VITALIY MTZ MD ([id number]) on 11/18/2016 1:35:58 PM Referred By: Confirmed By:VITALIY MTZ MD
--- NOTE | 2016-11-18 14:54 | PN ---
Progress Note, Physician History of Present Illness: no complaints patient feels fine - Current Medication List Current Medications: Active Medications Albuterol/Ipratropium (Duoneb -) 1 amp NEB Q4H PRN PRN Reason: SHORTNESS OF BREATH Last Admin: 11/18/16 12:57 Dose: 1 amp Apixaban (Eliquis -) 2.5 mg PO BID [facility] Last Admin: 11/18/16 10:36 Dose: 2.5 mg Aspirin (Asa -) 81 mg PO DAILY [facility] Last Admin: 11/18/16 10:36 Dose: 81 mg Atorvastatin Calcium (Lipitor -) 10 mg PO HS [facility] Last Admin: 11/17/16 21:20 Dose: 10 mg Benzocaine/Menthol (Cepacol Lozenge -) 1 each MM PRN PRN PRN Reason: SORE THROAT Diltiazem HCl (Cardizem -) 45 mg PO BID [facility] Last Admin: 11/18/16 10:36 Dose: 45 mg Piperacillin Sod/Tazobactam Sod (Zosyn 2.25gm Ivpb (Pre-Docked)) 50 mls @ 100 mls/hr IVPB Q8H-IV ALESSIA PRN Reason: Protocol Last Admin: 11/18/16 10:37 Dose: 100 mls/hr Isosorbide Mononitrate (Imdur -) 30 mg PO DAILY [facility] Last Admin: 11/18/16 10:36 Dose: 30 mg Metoprolol Tartrate (Lopressor -) 75 mg PO BID [facility] Last Admin: 11/18/16 10:36 Dose: 75 mg Multivitamins/Minerals/Vitamin C (Tab-A-Vit -) 1 tab PO DAILY [facility] Last Admin: 11/18/16 10:36 Dose: 1 tab Senna/Docusate Sodium (Pericolace -) 1 tablet PO Q12H PRN - Objective Vital Signs: Vital Signs Temperature 98.9 F 11/18/16 14:45 Pulse Rate 82 11/18/16 14:45 Respiratory Rate 18 11/18/16 14:45 Blood Pressure 119/65 11/18/16 14:45 O2 Sat by Pulse Oximetry (%) 95 11/18/16 10:35 Constitutional: Yes: No Distress, Calm HENT: Yes: Atraumatic Cardiovascular: Yes: Regular Rate and Rhythm, S1, S2 Respiratory: Yes: Regular, CTA Bilaterally Gastrointestinal: Yes: Normal Bowel Sounds, Soft Musculoskeletal: Yes: WNL Extremities: Yes: WNL Neurological: Yes: Alert, Oriented Psychiatric: Yes: Alert, Oriented Labs: CBC, BMP 11/18/16 06:10 11/18/16 06:10 INR, PTT INR 2.12 (0.82-1.09) H 11/17/16 06:00 Assessment/Plan Problem List - Problems (1) Elevated LFTs Code(s): R79.89 - OTHER SPECIFIED ABNORMAL FINDINGS OF BLOOD CHEMISTRY (2) Gallstones Code(s): K80.20 - CALCULUS OF GALLBLADDER W/O CHOLECYSTITIS W/O OBSTRUCTION (3) Acute on chronic systolic (congestive) heart failure Code(s): I50.23 - ACUTE ON CHRONIC SYSTOLIC (CONGESTIVE) HEART FAILURE (4) Anemia Code(s): D64.9 - ANEMIA, UNSPECIFIED (5) Atrial fibrillation with RVR Code(s): I48.91 - UNSPECIFIED ATRIAL FIBRILLATION (6) CAD (coronary artery disease) Code(s): I25.10 - ATHSCL HEART DISEASE OF [place] CORONARY ARTERY W/O ANG PCTRS (7) CHF (congestive heart failure) Code(s): I50.9 - HEART FAILURE, UNSPECIFIED (8) Dyspnea Code(s): R06.00 - DYSPNEA, UNSPECIFIED (9) Asthma Code(s): J45.909 - UNSPECIFIED ASTHMA, UNCOMPLICATED (10) Acute on chronic kidney failure Code(s): N17.9 - ACUTE KIDNEY FAILURE, UNSPECIFIED N18.9 - CHRONIC KIDNEY DISEASE, UNSPECIFIED (11) Ischemic cardiomyopathy Code(s): I25.5 - ISCHEMIC CARDIOMYOPATHY dirrhoea dehydration lactic acidosis leukocytosis plan continue current mgmt close watch on wbc incentive eneida if patient remains clinically stable will stop abx and watch
[2016-11-18] MEDS: ATORVASTATIN CA 10 MG TABLET (FP) PO SCH (22:31)
[2016-11-18] MEDS: METOPROLOL TARTRATE 50 MG TABLET (FP) PO SCH (22:31)
[2016-11-19] MEDS: PIPERACILLIN/TAZOB 2.25 GM 50 ML IVPB SCH ×2 (02:00→12:56)
[2016-11-19 06:06] LABS: SERUM IRON 24 ug/dL (27-139)
[2016-11-19 06:56] LABS: BASOPHIL 1.3 % (0-2.0); MCH 27.2 pg (25.7-33.7); MCHC 30.9 g/dl (32.0-36.0); MEAN PLT VOLUME 8.6 fl (7.5-11.1); NEUTROPHILS 71.9 % (42.8-82.8); PLATELET COUNT 246 K/MM3 (134-434); WHITE BLOOD COUNT 12.5 K/mm3 (4.0-10.0)
[2016-11-19 07:16] LABS: ALBUMIN 2.7 g/dl (3.4-5.0); ANION GAP 11 (8-16); BILIRUBIN,TOTAL 1.8 mg/dL (0.2-1.0); CALCIUM 8.3 mg/dL (8.5-10.1); CO2 22 mmol/L (21-32); CREATININE 1.5 mg/dL (0.55-1.02); GLUCOSE,RANDOM 93 mg/dL (74-106); SGOT/AST 329 U/L (15-37); SGPT/ALT 352 U/L (12-78); TOT PROT 5.8 g/dl (6.4-8.2)
[2016-11-19 07:17] LABS: ALK PHOS 332 U/L (45-117)
[2016-11-19] MEDS: ISOSORBIDE MONONITRATE 30 MG TAB.SR.24H (FP) PO SCH (09:58)
[2016-11-19] MEDS: METOPROLOL TARTRATE 50 MG TABLET (FP) PO SCH ×2 (09:58→21:06)
[2016-11-19] MEDS: dilTIAZem HCL 30 MG TABLET (FP) PO SCH ×2 (09:59→21:07)
--- NOTE | 2016-11-19 12:29 | PN ---
Progress Note (short form) - Note Progress Note: Patient seen and examined. No overnight events. Patient just returned from HIDA scan. Patient has no specific complains. Denies any chest pain, shortness of breath. No constipation and bowel movements regular and normal. No bleeding noted as per pt. O/E: General: In no acute distress. Extremities: No pallor or icterus, no pedal edema. Chest:good air entry bilaterally, . Abdomen: Soft, no organomegaly, no masses. Neuro: Alert, oriented, non-focal. CVS: Normal sinus rhythm, S1, S2, no gallop or murmur. Abnormal Lab Results 11/18/16 11/19/16 11/19/16 06:10 06:00 06:00 WBC 12.5 H RBC 3.58 L Hgb 9.7 L Hct 31.5 L MCHC 30.9 L RDW 19.0 H Monocytes % 11.1 H Chloride 110 H BUN 27 H Creatinine 1.5 H Calcium 8.3 L Iron 24 L Total Bilirubin 1.8 H D Direct Bilirubin 1.0 H D AST 329 H D ALT 352 H D Alkaline Phosphatase 332 H Total Protein 5.8 L Albumin 2.7 L Current Medications Generic Name Dose Route Start Last Admin Trade Name Freq PRN Reason Stop Dose Admin Albuterol/Ipratropium 1 amp 11/15/16 06:23 11/18/16 12:57 Duoneb - NEB 1 amp Q4H PRN Administration SHORTNESS OF BREATH Apixaban 2.5 mg 11/16/16 10:00 11/18/16 22:32 Eliquis - PO 2.5 mg BID ALESSIA Administration Aspirin 81 mg 11/15/16 10:00 11/18/16 10:36 Asa - PO 81 mg DAILY ALESSIA Administration Atorvastatin Calcium 10 mg 11/15/16 22:00 11/18/16 22:31 Lipitor - PO 10 mg HS ALESSIA Administration Benzocaine/Menthol 1 each 11/15/16 11:03 Cepacol Lozenge - MM PRN PRN SORE THROAT Diltiazem HCl 45 mg 11/18/16 08:53 11/19/16 09:59 Cardizem - PO 45 mg BID ALESSIA Administration Piperacillin Sod/Tazobactam Sod 50 mls @ 100 mls/hr 11/15/16 18:00 11/19/16 02: 00 Zosyn 2.25gm Ivpb (Pre-Docked) IVPB 100 mls/hr Q8H-IV ALESSIA Administration Protocol Isosorbide Mononitrate 30 mg 11/17/16 10:00 11/19/16 09:58 Imdur - PO 30 mg DAILY ALESSIA Administration Metoprolol Tartrate 50 mg 11/18/16 22:00 11/19/16 09:58 Lopressor - PO 50 mg BID ALESSIA Administration Multivitamins/Minerals/Vitamin C 1 tab 11/15/16 10:00 11/18/16 10:36 Tab-A-Vit - PO 1 tab DAILY ALESSIA Administration Senna/Docusate Sodium 1 tablet 11/15/16 06:00 Pericolace - PO Q12H PRN Last Vital Signs Temp Pulse Resp BP Pulse Ox 98 F 118 H 20 125/82 95 11/19/16 10:01 11/19/16 10:25 11/19/16 10:01 11/19/16 10:01 11/19/16 10:25 Assessment/Plan: Leukocytosis with neutrophilia Anemia elevated LFTs Chronic renal insufficiency Afib on coumadin. Plan: -will follow the white cell count ( chronic process), more likely a reactive neutrophilia than a myeloproliferative neoplasm. -Patient with low serum iron, awaiting other iron studies and also stool for occult blood. -LDH is still elevated along with high retic count, hapto low, less hemolysis, ? chronic GI bleed -will follow up on SPEP, serum free LCs to rule out plasma cell disorder. -Appreciate GI/Hepatology input, HIDA scan done, daily LFTs and Bili. -continue coumadin with INR monitoring. will follow.
--- NOTE | 2016-11-19 12:30 | PN ---
Progress Note, Physician History of Present Illness: patient with no complaints no issues - Current Medication List Current Medications: Active Medications Albuterol/Ipratropium (Duoneb -) 1 amp NEB Q4H PRN PRN Reason: SHORTNESS OF BREATH Last Admin: 11/18/16 12:57 Dose: 1 amp Apixaban (Eliquis -) 2.5 mg PO BID [facility] Last Admin: 11/18/16 22:32 Dose: 2.5 mg Aspirin (Asa -) 81 mg PO DAILY [facility] Last Admin: 11/18/16 10:36 Dose: 81 mg Atorvastatin Calcium (Lipitor -) 10 mg PO HS [facility] Last Admin: 11/18/16 22:31 Dose: 10 mg Benzocaine/Menthol (Cepacol Lozenge -) 1 each MM PRN PRN PRN Reason: SORE THROAT Diltiazem HCl (Cardizem -) 45 mg PO BID [facility] Last Admin: 11/19/16 09:59 Dose: 45 mg Piperacillin Sod/Tazobactam Sod (Zosyn 2.25gm Ivpb (Pre-Docked)) 50 mls @ 100 mls/hr IVPB Q8H-IV ALESSIA PRN Reason: Protocol Last Admin: 11/19/16 02:00 Dose: 100 mls/hr Isosorbide Mononitrate (Imdur -) 30 mg PO DAILY [facility] Last Admin: 11/19/16 09:58 Dose: 30 mg Metoprolol Tartrate (Lopressor -) 50 mg PO BID [facility] Last Admin: 11/19/16 09:58 Dose: 50 mg Multivitamins/Minerals/Vitamin C (Tab-A-Vit -) 1 tab PO DAILY [facility] Last Admin: 11/18/16 10:36 Dose: 1 tab Senna/Docusate Sodium (Pericolace -) 1 tablet PO Q12H PRN - Objective Vital Signs: Vital Signs Temperature 98 F 11/19/16 10:01 Pulse Rate 118 H 11/19/16 10:25 Respiratory Rate 20 11/19/16 10:01 Blood Pressure 125/82 11/19/16 10:01 O2 Sat by Pulse Oximetry (%) 95 11/19/16 10:25 Constitutional: Yes: No Distress, Calm Cardiovascular: Yes: S1, S2 Respiratory: Yes: Regular, CTA Bilaterally Gastrointestinal: Yes: Normal Bowel Sounds, Soft Musculoskeletal: Yes: WNL Extremities: Yes: WNL Neurological: Yes: Alert, Oriented Psychiatric: Yes: Alert, Oriented Labs: CBC, BMP 11/19/16 06:00 11/19/16 06:00 INR, PTT INR 2.12 (0.82-1.09) H 11/17/16 06:00 Assessment/Plan Problem List - Problems (1) Elevated LFTs Code(s): R79.89 - OTHER SPECIFIED ABNORMAL FINDINGS OF BLOOD CHEMISTRY (2) Gallstones Code(s): K80.20 - CALCULUS OF GALLBLADDER W/O CHOLECYSTITIS W/O OBSTRUCTION (3) Acute on chronic systolic (congestive) heart failure Code(s): I50.23 - ACUTE ON CHRONIC SYSTOLIC (CONGESTIVE) HEART FAILURE (4) Anemia Code(s): D64.9 - ANEMIA, UNSPECIFIED (5) Atrial fibrillation with RVR Code(s): I48.91 - UNSPECIFIED ATRIAL FIBRILLATION (6) CAD (coronary artery disease) Code(s): I25.10 - ATHSCL HEART DISEASE OF [place] CORONARY ARTERY W/O ANG PCTRS (7) CHF (congestive heart failure) Code(s): I50.9 - HEART FAILURE, UNSPECIFIED (8) Dyspnea Code(s): R06.00 - DYSPNEA, UNSPECIFIED (9) Asthma Code(s): J45.909 - UNSPECIFIED ASTHMA, UNCOMPLICATED (10) Acute on chronic kidney failure Code(s): N17.9 - ACUTE KIDNEY FAILURE, UNSPECIFIED N18.9 - CHRONIC KIDNEY DISEASE, UNSPECIFIED (11) Ischemic cardiomyopathy Code(s): I25.5 - ISCHEMIC CARDIOMYOPATHY dirrhoea dehydration lactic acidosis leukocytosis plan stopped all abx continue current mgmt will monitor off of abx
[2016-11-19] MEDS: MULTIVITAMINS (DAILY MVI) TABLET (FP) PO SCH (13:15)
[2016-11-19] MEDS: ASPIRIN 81 MG CHEWABLE TABLETS PO SCH (13:15)
[2016-11-19] MEDS: APIXABAN 2.5 MG TABLET PO SCH ×2 (13:15→21:07)
--- NOTE | 2016-11-19 14:28 | PN ---
Teaching Attending Note Name of Resident: Cristian Rhodes ATTENDING PHYSICIAN STATEMENT I saw and evaluated the patient. I reviewed the resident's note and discussed the case with the resident. I agree with the resident's findings and plan as documented. SUBJECTIVE: No complaints. OBJECTIVE: Vital Signs Period Temp Pulse Resp BP Sys/Mena Pulse Ox Last 24 Hr 98 F-98.9 F 50-135 18-20 119-146/50-82 95-95 HEART: Irregular, tachycardic LUNGS: Clear ABDOMEN: Obese, soft, non-tender, non-distended, normal BS EXTREMITIES: No edema ASSESSMENT AND PLAN: This is an 85-year-old woman with a history of HTN, hyperlipidemia, chronic systolic heart failure, ischemic CM, asthma/COPD, atrial fib, CAD, AICD who presented to the ER with SOB and abdominal pain. 1. Possible sepsis - No source of infection - Zosyn discontinued - WBC still elevated. She has had leukocytosis going back to 2010 - Lactic acidemia improved - Urine culture negative - Blood cultures negative - Abdominal US shows cholelithiasis, partially contracted gallbladder, diffuse fatty infiltration of liver, bilateral renal cysts - HIDA pending 2. Atrial fibrillation with RVR - Lopressor and Cardizem being adjusted for better rate control - Continue Eliquis 3. Asthma - Continue DuoNeb as needed - Outpatient pulmonary follow-up, PFTs 4. Acute kidney injury - Improved 5. Stage 3 CKD 6. CAD with ischemic cardiomyopathy and chronic systolic heart failure - Continue aspirin, Lopressor, Imdur, Lipitor 7. HTN - Continue Lopressor, Cardizem 8. Hyperlipidemia - Continue Lipitor 9. Pulmonary HTN 10. Direct hyperbilirubinemia, hepatic transaminitis, elevated alk phos/LDH - Possible drug-induced hepatitis (recent Doxycycline) - HIDA pending - Consider CT with contrast when creatinine improves
--- NOTE | 2016-11-19 14:38 | PN ---
Physical Exam: SUBJECTIVE: Patient seen and examined Patient became unruly overnight. equipment monitor phototypesetting was taken off. Patient was bradycardic to the 40s. His lopressor was decreased to 50mg BID. No other complaints OBJECTIVE: Vital Signs Period Temp Pulse Resp BP Sys/Mena Pulse Ox Last 24 Hr 98 F-98.9 F 50-135 18-20 119-146/50-82 95-95 GENERAL: The patient is awake, alert, and fully oriented, in no acute distress. HEAD: Normal with no signs of trauma. EYES: Extraocular movements intact, sclera anicteric, conjunctiva clear. No ptosis. ENT: Oropharynx clear without exudates, moist mucous membranes. NECK: Trachea midline, full range of motion, supple. LUNGS: Breath sounds equal, clear to auscultation bilaterally, no wheezes, no crackles, no accessory muscle use. HEART: Regular rate and rhythm, S1, S2 without murmur, rub or gallop. ABDOMEN: Soft, nontender, nondistended, normoactive bowel sounds, no guarding, no rebound, no hepatosplenomegaly, no masses. EXTREMITIES: Poor radial pulses, warm, well-perfused, no edema. NEUROLOGICAL: Normal speech, gait not observed. PSYCH: Normal mood, normal affect. SKIN: Warm, dry, normal turgor, no rashes or lesions noted Laboratory Results - last 24 hr 11/18/16 11/19/16 11/19/16 06:10 06:00 06:00 WBC 12.5 H RBC 3.58 L Hgb 9.7 L Hct 31.5 L MCV 88.0 MCH 27.2 MCHC 30.9 L RDW 19.0 H Plt Count 246 MPV 8.6 Neutrophils % 71.9 Lymphocytes % 12.7 D Monocytes % 11.1 H Eosinophils % 3.0 Basophils % 1.3 Sodium 143 Potassium 4.4 Chloride 110 H Carbon Dioxide 22 Anion Gap 11 BUN 27 H Creatinine 1.5 H Random Glucose 93 Calcium 8.3 L Iron 24 L Total Bilirubin 1.8 H D Direct Bilirubin 1.0 H D AST 329 H D ALT 352 H D Alkaline Phosphatase 332 H Total Protein 5.8 L Albumin 2.7 L Direct Antiglob Test 11/19/16 13:07 WBC RBC Hgb Hct MCV MCH MCHC RDW Plt Count MPV Neutrophils % Lymphocytes % Monocytes % Eosinophils % Basophils % Sodium Potassium Chloride Carbon Dioxide Anion Gap BUN Creatinine Random Glucose Calcium Iron Total Bilirubin Direct Bilirubin AST ALT Alkaline Phosphatase Total Protein Albumin Direct Antiglob Test Positive H Active Medications Generic Name Dose Route Start Last Admin Trade Name Radha PRN Reason Stop Dose Admin Albuterol/Ipratropium 1 amp 11/15/16 06:23 11/18/16 12:57 Duoneb - NEB 1 amp Q4H PRN Administration SHORTNESS OF BREATH Apixaban 2.5 mg 11/16/16 10:00 11/19/16 13:15 Eliquis - PO 2.5 mg BID ALESSIA Administration Aspirin 81 mg 11/15/16 10:00 11/19/16 13:15 Asa - PO 81 mg DAILY ALESSIA Administration Atorvastatin Calcium 10 mg 11/15/16 22:00 11/18/16 22:31 Lipitor - PO 10 mg HS ALESSIA Administration Benzocaine/Menthol 1 each 11/15/16 11:03 Cepacol Lozenge - MM PRN PRN SORE THROAT Diltiazem HCl 45 mg 11/18/16 08:53 11/19/16 09:59 Cardizem - PO 45 mg BID ALESSIA Administration Isosorbide Mononitrate 30 mg 11/17/16 10:00 11/19/16 09:58 Imdur - PO 30 mg DAILY ALESSIA Administration Metoprolol Tartrate 50 mg 11/18/16 22:00 11/19/16 09:58 Lopressor - PO 50 mg BID ALESSIA Administration Multivitamins/Minerals/Vitamin C 1 tab 11/15/16 10:00 11/19/16 13:15 Tab-A-Vit - PO 1 tab DAILY ALESSIA Administration Senna/Docusate Sodium 1 tablet 11/15/16 06:00 Pericolace - PO Q12H PRN ASSESSMENT/PLAN: 85 year old female with PMH of HTN, HLD, CHF, COPD, A fib, CAD s/p defibrillater presented to the ED with 1 week hx of SOB and 1 day hx of abdominal pain. Patient was admitted for severe sepsis and COPD exacerbation found to have transaminits, and elevated creatinine #Anion gap lactic acidosis Severe sepsis of unclear etiology -WBC count- 12.5 -Lactic acid- 1.4 -UA negative -Urine/Blood Cultures negative -CXR negative for acute pathology x2 -IVF stopped due to concern for fluid overload- pt has moderate-severe LV function on prior echo during last visit -Antibiotics stopped today per ID. #Asthma/COPD exacerbation- possible -1 week hx of SOB. Significantly improved -Q4h PRN nebs -CXR negative for acute pathology x2 -Currently on RA -Monitor respiratory status -PFT's outpatient with pulm #Acute on chronic kidney injury - improving -Creatinine- 1.5 -IVF stopped due to potential for fluid overload -Trend creatinine #Hyperbilirubinemia/transaminits- possibly drug induced (recent use of doxycycline) -Abdominal CT shows cholelithiasis, renal cysts, and diverticulosis -Abdominal U/s shows partially contracted gallbladder and diffuse fatty infiltration. -LFT's still elevated -Continue to trend LFT's and bili -Patient had RUQ abdominal pain -HIDA scan finished today. Results pending -Hepatitis serology negative #Leukocytosis with neutrophilia -Piero test + -will follow leukocytosis -will follow up on SPEP, serum free LCs -LDH elevated #A fib with RVR -Originally on Xarelto -Due to RICA, patient switched to Eliquis 2.5 mg PO BID -Continue Eliquis 2.5 mg PO -Lopressor and Cardizem increased to 50 po bid (lopressor) and 45 po bid ( cardizem) #HTN -Continue Home Meds (Lopressor 50 mg PO BID) #HLD -Continue Home Meds (Lipitor 10 mg PO hs) #DVT ppx -Eliquis 2.5 mg PO bid Visit type - Emergency Visit Emergency Visit: No - New Patient This patient is new to me today: No - Critical Care Critical Care patient: No
--- NOTE | 2016-11-19 15:56 | PN ---
Progress Note (short form) - Note Progress Note: GASTROENTEROLOGY EVENTS REVIEWED HIDA SCAN DONE RESULTS PENDING, LFT'S STILL ELEVATED AWAIT RESULTS OF HIDA IF NEGATIVE CONSIDER LIVER BIOPSY IF GFR PERMITS CONTRAST CT OR IF CAN TOLERATE AN MRI/MRCP ECTOR ZUNIGA MD Problem List - Problems (1) Elevated LFTs Code(s): R79.89 - OTHER SPECIFIED ABNORMAL FINDINGS OF BLOOD CHEMISTRY (2) Gallstones Code(s): K80.20 - CALCULUS OF GALLBLADDER W/O CHOLECYSTITIS W/O OBSTRUCTION (3) RUQ pain Code(s): R10.11 - RIGHT UPPER QUADRANT PAIN (4) Lactic acid acidosis Code(s): E87.2 - ACIDOSIS (5) Leukocytosis Code(s): D72.829 - ELEVATED WHITE BLOOD CELL COUNT, UNSPECIFIED (6) RICA (acute kidney injury) Code(s): N17.9 - ACUTE KIDNEY FAILURE, UNSPECIFIED (7) Anemia Code(s): D64.9 - ANEMIA, UNSPECIFIED (8) CAD (coronary artery disease) Code(s): I25.10 - ATHSCL HEART DISEASE OF [place] CORONARY ARTERY W/O ANG PCTRS
--- NOTE | 2016-11-19 16:57 | CONS ---
PULMONARY CONSULTATION DATE OF CONSULTATION: 11/17/2016 REFERRING PHYSICIAN: Zachary Leary MD HISTORY OF PRESENT ILLNESS: The patient is an 85-year-old black female with a past medical history of hypertension, hyperlipidemia, ASHD, status post defibrillator, congestive heart failure, asthma, history of recent onset of atrial fibrillation, admitted to [facility] with complaint of shortness of breath for approximately 1 week as well as abdominal pain. Patient apparently states that pain began in the epigastric region, radiating to the right side. She denied any complaints of nausea or vomiting. Denied any fevers or chills. She also complained of some shortness of breath. She gives a history of asthma and states that she uses an inhaler that her family shares. She has never been prescribed an inhaler on her own, though. She has a history of smoking many, many years ago. There is no history of occupational exposure to chemicals or fumes. She does complain of shortness of breath with exertion as well as occasional wheezing. She denies any history of DVT or PE in the past. Current hospitalization, the patient underwent an abdominal and pelvic CT which revealed no evidence of acute pathology. It just showed a large right renal cyst and some diverticulosis. She was placed on broad-spectrum antibiotics by Dr. Boles. She was also evaluated by Dr. Nunn for consultation secondary to anemia. PAST MEDICAL HISTORY: Again includes hypertension, ASHD status post ICD, atrial fibrillation, congestive heart failure, questionable asthma, history of rectal bleed in 2012. REVIEW OF SYSTEMS: No orthopnea. No PND. Positive occasional chest pain. Positive shortness of breath with exertion. Positive wheezing. Positive abdominal discomfort. No nausea. No vomiting. No weight loss or night sweats. No hemoptysis. No chronic cough. CURRENT MEDICATIONS: Include Zosyn, Eliquis, DuoNeb, Lopressor, Cardizem, Verna-Colace, Lipitor, Tab-A-Xenia, Imdur, and aspirin. PHYSICAL EXAMINATION: General: The patient is an elderly black female, well developed, awake, alert, in no acute distress. Vital Signs: She is currently afebrile. Blood pressure is 124/72, respiratory rate is 22, O2 saturation is 96% on 2 L. HEENT: Exam is normocephalic, atraumatic. Neck: Supple. Heart: Irregular, irregular. Normal S1, S2. Chest: Clear. Abdomen: Soft. Bowel sounds positive. Extremities: No cyanosis or edema. Chest x-ray revealed no infiltrates, no effusions. There is a pacemaker in the left hemithorax and cardiomegaly. LABORATORY DATA: BUN 40, creatinine 1.5. INR is 2.12. WBC is 14.2, hemoglobin 9.6, hematocrit 30.7, and platelet count of 259,000. Blood gas: A pH of 7.38, pCO2 of 25, O2 of 102, bicarbonate of 14, and saturation 96.8. Of note is on admission, the patient was noted to have a VBG of 7.2 pH, pCO2 of 36, a pO2 of 26, a bicarbonate of 18. Lactate level was initially on admission 3.4, currently 1.4. IMPRESSION: 1. Dyspnea, secondary to multiple factors, most likely secondary to cardiac, severe atherosclerotic heart disease status post implantable cardioverter-defibrillator, as well as congestive heart failure. 2. Atrial fibrillation. 3. Asthma, the patient gives a history of asthma for many years, although has never been prescribed inhaler, bronchodilators in the past. 4. Elevated liver function tests. 5. Hekrp-ii-urbltyp kidney disease. PLAN: Inhaled bronchodilators, continue O2, hydrate, IV fluids. Monitor renal function. Monitor LFTs. PFTs as an outpatient. SHAMA STOCKTON M.D. CHUCK/[id number]
[2016-11-19] MEDS ORDERED: INSULIN (NOVOLOG) ASPART 100 UNITS/ML 10ML VIAL ONE (18:06)
--- NOTE | 2016-11-19 18:40 | CONSULT ---
Consult - text type - Consultation Consultation Note: Cardiology no symptoms PE: HR elevated, BP normal normal cardio-pulmonary exam abdomen no leg edema Impression: severe [id number] cardiomyopathy, no evidence of CHF; seems stable from cardiac standpoint. ICD afib, upper normal to mild RVR abd pain being evaluated ARF-CRF TSH normal Rec: cardizem 60 mg TID
[2016-11-19] MEDS ORDERED: PT OWN MED DRAWER 7, Y5N ONE (20:11)
[2016-11-19] MEDS: ATORVASTATIN CA 10 MG TABLET (FP) PO SCH (21:06)
[2016-11-20 06:06] LABS: TRANSFERRIN 193 mg/dL (200-370)
[2016-11-20 07:17] LABS: MCHC 30.6 g/dl (32.0-36.0); MEAN CELL VOLUME 88.2 fl (80-96); MEAN PLT VOLUME 8.5 fl (7.5-11.1); PLATELET COUNT 255 K/MM3 (134-434); RDW 19.9 % (11.6-15.6); WHITE BLOOD COUNT 12.6 K/mm3 (4.0-10.0)
[2016-11-20 07:50] LABS: ALBUMIN 2.8 g/dl (3.4-5.0); ANION GAP 9 (8-16); BILIRUBIN,DIRECT 0.8 mg/dL (0.0-0.2); CALCIUM 8.4 mg/dL (8.5-10.1); CO2 24 mmol/L (21-32); CREATININE 1.4 mg/dL (0.55-1.02); GLUCOSE,RANDOM 116 mg/dL (74-106); SGOT/AST 173 U/L (15-37); SGPT/ALT 285 U/L (12-78)
[2016-11-20 07:52] LABS: ALK PHOS 396 U/L (45-117); BILIRUBIN,TOTAL 1.2 mg/dL (0.2-1.0); LDH 360 U/L (84-246); TOT PROT 5.9 g/dl (6.4-8.2)
[2016-11-20] MEDS: METOPROLOL TARTRATE 50 MG TABLET (FP) PO SCH ×2 (09:11→21:29)
[2016-11-20] MEDS: ASPIRIN 81 MG CHEWABLE TABLETS PO SCH (09:11)
[2016-11-20] MEDS: MULTIVITAMINS (DAILY MVI) TABLET (FP) PO SCH (09:11)
[2016-11-20] MEDS: dilTIAZem HCL 30 MG TABLET (FP) PO SCH ×2 (09:11→21:29)
[2016-11-20] MEDS: APIXABAN 2.5 MG TABLET PO SCH (09:11)
--- NOTE | 2016-11-20 13:11 | PN ---
Progress Note (short form) - Note Progress Note: Patient seen and examined. No overnight events. Patient has no specific complains.Receiving nebulization. O/E: General: In no acute distress. Extremities: No pallor or icterus, no pedal edema. Chest:good air entry bilaterally, . Abdomen: Soft, no organomegaly, no masses. Neuro: Alert, oriented, non-focal. CVS: Normal sinus rhythm, S1, S2, no gallop or murmur. A CBC, BMP 11/20/16 05:35 11/20/16 05:35 Last Vital Signs Temp Pulse Resp BP Pulse Ox 97.9 F 87 18 126/85 97 11/20/16 09:00 11/20/16 09:35 11/20/16 09:00 11/20/16 09:00 11/20/16 09:35 Current Medications Generic Name Dose Route Start Last Admin Trade Name Freq PRN Reason Stop Dose Admin Albuterol/Ipratropium 1 amp 11/15/16 06:23 11/18/16 12:57 Duoneb - NEB 1 amp Q4H PRN Administration SHORTNESS OF BREATH Apixaban 2.5 mg 11/16/16 10:00 11/20/16 09:11 Eliquis - PO 2.5 mg BID ALESSIA Administration Aspirin 81 mg 11/15/16 10:00 11/20/16 09:11 Asa - PO 81 mg DAILY ALESSIA Administration Atorvastatin Calcium 10 mg 11/15/16 22:00 11/19/16 21:06 Lipitor - PO 10 mg HS ALESSIA Administration Benzocaine/Menthol 1 each 11/15/16 11:03 Cepacol Lozenge - MM PRN PRN SORE THROAT Diltiazem HCl 60 mg 11/19/16 18:41 11/20/16 09:11 Cardizem - PO 60 mg BID ALESSIA Administration Metoprolol Tartrate 50 mg 11/18/16 22:00 11/20/16 09:11 Lopressor - PO 50 mg BID ALESSIA Administration Multivitamins/Minerals/Vitamin C 1 tab 11/15/16 10:00 11/20/16 09:11 Tab-A-Vit - PO 1 tab DAILY ALESSIA Administration Senna/Docusate Sodium 1 tablet 11/15/16 06:00 Pericolace - PO Q12H PRN Assessment/Plan: Leukocytosis with neutrophilia Anemia elevated LFTs Chronic renal insufficiency Afib on eliquis Plan: -will follow the white cell count ( chronic process), more likely a reactive neutrophilia than a myeloproliferative neoplasm. -Patient with low serum iron, awaiting other iron studies and also stool for occult blood. Also add on percent saturation of Iron,if low, will need to consider Iron supplements -LDH is still elevated along with high retic count, hapto low, less hemolysis, ? chronic GI bleed -will follow up on SPEP, serum free LCs to rule out plasma cell disorder. -Appreciate GI/Hepatology input, HIDA scan unremarkable, daily LFTs and Bili. ? congestive hepatopathy -Coumadin , was changed to eliquis currently for Afib will follow.
--- NOTE | 2016-11-20 15:24 | PN ---
Progress Note, Physician History of Present Illness: patient with no complaints no issues imaging studies seen - Current Medication List Current Medications: Active Medications Albuterol/Ipratropium (Duoneb -) 1 amp NEB Q4H PRN PRN Reason: SHORTNESS OF BREATH Last Admin: 11/18/16 12:57 Dose: 1 amp Apixaban (Eliquis -) 2.5 mg PO BID [facility] Last Admin: 11/20/16 09:11 Dose: 2.5 mg Aspirin (Asa -) 81 mg PO DAILY [facility] Last Admin: 11/20/16 09:11 Dose: 81 mg Atorvastatin Calcium (Lipitor -) 10 mg PO HS [facility] Last Admin: 11/19/16 21:06 Dose: 10 mg Benzocaine/Menthol (Cepacol Lozenge -) 1 each MM PRN PRN PRN Reason: SORE THROAT Diltiazem HCl (Cardizem -) 60 mg PO BID [facility] Last Admin: 11/20/16 09:11 Dose: 60 mg Metoprolol Tartrate (Lopressor -) 50 mg PO BID [facility] Last Admin: 11/20/16 09:11 Dose: 50 mg Multivitamins/Minerals/Vitamin C (Tab-A-Vit -) 1 tab PO DAILY [facility] Last Admin: 11/20/16 09:11 Dose: 1 tab Senna/Docusate Sodium (Pericolace -) 1 tablet PO Q12H PRN - Objective Vital Signs: Vital Signs Temperature 97.9 F 11/20/16 09:00 Pulse Rate 87 11/20/16 09:35 Respiratory Rate 18 11/20/16 09:00 Blood Pressure 126/85 11/20/16 09:00 O2 Sat by Pulse Oximetry (%) 97 11/20/16 09:35 Constitutional: Yes: No Distress, Calm Cardiovascular: Yes: Pulse Irregular Respiratory: Yes: Regular, CTA Bilaterally Gastrointestinal: Yes: Normal Bowel Sounds, Soft Musculoskeletal: Yes: WNL Extremities: Yes: WNL Neurological: Yes: Alert, Oriented Psychiatric: Yes: Alert, Oriented Labs: CBC, BMP 11/20/16 05:35 11/20/16 05:35 INR, PTT INR 2.12 (0.82-1.09) H 11/17/16 06:00 Assessment/Plan Problem List - Problems (1) Elevated LFTs Code(s): R79.89 - OTHER SPECIFIED ABNORMAL FINDINGS OF BLOOD CHEMISTRY (2) Gallstones Code(s): K80.20 - CALCULUS OF GALLBLADDER W/O CHOLECYSTITIS W/O OBSTRUCTION (3) Acute on chronic systolic (congestive) heart failure Code(s): I50.23 - ACUTE ON CHRONIC SYSTOLIC (CONGESTIVE) HEART FAILURE (4) Anemia Code(s): D64.9 - ANEMIA, UNSPECIFIED (5) Atrial fibrillation with RVR Code(s): I48.91 - UNSPECIFIED ATRIAL FIBRILLATION (6) CAD (coronary artery disease) Code(s): I25.10 - ATHSCL HEART DISEASE OF [place] CORONARY ARTERY W/O ANG PCTRS (7) CHF (congestive heart failure) Code(s): I50.9 - HEART FAILURE, UNSPECIFIED (8) Dyspnea Code(s): R06.00 - DYSPNEA, UNSPECIFIED (9) Asthma Code(s): J45.909 - UNSPECIFIED ASTHMA, UNCOMPLICATED (10) Acute on chronic kidney failure Code(s): N17.9 - ACUTE KIDNEY FAILURE, UNSPECIFIED N18.9 - CHRONIC KIDNEY DISEASE, UNSPECIFIED (11) Ischemic cardiomyopathy Code(s): I25.5 - ISCHEMIC CARDIOMYOPATHY dirrhoea dehydration lactic acidosis leukocytosis plan stable off of abx continue to monitor
--- NOTE | 2016-11-20 16:06 | DS ---
Physical Exam: SUBJECTIVE: Patient seen and examined OBJECTIVE: Vital Signs Period Temp Pulse Resp BP Sys/Mena Pulse Ox Last 24 Hr 97.2 F-98.6 F 87-133 18-18 126-138/70-85 95-97 PHYSICAL EXAM GENERAL: The patient is awake, alert, and fully oriented, in no acute distress. HEAD: Normal with no signs of trauma. EYES: PERRL, extraocular movements intact, sclera anicteric, conjunctiva clear. ENT: Ears normal, nares patent, oropharynx clear without exudates, moist mucous membranes. NECK: Trachea midline, full range of motion, supple. LUNGS: Breath sounds equal, clear to auscultation bilaterally, no wheezes, no crackles, no accessory muscle use. HEART: Regular rate and rhythm, S1, S2 without murmur, rub or gallop. ABDOMEN: Soft, nontender, nondistended, normoactive bowel sounds, no guarding, no rebound, no hepatosplenomegaly, no masses. EXTREMITIES: 2+ pulses, warm, well-perfused, no edema. NEUROLOGICAL: Cranial nerves II through XII grossly intact. Normal speech, gait not observed. PSYCH: Normal mood, normal affect. SKIN: Warm, dry, normal turgor, no rashes or lesions noted. LABS Laboratory Results - last 24 hr 11/18/16 11/20/16 11/20/16 06:10 05:35 05:35 WBC 12.6 H RBC 3.69 Hgb 10.0 L Hct 32.5 MCV 88.2 MCH 27.0 MCHC 30.6 L RDW 19.9 H Plt Count 255 MPV 8.5 Neutrophils % Y Lymphocytes % Y Sodium 142 Potassium 4.7 Chloride 109 H Carbon Dioxide 24 Anion Gap 9 BUN 25 H Creatinine 1.4 H Random Glucose 116 H D Calcium 8.4 L Iron 24 L Transferrin 193 L Total Bilirubin 1.2 H D Direct Bilirubin 0.8 H AST 173 H D ALT 285 H Alkaline Phosphatase 396 H LD Total 360 H D Total Protein 5.9 L Albumin 2.8 L HOSPITAL COURSE: Date of Admission:11/15/16 Date of Discharge: 11/20/16 Discharge Summary Reason For Visit: LEUKOCYTOSIS LACTIC ACID ACIDOSIS Current Active Problems Acute on chronic kidney failure (Acute) Elevated LFTs (Acute) Gallstones (Acute) Lactic acid acidosis (Acute) Asthma (Chronic) Dyspnea (Chronic) Ischemic cardiomyopathy (Chronic) Leukocytosis (Chronic) Condition: Stable - Instructions Diet, Activity, Other Instructions: You were in the hospital because you had some abnormalities in some of the lab values that we tested (Lactic acid, white blood cell count, and liver enzymes) Your gallbladder test did not show any blockage, which is reassuring. Please follow up with your primary care physician in 1 week Please follow up with the research and development engineer in 1 week (Dr. Nunn) Please follow up with the nurse assessor in 1 week (Dr. Arora) Please follow up with the rumper in 1 week (Dr. Gould) Please follow up with your building rigger whenever your next appointment is scheduled for. Continue your home medications: -Pravastatin 20 mg by mouth daily -Multivitamin 1 daily -Pericolace 1 tablet as needed -Aspirin 81 mg by mouth daily -Cardizem 60 mg by mouth three times per day -Lopressor 50 mg by mouth two times per day -Xarelto 1 tablet by mouth daily Stop taking the medication: Imdur. If you have any chest pain, shortness of breath, or any other new symptoms please come back to the hospital immediately. Referrals: Raheel Gaytan MD [Staff Physician] - Uzair Gould MD [Staff Physician] - Laureen Arora MD [Staff Physician] - Bernardo Nunn MD [Staff Physician] - Disposition: HOME - Home Medications Comprehensive Discharge Medication List: Ambulatory Orders Aspirin [ASA -] 81 mg PO DAILY 10/26/16 Multivitamin [Poly-Vitamin] 1 each PO DAILY 10/26/16 Pravastatin Sodium 20 mg PO DAILY 10/26/16 Sennosides/Docusate Sodium [Pericolace -] 1 tab PO PRN 10/26/16 Miscellaneous Drug Not In Syst [Outpatient Lab Test] 1 each ASDIR #1 misc 05/22 Rivaroxaban [Xarelto] 1 each PO DAILY #30 tab.ds.pk 11/03/16 Diltiazem [Cardizem -] 60 mg PO TID #90 tablet 11/20/16 Metoprolol Tartrate [Lopressor -] 50 mg PO BID #60 tablet 11/20/16 - Discharge Referral Referred to [facility] Med [facility].: No
--- NOTE | 2016-11-20 16:35 | PN ---
Physical Exam: SUBJECTIVE: Patient seen and examined No acute events overnight. No complaints this morning. OBJECTIVE: Vital Signs Period Temp Pulse Resp BP Sys/Mena Pulse Ox Last 24 Hr 97.2 F-98.6 F 87-133 18-18 115-138/49-85 95-97 GENERAL: The patient is awake, alert, and fully oriented, in no acute distress. HEAD: Normal with no signs of trauma. EYES: Extraocular movements intact, sclera anicteric, conjunctiva clear. No ptosis. ENT: Oropharynx clear without exudates, moist mucous membranes. NECK: Trachea midline, full range of motion, supple. LUNGS: Breath sounds equal, clear to auscultation bilaterally, no wheezes, no crackles, no accessory muscle use. HEART: Regular rate and rhythm, S1, S2 without murmur, rub or gallop. ABDOMEN: Soft, nontender, nondistended, normoactive bowel sounds, no guarding, no rebound, no hepatosplenomegaly, no masses. EXTREMITIES: Poor radial pulses, warm, well-perfused, no edema. NEUROLOGICAL: Normal speech, gait not observed. PSYCH: Normal mood, normal affect. SKIN: Warm, dry, normal turgor, no rashes or lesions noted Laboratory Results - last 24 hr 11/18/16 11/20/16 11/20/16 06:10 05:35 05:35 WBC 12.6 H RBC 3.69 Hgb 10.0 L Hct 32.5 MCV 88.2 MCH 27.0 MCHC 30.6 L RDW 19.9 H Plt Count 255 MPV 8.5 Neutrophils % Y Lymphocytes % Y Sodium 142 Potassium 4.7 Chloride 109 H Carbon Dioxide 24 Anion Gap 9 BUN 25 H Creatinine 1.4 H Random Glucose 116 H D Calcium 8.4 L Iron 24 L Transferrin 193 L Total Bilirubin 1.2 H D Direct Bilirubin 0.8 H AST 173 H D ALT 285 H Alkaline Phosphatase 396 H LD Total 360 H D Total Protein 5.9 L Albumin 2.8 L Active Medications Generic Name Dose Route Start Last Admin Trade Name Freq PRN Reason Stop Dose Admin Albuterol/Ipratropium 1 amp 11/15/16 06:23 11/18/16 12:57 Duoneb - NEB 1 amp Q4H PRN Administration SHORTNESS OF BREATH Aspirin 81 mg 11/15/16 10:00 11/20/16 09:11 Asa - PO 81 mg DAILY ALESSIA Administration Atorvastatin Calcium 10 mg 11/15/16 22:00 11/19/16 21:06 Lipitor - PO 10 mg HS ALESSIA Administration Benzocaine/Menthol 1 each 11/15/16 11:03 Cepacol Lozenge - MM PRN PRN SORE THROAT Diltiazem HCl 60 mg 11/19/16 18:41 11/20/16 09:11 Cardizem - PO 60 mg BID ALESSIA Administration Metoprolol Tartrate 50 mg 11/18/16 22:00 11/20/16 09:11 Lopressor - PO 50 mg BID ALESSIA Administration Multivitamins/Minerals/Vitamin C 1 tab 11/15/16 10:00 11/20/16 09:11 Tab-A-Vit - PO 1 tab DAILY ALESSIA Administration Senna/Docusate Sodium 1 tablet 11/15/16 06:00 Pericolace - PO Q12H PRN ASSESSMENT/PLAN: 85 year old female with PMH of HTN, HLD, CHF, COPD, A fib, CAD s/p defibrillater presented to the ED with 1 week hx of SOB and 1 day hx of abdominal pain. Patient was admitted for severe sepsis and COPD exacerbation found to have transaminits, and elevated creatinine #Hyperbilirubinemia/transaminits- possibly drug induced (recent use of doxycycline) -Abdominal CT shows cholelithiasis, renal cysts, and diverticulosis -Abdominal U/s shows partially contracted gallbladder and diffuse fatty infiltration. -LFT's still elevated -Continue to trend LFT's and bili -Patient had RUQ abdominal pain -HIDA scan- No evidence of obstruction. -Hepatitis serology negative -Patient's dc cancelled due to scheduled liver biopsy, possibly #Anion gap lactic acidosis Severe sepsis of unclear etiology -WBC count- 12.6 -Lactic acid- 1.4 -UA negative -Urine/Blood Cultures negative -CXR negative for acute pathology x2 -IVF stopped due to concern for fluid overload- pt has moderate-severe LV function on prior echo during last visit -Antibiotics stopped per ID. #Asthma/COPD exacerbation- possible -1 week hx of SOB. Significantly improved -Q4h PRN nebs -CXR negative for acute pathology x2 -Currently on RA -Monitor respiratory status -PFT's outpatient with pulm #Acute on chronic kidney injury - improving -Creatinine- 1.4 -IVF stopped due to potential for fluid overload -Trend creatinine #Leukocytosis with neutrophilia -Piero test + -will follow leukocytosis -will follow up on SPEP, serum free LCs -LDH elevated -Will f/u outpatient with hematology -Start folate 1mg daily, can be discharged on folate per hematology. #A fib with RVR -Originally on Xarelto -Due to RICA, patient switched to Eliquis 2.5 mg PO BID -Switched from Eliquis to heparin drip -Lopressor and Cardizem increased to 50 po bid (lopressor) and 45 po bid ( cardizem) #HTN -Continue Home Meds (Lopressor 50 mg PO BID) #HLD -Continue Home Meds (Lipitor 10 mg PO hs) #DVT ppx -Heparin drip Visit type - Emergency Visit Emergency Visit: No - New Patient This patient is new to me today: No - Critical Care Critical Care patient: No
--- NOTE | 2016-11-20 18:09 | PN ---
Teaching Attending Note Name of Resident: Cristian Rhodes ATTENDING PHYSICIAN STATEMENT I saw and evaluated the patient. I reviewed the resident's note and discussed the case with the resident. I agree with the resident's findings and plan as documented. SUBJECTIVE: No complaints. OBJECTIVE: Vital Signs Period Temp Pulse Resp BP Sys/Mena Pulse Ox Last 24 Hr 97 F-98.5 F 87-133 18-20 115-152/49-85 95-97 HEART: Irregular, tachycardic LUNGS: Clear ABDOMEN: Obese, soft, non-tender, non-distended, normal BS EXTREMITIES: No edema ASSESSMENT AND PLAN: This is an 85-year-old woman with a history of HTN, hyperlipidemia, chronic systolic heart failure, ischemic CM, asthma/COPD, atrial fib, CAD, AICD who presented to the ER with SOB and abdominal pain. 1. Possible sepsis - No source of infection - Zosyn discontinued - WBC still elevated. She has had leukocytosis going back to 2010 - Lactic acidemia improved - Urine culture negative - Blood cultures negative - Abdominal US shows cholelithiasis, partially contracted gallbladder, diffuse fatty infiltration of liver, bilateral renal cysts - HIDA shows no evidence of acute cystic duct obstruction 2. Atrial fibrillation with RVR - Continue Lopressor, Cardizem - Hold Eliquis and start IV heparin drip in preparation for liver biopsy 3. Asthma - Continue DuoNeb as needed - Outpatient pulmonary follow-up, PFTs 4. Acute kidney injury - Improved 5. Stage 3 CKD 6. CAD with ischemic cardiomyopathy and chronic systolic heart failure - Continue aspirin, Lopressor, Imdur, Lipitor 7. HTN - Continue Lopressor, Cardizem 8. Hyperlipidemia - Continue Lipitor 9. Pulmonary HTN 10. Direct hyperbilirubinemia, hepatic transaminitis, elevated alk phos/LDH - Possible drug-induced hepatitis (recent Doxycycline) - HIDA shows no evidence of acute cystic duct obstruction, but there is delayed transit consistent with chronic cholecystitis, biliary dyskniesia, hepatocellular disease, CHF - Plan for liver biopsy
[2016-11-20] MEDS ORDERED: HEPARIN NA (PORCINE) 5,000 UNITS/ML 1ML VIAL IVPUSH PRN ×2 (18:20)
--- NOTE | 2016-11-20 18:47 | HOSP ---
Subjective - Review of Symptoms Events since last encounter: patient refusing IV placement and heparin drip. Says she doesn't want it, and wants to be left alone. Discussed risk of stroke due to her afib and reason for starting heparin drip. Patient states understanding of the risk of stroke. Says she is leaving on and just wants to be left alone until then. When I explained that the heparin drip was to prepare her for the biopsy since the eliquis has to be stopped, she said she wanted to be left alone and refused iv placement. Repeatedly asked her nurse and me to leave her alone. She rejected further discussion or conversation. Physical Examination Vital Signs: Vital Signs Temperature 97 F L 11/20/16 17:17 Pulse Rate 89 11/20/16 13:00 Respiratory Rate 20 11/20/16 17:17 Blood Pressure 152/72 11/20/16 17:17 O2 Sat by Pulse Oximetry (%) 97 11/20/16 09:35 Labs: CBC, BMP 11/20/16 05:35 11/20/16 05:35 Visit type - Emergency Visit Emergency Visit: No - New Patient This patient is new to me today: No - Critical Care Critical Care patient: No
[2016-11-20] MEDS: HEPARIN - 25,000 UNIT in SODIUM CHLORIDE 495 ML IV SCH (20:29)
[2016-11-20] MEDS: ATORVASTATIN CA 10 MG TABLET (FP) PO SCH (21:29)
[2016-11-21 00:09] LABS: ALBUMIN 2.9 g/dL (2.9-4.4); GLOBULIN, TOTAL 2.9 g/dL (2.2-3.9); M-SPIKE Not Observed g/dL (Not Observed); TOTAL PROTEIN 5.8 g/dL (6.0-8.5)
[2016-11-21] MEDS: ALBUTEROL SO4 2.5/IPRATROPIUM 0.5 INH SOL 3 ML VIAL.NEB. NEB PRN ×3 (02:33→22:50)
[2016-11-21] MEDS: MULTIVITAMINS (DAILY MVI) TABLET (FP) PO SCH (09:07)
[2016-11-21] MEDS: METOPROLOL TARTRATE 50 MG TABLET (FP) PO SCH ×2 (09:07→21:00)
[2016-11-21] MEDS: dilTIAZem HCL 30 MG TABLET (FP) PO SCH ×2 (09:07→21:00)
[2016-11-21] MEDS: ASPIRIN 81 MG CHEWABLE TABLETS PO SCH (09:07)
[2016-11-21 10:14] LABS: MCH 26.5 pg (25.7-33.7); MCHC 29.6 g/dl (32.0-36.0); MEAN CELL VOLUME 89.4 fl (80-96); MEAN PLT VOLUME 8.8 fl (7.5-11.1); PLATELET COUNT 247 K/MM3 (134-434); RDW 19.9 % (11.6-15.6); WHITE BLOOD COUNT 11.5 K/mm3 (4.0-10.0)
[2016-11-21 10:26] LABS: INR 2.22 (0.82-1.09); PROTHROMBIN TIME (PATIENT) 24.8 SEC (9.98-11.88)
[2016-11-21 11:03] LABS: ALBUMIN 2.7 g/dl (3.4-5.0); ALK PHOS 337 U/L (45-117); ANION GAP 10 (8-16); BILIRUBIN,DIRECT 0.7 mg/dL (0.0-0.2); BILIRUBIN,TOTAL 1.3 mg/dL (0.2-1.0); CALCIUM 8.8 mg/dL (8.5-10.1); CO2 22 mmol/L (21-32); CREATININE 1.4 mg/dL (0.55-1.02); GLUCOSE,RANDOM 171 mg/dL (74-106); SGOT/AST 92 U/L (15-37); SGPT/ALT 209 U/L (12-78); TOT PROT 5.9 g/dl (6.4-8.2)
[2016-11-21] MEDS ORDERED: HEPARIN INFUSION - 500 ML IVPB ONE (11:06)
[2016-11-21] MEDS: HEPARIN - 25,000 UNIT in SODIUM CHLORIDE 495 ML IV SCH ×2 (11:09→13:20)
[2016-11-21 11:10] LABS: ANISOCYTOSIS 2+; HYPOCHROMIA 2+; OVALOCYTES OCC; POLYCHROMASIA FEW; TARGET CELLS RARE; TEAR DROP CELLS RARE
--- NOTE | 2016-11-21 11:42 | PN ---
GI Progress Note Subjective: GASTROENTEROLOGY STILL WITH ELEVATED LFT'S HIDA NEG VIRAL STUDIES NEG PER INTERNAL MEDICINE AND CARDIOLOGY NOT HEPATIC CONGESTION CONTRAST CT OR MRI NOT DONE WAS REFUSING IV HEPARIN BUT NOW ON IV HEPARIN DRIP IR LIVER BIOPSY ORDERED - Objective Vital Signs: Vital Signs Temperature 97.5 F L 11/21/16 10:00 Pulse Rate 70 11/21/16 10:40 Respiratory Rate 20 11/21/16 10:40 Blood Pressure 130/84 11/21/16 10:00 O2 Sat by Pulse Oximetry (%) 94 L 11/20/16 20:25 Constitutional: Calm Eyes: Yes: Other (MUDDY SCLERA) HENT: Yes: Normocephalic Cardiovascular: Yes: Regular Rate and Rhythm Respiratory: Yes: WNL Gastrointestinal Inspection: Yes: WNL ...Auscultate: Yes: Normoactive Bowel Sounds ...Palpate: Yes: Soft Extremities: Yes: WNL Labs: CBC, BMP 11/21/16 09:30 11/21/16 09:30 INR, PTT INR 2.22 (0.82-1.09) H 11/21/16 09:30 Problem List - Problems (1) Elevated LFTs Assessment/Plan: CT OR MRI CONTRAST STUDY NOT DONE WILL GIVE LOW DOSE VIT K HOLD ELIQUIS STOP ASA TODAY FOLLOW INR PATIENT NOW WILLING TO HAVE HEPARIN AND LIVER BIOPSY ECTOR ZUNIGA MD Code(s): R79.89 - OTHER SPECIFIED ABNORMAL FINDINGS OF BLOOD CHEMISTRY (2) Gallstones Code(s): K80.20 - CALCULUS OF GALLBLADDER W/O CHOLECYSTITIS W/O OBSTRUCTION (3) RUQ pain Code(s): R10.11 - RIGHT UPPER QUADRANT PAIN (4) Lactic acid acidosis Code(s): E87.2 - ACIDOSIS (5) Leukocytosis Code(s): D72.829 - ELEVATED WHITE BLOOD CELL COUNT, UNSPECIFIED (6) RICA (acute kidney injury) Code(s): N17.9 - ACUTE KIDNEY FAILURE, UNSPECIFIED (7) Anemia Code(s): D64.9 - ANEMIA, UNSPECIFIED (8) CAD (coronary artery disease) Code(s): I25.10 - ATHSCL HEART DISEASE OF [place] CORONARY ARTERY W/O ANG PCTRS
[2016-11-21] MEDS ORDERED: PHYTONADIONE 10 MG/1 ML AMP IVPB ONE (11:45)
--- NOTE | 2016-11-21 13:05 | PN ---
Progress Note (short form) - Note Progress Note: Patient seen and examined. events noted. O/E: General: In NAD Extremities: No pallor or icterus, no pedal edema. Chest:CTA b/l Abdomen: soft NT Neuro: Alert and awake and oriented Current Medications Generic Name Dose Route Start Last Admin Trade Name Freq PRN Reason Stop Dose Admin Albuterol/Ipratropium 1 amp 11/15/16 06:23 11/21/16 02:33 Duoneb - NEB 1 amp Q4H PRN Administration SHORTNESS OF BREATH Aspirin 81 mg 11/15/16 10:00 11/21/16 09:07 Asa - PO 81 mg DAILY ALESSIA Administration Atorvastatin Calcium 10 mg 11/15/16 22:00 11/20/16 21:29 Lipitor - PO 10 mg HS ALESSIA Administration Benzocaine/Menthol 1 each 11/15/16 11:03 Cepacol Lozenge - MM PRN PRN SORE THROAT Diltiazem HCl 60 mg 11/19/16 18:41 11/21/16 09:07 Cardizem - PO 60 mg BID ALESSIA Administration Heparin Sodium (Porcine) 1,000 unit 11/20/16 18:20 Heparin - IVPUSH PRN PRN Heparin Heparin Sodium (Porcine) 5,000 unit 11/20/16 18:20 Heparin - IVPUSH PRN PRN Heparin Heparin Sodium (Porcine) 25, 500 mls @ 20 mls/hr 11/20/16 19:00 11/21/16 11:09 000 unit/ Sodium Chloride IV 20 mls/hr TITR ALESSIA Administration Protocol 1,000 UNIT/HR Metoprolol Tartrate 50 mg 11/18/16 22:00 11/21/16 09:07 Lopressor - PO 50 mg BID ALESSIA Administration Multivitamins/Minerals/Vitamin C 1 tab 11/15/16 10:00 11/21/16 09:07 Tab-A-Vit - PO 1 tab DAILY ALESSIA Administration Senna/Docusate Sodium 1 tablet 11/15/16 06:00 Pericolace - PO Q12H PRN Abnormal Lab Results 11/18/16 11/21/16 11/21/16 06:10 09:30 09:30 WBC 11.5 H Hgb 9.7 L MCHC 29.6 L RDW 19.9 H Monocytes % 13.0 H INR 2.22 H BUN Creatinine Random Glucose Total Bilirubin Direct Bilirubin AST ALT Alkaline Phosphatase Serum Total Protein 5.8 L Total Protein Albumin Free Naomi LC, Quant 37.0 H Free Lambda LC, Quant 35.1 H 11/21/16 09:30 WBC Hgb MCHC RDW Monocytes % INR BUN 23 H Creatinine 1.4 H Random Glucose 171 H D Total Bilirubin 1.3 H Direct Bilirubin 0.7 H AST 92 H D ALT 209 H D Alkaline Phosphatase 337 H Serum Total Protein Total Protein 5.9 L Albumin 2.7 L Free Naomi LC, Quant Free Lambda LC, Quant Last Vital Signs Temp Pulse Resp BP Pulse Ox 97.5 F L 70 20 130/84 94 L 11/21/16 10:00 11/21/16 10:40 11/21/16 10:40 11/21/16 10:00 11/20/16 20:25 Assessment/Plan: Coagulopathy , likely from elevated LFTs: -Now scheduled for liver biopsy possibly tomorrow -patient received IV Vitamin K of 10mg this afternoon -tomorrow morning 300am give 2 U of FFP ( consider lasix in between), repeat CBC /INR in the am. depending on the am INR, further step to be followed. 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 -No evidence of plasma cell disorder Chronic renal insufficiency: -continue to monitor -for now no procrit noted will follow Please call with questions discussed the plan with resident/nurse intern team.
--- NOTE | 2016-11-21 13:28 | PN ---
Teaching Attending Note Name of Resident: Cristian Rhodes ATTENDING PHYSICIAN STATEMENT I saw and evaluated the patient. I reviewed the resident's note and discussed the case with the resident. I agree with the resident's findings and plan as documented. SUBJECTIVE: No complaints. Last night, she refused heparin drip and liver biopsy. Today, she is agreeable. OBJECTIVE: Vital Signs Period Temp Pulse Resp BP Sys/Mena Pulse Ox Last 24 Hr 97 F-99.0 F 67-133 20-20 110-152/58-84 94 HEART: Irregular, tachycardic LUNGS: Clear ABDOMEN: Obese, soft, non-tender, non-distended, normal BS EXTREMITIES: No edema ASSESSMENT AND PLAN: This is an 85-year-old woman with a history of HTN, hyperlipidemia, chronic systolic heart failure, ischemic CM, asthma/COPD, atrial fib, CAD, AICD who presented to the ER with SOB and abdominal pain. 1. Possible sepsis - No source of infection - Zosyn discontinued - WBC still elevated. She has had leukocytosis going back to 2010 - Lactic acidemia improved - Urine culture negative - Blood cultures negative - Abdominal US shows cholelithiasis, partially contracted gallbladder, diffuse fatty infiltration of liver, bilateral renal cysts - HIDA shows no evidence of acute cystic duct obstruction 2. Atrial fibrillation with RVR - Continue Lopressor, Cardizem - Eliquis held and will start IV heparin drip in preparation for liver biopsy 3. Asthma - Continue DuoNeb as needed - Outpatient pulmonary follow-up, PFTs 4. Acute kidney injury - Improved 5. Stage 3 CKD - Stable 6. CAD with ischemic cardiomyopathy and chronic systolic heart failure - Continue aspirin, Lopressor, Imdur, Lipitor 7. HTN - Continue Lopressor, Cardizem 8. Hyperlipidemia - Continue Lipitor 9. Pulmonary HTN 10. Direct hyperbilirubinemia, hepatic transaminitis, elevated alk phos/LDH - Possible drug-induced hepatitis (recent Doxycycline) - HIDA shows no evidence of acute cystic duct obstruction, but there is delayed transit consistent with chronic cholecystitis, biliary dyskniesia, hepatocellular disease, CHF - Plan for liver biopsy tomorrow
--- NOTE | 2016-11-21 16:37 | PN ---
Physical Exam: SUBJECTIVE: Patient seen and examined No acute events overnight. Patient had no complaints this morning. Attempted to switch her to IV heparin yesterday, which she refused. Patient also refused her dose of eliquis last night. OBJECTIVE: Vital Signs Period Temp Pulse Resp BP Sys/Mena Pulse Ox Last 24 Hr 97 F-99.0 F 67-133 20-20 109-152/58-84 94 GENERAL: The patient is awake, alert, and fully oriented, in no acute distress. HEAD: Normal with no signs of trauma. EYES: Extraocular movements intact, sclera anicteric, conjunctiva clear. No ptosis. ENT: Oropharynx clear without exudates, moist mucous membranes. NECK: Trachea midline, full range of motion, supple. LUNGS: Breath sounds equal, clear to auscultation bilaterally, no wheezes, no crackles, no accessory muscle use. HEART: Regular rate and rhythm, S1, S2 without murmur, rub or gallop. ABDOMEN: Soft, nontender, nondistended, normoactive bowel sounds, no guarding, no rebound, no hepatosplenomegaly, no masses. EXTREMITIES: Poor radial pulses, warm, well-perfused, no edema. NEUROLOGICAL: Normal speech, gait not observed. PSYCH: Normal mood, normal affect. SKIN: Warm, dry, normal turgor, no rashes or lesions noted Laboratory Results - last 24 hr 11/18/16 11/21/16 11/21/16 06:10 09:30 09:30 WBC 11.5 H RBC 3.65 Hgb 9.7 L Hct 32.6 MCV 89.4 MCH 26.5 MCHC 29.6 L RDW 19.9 H Plt Count 247 MPV 8.8 Neutrophils % 72.0 Lymphocytes % 14.0 Monocytes % 13.0 H Myelocytes 1 D Polychromasia Few Hypochromic-Microcytic 2+ Anisocytosis 2+ Target Cells Rare Tear Drop Cells Rare Ovalocytes Occ INR 2.22 H PTT (Actin FS) Sodium Potassium Chloride Carbon Dioxide Anion Gap BUN Creatinine Random Glucose Calcium Total Bilirubin Direct Bilirubin AST ALT Alkaline Phosphatase Prot Electrophoresis Serum Total Protein 5.8 L Total Protein Albumin 2.9 Globulin 2.9 Albumin/Globulin Ratio 1.0 Iwple-3-Vkzpbapwz 0.3 Wkyed-8-Rpnlzqvmt 0.7 Beta Globulins 0.7 Gamma Globulins 1.2 SANDRA M-Lino Not observed Free [place] LC, Quant 37.0 H Free Lambda LC, Quant 35.1 H Free [place]/Lambda Ratio 1.05 11/21/16 11/21/16 09:30 11:17 WBC RBC Hgb Hct MCV MCH MCHC RDW Plt Count MPV Neutrophils % Lymphocytes % Monocytes % Myelocytes Polychromasia Hypochromic-Microcytic Anisocytosis Target Cells Tear Drop Cells Ovalocytes INR PTT (Actin FS) 31.4 Sodium 138 Potassium 4.7 Chloride 106 Carbon Dioxide 22 Anion Gap 10 BUN 23 H Creatinine 1.4 H Random Glucose 171 H D Calcium 8.8 Total Bilirubin 1.3 H Direct Bilirubin 0.7 H AST 92 H D ALT 209 H D Alkaline Phosphatase 337 H Prot Electrophoresis Serum Total Protein Total Protein 5.9 L Albumin 2.7 L Globulin Albumin/Globulin Ratio Tkerg-1-Feaflvljb Eprbq-2-Uzisoclmo Beta Globulins Gamma Globulins SANDRA M-Lino Free [place] LC, Quant Free Lambda LC, Quant Free [place]/Lambda Ratio Active Medications Generic Name Dose Route Start Last Admin Trade Name Freq PRN Reason Stop Dose Admin Albuterol/Ipratropium 1 amp 11/15/16 06:23 11/21/16 15:11 Duoneb - NEB 1 amp Q4H PRN Administration SHORTNESS OF BREATH Aspirin 81 mg 11/15/16 10:00 11/21/16 09:07 Asa - PO 81 mg DAILY ALESSIA Administration Atorvastatin Calcium 10 mg 11/15/16 22:00 11/20/16 21:29 Lipitor - PO 10 mg HS ALESSIA Administration Benzocaine/Menthol 1 each 11/15/16 11:03 Cepacol Lozenge - MM PRN PRN SORE THROAT Diltiazem HCl 60 mg 11/19/16 18:41 11/21/16 09:07 Cardizem - PO 60 mg BID ALESSIA Administration Heparin Sodium (Porcine) 1,000 unit 11/20/16 18:20 Heparin - IVPUSH PRN PRN Heparin Heparin Sodium (Porcine) 5,000 unit 11/20/16 18:20 11/21/16 13:10 Heparin - IVPUSH 5,000 unit PRN PRN Administration Heparin Heparin Sodium (Porcine) 25, 500 mls @ 20 mls/hr 11/20/16 19:00 11/21/16 13:20 000 unit/ Sodium Chloride IV 23 mls/hr TITR ALESSIA Administration Protocol 1,000 UNIT/HR Metoprolol Tartrate 50 mg 11/18/16 22:00 11/21/16 09:07 Lopressor - PO 50 mg BID ALESSIA Administration Multivitamins/Minerals/Vitamin C 1 tab 11/15/16 10:00 11/21/16 09:07 Tab-A-Vit - PO 1 tab DAILY ALESSIA Administration Senna/Docusate Sodium 1 tablet 11/15/16 06:00 Pericolace - PO Q12H PRN ASSESSMENT/PLAN: 85 year old female with PMH of HTN, HLD, CHF, COPD, A fib, CAD s/p defibrillater presented to the ED with 1 week hx of SOB and 1 day hx of abdominal pain. Patient was admitted for severe sepsis and COPD exacerbation found to have transaminits, and elevated creatinine #Hyperbilirubinemia/transaminits- possibly drug induced (recent use of doxycycline) -Abdominal CT shows cholelithiasis, renal cysts, and diverticulosis -Abdominal U/s shows partially contracted gallbladder and diffuse fatty infiltration. -LFT's still elevated -Continue to trend LFT's and bili -HIDA scan- No evidence of obstruction. -Hepatitis serology negative -Patient's dc cancelled due to scheduled liver biopsy, possibly tomorrow -Patient received IV Vitamin K today. -INR of 2.2 today -Patient's eliquis stopped and started on Heparin drip today. Will give 2 units of FFP at 0300 (possibly give lasix in between if fluid overloaded) and repeat CBC/INR at 0600 to get INR <1.5. #Anion gap lactic acidosis Severe sepsis of unclear etiology -WBC count- 11.5 -Lactic acid- 1.4 -UA negative -Urine/Blood Cultures negative -CXR negative for acute pathology x2 -IVF stopped due to concern for fluid overload- pt has moderate-severe LV function on prior echo during last visit -Antibiotics stopped per ID. #Asthma/COPD exacerbation- possible -1 week hx prior to admission of SOB. Significantly improved -Q4h PRN nebs -CXR negative for acute pathology x2 -Currently on RA -Monitor respiratory status -PFT's outpatient with pulm #Acute on chronic kidney injury - improving -Creatinine- 1.4 -IVF stopped due to potential for fluid overload -Trend creatinine #Leukocytosis with neutrophilia -Piero test + -will follow leukocytosis -will follow up on SPEP, serum free LCs -LDH elevated -Will f/u outpatient with hematology -Start folate 1mg daily, can be discharged on folate per hematology. #A fib with RVR -Originally on Xarelto -Due to RICA, patient switched to Eliquis 2.5 mg PO BID -Switched from Eliquis to heparin drip -Lopressor and Cardizem increased to 50 po bid (lopressor) and 45 po bid ( cardizem) #HTN -Continue Home Meds (Lopressor 50 mg PO BID) #HLD -Continue Home Meds (Lipitor 10 mg PO hs) #DVT ppx -Heparin drip Visit type - Emergency Visit Emergency Visit: No - New Patient This patient is new to me today: No - Critical Care Critical Care patient: No
--- NOTE | 2016-11-21 17:43 | PN ---
Progress Note, Physician History of Present Illness: patient continues to have elevated lft no other issues plan is for liver biopsy on heparin drip now - Current Medication List Current Medications: Active Medications Albuterol/Ipratropium (Duoneb -) 1 amp NEB Q4H PRN PRN Reason: SHORTNESS OF BREATH Last Admin: 11/21/16 15:11 Dose: 1 amp Aspirin (Asa -) 81 mg PO DAILY [facility] Last Admin: 11/21/16 09:07 Dose: 81 mg Atorvastatin Calcium (Lipitor -) 10 mg PO HS [facility] Last Admin: 11/20/16 21:29 Dose: 10 mg Benzocaine/Menthol (Cepacol Lozenge -) 1 each MM PRN PRN PRN Reason: SORE THROAT Diltiazem HCl (Cardizem -) 60 mg PO BID [facility] Last Admin: 11/21/16 09:07 Dose: 60 mg Heparin Sodium (Porcine) (Heparin -) 1,000 unit IVPUSH PRN PRN PRN Reason: Heparin Heparin Sodium (Porcine) (Heparin -) 5,000 unit IVPUSH PRN PRN PRN Reason: Heparin Last Admin: 11/21/16 13:10 Dose: 5,000 unit Heparin Sodium (Porcine) 25, (000 unit/ Sodium Chloride) 500 mls @ 20 mls/hr IV TITR ALESSIA; 1,000 UNIT/HR PRN Reason: Protocol Last Admin: 11/21/16 13:20 Dose: 23 mls/hr Metoprolol Tartrate (Lopressor -) 50 mg PO BID [facility] Last Admin: 11/21/16 09:07 Dose: 50 mg Multivitamins/Minerals/Vitamin C (Tab-A-Vit -) 1 tab PO DAILY [facility] Last Admin: 11/21/16 09:07 Dose: 1 tab Senna/Docusate Sodium (Pericolace -) 1 tablet PO Q12H PRN - Objective Vital Signs: Vital Signs Temperature 98.0 F 11/21/16 14:00 Pulse Rate 112 H 11/21/16 14:00 Respiratory Rate 20 11/21/16 14:00 Blood Pressure 109/69 11/21/16 14:00 O2 Sat by Pulse Oximetry (%) 94 L 11/20/16 20:25 Constitutional: Yes: No Distress, Calm Cardiovascular: Yes: S1, S2 Respiratory: Yes: Regular, CTA Bilaterally Gastrointestinal: Yes: Normal Bowel Sounds, Soft Musculoskeletal: Yes: WNL Extremities: Yes: WNL Neurological: Yes: Alert, Oriented Psychiatric: Yes: Alert Labs: CBC, BMP 11/21/16 09:30 11/21/16 09:30 INR, PTT INR 2.22 (0.82-1.09) H 11/21/16 09:30 Assessment/Plan Problem List - Problems (1) Elevated LFTs Code(s): R79.89 - OTHER SPECIFIED ABNORMAL FINDINGS OF BLOOD CHEMISTRY (2) Gallstones Code(s): K80.20 - CALCULUS OF GALLBLADDER W/O CHOLECYSTITIS W/O OBSTRUCTION (3) Acute on chronic systolic (congestive) heart failure Code(s): I50.23 - ACUTE ON CHRONIC SYSTOLIC (CONGESTIVE) HEART FAILURE (4) Anemia Code(s): D64.9 - ANEMIA, UNSPECIFIED (5) Atrial fibrillation with RVR Code(s): I48.91 - UNSPECIFIED ATRIAL FIBRILLATION (6) CAD (coronary artery disease) Code(s): I25.10 - ATHSCL HEART DISEASE OF [place] CORONARY ARTERY W/O ANG PCTRS (7) CHF (congestive heart failure) Code(s): I50.9 - HEART FAILURE, UNSPECIFIED (8) Dyspnea Code(s): R06.00 - DYSPNEA, UNSPECIFIED (9) Asthma Code(s): J45.909 - UNSPECIFIED ASTHMA, UNCOMPLICATED (10) Acute on chronic kidney failure Code(s): N17.9 - ACUTE KIDNEY FAILURE, UNSPECIFIED N18.9 - CHRONIC KIDNEY DISEASE, UNSPECIFIED (11) Ischemic cardiomyopathy Code(s): I25.5 - ISCHEMIC CARDIOMYOPATHY dirrhoea dehydration lactic acidosis leukocytosis plan stable off of abx continue to monitor patient going for liver biopsy gi following
--- NOTE | 2016-11-21 19:31 | PN ---
Progress Note, Physician History of Present Illness: discussed with IR and hematology to defer biopsy until patient is appropriately not coagualted. patient is on ASA 81 and received dose this morning. Will need to hold ASA for minimum 5 days prior to procedure. FFP's canceled, heparin drip canceled, pt will be given evening dose of eliquis. decision to complete biopsy to be discussed with family in the morning. - Current Medication List Current Medications: Active Medications Albuterol/Ipratropium (Duoneb -) 1 amp NEB Q4H PRN PRN Reason: SHORTNESS OF BREATH Last Admin: 11/21/16 15:11 Dose: 1 amp Apixaban (Eliquis -) 2.5 mg PO BID [facility] Aspirin (Asa -) 81 mg PO DAILY [facility] Last Admin: 11/21/16 09:07 Dose: 81 mg Atorvastatin Calcium (Lipitor -) 10 mg PO HS [facility] Last Admin: 11/20/16 21:29 Dose: 10 mg Benzocaine/Menthol (Cepacol Lozenge -) 1 each MM PRN PRN PRN Reason: SORE THROAT Diltiazem HCl (Cardizem -) 60 mg PO BID [facility] Last Admin: 11/21/16 09:07 Dose: 60 mg Metoprolol Tartrate (Lopressor -) 50 mg PO BID [facility] Last Admin: 11/21/16 09:07 Dose: 50 mg Multivitamins/Minerals/Vitamin C (Tab-A-Vit -) 1 tab PO DAILY [facility] Last Admin: 11/21/16 09:07 Dose: 1 tab Senna/Docusate Sodium (Pericolace -) 1 tablet PO Q12H PRN - Objective Vital Signs: Vital Signs Temperature 98.0 F 11/21/16 14:00 Pulse Rate 112 H 11/21/16 14:00 Respiratory Rate 20 11/21/16 14:00 Blood Pressure 109/69 11/21/16 14:00 O2 Sat by Pulse Oximetry (%) 96 11/21/16 09:00 Labs: CBC, BMP 11/21/16 09:30 11/21/16 09:30 INR, PTT INR 2.22 (0.82-1.09) H 11/21/16 09:30
[2016-11-21] MEDS: APIXABAN 2.5 MG TABLET PO SCH (21:00)
[2016-11-21] MEDS: ATORVASTATIN CA 10 MG TABLET (FP) PO SCH (21:00)
[2016-11-22 07:15] LABS: INR 2.52 (0.82-1.09); PROTHROMBIN TIME (PATIENT) 28.3 SEC (9.98-11.88)
[2016-11-22 07:16] LABS: MCH 26.7 pg (25.7-33.7); MCHC 30.2 g/dl (32.0-36.0); MEAN CELL VOLUME 88.6 fl (80-96); MEAN PLT VOLUME 8.7 fl (7.5-11.1); PLATELET COUNT 250 K/MM3 (134-434); RDW 20.3 % (11.6-15.6); WHITE BLOOD COUNT 11.7 K/mm3 (4.0-10.0)
[2016-11-22 07:35] LABS: ALBUMIN 2.9 g/dl (3.4-5.0); ALK PHOS 389 U/L (45-117); ANION GAP 8 (8-16); BILIRUBIN,DIRECT 1.1 mg/dL (0.0-0.2); BILIRUBIN,TOTAL 1.8 mg/dL (0.2-1.0); CALCIUM 8.7 mg/dL (8.5-10.1); CO2 24 mmol/L (21-32); CREATININE 1.6 mg/dL (0.55-1.02); GLUCOSE,RANDOM 96 mg/dL (74-106); LDH 377 U/L (84-246); SGOT/AST 83 U/L (15-37); SGPT/ALT 192 U/L (12-78); TOT PROT 6.2 g/dl (6.4-8.2)
[2016-11-22] MEDS: METOPROLOL TARTRATE 50 MG TABLET (FP) PO SCH (09:45)
[2016-11-22] MEDS: MULTIVITAMINS (DAILY MVI) TABLET (FP) PO SCH (09:45)
[2016-11-22] MEDS: dilTIAZem HCL 30 MG TABLET (FP) PO SCH (09:46)
[2016-11-22] MEDS: APIXABAN 2.5 MG TABLET PO SCH (09:53)
[2016-11-22 11:37] LABS: METAMYELOCYTE 2 % (0-2); PLATELET ESTIMATE ADEQUATE (NORMAL)
--- NOTE | 2016-11-22 12:09 | PN ---
Progress Note (short form) - Note Progress Note: Patient seen and examined. events noted. She denies having any pain. She mentioned that she wanted to go home liver biopsy not being done due to pt being on aspirin . O/E: General: In NAD Extremities: No pallor or icterus, no pedal edema. Chest:CTA b/l Abdomen: soft NT Neuro: Alert and awake and oriented Last Vital Signs Temp Pulse Resp BP Pulse Ox 97.6 F 137 H 20 130/90 97 11/22/16 10:00 11/22/16 10:00 11/22/16 10:00 11/22/16 10:00 11/22/16 09:00 Abnormal Lab Results 11/21/16 11/22/16 11/22/16 19:30 05:35 05:35 WBC 11.7 H Hgb 10.2 L MCHC 30.2 L RDW 20.3 H INR PTT (Actin FS) 148.2 H D Potassium 5.3 H BUN 26 H Creatinine 1.6 H Total Bilirubin 1.8 H D Direct Bilirubin 1.1 H D AST 83 H ALT 192 H Alkaline Phosphatase 389 H LD Total 377 H Total Protein 6.2 L Albumin 2.9 L 11/22/16 05:35 WBC Hgb MCHC RDW INR 2.52 H PTT (Actin FS) Potassium BUN Creatinine Total Bilirubin Direct Bilirubin AST ALT Alkaline Phosphatase LD Total Total Protein Albumin Current Medications Generic Name Dose Route Start Last Admin Trade Name Freq PRN Reason Stop Dose Admin Albuterol/Ipratropium 1 amp 11/15/16 06:23 11/21/16 22:50 Duoneb - NEB 1 amp Q4H PRN Administration SHORTNESS OF BREATH Apixaban 2.5 mg 11/21/16 22:00 11/22/16 09:53 Eliquis - PO 2.5 mg BID ALESSIA Administration Aspirin 81 mg 11/15/16 10:00 11/21/16 09:07 Asa - PO 81 mg DAILY ALESSIA Administration Atorvastatin Calcium 10 mg 11/15/16 22:00 11/21/16 21:00 Lipitor - PO 10 mg HS ALESSIA Administration Benzocaine/Menthol 1 each 11/15/16 11:03 11/21/16 21:00 Cepacol Lozenge - MM 1 each PRN PRN Administration SORE THROAT Diltiazem HCl 60 mg 11/19/16 18:41 11/22/16 09:46 Cardizem - PO 60 mg BID ALESSIA Administration Metoprolol Tartrate 50 mg 11/18/16 22:00 11/22/16 09:45 Lopressor - PO 50 mg BID ALESSIA Administration Multivitamins/Minerals/Vitamin C 1 tab 11/15/16 10:00 11/22/16 09:45 Tab-A-Vit - PO 1 tab DAILY ALESSIA Administration Senna/Docusate Sodium 1 tablet 11/15/16 06:00 11/22/16 09:46 Pericolace - PO 1 tablet Q12H PRN Administration Last Vital Signs Temp Pulse Resp BP Pulse Ox 97.6 F 137 H 20 130/90 97 11/22/16 10:00 11/22/16 10:00 11/22/16 10:00 11/22/16 10:00 11/22/16 09:00 Assessment/Plan: Coagulopathy , likely from liver function: -Liver biopsy not done, due to the pt being on aspirin -Pt is s/p Vit K on 11/21 -spoke to team, planned to discuss with family further Afib: -pt now back on eliquis -cardiology follow-up Leukocytosis with neutrophilia: -chronic, likely reactive, than a clonal proliferative disorder Anemia: -Normocytic, 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 -No evidence of plasma cell disorder Chronic renal insufficiency: -continue to monitor -for now no procrit noted will follow Please call with questions
[2016-11-22] MEDS: ALBUTEROL SO4 2.5/IPRATROPIUM 0.5 INH SOL 3 ML VIAL.NEB. NEB PRN (13:14)
--- NOTE | 2016-11-22 13:19 | PN ---
Progress Note (short form) - Note Progress Note: PULMONARY Used nebulizers 3x yesterday. +nonproductive cough and wheezing. Last Vital Signs Temp Pulse Resp BP Pulse Ox 97.6 F 88 20 130/90 95 11/22/16 10:00 11/22/16 12:50 11/22/16 10:00 11/22/16 10:00 11/22/16 12:50 Gen: NAD at rest Heart: RRR Lung: scattered wheeze Abd: soft, nontender Ext: no edema CBC, BMP 11/22/16 05:35 11/22/16 05:35 Active Medications Albuterol/Ipratropium (Duoneb -) 1 amp NEB Q4H PRN PRN Reason: SHORTNESS OF BREATH Last Admin: 11/22/16 13:14 Dose: 1 amp Apixaban (Eliquis -) 2.5 mg PO BID [facility] Last Admin: 11/22/16 09:53 Dose: 2.5 mg Aspirin (Asa -) 81 mg PO DAILY [facility] Last Admin: 11/21/16 09:07 Dose: 81 mg Atorvastatin Calcium (Lipitor -) 10 mg PO HS [facility] Last Admin: 11/21/16 21:00 Dose: 10 mg Benzocaine/Menthol (Cepacol Lozenge -) 1 each MM PRN PRN PRN Reason: SORE THROAT Last Admin: 11/21/16 21:00 Dose: 1 each Diltiazem HCl (Cardizem -) 60 mg PO BID [facility] Last Admin: 11/22/16 09:46 Dose: 60 mg Metoprolol Tartrate (Lopressor -) 50 mg PO BID [facility] Last Admin: 11/22/16 09:45 Dose: 50 mg Multivitamins/Minerals/Vitamin C (Tab-A-Vit -) 1 tab PO DAILY [facility] Last Admin: 11/22/16 09:45 Dose: 1 tab Senna/Docusate Sodium (Pericolace -) 1 tablet PO Q12H PRN Last Admin: 11/22/16 09:46 Dose: 1 tablet A/P LV Systolic Dysfunction s/p ICD CAD Atrial Fibrillation Acute on Chronic Renal Failure Asthma Elevated LFTs - will start standing nebulizers in addition to PRN - will start symbicort 160/4.5mcg 2 puffs BID - outpt PFTs - rate controlled - continue anticoagulation
[2016-11-22] MEDS ORDERED: ALBUTEROL SO4 0.083% IH SOL 2.5 MG/3 ML VIAL.NEB. NEB PRN (13:20)
[2016-11-22] MEDS ORDERED: ALBUTEROL SO4 2.5/IPRATROPIUM 0.5 INH SOL 3 ML VIAL.NEB. NEB SCH (14:00)
[2016-11-22] MEDS ORDERED: AMIODARONE HCL 200 MG TABLET (FP) PO SCH (14:00)
[2016-11-22 14:51] VITALS: BP 111/53; PULSE 65; TEMP 97.8
--- NOTE | 2016-11-22 16:21 | PN ---
Progress Note, Physician History of Present Illness: patient is doing well no new issues plan is for biopsy as out patient ' daughter in room - Current Medication List Current Medications: Active Medications Albuterol Sulfate (Ventolin 0.083% Nebulizer Soln -) 1 amp NEB Q4H PRN PRN Reason: SHORT OF BREATH/WHEEZING Albuterol/Ipratropium (Duoneb -) 1 amp NEB TID [facility] Last Admin: 11/22/16 13:14 Dose: Not Given Amiodarone HCl (Cordarone -) 400 mg PO DAILY [facility] Last Admin: 11/22/16 15:42 Dose: 400 mg Apixaban (Eliquis -) 2.5 mg PO BID [facility] Last Admin: 11/22/16 09:53 Dose: 2.5 mg Aspirin (Asa -) 81 mg PO DAILY [facility] Last Admin: 11/21/16 09:07 Dose: 81 mg Atorvastatin Calcium (Lipitor -) 10 mg PO HS [facility] Last Admin: 11/21/16 21:00 Dose: 10 mg Benzocaine/Menthol (Cepacol Lozenge -) 1 each MM PRN PRN PRN Reason: SORE THROAT Last Admin: 11/21/16 21:00 Dose: 1 each Budesonide/Formoterol Fumarate (Symbicort 160/4.5mcg -) 2 puff IH BID [facility] Diltiazem HCl (Cardizem -) 60 mg PO BID [facility] Last Admin: 11/22/16 09:46 Dose: 60 mg Metoprolol Tartrate (Lopressor -) 50 mg PO BID [facility] Last Admin: 11/22/16 09:45 Dose: 50 mg Multivitamins/Minerals/Vitamin C (Tab-A-Vit -) 1 tab PO DAILY [facility] Last Admin: 11/22/16 09:45 Dose: 1 tab Senna/Docusate Sodium (Pericolace -) 1 tablet PO Q12H PRN Last Admin: 11/22/16 09:46 Dose: 1 tablet - Objective Vital Signs: Vital Signs Temperature 97.8 F 11/22/16 14:41 Pulse Rate 65 11/22/16 14:41 Respiratory Rate 20 11/22/16 14:41 Blood Pressure 111/53 11/22/16 14:41 O2 Sat by Pulse Oximetry (%) 95 11/22/16 12:50 Constitutional: Yes: No Distress, Calm Cardiovascular: Yes: Pulse Irregular, S1, S2 Respiratory: Yes: Regular, On Nasal O2, Poor Air Entry Gastrointestinal: Yes: Normal Bowel Sounds, Soft Musculoskeletal: Yes: WNL Extremities: Yes: WNL Neurological: Yes: Alert, Oriented Psychiatric: Yes: Alert, Oriented Labs: CBC, BMP 11/22/16 05:35 11/22/16 05:35 INR, PTT INR 2.52 (0.82-1.09) H 11/22/16 05:35 Assessment/Plan Problem List - Problems (1) Elevated LFTs Code(s): R79.89 - OTHER SPECIFIED ABNORMAL FINDINGS OF BLOOD CHEMISTRY (2) Gallstones Code(s): K80.20 - CALCULUS OF GALLBLADDER W/O CHOLECYSTITIS W/O OBSTRUCTION (3) Acute on chronic systolic (congestive) heart failure Code(s): I50.23 - ACUTE ON CHRONIC SYSTOLIC (CONGESTIVE) HEART FAILURE (4) Anemia Code(s): D64.9 - ANEMIA, UNSPECIFIED (5) Atrial fibrillation with RVR Code(s): I48.91 - UNSPECIFIED ATRIAL FIBRILLATION (6) CAD (coronary artery disease) Code(s): I25.10 - ATHSCL HEART DISEASE OF [place] CORONARY ARTERY W/O ANG PCTRS (7) CHF (congestive heart failure) Code(s): I50.9 - HEART FAILURE, UNSPECIFIED (8) Dyspnea Code(s): R06.00 - DYSPNEA, UNSPECIFIED (9) Asthma Code(s): J45.909 - UNSPECIFIED ASTHMA, UNCOMPLICATED (10) Acute on chronic kidney failure Code(s): N17.9 - ACUTE KIDNEY FAILURE, UNSPECIFIED N18.9 - CHRONIC KIDNEY DISEASE, UNSPECIFIED (11) Ischemic cardiomyopathy Code(s): I25.5 - ISCHEMIC CARDIOMYOPATHY dirrhoea dehydration lactic acidosis leukocytosis plan stable no new issues incentive eneida rest as per primary
--- NOTE | 2016-11-22 16:54 | PN ---
Progress Note (short form) - Note Progress Note: Discussed with daughter Aisha and Ms. Pinedo that we were unable to do complete the biopsy as patient needed to be off aspirin for 5 days. Ms. Pinedo declined further testing and wants to go home. Aisha and Ms. Pinedo are aware she was only able to ambulate 20 feet today and there was a new medication added, I recommended she stay in the hospital to assess her response to the medication, further evaluate her poor ambulation and possible need for home oxygen and I further recommended rehab rather than home. Ms. Pinedo declined further offers, does not want to go to rehab. Aisha will be taking her to her home and says there will be a visiting nurse coming to the see Ms. Pinedo tomorrow. Aisha's brother will help Ms. Pinedo with her walking and maintain her activity levels. Abnormal labs tests, including hematological work-up, liver work up were discussed, including pre-biopsy optimization with FFP's, repeat lab work and possible requirement of re-hospitalization as well as risks of bleeding after the biopsy, risk of stroke while not be anti-coagulated. I answered their questions to their satisfaction. At this time Ms. Pinedo does not want any further work-up and does not want a a biopsy. She and Aisha will be discussing with the rest of the family whether they want to investigate Ms. Pinedo's abnormal liver tests, if they want a biopsy and what they will do depending on the biopsy results. At this time Ms. Pinedo does not want any invasive surgeries or work-ups, " we all have to go sometime for something." We reviewed her medications and prepared her medication pill box. I reviewed the medication list with Aisha and follow-up with sub specialists and PCP.
[2016-11-22] MEDS ORDERED: dilTIAZem HCL 60 MG TABLET (FP) PO ONE (16:55)
[2016-11-22] MEDS ORDERED: APIXABAN 2.5 MG TABLET PO STA (16:55)
--- NOTE | 2016-11-22 17:03 | PN ---
Teaching Attending Note Name of Resident: Cristian Rhodes ATTENDING PHYSICIAN STATEMENT I saw and evaluated the patient. I reviewed the resident's note and discussed the case with the resident. I agree with the resident's findings and plan as documented. SUBJECTIVE: Patient has no complaints. OBJECTIVE: Vital Signs Period Temp Pulse Resp BP Sys/Mena Pulse Ox Last 24 Hr 97.6 F-98.4 F 65-137 20-20 111-161/53-99 95-97 HEART: Irregularly irregular LUNGS: Clear ABDOMEN: Obese, soft, non-tender, non-distended, normal BS EXTREMITIES: No edema ASSESSMENT AND PLAN: This is an 85-year-old woman with a history of HTN, hyperlipidemia, chronic systolic heart failure, ischemic CM, asthma/COPD, atrial fib, CAD, AICD who presented to the ER with SOB and abdominal pain. 1. Possible sepsis - No source of infection - Zosyn discontinued - WBC still elevated. She has had leukocytosis going back to 2010 - Lactic acidemia improved - Urine culture negative - Blood cultures negative - Abdominal US shows cholelithiasis, partially contracted gallbladder, diffuse fatty infiltration of liver, bilateral renal cysts - HIDA shows no evidence of acute cystic duct obstruction 2. Atrial fibrillation with RVR - Continue Lopressor, Cardizem, Eliquis 3. Asthma - Continue DuoNeb as needed - Outpatient pulmonary follow-up, PFTs 4. Acute kidney injury - Improved 5. Stage 3 CKD - Stable 6. CAD with ischemic cardiomyopathy and chronic systolic heart failure - Continue aspirin, Lopressor, Imdur, Lipitor 7. HTN - Continue Lopressor, Cardizem 8. Hyperlipidemia - Continue Lipitor 9. Pulmonary HTN 10. Direct hyperbilirubinemia, hepatic transaminitis, elevated alk phos/LDH - Possible drug-induced hepatitis (recent Doxycycline) - HIDA shows no evidence of acute cystic duct obstruction, but there is delayed transit consistent with chronic cholecystitis, biliary dyskinesia, hepatocellular disease, CHF - Liver biopsy not done because patient has been on aspirin - At this time, patient and family do not want to have it done - it can be done as outpatient if they decide to pursue work-up 11. Disposition - Patient does not want rehab. Will discharge home with family and VNS
[2016-11-22] MEDS ORDERED: BUDESONIDE/FORMETEROL FUMARATE 160/4.5 mcg INHALER IH SCH (22:00)
== END 2016-11-22 17:30 | disposition home or self-care (01) | DRG 872 ==
LOC: JER 21:29 → JERBED 11-15 02:49 → UNDOADMIN 11-15 02:55 → J4S 11-15 04:39
PROVIDERS: ADMIT Internal Medicine; ATTEND Internal Medicine
DX: A41.9 Sepsis, unspecified organism (principal); E87.2 Acidosis; N17.9 Acute kidney failure, unspecified; I13.0 Hypertensive heart and chronic kidney disease with heart failure and stage 1 through stage 4 chronic kidney disease, or unspecified chronic kidney disease; J45.901 Unspecified asthma with (acute) exacerbation; J44.1 Chronic obstructive pulmonary disease with (acute) exacerbation; I50.22 Chronic systolic (congestive) heart failure; D68.9 Coagulation defect, unspecified; J98.11 Atelectasis; I25.10 Atherosclerotic heart disease of native coronary artery without angina pectoris; E78.5 Hyperlipidemia, unspecified; J45.909 Unspecified asthma, uncomplicated; R65.20 Severe sepsis without septic shock; E86.1 Hypovolemia; N18.9 Chronic kidney disease, unspecified; E66.9 Obesity, unspecified; I48.91 Unspecified atrial fibrillation; J44.9 Chronic obstructive pulmonary disease, unspecified; E80.6 Other disorders of bilirubin metabolism; E86.0 Dehydration; R19.7 Diarrhea, unspecified; I25.5 Ischemic cardiomyopathy; D64.9 Anemia, unspecified; Z95.810 Presence of automatic (implantable) cardiac defibrillator; N18.3 Chronic kidney disease, stage 3 (moderate); I27.2 Other secondary pulmonary hypertension; K81.1 Chronic cholecystitis; Z68.32 Body mass index [BMI] 32.0-32.9, adult
CPT/HCPCS: 36415; 36600; 71010-TC; 71020-TC; 74176-TC; 76700-TC; 78226-TC; 80048; 80053; 80074; 80076; 80162; 80307; 81003; 81015; 82248; 82436; 82550; 82570; 82728; 82803; 83010; 83540; 83605; 83615; 83690; 83735; 83883; 84100; 84133; 84155; 84165; 84300; 84443; 84466; 84484; 84550; 85025; 85027; 85044; 85610; 85730; 86850; 86880; 86900; 86901; 87040; 87086; 93005; 93010; 94640; 97116-GP; 97161-GP; 99283-25; A9537; J1644